=== PATIENT | male | born 1960 | race Caucasian/White ===

== ENCOUNTER 2019-12-18 07:51 | Outpatient (REF) | payer OTHER, SELFPAY ==
[2019-12-18 09:13] LABS: Anion Gap 14 (12-20); Blood Urea Nitrogen 40 mg/dL (9-16); Calcium 10.1 mg/dL (8.4-10.2); Carbon Dioxide 25 mmol/L (22-29); Chloride 104 mmol/L (96-108); Estimated Glomerular Filt Rate 40; Phosphorus 2.7 mg/dL (2.7-4.5); Potassium 4.8 mmol/l (3.3-5.1); Sodium 138 mmol/L (135-145)
[2019-12-18 10:05] LABS: Renal w Reflex Lab Use Only Order verified
== END 2019-12-18 07:52 | disposition home or self-care (01) ==
LOC: HO.LAB 07:51
PROVIDERS: PCP Internal Medicine; Visit Provider Internal Medicine Nephrology
DX: E11.21 Type 2 diabetes mellitus with diabetic nephropathy (principal); E11.22 Type 2 diabetes mellitus with diabetic chronic kidney disease; I12.9 Hypertensive chronic kidney disease with stage 1 through stage 4 chronic kidney disease, or unspecified chronic kidney disease; N18.30 Chronic kidney disease, stage 3 unspecified
CPT/HCPCS: 80051; 82310; 82565; 84100; 84520

== ENCOUNTER 2020-01-06 06:31 | Day surgery (SDC) | payer OTHER, SELFPAY ==
[2019-12-31 13:39] VITALS: BMI 34.8
--- NOTE | 2020-01-01 13:07 | P.CONAN_ITS ---
Documented by User: Audrey Espinosa 01/05/20 09:03 HPI - Anesthesia Eval Consult details Narrative: 59yo M for Colonoscopy Legally blind FOR[facility]LY [facility], [facility] Past Medical History Medical History Arthritis Bladder cancer CKD (chronic kidney disease) Diabetes Diabetes type 2, controlled DVT (deep venous thrombosis) Dyslipidemia HTN (hypertension) Legally blind Sleep apnea Iraqi speaking patient Thyroid disease Surgical History Surgical History H/O colonoscopy History of biopsy of bladder Hx of circumcision Hx of cystoscopy Hx of eye surgery Hx of knee surgery S/P insertion of IVC (inferior vena caval) filter Social History Social History Smoking Status: Never smoker Use of substances other than those prescribed or required for medical reasons: No Have you been hit, kicked, punched, or otherwise hurt by someone within the past year? If so, by whom?: No Advance Directives Information Provided: No Recently lost weight without trying: No Meds Allergies Allergy/AdvReac Type Severity Reaction Status Date / Time Penicillins [PENICILLINS] Allergy Intermediate RASH Verified 01/06/20 06:42 Home Medications Medication Instructions Recorded Confirmed Type dulaglutide [Trulicity] 1.5 mg SUBCUT QWEEK 12/31/19 12/31/19 History fenofibrate 1 tab PO DAILY 12/31/19 12/31/19 History insulin glargine [Basaglar KwikPen 40 unit SUBCUT QPM 12/31/19 12/31/19 History U-100 Insulin] insulin lispro [Admelog SoloStar 4 unit SUBCUT QID 12/31/19 12/31/19 History U-100 Insulin] levothyroxine 1 tab PO QAM 12/31/19 12/31/19 History lisinopril 1 tab PO DAILY 12/31/19 12/31/19 History lorazepam 1 tab PO BEDTIME PRN 12/31/19 12/31/19 History omega-3 fatty acids-fish oil [Fish 1 cap PO DAILY 12/31/19 12/31/19 History Oil] rivaroxaban [Xarelto] 1 tab PO DAILY 12/31/19 12/31/19 History Exam Exam Date and Time: January 01, 2020 1307 Height,Weight and Vital Signs: Height 5 ft 9 in Weight 107.048 kg Pertinent Lab Results Pertinent Lab Results: Laboratory Tests 10/13/19 12/18/19 08:57 08:10 WBC 6.7 Hgb 14.0 Hct 41.9 L Plt Count 212 Sodium 138 Potassium 4.8 Chloride 104 Carbon Dioxide 25 BUN 40 H Creatinine 1.75 H Narrative Narrative: EKG 02/2019: ST @ 112, low volt QRS Assessment and Plan Assessment Anesthesia Assessment: Chart Reviewed Documented by User: Gary Pimentel 01/06/20 07:39 PMFSH Past Medical History Medical History Arthritis Bladder cancer CKD (chronic kidney disease) Diabetes Diabetes type 2, controlled DVT (deep venous thrombosis) Dyslipidemia HTN (hypertension) Legally blind Sleep apnea Iraqi speaking patient Thyroid disease Surgical History Surgical History H/O colonoscopy History of biopsy of bladder Hx of circumcision Hx of cystoscopy Hx of eye surgery Hx of knee surgery S/P insertion of IVC (inferior vena caval) filter Social History Social History Smoking Status: Never smoker Use of substances other than those prescribed or required for medical reasons: No Have you been hit, kicked, punched, or otherwise hurt by someone within the past year? If so, by whom?: No Advance Directives Information Provided: No Recently lost weight without trying: No Meds Allergies Allergy/AdvReac Type Severity Reaction Status Date / Time Penicillins [PENICILLINS] Allergy Intermediate RASH Verified 01/06/20 06:42 Home Medications Medication Instructions Recorded Confirmed Type dulaglutide [Trulicity] 1.5 mg SUBCUT QWEEK 12/31/19 12/31/19 History fenofibrate 1 tab PO DAILY 12/31/19 12/31/19 History insulin glargine [Basaglar KwikPen 40 unit SUBCUT QPM 12/31/19 12/31/19 History U-100 Insulin] insulin lispro [Admelog RocíooStar 4 unit SUBCUT QID 12/31/19 12/31/19 History U-100 Insulin] levothyroxine 1 tab PO QAM 12/31/19 12/31/19 History lisinopril 1 tab PO DAILY 12/31/19 12/31/19 History lorazepam 1 tab PO BEDTIME PRN 12/31/19 12/31/19 History omega-3 fatty acids-fish oil [Fish 1 cap PO DAILY 12/31/19 12/31/19 History Oil] rivaroxaban [Xarelto] 1 tab PO DAILY 12/31/19 12/31/19 History Exam Airway Mallampati Class: III Neck ROM: Full Loose/Missing/Broken Teeth: No Heart: [id number] Lungs: cta b/l Assessment and Plan Assessment Anesthesia Assessment: Anesthesia Plan Discussed, PAT Visit and Chart Reviewed Final Anesthetic Review NPO: Yes ASA Class: III Final Preanesthetic Review: No Changes in Pt Med Stat, Meds/Allgs Chart Reviewed, Consent Obtained/Reviewed and Anes Risks/Benef Reviewed Patient Risk: Intermediate Procedure Risk: Low Assessment/Block/Sedation in SS: Assess/Block/Sedation-SS Anesthetic Plan Anesthetic Plan: MAC: Disposition: Standard PACU
[2020-01-06 06:43] VITALS: BP 129/74; PULSE 82; RESP 16; TEMP 36.6; O2SAT 96
[2020-01-06 07:03] LABS: Glucose, Whole Blood 96 mg/dL (60-115)
[2020-01-06] MEDS: Lactated Ringers 1,000 ML 100 ML IVCONT (07:10)
--- NOTE | 2020-01-06 07:17 | MHC.SHP ---
Pre-Procedural Eval Section A The patient is an INPATIENT: No The History & Physical has been completed within 30 days and I have reviewed it.: No Section B Chief Complaint: SCREENING Details of Present Illness: colon cancer screening Relevant Family History (Specify if Yes): No Relevant Social History: None Present Medications: see Short Stay Collaborative assessment Medical History: Significant History (type II diabetes. Hypertension. Hyperlipidemia. Legally blind - retinitis pigmentosa. Hypothyroidism. vitamin D deficiency. Sleep apnea. Chronic kidney disease. DVT lower legs. Phimosis. Bladder cancer. ) History of Previous Operations: Relevant previous surgery/procedure and date(s) (leg surgery knee surgery eye surgery testicle surgery bladder surgery R venaseal colonsocopy with Dr Fernandez 01/2018 ) Allergies: Allergies Allergy/AdvReac Type Severity Reaction Status Date / Time Penicillins [PENICILLINS] Allergy Intermediate RASH Verified 01/06/20 06:42 Review of Systems Sugical H&P ROS: Negative: Constitution, Cardiovascular, Respiratory and Gastrointestinal Exam Surgical H&P Exam: Normal: Heart, Normal: Lungs, Normal: Extremities and Normal: Abdomen Plan Diagnosis/Plan: Unchanged Patient has been examined and remains a candidate for the planned procedure
--- NOTE | 2020-01-06 07:40 | W.PM.OPN ---
Operative Note Operative Note Narrative: Date of procedure: 01/06/20 Pre-op diagnosis: Colon cancer screening Post-op diagnosis: other (Diverticulosis, hemorrhoids) Procedure: COLONOSCOPY TILL CECUM Consent: Indications for the procedure and potential complications of bleeding, perforation, reaction to medications and missed diagnosis were discussed with the patient and informed consent was obtained. Instrument: Olympus PCF H 190 L variable stiffness pediatric colonoscope Monitoring: Vital signs and clinical assessment, intermittent blood pressure monitoring, continuous EKG monitoring, Pulse oximetry and Carbon Dioxide monitoring were done throughout the procedure. Colon withdrawl time was 10 minutes. Procedure: The patient was placed in the left lateral decubitis position and pre-procedure medications were administered. After a digital rectal examination of the ano-rectum, the video colonoscope was inserted into the rectum and advanced through the colon to the cecum. The colonoscope was slowly withdrawn in a retrograde panoramic fashion and the colon mucosa was carefully examined including a retroflexed view of the rectum. Findings and interventions are described below. Procedure Difficulty: LLQ pressure applied to intubate the transverse colon/cecum Findings: Terminal Ileum: Not evaluated Cecum: Normal Ascending Colon: Normal Transverse Colon: Normal Descending Colon: Normal Sigmoid Colon: Moderate diverticulosis Rectum: Normal Ano-rectum: Small internal hemorrhoids Colon preparation: Excellent Impression and Post Procedure Diagnosis: Colonoscopy Findings: No polyps were detected Moderate diverticulosis seen in the colon Small hemorrhoids on retroflexed exam. Plan: Await pathology results Repeat Colonoscopy in 10 years. Above findings were reviewed with the patient diverticulosis handout was given in the discharge area Surgeon: Genevieve Fernandez MD Anesthesia: MAC (Dr Guerra) Manufacturing Chief Engineer: Ant Servin Estimated blood loss (mL): 0 Pathology: none sent Condition: stable Disposition: PACU
[2020-01-06 08:13] VITALS: BP 102/64; PULSE 90; RESP 14; TEMP 37.2; O2SAT 100
[2020-01-06 08:28] VITALS: BP 116/78; PULSE 87; RESP 16; TEMP 37.1; O2SAT 96
--- NOTE | 2020-01-06 08:54 | HO.POSTANES ---
Post Anesthesia Evaluation Post Anesthesia Evaluation Vital Signs: Vital Signs Temp Pulse Resp BP Pulse Ox 01/06/20 08:28 98.7 F 87 16 116/78 96 01/06/20 08:13 98.9 F 90 14 102/64 100 01/06/20 06:43 97.9 F 82 16 129/74 96 Anesthesia: Monitored Mental Status: Awake Pain Control: Satisfactory Nausea/Vomiting: None Hydration: Adequate Anesthesia-Related Issues: No Anes. Related Issues
== END 2020-01-06 09:15 | disposition home or self-care (01) ==
PROVIDERS: PCP Internal Medicine; Visit Provider Internal Medicine Gastroenterology
PROC: 0DJD8ZZ Inspection of Lower Intestinal Tract, Via Natural or Artificial Opening Endoscopic (ICD-10-PCS; CPT 45378; principal; 2020-01-06 07:30)
DX: Z12.11 Encounter for screening for malignant neoplasm of colon (principal); K57.30 Diverticulosis of large intestine without perforation or abscess without bleeding; K64.8 Other hemorrhoids; E11.22 Type 2 diabetes mellitus with diabetic chronic kidney disease; I12.9 Hypertensive chronic kidney disease with stage 1 through stage 4 chronic kidney disease, or unspecified chronic kidney disease; N18.30 Chronic kidney disease, stage 3 unspecified; Z79.4 Long term (current) use of insulin; E11.42 Type 2 diabetes mellitus with diabetic polyneuropathy; I82.403 Acute embolism and thrombosis of unspecified deep veins of lower extremity, bilateral; H54.8 Legal blindness, as defined in USA; H35.52 Pigmentary retinal dystrophy; G47.30 Sleep apnea, unspecified; E55.9 Vitamin D deficiency, unspecified; Z85.51 Personal history of malignant neoplasm of bladder; Z79.899 Other long term (current) drug therapy; Z88.0 Allergy status to penicillin
CPT/HCPCS: 45378; 82947

== ENCOUNTER → 2020-01-19 09:07 | Outpatient (BNVA) | payer OTHER, SELFPAY | PROVIDERS: PCP Internal Medicine; Visit Provider Nurse Practitioner Gerontology | DX: E11.22 Type 2 diabetes mellitus with diabetic chronic kidney disease (principal); N18.9 Chronic kidney disease, unspecified; E11.42 Type 2 diabetes mellitus with diabetic polyneuropathy; Z79.4 Long term (current) use of insulin | CPT/HCPCS: 82947; 99212 ==

== ENCOUNTER 2020-01-26 06:32 | Outpatient (REF) | payer OTHER, SELFPAY ==
[2020-01-26 07:08] LABS: Basophils Percent Auto 0.5 % (0-2); Eosinophils Absolute Auto 0.2 X10*3/uL (0.0-0.4); Eosinophils Percent Auto 3.1 % (0-4); Hematocrit 42.9 % (42-52); Hemoglobin 14.2 g/dl (14.0-18.0); Imm Gran Abs Auto 0.02 X10*3/uL (0.00-0.03); Imm Gran Pct Auto 0.3 % (0.0-0.4); Lymphocytes Absolute Auto 1.6 X10*3/uL (1.2-4.9); Lymphocytes Percent Auto 26.6 % (20-40); MANUAL DIFF FLAG NO; Mean Corpuscular HGB Conc 33.1 g/dl (31.0-36.0); Mean Corpuscular Hemoglobin 31.3 pg (27.0-33.0); Mean Corpuscular Volume 94.5 fL (80-98); Mean Platelet Volume 11.4 fL (9.4-12.4); Monocytes Absolute Auto 0.6 X10*3/uL (0.1-1.2); Monocytes Percent Auto 9.5 % (2-11); Neutrophils Absolute Auto 3.7 X10*3/uL (2.0-8.3); Platelet Count 194 X10*3/uL (160-400); Red Blood Count 4.54 X10*6/uL (4.60-5.80); Red Cell Distribution Width 13.2 % (11.0-16.0); White Blood Count 6.1 X10*3/uL (4.8-10.8)
[2020-01-26 07:37] LABS: Alanine Aminotransferase 22 U/L (0-40); Albumin Level 4.4 g/dL (3.5-5.0); Alkaline Phosphatase 33 U/L (39-117); Anion Gap 13 (12-20); Aspartate Amino Transferase 21 U/L (5-37); Bilirubin Total 0.8 mg/dL (0.0-1.0); Blood Urea Nitrogen 31 mg/dL (9-16); Calcium 9.8 mg/dL (8.4-10.2); Carbon Dioxide 27 mmol/L (22-29); Chloride 108 mmol/L (96-108); Estimated Glomerular Filt Rate 49; Glucose Fasting 90 mg/dL (60-99); Potassium 4.9 mmol/l (3.3-5.1); Sodium 143 mmol/L (135-145); Total Protein 7.2 g/dL (6.5-8.0)
[2020-01-26 07:57] LABS: TSH reflex Free T4 1.24 mIU/mL (0.32-4.0)
== END 2020-01-26 06:33 | disposition home or self-care (01) ==
LOC: HO.LAB 06:32
PROVIDERS: Visit Provider Internal Medicine
DX: E11.22 Type 2 diabetes mellitus with diabetic chronic kidney disease (principal); I12.9 Hypertensive chronic kidney disease with stage 1 through stage 4 chronic kidney disease, or unspecified chronic kidney disease; N18.9 Chronic kidney disease, unspecified; E78.00 Pure hypercholesterolemia, unspecified; E03.9 Hypothyroidism, unspecified; E11.65 Type 2 diabetes mellitus with hyperglycemia; Z86.718 Personal history of other venous thrombosis and embolism
CPT/HCPCS: 36415; 80053; 84443; 85025

== ENCOUNTER → 2020-02-02 09:58 | Outpatient (BNVA) | payer OTHER, SELFPAY | PROVIDERS: PCP Internal Medicine; Referring Provider Internal Medicine; Visit Provider Internal Medicine Endocrinology, Diabetes & Metabolism | DX: E11.649 Type 2 diabetes mellitus with hypoglycemia without coma (principal); E11.22 Type 2 diabetes mellitus with diabetic chronic kidney disease; E11.65 Type 2 diabetes mellitus with hyperglycemia; E11.42 Type 2 diabetes mellitus with diabetic polyneuropathy; N18.30 Chronic kidney disease, stage 3 unspecified; E04.2 Nontoxic multinodular goiter; E78.5 Hyperlipidemia, unspecified; E66.9 Obesity, unspecified; Z79.4 Long term (current) use of insulin | CPT/HCPCS: 82947; 99212 ==

== ENCOUNTER → 2020-02-03 09:12 | Outpatient (BNVA) | payer OTHER, SELFPAY | PROVIDERS: PCP Internal Medicine; Referring Provider Internal Medicine; Visit Provider Nurse Practitioner | DX: Z76.89 Persons encountering health services in other specified circumstances (principal) ==

== ENCOUNTER 2020-04-22 06:54 | Outpatient (REF) | payer OTHER, SELFPAY ==
[2020-04-22 07:37] LABS: MANUAL DIFF FLAG NO
[2020-04-22 07:42] LABS: Basophils Percent Auto 0.4 % (0-2); Eosinophils Absolute Auto 0.3 X10*3/uL (0.0-0.4); Eosinophils Percent Auto 3.8 % (0-4); Hematocrit 41.2 % (42-52); Hemoglobin 13.9 g/dl (14.0-18.0); Imm Gran Abs Auto 0.05 X10*3/uL (0.00-0.03); Imm Gran Pct Auto 0.7 % (0.0-0.4); Lymphocytes Absolute Auto 1.7 X10*3/uL (1.2-4.9); Lymphocytes Percent Auto 24.6 % (20-40); Mean Corpuscular HGB Conc 33.7 g/dl (31.0-36.0); Mean Corpuscular Hemoglobin 31.2 pg (27.0-33.0); Mean Corpuscular Volume 92.4 fL (80-98); Mean Platelet Volume 11.8 fL (9.4-12.4); Monocytes Absolute Auto 0.5 X10*3/uL (0.1-1.2); Monocytes Percent Auto 7.7 % (2-11); Neutrophils Absolute Auto 4.3 X10*3/uL (2.0-8.3); Neutrophils Percent Auto 62.8 % (45-73); Platelet Count 192 X10*3/uL (160-400); Red Blood Count 4.46 X10*6/uL (4.60-5.80); Red Cell Distribution Width 13.1 % (11.0-16.0); White Blood Count 6.8 X10*3/uL (4.8-10.8)
[2020-04-22 08:10] LABS: Creatinine Urine 75.89 mg/dL; Microalbum/Creatinine Ratio Ur 32.9 ug/mg cr
[2020-04-22 08:18] LABS: Alanine Aminotransferase 31 U/L (0-40); Albumin Level 4.2 g/dL (3.5-5.0); Alkaline Phosphatase 38 U/L (39-117); Anion Gap 15 (12-20); Aspartate Amino Transferase 21 U/L (5-37); Bilirubin Total 0.3 mg/dL (0.0-1.0); Blood Urea Nitrogen 41 mg/dL (9-16); Calcium 10.4 mg/dL (8.4-10.2); Carbon Dioxide 24 mmol/L (22-29); Chloride 106 mmol/L (96-108); Cholesterol 166 mg/dL; Estimated Glomerular Filt Rate 41; Glucose Random 290 mg/dL (60-115); HDL Cholesterol 31 mg/dL; LDL Cholesterol Calculated 74 mg/dl; Potassium 4.6 mmol/L (3.3-5.1); Sodium 140 mmol/L (135-145); Total Protein 6.9 g/dL (6.5-8.0); Triglycerides 308 mg/dL
[2020-04-22 08:45] LABS: Free T4 (Free Thyroxine) 1.04 ng/dL (0.71-1.85); Prostate Specific Antigen Scr 0.29 ng/mL (<0.05-4.0); Thyroid Stimulating Hormone 1.92 uIU/mL (0.32-4.0)
[2020-04-22 19:41] LABS: Folate 12.3 ng/mL (> or = 4.0); Vitamin B12 1180 pg/mL (200-900)
== END 2020-04-22 06:55 | disposition home or self-care (01) ==
LOC: HO.LAB 06:54
PROVIDERS: PCP Internal Medicine; Visit Provider Internal Medicine
DX: E04.2 Nontoxic multinodular goiter (principal); E78.00 Pure hypercholesterolemia, unspecified; E78.5 Hyperlipidemia, unspecified; E11.22 Type 2 diabetes mellitus with diabetic chronic kidney disease; E11.65 Type 2 diabetes mellitus with hyperglycemia; E11.21 Type 2 diabetes mellitus with diabetic nephropathy; I12.9 Hypertensive chronic kidney disease with stage 1 through stage 4 chronic kidney disease, or unspecified chronic kidney disease; N18.32 Chronic kidney disease, stage 3b; Z79.4 Long term (current) use of insulin
CPT/HCPCS: 36415; 80053; 80061; 82043; 82607; 82746; 84153; 84439; 84443; 85025

== ENCOUNTER → 2020-06-02 08:31 | Outpatient (BNVA) | payer OTHER, SELFPAY | PROVIDERS: PCP Internal Medicine; Visit Provider Internal Medicine Endocrinology, Diabetes & Metabolism | DX: E11.649 Type 2 diabetes mellitus with hypoglycemia without coma (principal); E11.42 Type 2 diabetes mellitus with diabetic polyneuropathy; E11.22 Type 2 diabetes mellitus with diabetic chronic kidney disease; I12.9 Hypertensive chronic kidney disease with stage 1 through stage 4 chronic kidney disease, or unspecified chronic kidney disease; N18.32 Chronic kidney disease, stage 3b; Z79.4 Long term (current) use of insulin; E04.2 Nontoxic multinodular goiter; E78.5 Hyperlipidemia, unspecified; I10 Essential (primary) hypertension; E66.9 Obesity, unspecified | CPT/HCPCS: 82947; 99212 ==

== ENCOUNTER 2020-06-21 07:23 | Outpatient (REF) | payer OTHER, SELFPAY ==
[2020-06-21 08:07] LABS: Estimated Average Glucose 160 mg/dL; Hemoglobin A1c % 7.2 %
[2020-06-21 08:58] LABS: Creatinine Urine 155.62 mg/dL
== END 2020-06-21 07:24 | disposition home or self-care (01) ==
LOC: HO.LAB 07:23
PROVIDERS: PCP Internal Medicine; Visit Provider Internal Medicine
DX: N18.32 Chronic kidney disease, stage 3b (principal); E11.22 Type 2 diabetes mellitus with diabetic chronic kidney disease; E11.21 Type 2 diabetes mellitus with diabetic nephropathy; E11.65 Type 2 diabetes mellitus with hyperglycemia; Z79.4 Long term (current) use of insulin
CPT/HCPCS: 36415; 83036

== ENCOUNTER 2020-06-22 07:43 | Outpatient (REF) | payer OTHER, SELFPAY ==
[2020-06-22 09:33] LABS: Anion Gap 15 (12-20); Blood Urea Nitrogen 43 mg/dL (9-16); Calcium 9.7 mg/dL (8.4-10.2); Carbon Dioxide 23 mmol/L (22-29); Chloride 109 mmol/L (96-108); Estimated Glomerular Filt Rate 49; Phosphorus 2.3 mg/dL (2.7-4.5); Potassium 4.8 mmol/L (3.3-5.1); Sodium 142 mmol/L (135-145)
[2020-06-24 13:13] LABS: Urine Cytology See Pathology rpt
== END 2020-06-22 07:44 | disposition home or self-care (01) ==
LOC: HO.LAB 07:43
PROVIDERS: Urology; PCP Internal Medicine; Visit Provider Internal Medicine Nephrology
DX: C67.9 Malignant neoplasm of bladder, unspecified (principal); N40.1 Benign prostatic hyperplasia with lower urinary tract symptoms; N13.8 Other obstructive and reflux uropathy
CPT/HCPCS: 36415; 52000; 80051; 81002; 82310; 82565; 84100; 84520; 88112; 99212

== ENCOUNTER 2021-01-05 13:47 | Outpatient (REF) | payer OTHER, SELFPAY ==
[2021-01-05 14:19] LABS: MANUAL DIFF FLAG NO
[2021-01-05 15:13] LABS: Basophils Percent Auto 0.4 % (0-2); Eosinophils Absolute Auto 0.1 X10*3/uL (0.0-0.4); Eosinophils Percent Auto 1.8 % (0-4); Hematocrit 41.6 % (42.0-52.0); Hemoglobin 13.9 g/dl (14.0-18.0); Imm Gran Abs Auto 0.04 X10*3/uL (0.00-0.03); Imm Gran Pct Auto 0.5 % (0.0-0.4); Lymphocytes Absolute Auto 1.4 X10*3/uL (1.2-4.9); Mean Corpuscular HGB Conc 33.4 g/dl (31.0-36.0); Mean Corpuscular Hemoglobin 31.2 pg (27.0-33.0); Mean Corpuscular Volume 93.5 fL (80.0-98.0); Mean Platelet Volume 11.8 fL (9.4-12.4); Monocytes Absolute Auto 0.6 X10*3/uL (0.1-1.2); Monocytes Percent Auto 7.5 % (2-11); Neutrophils Absolute Auto 5.4 x10*3/uL (2.0-8.3); Neutrophils Percent Auto 70.8 % (45-73); Platelet Count 208 X10*3/uL (160-400); Red Blood Count 4.45 X10*6/uL (4.60-5.80); Red Cell Distribution Width 13.4 % (11.0-16.0); White Blood Count 7.6 X10*3/uL (4.8-10.8)
[2021-01-05 15:40] LABS: Anion Gap 10 (12-20); Blood Urea Nitrogen 25 mg/dL (9-16); Calcium 10.1 mg/dL (8.4-10.2); Carbon Dioxide 29 mmol/L (22-29); Chloride 110 mmol/L (96-108); Estimated Glomerular Filt Rate 51; Glucose Random 90 mg/dL (60-115); Phosphorus 3.3 mg/dL (2.7-4.5); Potassium 4.3 mmol/L (3.3-5.1); Sodium 145 mmol/L (135-145)
[2021-01-05 15:42] LABS: Creatinine Urine 105.11 mg/dL; Total Protein Urine Random < 7 mg/dL (<12)
[2021-01-05 16:03] LABS: PSA,Total (Free>4and<10) 0.29 ng/mL (0.00-4.00)
[2021-01-06 15:41] LABS: Calcium (PTHI) 10.2 mg/dL (8.6-10.3); PTHI 17 pg/mL (14-64)
== END 2021-01-05 13:48 | disposition home or self-care (01) ==
LOC: HO.LAB 13:47
PROVIDERS: Absent Provider Urology; PCP Internal Medicine; Visit Provider Internal Medicine Nephrology
DX: Z12.5 Encounter for screening for malignant neoplasm of prostate (principal); I12.9 Hypertensive chronic kidney disease with stage 1 through stage 4 chronic kidney disease, or unspecified chronic kidney disease; N18.32 Chronic kidney disease, stage 3b; E11.22 Type 2 diabetes mellitus with diabetic chronic kidney disease; E11.21 Type 2 diabetes mellitus with diabetic nephropathy; N13.8 Other obstructive and reflux uropathy; N40.1 Benign prostatic hyperplasia with lower urinary tract symptoms
CPT/HCPCS: 36415; 80048; 83970; 84100; 84153; 84156; 85025

== ENCOUNTER → 2021-02-28 14:25 | Outpatient (BNV) | payer OTHER, SELFPAY | PROVIDERS: PCP Internal Medicine; Visit Provider Internal Medicine | DX: I82.402 Acute embolism and thrombosis of unspecified deep veins of left lower extremity (principal); Z79.01 Long term (current) use of anticoagulants | CPT/HCPCS: 99213; 99214 ==

== ENCOUNTER 2021-03-09 10:30 | Outpatient (REF) | payer OTHER, SELFPAY | END 2021-03-09 10:31 | disposition home or self-care (01) | LOC: HO.LAB 10:30 | PROVIDERS: PCP Internal Medicine; Visit Provider Urology | DX: C67.9 Malignant neoplasm of bladder, unspecified (principal); N40.1 Benign prostatic hyperplasia with lower urinary tract symptoms; N13.8 Other obstructive and reflux uropathy | CPT/HCPCS: 52000; 99212 ==

== ENCOUNTER → 2021-03-21 10:57 | Outpatient (BNVA) | payer OTHER, SELFPAY | PROVIDERS: PCP Internal Medicine; Visit Provider Nurse Practitioner Gerontology | DX: E11.42 Type 2 diabetes mellitus with diabetic polyneuropathy (principal); I12.9 Hypertensive chronic kidney disease with stage 1 through stage 4 chronic kidney disease, or unspecified chronic kidney disease; N18.32 Chronic kidney disease, stage 3b; E78.5 Hyperlipidemia, unspecified; E66.9 Obesity, unspecified; Z79.4 Long term (current) use of insulin; Z68.31 Body mass index [BMI] 31.0-31.9, adult | CPT/HCPCS: 82947; 99212 ==

== ENCOUNTER → 2021-04-04 13:44 | Outpatient (BNVA) | payer OTHER, SELFPAY | PROVIDERS: PCP Internal Medicine; Visit Provider Dietitian, Registered | DX: E11.42 Type 2 diabetes mellitus with diabetic polyneuropathy (principal) | CPT/HCPCS: 97802 ==

== ENCOUNTER 2021-04-14 07:26 | Outpatient (REF) | payer OTHER, SELFPAY ==
[2021-04-14 07:57] LABS: MANUAL DIFF FLAG NO
[2021-04-14 08:31] LABS: Urine Cytology See Pathology rpt
[2021-04-14 08:40] LABS: Basophils Percent Auto 0.6 % (0-2); Eosinophils Absolute Auto 0.3 X10*3/uL (0.0-0.4); Eosinophils Percent Auto 4.7 % (0-4); Hemoglobin 14.5 g/dl (14.0-18.0); Imm Gran Abs Auto 0.04 X10*3/uL (0.00-0.03); Imm Gran Pct Auto 0.6 % (0.0-0.4); Lymphocytes Absolute Auto 1.6 X10*3/uL (1.2-4.9); Lymphocytes Percent Auto 23.4 % (20-40); Mean Corpuscular Hemoglobin 31.3 pg (27.0-33.0); Mean Platelet Volume 11.4 fL (9.4-12.4); Monocytes Absolute Auto 0.6 X10*3/uL (0.1-1.2); Monocytes Percent Auto 9.2 % (2-11); Neutrophils Absolute Auto 4.2 x10*3/uL (2.0-8.3); Neutrophils Percent Auto 61.5 % (45-73); Platelet Count 196 X10*3/uL (160-400); Red Blood Count 4.63 X10*6/uL (4.60-5.80); Red Cell Distribution Width 13.4 % (11.0-16.0); White Blood Count 6.8 X10*3/uL (4.8-10.8)
[2021-04-14 08:55] LABS: Alanine Aminotransferase 16 U/L (0-40); Albumin Level 4.2 g/dL (3.5-5.0); Alkaline Phosphatase 41 U/L (39-117); Anion Gap 11 (12-20); Aspartate Amino Transferase 17 U/L (5-37); Bilirubin Total 0.7 mg/dL (0.0-1.0); Blood Urea Nitrogen 24 mg/dL (9-16); Calcium 10.2 mg/dL (8.4-10.2); Carbon Dioxide 28 mmol/L (22-29); Chloride 106 mmol/L (96-108); Cholesterol 121 mg/dL; Estimated Glomerular Filt Rate 59; Glucose Random 124 mg/dL (60-115); HDL Cholesterol 35 mg/dL; LDL Cholesterol Calculated 68 mg/dl; Potassium 4.8 mmol/L (3.3-5.1); Sodium 140 mmol/L (135-145); Total Protein 6.9 g/dL (6.5-8.0); Triglycerides 94 mg/dL
[2021-04-14 08:57] LABS: Estimated Average Glucose 148 mg/dL; Hemoglobin A1c % 6.8 %
[2021-04-14 09:02] LABS: Anion Gap 14 (12-20); Blood Urea Nitrogen 24 mg/dL (9-16); Calcium 10.1 mg/dL (8.4-10.2); Carbon Dioxide 26 mmol/L (22-29); Chloride 106 mmol/L (96-108); Estimated Glomerular Filt Rate 60; Phosphorus 2.7 mg/dL (2.7-4.5); Potassium 4.9 mmol/L (3.3-5.1); Sodium 141 mmol/L (135-145)
[2021-04-14 09:09] LABS: Creatinine Urine 82.23 mg/dL; Microalbum/Creatinine Ratio Ur 21.8 ug/mg cr
[2021-04-14 09:19] LABS: Free T4 (Free Thyroxine) 1.09 ng/dL (0.71-1.85); Prostate Specific Antigen Scr 0.34 ng/mL (<0.05-4.0); Thyroid Stimulating Hormone 1.94 uIU/mL (0.32-4.0)
[2021-04-14 09:29] LABS: Folate > 20.0 ng/mL (> or = 4.0); Vitamin B12 1040 pg/mL (200-900)
[2021-04-15 12:47] LABS: PTHI 19 pg/mL (14-64)
== END 2021-04-14 07:27 | disposition home or self-care (01) ==
LOC: HO.LAB 07:26
PROVIDERS: Internal Medicine Nephrology; Urology; Absent Provider Nurse Practitioner Gerontology; PCP Internal Medicine; Visit Provider Internal Medicine
DX: Z12.5 Encounter for screening for malignant neoplasm of prostate (principal); C67.9 Malignant neoplasm of bladder, unspecified; I12.9 Hypertensive chronic kidney disease with stage 1 through stage 4 chronic kidney disease, or unspecified chronic kidney disease; N18.32 Chronic kidney disease, stage 3b; E11.22 Type 2 diabetes mellitus with diabetic chronic kidney disease; E11.21 Type 2 diabetes mellitus with diabetic nephropathy; E11.65 Type 2 diabetes mellitus with hyperglycemia; I10 Essential (primary) hypertension; E78.5 Hyperlipidemia, unspecified; E78.00 Pure hypercholesterolemia, unspecified; Z79.4 Long term (current) use of insulin
CPT/HCPCS: 36415; 80051; 80053; 80061; 82043; 82310; 82565; 82607; 82746; 83036; 83970; 84100; 84153; 84439; 84443; 84520; 85025; 88112

== ENCOUNTER 2021-07-05 07:48 | Outpatient (REF) | payer OTHER, SELFPAY ==
[2021-07-05 08:21] LABS: MANUAL DIFF FLAG NO
[2021-07-05 08:54] LABS: Basophils Percent Auto 0.5 % (0-2); Eosinophils Absolute Auto 0.3 X10*3/uL (0.0-0.4); Eosinophils Percent Auto 4.8 % (0-4); Hematocrit 41.6 % (42.0-52.0); Hemoglobin 13.7 g/dl (14.0-18.0); Imm Gran Abs Auto 0.03 X10*3/uL (0.00-0.03); Imm Gran Pct Auto 0.5 % (0.0-0.4); Lymphocytes Absolute Auto 1.6 X10*3/uL (1.2-4.9); Mean Corpuscular HGB Conc 32.9 g/dl (31.0-36.0); Mean Corpuscular Hemoglobin 31.1 pg (27.0-33.0); Mean Corpuscular Volume 94.5 fL (80.0-98.0); Mean Platelet Volume 11.9 fL (9.4-12.4); Monocytes Absolute Auto 0.6 X10*3/uL (0.1-1.2); Monocytes Percent Auto 9.6 % (2-11); Neutrophils Absolute Auto 3.9 x10*3/uL (2.0-8.3); Neutrophils Percent Auto 60.6 % (45-73); Platelet Count 175 X10*3/uL (160-400); Red Cell Distribution Width 12.9 % (11.0-16.0); White Blood Count 6.5 X10*3/uL (4.8-10.8)
[2021-07-05 09:52] LABS: Alanine Aminotransferase 18 U/L (0-40); Albumin Level 4.1 g/dL (3.5-5.0); Alkaline Phosphatase 37 U/L (39-117); Anion Gap 12 (12-20); Aspartate Amino Transferase 16 U/L (5-37); Bilirubin Total 0.5 mg/dL (0.0-1.0); Blood Urea Nitrogen 41 mg/dL (9-16); Calcium 10.5 mg/dL (8.4-10.2); Carbon Dioxide 27 mmol/L (22-29); Chloride 107 mmol/L (96-108); Estimated Glomerular Filt Rate 47; Glucose Random 128 mg/dL (60-115); Phosphorus 2.7 mg/dL (2.7-4.5); Potassium 4.7 mmol/L (3.3-5.1); Sodium 141 mmol/L (135-145)
[2021-07-05 11:59] LABS: Creatinine Urine 58.96 mg/dL; Microalbum/Creatinine Ratio Ur 18.6 ug/mg cr
[2021-07-07 14:46] LABS: Calcium (PTHI) 10.2 mg/dL (8.6-10.3); PTHI 11 pg/mL (16-77)
== END 2021-07-05 07:49 | disposition home or self-care (01) ==
LOC: HO.LAB 07:48
PROVIDERS: PCP Internal Medicine; Visit Provider Internal Medicine Nephrology
DX: N18.32 Chronic kidney disease, stage 3b (principal)
CPT/HCPCS: 36415; 80053; 82043; 83970; 84100; 85025

== ENCOUNTER → 2021-07-11 10:13 | Outpatient (BNVA) | payer OTHER, SELFPAY | PROVIDERS: PCP Internal Medicine; Visit Provider Nurse Practitioner Gerontology | DX: E11.42 Type 2 diabetes mellitus with diabetic polyneuropathy (principal); E11.22 Type 2 diabetes mellitus with diabetic chronic kidney disease; I12.9 Hypertensive chronic kidney disease with stage 1 through stage 4 chronic kidney disease, or unspecified chronic kidney disease; N18.32 Chronic kidney disease, stage 3b; E78.5 Hyperlipidemia, unspecified; E66.9 Obesity, unspecified; Z79.4 Long term (current) use of insulin; Z68.33 Body mass index [BMI] 33.0-33.9, adult | CPT/HCPCS: 82947; 83036; 99212 ==

== ENCOUNTER 2021-08-09 09:55 | Outpatient (REF) | payer OTHER, SELFPAY ==
[2021-08-09 10:59] LABS: COVID-19 Test Negative (Negative); IDNOW Serial# 9DB6401D
== END 2021-08-09 09:56 | disposition home or self-care (01) ==
LOC: HO.LAB 09:55
PROVIDERS: Visit Provider Internal Medicine
DX: Z20.822 Contact with and (suspected) exposure to COVID-19 (principal)
CPT/HCPCS: 87635; C9803

== ENCOUNTER 2021-09-26 07:56 | Outpatient (REF) | payer OTHER, SELFPAY ==
[2021-09-26 08:43] LABS: COVID-19 Test Negative (Negative); IDNOW Serial# 16C4AD1C
== END 2021-09-26 07:57 | disposition home or self-care (01) ==
LOC: HO.LAB 07:56
PROVIDERS: Visit Provider Internal Medicine
DX: Z20.822 Contact with and (suspected) exposure to COVID-19 (principal)
CPT/HCPCS: 87635; C9803

== ENCOUNTER 2021-10-03 07:38 | Outpatient (REF) | payer OTHER, SELFPAY ==
[2021-10-03 08:09] LABS: COVID-19 Test Negative (Negative); IDNOW Serial# 55D5AD1C
== END 2021-10-03 07:39 | disposition home or self-care (01) ==
LOC: HO.LAB 07:38
PROVIDERS: Visit Provider Internal Medicine
DX: Z20.822 Contact with and (suspected) exposure to COVID-19 (principal)
CPT/HCPCS: 87635; C9803

== ENCOUNTER 2021-10-27 07:31 | Outpatient (REF) | payer OTHER, SELFPAY ==
[2021-10-27 10:02] LABS: Estimated Average Glucose 151 mg/dL; Hemoglobin A1c % 6.9 %
== END 2021-10-27 07:32 | disposition home or self-care (01) ==
LOC: HO.LAB 07:31
PROVIDERS: Absent Provider Internal Medicine; PCP Internal Medicine; Visit Provider Nurse Practitioner Gerontology
DX: E11.65 Type 2 diabetes mellitus with hyperglycemia (principal)
CPT/HCPCS: 36415; 83036

== ENCOUNTER 2021-12-01 07:41 | Outpatient (REF) | payer OTHER, SELFPAY ==
[2021-12-01 08:13] LABS: MANUAL DIFF FLAG NO
[2021-12-01 08:46] LABS: Basophils Percent Auto 0.5 % (0-2); Eosinophils Absolute Auto 0.5 X10*3/uL (0.0-0.4); Eosinophils Percent Auto 7.8 % (0-4); Hematocrit 39.6 % (42.0-52.0); Hemoglobin 13.4 g/dl (14.0-18.0); Imm Gran Abs Auto 0.04 X10*3/uL (0.00-0.03); Imm Gran Pct Auto 0.7 % (0.0-0.4); Lymphocytes Absolute Auto 1.3 X10*3/uL (1.2-4.9); Lymphocytes Percent Auto 22.3 % (20-40); Mean Corpuscular HGB Conc 33.8 g/dl (31.0-36.0); Mean Corpuscular Hemoglobin 31.1 pg (27.0-33.0); Mean Corpuscular Volume 91.9 fL (80.0-98.0); Mean Platelet Volume 11.4 fL (9.4-12.4); Monocytes Absolute Auto 0.6 X10*3/uL (0.1-1.2); Monocytes Percent Auto 9.7 % (2-11); Neutrophils Absolute Auto 3.5 x10*3/uL (2.0-8.3); Platelet Count 185 X10*3/uL (160-400); Red Blood Count 4.31 X10*6/uL (4.60-5.80); Red Cell Distribution Width 13.4 % (11.0-16.0); Retic HGB Equivalent 35.8 pg (30.0-35.0); Reticulocyte Percent 3.1 % (0.5-1.8); Reticulocytes Absolute 0.132 X10*6/uL (0.026-0.095); White Blood Count 5.9 X10*3/uL (4.8-10.8)
[2021-12-01 09:01] LABS: Anion Gap 13 (12-20); Blood Urea Nitrogen 39 mg/dL (9-16); Calcium 9.6 mg/dL (8.4-10.2); Carbon Dioxide 25 mmol/L (22-29); Chloride 106 mmol/L (96-108); Estimated Glomerular Filt Rate 45; Potassium 4.2 mmol/L (3.3-5.1); Sodium 140 mmol/L (135-145)
[2021-12-01 09:07] LABS: Alanine Aminotransferase 22 U/L (0-40); Alkaline Phosphatase 32 U/L (39-117); Anion Gap 14 (12-20); Aspartate Amino Transferase 19 U/L (5-37); Bilirubin Total 0.7 mg/dL (0.0-1.0); Blood Urea Nitrogen 38 mg/dL (9-16); Calcium 9.7 mg/dL (8.4-10.2); Carbon Dioxide 24 mmol/L (22-29); Chloride 107 mmol/L (96-108); Estimated Glomerular Filt Rate 45; Glucose Random 166 mg/dL (60-115); Iron 108 mcg/dL (45-160); Percent Iron Saturation 31 % (15-50); Potassium 4.3 mmol/L (3.3-5.1); Sodium 141 mmol/L (135-145); Total Iron Binding Capacity 348 mcg/dL (228-428); Total Protein 6.6 g/dL (6.5-8.0); Unsaturated Iron Binding 240 ug/dL
[2021-12-01 09:09] LABS: Creatinine Urine 65.08 mg/dL; Microalbumin Urine < 5.0 mg/L
[2021-12-01 09:28] LABS: Vitamin D 25-OH Total 41.2 ng/mL (>30)
[2021-12-01 09:29] LABS: Ferritin 246 ng/mL (20-250)
[2021-12-01 10:09] LABS: Folate > 20.0 ng/mL (> or = 4.0); Vitamin B12 1656 pg/mL (200-900)
[2021-12-02 13:22] LABS: Calcium (PTHI) 9.3 mg/dL (8.6-10.3); PTHI 23 pg/mL (16-77)
== END 2021-12-01 07:42 | disposition home or self-care (01) ==
LOC: HO.LAB 07:41
PROVIDERS: PCP Internal Medicine; Visit Provider Internal Medicine Nephrology
DX: E11.65 Type 2 diabetes mellitus with hyperglycemia (principal); N18.32 Chronic kidney disease, stage 3b; Z79.4 Long term (current) use of insulin
CPT/HCPCS: 36415; 80051; 80053; 82043; 82306; 82310; 82565; 82607; 82728; 82746; 83540; 83970; 84100; 84520; 85025; 85045

== ENCOUNTER 2022-02-09 10:49 | Outpatient (REF) | payer OTHER, SELFPAY ==
[2022-02-09 11:47] LABS: Immature Retic Fraction 19.8 % (2.3-13.4); Retic HGB Equivalent 36.9 pg (30.0-35.0); Reticulocyte Percent 2.7 % (0.5-1.8); Reticulocytes Absolute 0.117 X10*6/uL (0.026-0.095)
[2022-02-09 14:11] LABS: Ferritin 267 ng/mL (20-250)
[2022-02-09 14:30] LABS: Iron 96 mcg/dL (45-160); Percent Iron Saturation 26 % (15-50); Total Iron Binding Capacity 363 mcg/dL (228-428); Unsaturated Iron Binding 267 ug/dL
== END 2022-02-09 10:50 | disposition home or self-care (01) ==
LOC: HO.LAB 10:49
PROVIDERS: PCP Internal Medicine; Visit Provider Internal Medicine
DX: N18.32 Chronic kidney disease, stage 3b (principal)
CPT/HCPCS: 36415; 82728; 83540; 85045

== ENCOUNTER 2022-04-04 09:04 | Outpatient (REF) | payer OTHER, SELFPAY ==
[2022-04-04 17:50] LABS: Urine Cytology See Pathology rpt
== END 2022-04-04 09:05 | disposition home or self-care (01) ==
LOC: HO.LAB 09:04
PROVIDERS: PCP Internal Medicine; Visit Provider Urology
DX: C67.9 Malignant neoplasm of bladder, unspecified (principal); N40.1 Benign prostatic hyperplasia with lower urinary tract symptoms; N13.8 Other obstructive and reflux uropathy
CPT/HCPCS: 52000; 88112; 99212

== ENCOUNTER 2022-05-12 07:30 | Outpatient (REF) | payer OTHER, SELFPAY ==
[2022-05-12 07:49] LABS: MANUAL DIFF FLAG NO
[2022-05-12 08:18] LABS: Basophils Absolute Auto 0.1 X10*3/uL (0.0-0.2); Basophils Percent Auto 0.8 % (0-2); Eosinophils Absolute Auto 0.2 X10*3/uL (0.0-0.4); Eosinophils Percent Auto 3.1 % (0-4); Hematocrit 42.7 % (42.0-52.0); Hemoglobin 13.9 g/dl (14.0-18.0); Imm Gran Abs Auto 0.06 X10*3/uL (0.00-0.03); Imm Gran Pct Auto 0.8 % (0.0-0.4); Lymphocytes Absolute Auto 1.9 X10*3/uL (1.2-4.9); Lymphocytes Percent Auto 24.6 % (20-40); Mean Corpuscular HGB Conc 32.6 g/dl (31.0-36.0); Mean Corpuscular Volume 92.2 fL (80.0-98.0); Mean Platelet Volume 11.2 fL (9.4-12.4); Neutrophils Absolute Auto 4.5 x10*3/uL (2.0-8.3); Neutrophils Percent Auto 57.7 % (45-73); Platelet Count 198 X10*3/uL (160-400); Red Blood Count 4.63 X10*6/uL (4.60-5.80); Red Cell Distribution Width 13.6 % (11.0-16.0); White Blood Count 7.8 X10*3/uL (4.8-10.8)
[2022-05-12 08:30] LABS: Estimated Average Glucose 174 mg/dL; Hemoglobin A1c % 7.7 %
[2022-05-12 09:05] LABS: Alanine Aminotransferase 39 U/L (0-40); Alkaline Phosphatase 40 U/L (39-117); Anion Gap 16 (12-20); Aspartate Amino Transferase 24 U/L (5-37); Bilirubin Total 0.7 mg/dL (0.0-1.0); Blood Urea Nitrogen 46 mg/dL (9-16); Calcium 9.7 mg/dL (8.4-10.2); Carbon Dioxide 23 mmol/L (22-29); Chloride 105 mmol/L (96-108); Cholesterol 161 mg/dL; Estimated Glomerular Filt Rate 36; Glucose Random 92 mg/dL (60-115); HDL Cholesterol 29 mg/dL; LDL Cholesterol Calculated 97 mg/dl; Potassium 4.6 mmol/L (3.3-5.1); Sodium 139 mmol/L (135-145); Total Protein 6.6 g/dL (6.5-8.0); Triglycerides 179 mg/dL
[2022-05-12 09:37] LABS: Folate 12.4 ng/mL (> or = 4.0); Free T4 (Free Thyroxine) 1.09 ng/dL (0.71-1.85); Prostate Specific Antigen Scr 0.33 ng/mL (<0.05-4.0); Thyroid Stimulating Hormone 2.22 uIU/mL (0.32-4.0); Vitamin B12 1379 pg/mL (200-900)
[2022-05-12 09:43] LABS: Creatinine Urine 68.26 mg/dL; Microalbumin Urine < 5.0 mg/L
== END 2022-05-12 07:31 | disposition home or self-care (01) ==
LOC: HO.LAB 07:30
PROVIDERS: PCP Internal Medicine; Visit Provider Internal Medicine
DX: Z12.5 Encounter for screening for malignant neoplasm of prostate (principal); E11.65 Type 2 diabetes mellitus with hyperglycemia; E78.00 Pure hypercholesterolemia, unspecified; Z79.4 Long term (current) use of insulin
CPT/HCPCS: 36415; 80053; 80061; 82043; 82607; 82746; 83036; 84153; 84439; 84443; 85025

== ENCOUNTER 2022-07-25 08:07 | Outpatient (REF) | payer OTHER, SELFPAY ==
[2022-07-25 09:41] LABS: Anion Gap 14 (12-20); Blood Urea Nitrogen 43 mg/dL (9-16); Calcium 9.9 mg/dL (8.4-10.2); Carbon Dioxide 25 mmol/L (22-29); Chloride 108 mmol/L (96-108); Estimated Glomerular Filt Rate 41; Potassium 4.4 mmol/L (3.3-5.1); Sodium 143 mmol/L (135-145)
[2022-07-25 09:41] LABS: Total Protein Urine Random < 7 mg/dL (<12)
== END 2022-07-25 08:08 | disposition home or self-care (01) ==
LOC: HO.LAB 08:07
PROVIDERS: Visit Provider Internal Medicine Nephrology
DX: E11.21 Type 2 diabetes mellitus with diabetic nephropathy (principal); I10 Essential (primary) hypertension
CPT/HCPCS: 36415; 80051; 82310; 82565; 84156; 84520

== ENCOUNTER 2022-09-05 12:39 | Outpatient (RCR) | payer OTHER, SELFPAY | END 2022-09-05 16:00 | disposition home or self-care (01) | LOC: HO.WCC 12:39 | PROVIDERS: PCP Internal Medicine; Visit Provider Physician Assistant | DX: Z09 Encounter for follow-up examination after completed treatment for conditions other than malignant neoplasm (principal); I87.022 Postthrombotic syndrome with inflammation of left lower extremity; E11.51 Type 2 diabetes mellitus with diabetic peripheral angiopathy without gangrene; E11.22 Type 2 diabetes mellitus with diabetic chronic kidney disease; I12.9 Hypertensive chronic kidney disease with stage 1 through stage 4 chronic kidney disease, or unspecified chronic kidney disease; N18.30 Chronic kidney disease, stage 3 unspecified; Z87.891 Personal history of nicotine dependence; Z86.718 Personal history of other venous thrombosis and embolism; Z87.2 Personal history of diseases of the skin and subcutaneous tissue | CPT/HCPCS: 99212 ==

== ENCOUNTER 2022-11-06 09:48 | Outpatient (AMB) | payer OTHER, SELFPAY ==
--- NOTE | 2022-11-06 10:04 | MHC.PC.OV ---
Vital Signs 11/06/22 10:05 Height 5 ft 9 in Weight 107.955 kg BMI 35.1 BP 132/70 Blood Pressure Location Lt brachial Position Sitting Pulse 81 Pulse Source Pulse Oximeter Pulse Oximetry (%) 98 Oxygen Delivery Method Room Air Intake Visit Reasons: Annual exam Allergies Penicillins [PENICILLINS] Allergy (Intermediate, Verified 11/06/22 10:05) RASH Medication List - Last Reconciled 11/06/22 by Sujata Diehl MD alcohol swabs (Alcohol Pads) 1 pad topical QID 30 days ascorbic acid (vitamin C) (Vitamin C) 500 mg PO DAILY 90 days atorvastatin 20 mg PO BEDTIME 90 days blood sugar diagnostic (FreeStyle Lite Strips) As directed 3 times a day blood-glucose meter (FreeStyle Lite Meter kit) As directed 3x/day [CANE As directed] cholecalciferol (vitamin D3) 25 mcg PO DAILY [email or web address],reg,xlrg As directed 20-30 mm mercury [cpap As directed] [CPAP suppliesNew tubes, filter and mask for the Machine As directed] dulaglutide (Trulicity) 3.5 mg subcut QWEEK empagliflozin 25 mg PO DAILY 30 days fenofibrate 160 mg PO DAILY 90 days fluoride (sodium) 1.1% (Denta 5000 Plus) 1 appl PO DAILY gabapentin 300 mg PO BEDTIME [grab bar As directed] insulin lispro 4 to 12 units before each meal or snacks subcut 4 times a day; subcutaneously use as directed; insulin lispro (Humalog KwikPen (U-100) Insulin) 10 units (0.1 mL) subcut TID 30 days lancets TID lancets (FreeStyle Lancets) As directed check BS 3 times a day Lantus Solostar U-100 Insulin (insulin glargine) 38 units (0.38 mL) subcut QPM 90 days NS levothyroxine 50 mcg PO QAM lisinopril 30 mg PO DAILY lorazepam 2 mg PO DAILY 30 days [multivitamin ] omega-3 fatty acids-fish oil 340-1,000 mg (Fish Oil) 1 cap PO DAILY pen needle, diabetic (BD Ultra-Fine Mini Pen Needle) 1 ea subcut .5x day 90 days Prodigy No Coding (blood sugar diagnostic) 3 times a day NS Prodigy Voice Glucose Meter (blood-glucose meter) 3 times a day NS [RECLINER As directed] rivaroxaban (Xarelto) 20 mg PO DAILY 90 days [Shower chair As directed] Tobacco use date assessed: 05/16/22 Dental Screening Dental Screen Date: 11/06/22 Did you have a dental visit in the last 12 months?: Yes Did you have a dental problem in the last 6 months where you did not have access to dental care?: No Was dental information given to patient?: Patient has dentist HPI Annual exam HPI Details 62-year-old obese male with diabetes mellitus chronic kidney disease hypercholesterolemia hypertension hypothyroidism history of bladder cancer coming in for physical exam. Last seen in April 2022. Colonoscopy is up-to-date 2019. Patient is being followed up by Wound Care for left leg ulcer having history of left leg cellulitis due to chronic venous insufficiency chronic DVT left leg has IVC filter patient is blind. Patient also follows up with Hematology Oncology for the chronic DVT on anticoagulation. Patient sees endocrinology also on Lantus, Humalog Trulicity July 2022 hemoglobin A1c of 7.5. Patient did see Nephrology June 2022 chronic kidney disease renal function is stable. R ear pain 1 month with [facility] Medical History Arthritis Bladder cancer Chronic kidney disease, stage 3 CKD (chronic kidney disease) Diabetic polyneuropathy associated with type 2 diabetes mellitus Diverticulosis DVT (deep venous thrombosis) Dyslipidemia, goal LDL below 100 Essential hypertension HTN (hypertension) Hypoglycemia unawareness associated with type 2 diabetes mellitus Hypothyroidism Legally blind Long-term insulin use in type 2 diabetes Nontoxic multinodular goiter Obesity (BMI 30-39.9) Phimosis Retinitis pigmentosa Sleep apnea Tanz[place] speaking patient Thyroid disease Type 2 diabetes mellitus with hyperglycemia Vitamin D deficiency Surgical History Deficient knowledge of leg surgery H/O colonoscopy History of biopsy of bladder History of prostatectomy Hx of circumcision Hx of cystoscopy Hx of eye surgery Hx of knee surgery S/P insertion of IVC (inferior vena caval) filter Family History (Updated 11/06/22 @ 10:39 by Sujata Diehl MD) Father Medical history unknown Mother Breast cancer Diabetes Hypertension CVD (cardiovascular disease) Brother CVD (cardiovascular disease) Social History Household Members: None Housing: Apartment Are you a primary career center advisor to a significant other at home: No Do you presently have visiting nurse or other home services: No Alcohol intake: never Patient Tobacco Use Status: Never used Tobacco Years Smoked: 30 years old e-Cigarette/Vaping Use: Never Used Second Hand Smoke Exposure: No service: No Current occupational status: disabled Cognitive needs: No Hearing needs: No Vision needs: Yes Questionnaire PHQ-9 Over the last 2 weeks, how often have you been bothered by any of the following problems? 1. Little interest or pleasure in doing things: not at all 2. Feeling down, depressed, or hopeless: not at all 3. Trouble falling or staying asleep, or sleeping too much: not at all 4. Feeling tired or having little energy: not at all 5. Poor appetite or overeating: not at all 6. Feeling bad about yourself - or that you are a failure or have let yourself or your family down: not at all 7. Trouble concentrating on things, such as reading the newspaper or watching television: not at all 8. Moving or speaking so slowly that other people could have noticed. Or the opposite - being so fidgety or restless that you have been moving around a lot more than usual: not at all 9. Thoughts that you would be better off or of hurting yourself in some way: not at all Total score: 0 Depression Screening Interpretation: Negative Source: Developed by Drs. Nathen Menchaca, Vida Nye, Pedrito Dao and colleagues, with an educational enzo from [employer]. Thrive Questionnaire Date Thrive assessed: 11/06/22 I am a: Patient What is your living situation today?: I have a steady place to live Within the past 12 months, did the food you bought not last and you didn't have the money to get more?: Never true Within the past 12 months, did you worry whether your food would run out before you got money to buy more?: Never true Do you have trouble paying for medicines?: No Do you have trouble getting transportation to medical appointments?: No Do you have trouble paying your heating and electricity bill?: No Do you have trouble taking care of your child, family member or friend?: No Do you have trouble with day-to-day activities such as bathing, preparing meals, shopping, managing finances, etc.?: No Are you currently unemployed and looking for a job?: No Are you interested in more education?: No Currently or been in a relationship where the following occur: no concerns reported AUDIT C Alcohol Use Questionnaire (AUDIT-C) 1. How often do you have a drink containing alcohol?: Never 2. How many drinks containing alcohol do you have on a typical day when you are drinking?: 1 or 2 (0) 3. How often do you have six or more drinks on one occasion?: Never Total Score: 0 MARNIE-7 AMB Questionnaire MARNIE-7 Date MARNIE - 7 assessed: 11/06/22 Feeling nervous, anxious, or on edge: 0 = Not at all Not being able to stop or control worryin = Not at all Worrying too much about different things: 0 = Not at all Trouble relaxin = Not at all Being so restless that it is hard to sit still: 0 = Not at all Becoming easily annoyed or irritable: 0 = Not at all Feeling afraid as if something awful might happen: 0 = Not at all Total MARNIE-7 score (0-4 normal; 5-9 mild; 10-14 moderate; 15-21 severe): 0 Source: Developed by Drs. Nathen Menchaca, Vida Nye, Pedrito Dao and colleagues, with an educational enzo from [employer]. Review of Systems Const Denies poor appetite and Denies weakness Eyes Denies no additional complaints ENT Reports Normal hearing present, Denies dizziness, Denies nasal congestion, Denies tinnitus and Denies sore throat Card Denies chest pain, Denies syncope, Denies rapid heart rate and Denies dyspnea Resp Denies cough and Denies dyspnea GI Denies change in stool character, Reports constipation, Denies diarrhea, Denies nausea and Denies vomiting Denies dysuria and Denies urinary frequency Neuro Reports Normal hearing present, Denies confusion, Denies dizziness, Denies syncope and Denies weakness Psych Denies confusion Physical exam (Primary Care) Vital Signs: Last Vital Signs Pulse 81 11/06/22 10:05 BP 132/70 11/06/22 10:05 Pulse Ox 98 11/06/22 10:05 Oxygen Delivery Method Room Air 11/06/22 10:05 BMI result Body Mass Index 35.1 Tobacco/Smoking Status: Tobacco use Status Tobacco use date assessed 05/16/22 11/06/22 10:07 Patient Tobacco Use Status Never used Tobacco 11/06/22 10:07 e-Cigarette/Vaping Use Never Used 11/06/22 10:07 PHQ-9: PHQ-9 Score PHQ-9: Total score 0 11/06/22 10:29 Depression Screening Interpretation: Negative Thrive Assessment: Date of Thrive Assessment Date Thrive assessed 11/06/22 11/06/22 10:07 Currently or been in a relationship where the following occur: no concerns reported Const General: No confusion Orientation/consciousness: No confusion HENMT Head: Yes normocephalic Ears: external ears normal and TM's normal bilaterally Face and sinus: Yes normal facial exam Mouth: moist mucous membranes Throat: Yes tonsils normal Eyes Conjunctivae: conjunctivae normal Pupils: Equal, round and reactive pupils present and Pupil accommodation reflex normal Direct Ophthalmoscopy: normal light reflex Neck Neck: No lymphadenopathy Thyroid: Thyroid normal Chest Chest palpation & inspection: normal inspection of the chest Resp Effort & Inspection: normal respiratory effort and no audible wheezes Auscultation: clear to auscultation bilaterally, no crackles, no wheezes and lung sounds not diminished Cardio Rate: regular rate Rhythm: regular rhythm Peripheral pulses: radial pulses present and dorsalis pedis present GI Other: guaiac negative prostate enlarged Palpation (GI): no masses Auscultation: normal bowel sounds and normoactive bowel sounds Rectal Exam - Male: Yes deferred Male General Exam: Yes normal external exam Skin General skin exam: no rashes or lesions noted Rashes: no rashes Neuro General: No confusion Cranial nerves: Yes Equal, round and reactive pupils present and Yes Normal hearing present Cognition (Neuro): normal cognition Gait exam (Neuro): Normal gait present Motor exam (neuro): 5/5 motor strength present throughout Deep tendon reflexes (DTR's): Right brachioradialis reflex intensity grade: 2+, Left brachioradialis reflex intensity grade: 2+, Right patellar reflex intensity grade: 2+ and Left patellar reflex intensity grade: 2+ Extrem Other: hyperpigmented lesions on the leg with 2 1cm spots, pedal pulse weak but present General: No edema Results AMB Hemoglobin A1c AMB Hemoglobin A1c 6.8 % Last Edit by Eboni Jeong CMA on 11/06/22 10:28 Immunizations tetanus-diphtheria toxoids-Td 2 Lf unit-2 Lf unit/0.5 mL IM suspension Performing Provider: Sujata Diehl MD [facility] Administered by: Eboni Jeong CMA on 11/06/22 11:02 Dose Route Admin Location Dispensed Lot Number Expiration Date [employer] 0.5 mL IM Left Deltoid 0.5 mL [id number] 07/02/23 [address]-6 [employer] VIS Given Date VIS Provided VIS Publication Date 11/06/22 Single Vaccine 20 Eligibility Eligibility Date Funding Source Not VF Eligible 11/06/22 [facility] Results Reviewed Results Reviewed: Laboratory Last Values Hgb A1c (Clinic) 6.8 % (4.0-6.0) H 11/06/22 10:07 Assessment and Plan Assessment & Plan (1) Annual physical exam: Code(s): Z00.00 - Encounter for general adult medical examination without abnormal findings (2) Type 2 diabetes mellitus with hyperglycemia: Code(s): E11.65 - Type 2 diabetes mellitus with hyperglycemia Qualifiers: Diabetes mellitus usp insulin use: with intermediate frame tender use Qualified Code(s): E11.65 - Type 2 diabetes mellitus with hyperglycemia; Z79.4 - truck terminal manager (current) use of insulin Plan: Decrease the amount of carbohydrate intake, pasta, bread, rice and potatoes are all sugar and that is aside from all the sweet stuff, remember that fruits are good but they are Sweet also. Patient is being followed up by Endocrinology. Hemoglobin A1c goal of less than 6.5 continue with Lantus and Humalog Jardiance 25 mg once a day Trulicity 3.5 mg every (3) Obesity (BMI 30-39.9): Code(s): E66.9 - Obesity, unspecified Plan: Diet and exercise (4) Essential hypertension: Code(s): I10 - Essential (primary) hypertension Plan: Continue with blood pressure medication. Decrease salt intake and exercise patient takes lisinopril 30 mg once a day (5) Dyslipidemia, goal LDL below 100: Code(s): E78.5 - Hyperlipidemia, unspecified Plan: Avoid fried foods, chicken skin, eggs, butter margarine, pastries and meat. Be it pork or beef they have a lot of cholesterol LDL goal of less than 100 triglyceride of less than 150 patient is on atorvastatin 20 mg once a day. April 2022 97 (6) Chronic kidney disease, stage 3: Code(s): N18.30 - Chronic kidney disease, stage 3 unspecified Qualifiers: Chronic kidney disease stage 3 subtype: stage 3b (GFR 30-44) Qualified Code(s): N18.32 - Chronic kidney disease, stage 3b Plan: Keep well hydrated avoid NSAIDs patient follows up with Nephrology (7) DVT (deep venous thrombosis): Comment: h/o multiple, IVC filter and on xarelto-to stop 01/03/20 per pt per Code(s): I82.409 - Acute embolism and thrombosis of unspecified deep veins of unspecified lower extremity Qualifiers: Chronicity: chronic DVT location: lower extremity Laterality: unspecified laterality Plan: Patient follows up with hematology oncology continue with anticoagulation (8) Hypothyroid: Code(s): E03.9 - Hypothyroidism, unspecified Qualifiers: Hypothyroidism type: acquired Qualified Code(s): E03.9 - Hypothyroidism, unspecified Plan: Continue with thyroid medication April 2022 last blood work (9) Generalized anxiety disorder: Comment: Declined counseling July 2021 Code(s): F41.1 - Generalized anxiety disorder Plan: Continue with gabapentin lorazepam (10) Sleep apnea: Code(s): G47.30 - Sleep apnea, unspecified Plan: Discussed about treatment of sleep apnea (11) Venous stasis dermatitis: Code(s): I87.2 - Venous insufficiency (chronic) (peripheral) Plan: When sitting down elevate the legs, exercise, and support stockings for wounds wound care referral done (12) Constipation: Code(s): K59.00 - Constipation, unspecified (13) BPH w urinary obs/LUTS: Comment: Bladder neck contracture following laser prostatectomy Code(s): N40.1 - Benign prostatic hyperplasia with lower urinary tract symptoms; N13.8 - Other obstructive and reflux uropathy (14) Ear ache: Code(s): H92.09 - Otalgia, unspecified ear Orders: Orders AMB Hemoglobin A1c Today Z13.9 - Encounter for screening, unspecified RT home sleep study Today G47.30 - Sleep apnea, unspecified Td State Immunization Today Z23 - Encounter for immunization Medications: New sennosides-docusate sodium 8.6-50 mg (Senna Plus) 2 tab-caps (2 x 8.6-50 mg) PO BEDTIME PRN 60 tabs 4RF constipation K59.00 - Constipation, unspecified hydrocortisone-acetic acid 1-2 % apply to (cotton) wick; replace wick every 24 hours 4 drps otic (ear) right TID 10 mL 0RF H92.09 - Otalgia, unspecified ear Changed From dulaglutide (Trulicity) 1.5 mg (0.5 mL) subcut QWEEK 90 days 6.5 mL 11RF E11.9 - Type 2 diabetes mellitus without complications To dulaglutide (Trulicity) 3.5 mg subcut QWEEK E11.9 - Type 2 diabetes mellitus without complications Coding Level of Care Code Est Pt Prev Care 40-64y(88125) Diagnoses Annual physical exam Z00.00 Type 2 diabetes mellitus with hyperglycemia, with long-term current use of insulin E11.65; Z79.4 Diabetes mellitus usp insulin use: with intermediate frame tender use Obesity (BMI 30-39.9) E66.9 Essential hypertension I10 Dyslipidemia, goal LDL below 100 E78.5 Stage 3b chronic kidney disease N18.32 Chronic kidney disease stage 3 subtype: stage 3b (GFR 30-44) DVT (deep venous thrombosis) I82.409 Chronicity: chronic DVT location: lower extremity Laterality: unspecified laterality Acquired hypothyroidism E03.9 Hypothyroidism type: acquired Generalized anxiety disorder F41.1 Sleep apnea G47.30 Venous stasis dermatitis I87.2 Constipation K59.00 BPH w urinary obs/LUTS N40.1; N13.8 Ear ache H92.09
[2022-11-06 10:05] VITALS: BP 132/70; PULSE 81; O2SAT 98; BMI 35.1
== END 2022-11-06 11:10 | disposition home or self-care (01) ==
PROVIDERS: PCP Internal Medicine; Visit Provider Internal Medicine
DX: E11.65 Type 2 diabetes mellitus with hyperglycemia (principal); Z79.4 Long term (current) use of insulin; Z23 Encounter for immunization
CPT/HCPCS: 83036; 90471; 90714; 99396

== ENCOUNTER 2022-11-21 07:39 | Outpatient (REF) | payer OTHER, SELFPAY ==
[2022-11-21 09:37] LABS: Anion Gap 17 (12-20); Blood Urea Nitrogen 44 mg/dL (9-16); Calcium 10.3 mg/dL (8.4-10.2); Carbon Dioxide 22 mmol/L (22-29); Chloride 105 mmol/L (96-108); Estimated Glomerular Filt Rate 42; Potassium 4.4 mmol/L (3.3-5.1); Sodium 140 mmol/L (135-145)
== END 2022-11-21 07:40 | disposition home or self-care (01) ==
LOC: HO.LAB 07:39
PROVIDERS: PCP Internal Medicine; Visit Provider Internal Medicine Nephrology
DX: I12.9 Hypertensive chronic kidney disease with stage 1 through stage 4 chronic kidney disease, or unspecified chronic kidney disease (principal); N18.32 Chronic kidney disease, stage 3b
CPT/HCPCS: 36415; 80051; 82310; 82565; 84520

== ENCOUNTER → 2022-12-27 10:39 | Outpatient (REF) | payer OTHER, SELFPAY | LOC: HO.SL 10:39 | PROVIDERS: PCP Internal Medicine; Visit Provider Internal Medicine | DX: G47.33 Obstructive sleep apnea (adult) (pediatric) (principal) | CPT/HCPCS: 95806 ==

== ENCOUNTER → 2022-12-27 10:52 | Outpatient (BNV) | payer OTHER, SELFPAY | PROVIDERS: PCP Internal Medicine; Visit Provider Internal Medicine | DX: G47.33 Obstructive sleep apnea (adult) (pediatric) (principal) | CPT/HCPCS: 95806 ==

== ENCOUNTER 2023-02-20 07:20 | Outpatient (REF) | payer OTHER, SELFPAY ==
[2023-02-20 08:39] LABS: Anion Gap 13 (12-20); Blood Urea Nitrogen 58 mg/dL (9-16); Calcium 9.7 mg/dL (8.4-10.2); Carbon Dioxide 23 mmol/L (22-29); Chloride 111 mmol/L (96-108); Estimated Glomerular Filt Rate 35; Potassium 4.1 mmol/L (3.3-5.1); Sodium 143 mmol/L (135-145)
== END 2023-02-20 07:21 | disposition home or self-care (01) ==
LOC: HO.LAB 07:20
PROVIDERS: PCP Internal Medicine; Visit Provider Internal Medicine Nephrology
DX: I12.9 Hypertensive chronic kidney disease with stage 1 through stage 4 chronic kidney disease, or unspecified chronic kidney disease (principal); N18.32 Chronic kidney disease, stage 3b
CPT/HCPCS: 36415; 80051; 82310; 82565; 84520

== ENCOUNTER 2023-02-27 08:37 | Outpatient (AMB) | payer OTHER, SELFPAY ==
[2023-02-27 08:38] VITALS: BP 132/70; PULSE 89; O2SAT 99; BMI 34.8
--- NOTE | 2023-02-27 08:38 | MHC.PC.OV ---
Vital Signs 02/27/23 08:38 Height 5 ft 9 in Weight 236 lb BMI 34.8 BP 132/70 Blood Pressure Location Lt brachial Position Sitting Pulse 89 Pulse Source Pulse Oximeter Pulse Oximetry (%) 99 Oxygen Delivery Method Room Air Intake Visit Reasons: 3 month f/u Applications Architect Required: No Allergies Penicillins [PENICILLINS] Allergy (Intermediate, Verified 02/27/23 08:39) RASH lisinopril Adverse Reaction (Intermediate, Uncoded 02/27/23 10:05) increasing creatinine Tobacco use date assessed: 02/27/23 HPI 3 month f/u HPI Details 62-year-old obese male with diabetes mellitus hypertension hypercholesterolemia chronic kidney disease history of DVT hypothyroidism generalized anxiety disorder and venous stasis dermatitis last seen in October 2022. Colonoscopy is up-to-date.. Patient recently went for a sleep study December 2022 showing mild obstructive sleep apnea and advised to be treated conservatively and if needed auto PAP mode 6-16 cm water. Patient also follows up with Nephrology diagnosis of chronic kidney disease 3 diabetic hypertensive renal disease renal function has been stable BP at goal avoiding NSAIDs remain well hydrated presently on an Paco inhibitor and will monitor [facility] Medical History (Updated 02/27/23 @ 08:54 by Sujata Diehl MD) Obstructive sleep apnea Type 2 diabetes mellitus with hyperglycemia Phimosis Vitamin D deficiency Hypothyroidism Retinitis pigmentosa Long-term insulin use in type 2 diabetes Essential hypertension Nontoxic multinodular goiter Dyslipidemia, goal LDL below 100 Chronic kidney disease, stage 3 Diabetic polyneuropathy associated with type 2 diabetes mellitus Obesity (BMI 30-39.9) Hypoglycemia unawareness associated with type 2 diabetes mellitus Diverticulosis CKD (chronic kidney disease) Japanese speaking patient Bladder cancer Arthritis Thyroid disease Legally blind DVT (deep venous thrombosis) Sleep apnea HTN (hypertension) Surgical History Deficient knowledge of leg surgery History of prostatectomy Hx of eye surgery Hx of knee surgery H/O colonoscopy Hx of cystoscopy Hx of circumcision S/P insertion of IVC (inferior vena caval) filter History of biopsy of bladder Family History (Updated 11/06/22 @ 10:39 by Sujata Diehl MD) Father Medical history unknown Mother Breast cancer Diabetes Hypertension CVD (cardiovascular disease) Brother CVD (cardiovascular disease) Social History Household Members: None Housing: Apartment Are you a primary human services care specialist to a significant other at home: No Do you presently have visiting nurse or other home services: No Alcohol intake: never Patient Tobacco Use Status: Never used Tobacco Years Smoked: 30 years old e-Cigarette/Vaping Use: Never Used Second Hand Smoke Exposure: No service: No Current occupational status: disabled Cognitive needs: No Hearing needs: No Vision needs: Yes Questionnaire PHQ-9 Over the last 2 weeks, how often have you been bothered by any of the following problems? 1. Little interest or pleasure in doing things: not at all 2. Feeling down, depressed, or hopeless: not at all 3. Trouble falling or staying asleep, or sleeping too much: not at all 4. Feeling tired or having little energy: not at all 5. Poor appetite or overeating: not at all 6. Feeling bad about yourself - or that you are a failure or have let yourself or your family down: not at all 7. Trouble concentrating on things, such as reading the newspaper or watching television: not at all 8. Moving or speaking so slowly that other people could have noticed. Or the opposite - being so fidgety or restless that you have been moving around a lot more than usual: not at all 9. Thoughts that you would be better off or of hurting yourself in some way: not at all Total score: 0 Depression Screening Interpretation: Negative Depression Screening Done: Yes Source: Developed by Drs. Nathen Menchaca, Vida Nye, Pedrito Dao and colleagues, with an educational enzo from [employer]. Thrive Questionnaire Date Thrive assessed: 11/06/22 I am a: Patient What is your living situation today?: I have a steady place to live Within the past 12 months, did the food you bought not last and you didn't have the money to get more?: Never true Within the past 12 months, did you worry whether your food would run out before you got money to buy more?: Never true Do you have trouble paying for medicines?: No Do you have trouble getting transportation to medical appointments?: No Do you have trouble paying your heating and electricity bill?: No Do you have trouble taking care of your child, family member or friend?: No Do you have trouble with day-to-day activities such as bathing, preparing meals, shopping, managing finances, etc.?: No Are you currently unemployed and looking for a job?: No Are you interested in more education?: No Currently or been in a relationship where the following occur: no concerns reported AUDIT C Alcohol Use Questionnaire (AUDIT-C) 1. How often do you have a drink containing alcohol?: Never 2. How many drinks containing alcohol do you have on a typical day when you are drinking?: 1 or 2 (0) 3. How often do you have six or more drinks on one occasion?: Never Total Score: 0 MARNIE-7 AMB Questionnaire MARNIE-7 Date MARNIE - 7 assessed: 11/06/22 Feeling nervous, anxious, or on edge: 0 = Not at all Not being able to stop or control worryin = Not at all Worrying too much about different things: 0 = Not at all Trouble relaxin = Not at all Being so restless that it is hard to sit still: 0 = Not at all Becoming easily annoyed or irritable: 0 = Not at all Feeling afraid as if something awful might happen: 0 = Not at all Total MARNIE-7 score (0-4 normal; 5-9 mild; 10-14 moderate; 15-21 severe): 0 Source: Developed by Drs. Nathen Menchaca, Vida Nye, Pedrito Dao and colleagues, with an educational enzo from [employer]. Physical exam (Primary Care) Vital Signs: Oxygen Delivery Method Room Air 02/27/23 08:38 Tobacco/Smoking Status: Tobacco use Status Tobacco use date assessed 02/27/23 02/27/23 08:39 Patient Tobacco Use Status Never used Tobacco 02/27/23 08:39 e-Cigarette/Vaping Use Never Used 02/27/23 08:39 PHQ-9: PHQ-9 Score PHQ-9: Total score 0 02/27/23 08:58 Depression Screening Interpretation: Negative Thrive Assessment: Date of Thrive Assessment Date Thrive assessed 11/06/22 02/27/23 08:39 Currently or been in a relationship where the following occur: no concerns reported Const General: alert; No acute distress Eyes Conjunctivae: conjunctivae normal Resp Auscultation: clear to auscultation bilaterally Cardio Rate: regular rate Rhythm: regular rhythm GI Inspection: Yes normal to inspection Extrem General: Yes normal to inspection and No edema Office Procedures Flu Questionnaire Does the patient have a severe egg allergy?: No Does the patient have severe life threatening allergies?: No Does the patient have a fever or illness today?: No Has the patient ever had Guillain-[place] Syndrome?: No Has the patient ever had any past reaction to a flu shot?: No Results AMB Hemoglobin A1c AMB Hemoglobin A1c 7.2 % Last Edit by JIM Montesinos on 02/27/23 09:57 Immunizations flu vacc [id number] 6mos up(PF) 60 mcg(15 mcgx4)/0.5 mL IM syringe Performing Provider: Sujata Diehl MD Performing [facility] Administered by: JIM Montesinos on 02/27/23 09:54 Dose Route Admin Location Dispensed Lot Number Expiration Date NDC Furnace Repairer 0.5 mL IM Left Deltoid 0.5 mL [id number] 08/26/23 [id number] [employer] VIS Given Date VIS Provided VIS Publication Date 02/27/23 Single Vaccine 20 Eligibility Eligibility Date Funding Source Not [facility] Eligible 02/27/23 Private Assessment and Plan Assessment & Plan (1) Type 2 diabetes mellitus with hyperglycemia: Code(s): E11.65 - Type 2 diabetes mellitus with hyperglycemia Qualifiers: Diabetes mellitus extermination inspector insulin use: with [facility] use Qualified Code(s): E11.65 - Type 2 diabetes mellitus with hyperglycemia; Z79.4 - correction (current) use of insulin Plan: Decrease the amount of carbohydrate intake, pasta, bread, rice and potatoes are all sugar and that is aside from all the sweet stuff, remember that fruits are good but they are Sweet also. Hemoglobin A1c goal of less than 6.5. Patient is presently on Trulicity Jardiance Lantus and Humalog (2) Obesity (BMI 30-39.9): Code(s): E66.9 - Obesity, unspecified Plan: Diet and exercise (3) Chronic kidney disease, stage 3: Comment: Diabetic hypertensive disease Code(s): N18.30 - Chronic kidney disease, stage 3 unspecified Qualifiers: Chronic kidney disease stage 3 subtype: stage 3b (GFR 30-44) Qualified Code(s): N18.32 - Chronic kidney disease, stage 3b Plan: Patient has met with Nephrology concern about the Paco inhibitor and has advised on the notes with the increase in creatinine will have to DC lisinopril.. with the creatinine rising will discontinue with lisinopril and monitor blood work (4) Essential hypertension: Code(s): I10 - Essential (primary) hypertension Plan: Continue with blood pressure medication. Decrease salt intake and exercise presently on lisinopril 30 mg once a day (5) Hypothyroid: Code(s): E03.9 - Hypothyroidism, unspecified Qualifiers: Hypothyroidism type: acquired Qualified Code(s): E03.9 - Hypothyroidism, unspecified Plan: Continue with thyroid medication last complete blood work April 2022 (6) Sleep apnea: Comment: Mild sleep apnea December 2022 Code(s): G47.30 - Sleep apnea, unspecified Plan: Mild sleep apnea discussed about conservative measures but if needed may have the CPAP treatment. uses the CPAP > 4 hours a night and benefits from this Orders: Orders Influenza [id number] Immunization Today Z23 - Encounter for immunization Complete Blood Count Auto Diff 2 Months N18.32 - Chronic kidney disease, stage 3b AMB Hemoglobin A1c Today E11.65 - Type 2 diabetes mellitus with hyperglycemia Comprehensive Met. Panel 2 Months N18.32 - Chronic kidney disease, stage 3b Hemoglobin A1c 2 Months N18.32 - Chronic kidney disease, stage 3b Ferritin 2 Months N18.32 - Chronic kidney disease, stage 3b IRON PROFILE 2 Months N18.32 - Chronic kidney disease, stage 3b Reticulocyte Count 2 Months N18.32 - Chronic kidney disease, stage 3b Medications: Discontinued lisinopril Discontinued Reason: Doctor's Order 30 mg PO DAILY 90 tabs 3RF Coding Level of Care Code Est Pt Level 4 (92610) Diagnoses Type 2 diabetes mellitus with hyperglycemia, with long-term current use of insulin E11.65; Z79.4 Diabetes mellitus extermination inspector insulin use: with extermination inspector use Obesity (BMI 30-39.9) E66.9 Stage 3b chronic kidney disease N18.32 Chronic kidney disease stage 3 subtype: stage 3b (GFR 30-44) Essential hypertension I10 Acquired hypothyroidism E03.9 Hypothyroidism type: acquired Sleep apnea G47.30
== END 2023-02-27 10:17 | disposition home or self-care (01) ==
PROVIDERS: PCP Internal Medicine; Visit Provider Internal Medicine
DX: Z23 Encounter for immunization (principal); E11.65 Type 2 diabetes mellitus with hyperglycemia; Z79.4 Long term (current) use of insulin; I12.9 Hypertensive chronic kidney disease with stage 1 through stage 4 chronic kidney disease, or unspecified chronic kidney disease; N18.32 Chronic kidney disease, stage 3b; E03.9 Hypothyroidism, unspecified; G47.30 Sleep apnea, unspecified
CPT/HCPCS: 83036; 90471; 90686; 99214

== ENCOUNTER 2023-04-03 08:48 | Outpatient (REF) | payer OTHER, SELFPAY ==
[2023-04-03 17:19] LABS: Urine Cytology See Pathology rpt
== END 2023-04-03 08:49 | disposition home or self-care (01) ==
LOC: HO.LAB 08:48
PROVIDERS: Visit Provider Urology
DX: C67.9 Malignant neoplasm of bladder, unspecified (principal); Z79.01 Long term (current) use of anticoagulants
CPT/HCPCS: 52000; 81003; 88112; 99212

== ENCOUNTER 2023-04-03 08:48 | Outpatient (AMB) | payer OTHER, SELFPAY ==
--- NOTE | 2023-04-03 08:49 | A.OFFVIS_ITS ---
Intake Intake Visit Reasons: CYSTOSCOPY(Bladder CA) Intake Note: Patient is Present for Cystoscopy Urology Med: Antibiotic Allergy: Penicillins Blood Thinner: Xarelto URO- G Disposable Cystoscope lot: exp: Allergies Penicillins [PENICILLINS] Allergy (Intermediate, Verified 04/03/23 08:54) RASH naproxen [From Naprosyn] Adverse Reaction (Unknown, Verified 04/03/23 09:17) Unknown NSAIDS (Non-Steroidal Anti-Inflamma Adverse Reaction (Unknown, Verified 04/03/23 09:17) Unknown lisinopril Adverse Reaction (Intermediate, Uncoded 04/03/23 08:54) increasing creatinine HPI HPI Comments History of Present Illness Details Eriberto is a pleasant male. He is a patient of Dr. Diehl. He is seen for the following urologic conditions - bladder cancer Lower urinary tract symptoms Check cystoscopy normal Persistent bladder neck contraction - 16 Yi - effective urination No evidence of recurrent cancer Review in 12 months - minimal urinary symptoms can review in 12 months Bladder cancer. Recurrent low-grade. 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 Surveillance Cystoscopy 03/19, 03/20, 04/21 PSA 02/15 0.3 - had prior laser prostatectomy with bladder neck contraction PFSH Medical History Obstructive sleep apnea Type 2 diabetes mellitus with hyperglycemia Phimosis Vitamin D deficiency Hypothyroidism Retinitis pigmentosa Long-term insulin use in type 2 diabetes Essential hypertension Nontoxic multinodular goiter Dyslipidemia, goal LDL below 100 Chronic kidney disease, stage 3 Diabetic polyneuropathy associated with type 2 diabetes mellitus Obesity (BMI 30-39.9) Hypoglycemia unawareness associated with type 2 diabetes mellitus Diverticulosis CKD (chronic kidney disease) Panamanian speaking patient Bladder cancer Arthritis Thyroid disease Legally blind DVT (deep venous thrombosis) Sleep apnea HTN (hypertension) Surgical History Deficient knowledge of leg surgery History of prostatectomy Hx of eye surgery Hx of knee surgery H/O colonoscopy Hx of cystoscopy Hx of circumcision S/P insertion of IVC (inferior vena caval) filter History of biopsy of bladder Family History Father Medical history unknown Mother Breast cancer Diabetes Hypertension CVD (cardiovascular disease) Brother CVD (cardiovascular disease) Social History Household Members: None Housing: Apartment Are you a primary patient care coordinator to a significant other at home: No Do you presently have visiting nurse or other home services: No Alcohol intake: never Patient Tobacco Use Status: Never used Tobacco Years Smoked: 30 years old e-Cigarette/Vaping Use: Never Used Second Hand Smoke Exposure: No service: No Current occupational status: disabled Cognitive needs: No Hearing needs: No Vision needs: Yes Review of Systems Const Denies chills and Denies fever(s) Card Reports no additional complaints and Denies syncope Resp Denies cough GI Denies abdominal pain and Denies heartburn Reports as per HPI and Denies change in libido Neuro Denies syncope Psych Denies change in libido Endo Denies change in libido Physical Exam Const General: cooperative, healthy appearing, comfortable and no acute distress Orientation/consciousness: patient oriented x3 HEENT Face and sinus: Yes normal facial exam Mouth: moist mucous membranes Neck Neck: Yes normal visual inspection, Yes full ROM and Yes trachea midline Chest Chest palpation & inspection: normal inspection of the chest Resp Effort & Inspection: normal respiratory effort, able to speak in complete sentences and no respiratory distress GI Inspection: Yes normal to inspection Back/Spine/Pelvis Cervical Spine: normal cervical lordosis Thoracic/Lumbar Spine: thoracic and lumbar spine normal to inspection Skin General skin exam: no rashes or lesions noted Neuro General: patient oriented x3, gait normal, tone normal and moves all extremities Extrem General: Yes normal to inspection and Yes capillary refill normal Office Procedures Cystoscopy Consent Discussed risk and benefit or proposed procedure with the patient. Information consent for procedure given to the patient. Discussed technical aspects, risks, benefits and alternatives in full. Addressed all of the patient's questions and concerns regarding the procedure. The patient demonstrated knowledge and understanding. They wish to proceed with this procedure. Preparation The patient was prepped in the usual manner. A homemaking rehabilitation consultant was present and in the room. Genitalia was prepped with betadine solution in a sterile manner. Lidocaine Jelly 2% was placed into the urethra and 16Fr flexible Olympus cystoscope was inserted into the meatus after adequate lubrication. Procedure Meatus uncircumcised Urethra anterior and posterior urethra Prostatic Urethra unremarkable - bladder neck tightening Bladder examination with retroflexion of cystoscope Bladder Orifices normal shape and position Bladder Capacity medium Trabeculations grade 1 Cellule Formation - Diverticulum Formation -- Mucosal Erythema - Bladder Tumor - [id number] DISPOSABLE SCOPE URO-G FLEXIBLE SCOPE Procedure code (CPT) selection complete Office Meds lidocaine HCl 2 % mucosal jelly in applicator Performing Provider: Dennis Guardado MD Performing Location: [facility] Administered by: Jose Ram LPN on 04/03/23 09:04 Dose Route Admin Location Dispensed Lot Number Expiration Date [facility] [place] 2] Dental Associate 10 mL intra-urethral 10 mL nitrofurantoin monohydrate/macrocrystals 100 mg capsule Performing Provider: Dennis Guardado MD Performing Location: [facility] Administered by: Jose Ram LPN on 04/03/23 09:04 Dose Route Admin Location Dispensed Lot Number Expiration Date [facility] [place]NOTE 2] Dental Associate 100 mg PO 1 cap naproxen 500 mg tablet Performing Provider: Dennis Guardado MD Performing Location: [facility] Documented (not given) by: Jose Ram LPN on 04/03/23 09:04 Reason Not Given: Patient Refused Results AMB Urinalysis, Automated UA Leukoctes 0 Prosper/uL Last Edit by JIM Miller on 04/03/23 09:03 UA Nitrite Negative Last Edit by JIM Miller on 04/03/23 09:03 UA Urobilinogen 0.2 mg/dL Last Edit by JIM Miller on 04/03/23 09:0 3 UA Protein 0 mg/dL Last Edit by JIM Miller on 04/03/23 09:03 UA pH 5.5 Last Edit by JIM Miller on 04/03/23 09:03 UA Blood 0 Ean/uL Last Edit by JIM Miller on 04/03/23 09:03 UA Specific [place] 1.015 Last Edit by JIM Miller on 04/03/23 09: 03 UA Ketone Negative Last Edit by JIM Miller on 04/03/23 09:03 UA Bilirubin 0 mg/dL Last Edit by JIM Miller on 04/03/23 09:03 UA Glucose 1000 mg/dL Last Edit by JIM Miller on 04/03/23 09:03 Results Reviewed Results Reviewed: Laboratory Last Values Urine pH (Auto) 5.5 04/03/23 08:56 Specific [place] (Auto) 1.015 04/03/23 08:56 Urine Protein (Auto) 0 mg/dL 04/03/23 08:56 Glucose (UA)(Auto) 1000 mg/dL 04/03/23 08:56 Urine Ketones (Auto) Negative 04/03/23 08:56 Urine Blood (Auto) 0 Ean/uL 04/03/23 08:56 Urine Nitrite (Auto) Negative 04/03/23 08:56 Urine Bilirubin (Auto) 0 mg/dL 04/03/23 08:56 Urine Urobilinogen (Auto) 0.2 mg/dL 04/03/23 08:56 Leukocyte Esterase (Auto) 0 Prosper/uL 04/03/23 08:56 Assessment & Plan Assessment & Plan (1) Bladder cancer: Comment: Recurrent low-grade last TURBT 2017 Code(s): C67.9 - Malignant neoplasm of bladder, unspecified Qualifiers: Bladder location: unspecified site Qualified Code(s): C67.9 - Malignant neoplasm of bladder, unspecified Plan Twelve month follow-up cystoscopy Orders: Orders AMB Cystoscopy Today C67.9 - Malignant neoplasm of bladder, unspecified AMB Urinalysis Automated Today C67.9 - Malignant neoplasm of bladder, unspecified, Z13.9 - Encounter for screening, unspecified Urine Cytology Today C67.9 - Malignant neoplasm of bladder, unspecified Patient Instructions: Imaging studies, laboratory and physical exam results were discussed and reviewed in detail. No major barriers to patient understanding were identified. An opportunity to ask questions regarding the treatment plan was provided. All questions were answered. The patient expressed understanding and agreement with the above treatment plan. The patient is aware they should contact our office by phone for worsening of their current condition or the appearance of new urologic symptoms. Compliance is encouraged with any medications and followup testing that is ordered. It is a privilege to participate in the urologic care of your patient. If you have any questions or concerns regarding treatment for the above conditions, or other urologic issues, please do not hesitate to contact me. The office telephone contact is [phone]. This note is constructed using voice recognition software. While every effort has been made to ensure accuracy staff electrical engineer errors may have been included. Yours sincerely, Dr Dennis Guardado MD, [facility] - Urology Providers of Expert, Compassionate Care for the Genitourinary System Coding Level of Care Code Est Pt Level 4 (07951) Diagnoses Malignant neoplasm of urinary bladder, unspecified site C67.9 Bladder location: unspecified site CPT Codes Cystoscopy - CPT: 67217-[id number] ([id number])
== END 2023-04-03 09:33 | disposition home or self-care (01) ==
PROVIDERS: Visit Provider Urology
DX: Z85.51 Personal history of malignant neoplasm of bladder (principal); Z13.9 Encounter for screening, unspecified
CPT/HCPCS: 52000; 99213

== ENCOUNTER 2023-04-16 10:46 | Emergency (ER) | payer OTHER, SELFPAY ==
--- NOTE | ~2023-04-16 | US_ITS ---
EXAMINATION: US VENOUS ULTRASOUND WITH DOPPLER LOWER EXTREMITY, LEFT CLINICAL INFORMATION: Left lower extremity pain, discoloration COMPARISON: None available. TECHNIQUE: Ultrasound of the deep veins is performed from the hip to the calf with compression sonography and color and pulse Doppler assessment. Spectral analysis with color-flow imaging is performed. FINDINGS: There is normal venous compression and respiratory variation and augmented flow. The visualized common femoral vein, superficial femoral vein and profunda femoral vein, shows no evidence of deep venous thrombosis. There is thrombus visualized in popliteal vein.. The posterior tibial vein appears patent. Peroneal vein is not visualized. There is no significant popliteal fossa cyst. If the patient's symptoms persist, followup ultrasound in 5 days 7 days might be of value to exclude proximal propagation from a non-visualized calf vein. US/US venous duplex LE LT IMPRESSION: 1. Positive DVT left popliteal vein. 2. The posterior tibial vein appears patent. The peroneal vein is not visualized.
--- NOTE | ~2023-04-16 | US_ITS ---
EXAMINATION: ULTRASOUND LOWER EXTREMITY ARTERIAL, LEFT TECHNIQUE: COLOR-FLOW DUPLEX IMAGING OF THE LEFT LOWER EXTREMITY ARTERIAL SYSTEM. VELOCITY MEASUREMENTS THROUGHOUT THE FEMORAL ARTERIES. CLINICAL INFORMATION: Left lower extremity pain and discoloration COMPARISON: None. FINDINGS: LEFT FEMORAL RUNOFF VELOCITIES: The left common femoral artery measures 86.2cm/s and is triphasic. The left profunda femoral artery measures 69.8cm/s and is triphasic. Left proximal superficial femoral artery measures 149 cm/s and is triphasic. Mid superficial femoral artery measures 110cm/s and is triphasic. Distal left superficial femoral artery [id number]/s and is triphasic. Left popliteal velocity measures 89.5cm/s and is triphasic. Posterior tibial velocity is 83.2cm/s and flow is biphasic. Peroneal artery not well visualized. Anterior tibial velocity is 53.4cm/s and flow is biphasic. Dorsal pedis velocity is 47.2cm/s and flow is monophasic. Left STANLEY: Not obtained US/US arterial duplex LE LT IMPRESSION: 1. Peroneal artery not well visualized limiting evaluation at this segment. 2. Patency of the remaining portions of the left lower extremity vasculature. 3. Infrapopliteal hemodynamic alterations in vascular flow with biphasic and monophasic waveforms greatest at the dorsalis pedis artery.
[2023-04-16 11:03] VITALS: BP 161/81; PULSE 84; RESP 16; TEMP 36.4; O2SAT 98; BMI 36.7
--- NOTE | 2023-04-16 11:06 | ED_ITS ---
HPI - Extremity Injury (Lower) General Chief Complaint: Extremity Problem Stated Complaint: Bruised L leg - diabetic Time Seen by Provider: 04/16/23 16:21 History of Present Illness HPI Narrative: 62 y/o M patient; PMH obesity, T2DM, HTN, HLD, COPD, hx chronic LLE DVT on Xarelto, hypothyroidism, MARNIE, venous stasis dermatitis, IVC filter, hx bladder cancer; presents from home with report of left lower extremity pain and swelling. The patient states his Xarelto was decreased from 20mg to 10mg recently due to an elevation in his coagulation profile. He currently follows with Heme/Onc. He otherwise denies: fever or chills, chest pain, difficulty breathing, cough/congestion, recent falls or trauma. Related Data Home Medications Medication Instructions Recorded Confirmed multivitamin 08/24/21 11/06/22 cholecalciferol (vitamin D3) 25 25 mcg PO DAILY 11/03/21 11/06/22 mcg (1,000 unit) capsule fluoride (sodium) 1.1 % dental 1 appl PO DAILY 05/16/22 11/06/22 cream (Denta 5000 Plus) dulaglutide 1.5 mg/0.5 mL 3.5 mg subcut QWEEK 11/06/22 03/12/23 subcutaneous pen injector (Trulicity) azelastine 0.05 % eye drops drp ophthalmic (eye) 04/03/23 lisinopril 10 mg tablet 10 mg PO DAILY 04/03/23 Previous Rx's Medication Instructions Recorded grab bar #1 ea 01/29/20 RECLINER #1 ea 02/28/21 Shower chair #1 ea 03/14/21 insulin lispro 100 unit/mL See Rx Instructions subcut 08/22/21 subcutaneous pen USEASDIRECTD #15 syringe Prodigy No Coding (blood sugar #100 boxes 10/13/21 diagnostic) Prodigy Voice Glucose Meter #1 ea 10/13/21 (blood-glucose meter) lancets 28 gauge #100 ea 10/18/21 jodi.stocking,knee,reg,xlrg #12 ea 11/03/21 cpap #1 ea 11/03/21 gabapentin 300 mg capsule 300 mg PO BEDTIME #30 caps 11/14/21 CANE #1 ea 01/03/22 Lantus Solostar U-100 Insulin 100 38 unit (0.38 mL) subcut QPM 90 05/16/22 unit/mL (3 mL) subcutaneous pen days #34.2 mL (insulin glargine) insulin lispro 100 unit/mL 10 unit (0.1 mL) subcut TID 30 05/17/22 subcutaneous pen (Humalog KwikPen days #15 mL (U-100) Insulin) pen needle, diabetic 31 gauge x 1 ea subcut .5x day type 2 06/19/22/ (BD Ultra-Fine Mini Pen diabetes 90 days #450 ea Needle) levothyroxine 50 mcg tablet 50 mcg PO QAM #90 tabs 10/31/22 sennosides 8.6 mg-docusate sodium 2 tab-cap (2 x 8.6-50 mg) PO 11/06/22 50 mg tablet (Senna Plus) BEDTIME PRN constipation #60 tabs hydrocortisone-acetic acid 1 %-2 % 4 drp otic (ear) right TID #10 mL 11/10/22 ear drops alcohol swabs (Alcohol Pads) 1 pad topical QID 30 days #200 ea 11/14/22 lancets 28 gauge (FreeStyle #3 ea 11/14/22 Lancets) atorvastatin 20 mg tablet 20 mg PO BEDTIME 90 days #90 tabs 11/16/22 blood sugar diagnostic (FreeStyle #3 ea 11/22/22 Lite Strips) blood-glucose meter (FreeStyle #1 ea 11/22/22 Lite Meter kit) ascorbic acid (vitamin C) 500 mg 500 mg PO DAILY 90 days #90 tabs 11/27/22 tablet (Vitamin C) AUTOPAP 6-16 cm water humidified #1 ea 01/04/23 AIR and supplies CPAP suppliesNew tubes, filter and #1 ea 01/04/23 mask for the Machine empagliflozin 25 mg tablet 25 mg PO DAILY 30 days #30 tabs 01/29/23 fenofibrate 160 mg tablet 160 mg PO DAILY 90 days #90 tabs 01/29/23 lorazepam 2 mg tablet 2 mg PO DAILY 30 days #30 tabs 01/30/23 rivaroxaban 10 mg tablet (Xarelto) 10 mg PO DAILY #90 tabs 03/12/23 rivaroxaban 20 mg tablet (Xarelto) 20 mg PO DAILY 7 days #7 tabs 04/16/23 Allergies Allergy/AdvReac Type Severity Reaction Status Date / Time Penicillins [PENICILLINS] Allergy Intermediate RASH Verified 04/16/23 11:03 naproxen [From Naprosyn] AdvReac Unknown Unknown Verified 04/16/23 11:03 NSAIDS (Non-Steroidal AdvReac Unknown Unknown Verified 04/16/23 11:03 Anti-Inflamma lisinopril AdvReac Intermediate increasing Uncoded 04/16/23 11:03 creatinine Review of Systems 2 Review of Systems: Yes all other systems are reviewed and are negative [facility] Past Medical History Attestation statement: The following information was validated with the patient. Source: old records reviewed Medical History Obstructive sleep apnea Type 2 diabetes mellitus with hyperglycemia Phimosis Vitamin D deficiency Hypothyroidism Retinitis pigmentosa Long-term insulin use in type 2 diabetes Essential hypertension Nontoxic multinodular goiter Dyslipidemia, goal LDL below 100 Chronic kidney disease, stage 3 Diabetic polyneuropathy associated with type 2 diabetes mellitus Obesity (BMI 30-39.9) Hypoglycemia unawareness associated with type 2 diabetes mellitus Diverticulosis CKD (chronic kidney disease) Bulgarian speaking patient Bladder cancer Arthritis Thyroid disease Legally blind DVT (deep venous thrombosis) Sleep apnea HTN (hypertension) Surgical History Deficient knowledge of leg surgery History of prostatectomy Hx of eye surgery Hx of knee surgery H/O colonoscopy Hx of cystoscopy Hx of circumcision S/P insertion of IVC (inferior vena caval) filter History of biopsy of bladder Family History Family History Father Medical history unknown Mother Breast cancer Diabetes Hypertension CVD (cardiovascular disease) Brother CVD (cardiovascular disease) Social History Social History Household Members: None Housing: Apartment Are you a primary rn critical care to a significant other at home: No Do you presently have visiting nurse or other home services: No Alcohol intake: former Patient Tobacco Use Status: Never used Tobacco Years Smoked: 30 years old Smoked in Last 30 Days: No e-Cigarette/Vaping Use: Never Used Second Hand Smoke Exposure: No Use of substances other than those prescribed or required for medical reasons: No Advance Directives: No Advance Directives Information Provided: No service: No Current occupational status: disabled Cognitive needs: No Hearing needs: No Vision needs: Yes Physical Exam 2 Vital Signs: Vital Signs: Last Vital Signs Temp 97.5 F 04/16/23 11:03 Pulse 94 04/16/23 16:28 Resp 18 04/16/23 16:28 BP 171/97 H 04/16/23 16:28 Pulse Ox 97 04/16/23 16:28 O2 Del Method Room Air 04/16/23 16:28 BMI result Body Mass Index 36.7 Patient is afebrile, hypertensive, without tachycardia Const: General: cooperative and no acute distress HEENT: Head: Yes atraumatic Eyes: General: appearance normal, both eyes and all related structures Neck: Neck: Yes normal visual inspection, Yes full ROM, Yes supple and No tender Chest: Chest palpation & inspection: normal inspection of the chest and normal palpation of entire chest wall Resp: Effort & Inspection: normal respiratory effort, able to speak in complete sentences, no cough and no respiratory distress Auscultation: clear to auscultation bilaterally Cardio: Rate: regular rate Rhythm: regular rhythm Peripheral pulses: P eripheral pulses 2+ throughout GI: Inspection: Yes normal to inspection and No distended Palpation (GI): S oft to palpation, not firm, nontender, no guarding and not rigid Extrem: Other: LLE: Increased lower extremity swelling, no calf tenderness, FROM knee and ankle/foot, NVI with palpable pulse. Extremity warm. Mild overlying erythema to anterior calf without increased temperature. No obvious skin breakage or discharge noted. Course Course Course Narrative: RME: 62 year-old M w/ PMHx DM, blind, CKD, bladder CA, HLD, HTN, DVT, on Xarelto presenting to the ED c/o painful, black/discolored LLE x today. Chronic numbness to LLE. denies injury/fall. +LLE with pitting edema and darker disoloration. warm to touch, distal pulses intact Labs, Venous/Arterial US ordered Full HPI, ROS and PE to be performed by primary ED provider. Reevaluation(s) Reevaluation #1: Care assumed from triage provider, reviewed work up above. Arterial duplex LLE with monophasic dorsal pedis and biphasic posterior tibial. No visualization of peroneal artery. Venous duplex LLE with positive DVT left popliteal vein. Labs reviewed. Mild thrombocytopenia. INR 1.1, PT 13.8. Cr 1.65 (baseline) Discussed with covering hematology/oncology for patient's director of public relations/oncologist (Dr. Broderick). Agree with plan to resume patient on Xarelto 20mg daily. Patient will follow up in the office with Dr. Broderick in 1 week and call for the appointment on Sunday04/17/2023. No indication of overlying cellulitis in LLE. Will provide x1 Xarelto 10mg today to add to the 10mg dose patient already took this morning for total 20mg. Plan: Discharge to home with PCP follow up Return precautions given Medical Decision Making Lab Data 04/16/23 11:25 04/16/23 11:25 Labs: Lab Results 04/16/23 04/16/23 Range/Units 11:23 11:25 WBC 6.6 (4.8-10.8) X10*3/uL RBC 4.71 (4.60-5.80) X10*6/uL Hgb 14.4 (14.0-18.0) g/dl Hct 42.8 (42.0-52.0) % MCV 90.9 (80.0-98.0) fL MCH 30.6 (27.0-33.0) pg MCHC 33.6 (31.0-36.0) g/dl RDW 13.8 (11.0-16.0) % Plt Count 155 L (160-400) X10*3/uL MPV 10.9 (9.4-12.4) fL Immature Gran % (Auto) 0.6 H (0.0-0.4) % Neut % (Auto) 55.9 (45-73) % Lymph % (Auto) 27.9 (20-40) % [place] % (Auto) 11.3 H (2-11) % Eos % (Auto) 3.8 (0-4) % Baso % (Auto) 0.5 (0-2) % Lymph # (Auto) 1.8 (1.2-4.9) X10*3/uL [place] # (Auto) 0.7 (0.1-1.2) X10*3/uL Eos # (Auto) 0.3 (0.0-0.4) X10*3/uL Baso # (Auto) 0.0 (0.0-0.2) X10*3/uL Abs Immat Gran (auto) 0.04 H (0.00-0.03) X10*3/uL Absolute Neuts (auto) 3.7 (2.0-8.3) x10*3/uL Absolute Nucleated RBC 0.000 (0.0-0.012) X10*3/uL Nucleated RBC % (auto) 0.0 (0.0-0.2) /100WBC PT 13.8 H (11.1-13.3) SEC INR 1.1 (0.9-1.1) Sodium 138 (135-145) mmol/L Potassium 3.8 (3.3-5.1) mmol/L Chloride 106 (96-108) mmol/L Carbon Dioxide 23 (22-29) mmol/L Anion Gap 13 (12-20) BUN 34 H (9-16) mg/dL Creatinine 1.65 H (0.5-1.4) mg/dL Estim Creat Clear Calc 58.9 Estimated GFR 43 Random Glucose 210 H (60-115) mg/dL Calcium 10.0 (8.4-10.2) mg/dL Total Bilirubin 0.5 (0.0-1.0) mg/dL Direct Bilirubin 0.2 (0.0-0.5) mg/dL AST 39 H (5-37) U/L ALT 61 H (0-40) U/L Alkaline Phosphatase 46 (39-117) U/L B-Natriuretic Peptide < 10 (<100) pg/mL Total Protein 7.0 (6.5-8.0) g/dL Albumin 3.8 (3.5-5.0) g/dL Urine Color Yellow Urine Appearance Clear Urine pH 6.0 (5.0-9.0) Ur Specific [place] 1.020 (1.005-1.025) Urine Protein Negative (Neg-Trace) mg/dL Urine Glucose (UA) >=1000 H (Negative) mg/dL Urine Ketones Negative (Negative) mg/dL Urine Blood Negative (Negative) Urine Nitrite Negative (Negative) Ur Leukocyte Esterase Negative (Negative) Urine RBC 0-2 (0-2) /HPF Urine WBC 0-5 (0-5) /HPF Ur Squamous Epith Cells 0-2 (0-2) /HPF Urine Bacteria None Seen (None Seen) Hyaline Casts 0-2 (0-2) /LPF Discharge Plan Discharge Clinical Impression: DVT (deep venous thrombosis) Patient Disposition: Home, Self-Care Instructions: Rivaroxaban (By mouth) Additional Instructions: As we discussed, you were seen today for pain and swelling in your left leg. You had an US of your artery and vein - you were found to have a DVT in your popliteal artery - this is likely your chronic DVT. Your director of public relations/oncologist recommended we increase your Xarelto back to 20mg every day. Please call your hematologst/oncologist tomorrow (Sunday04/17/2023) to make an appointment within the next 1 week. Return immediately to the emergency department for worsening pain, redness, or any fevers. Prescriptions: New Xarelto 20 mg tablet 20 mg PO DAILY 7 Days Qty: 7 0RF Rx Instructions: must administer with evening meal No Action (DME) grab bar See Rx Instructions .Route .MEDSUPPLY Qty: 1 0RF Rx Instructions: As directed (DME) RECLINER See Rx Instructions .Route .MEDSUPPLY Qty: 1 0RF Rx Instructions: As directed (DME) Shower chair See Rx Instructions .Route .MEDSUPPLY Qty: 1 0RF Rx Instructions: As directed insulin lispro 100 unit/mL insulin pen See Rx Instructions subcut USEASDIRECTD Qty: 15 3RF Rx Instructions: 4 to 12 units before each meal or snacks subcut 4 times a day; subcutaneously use as directed; (DME) Prodigy No Coding Strip See Rx Instructions .ROUTE .MEDSUPPLY Qty: 100 11RF Rx Instructions: 3 times a day (DME) blood-glucose meter [Prodigy Voice Glucose Meter] Kit See Rx Instructions .ROUTE .MEDSUPPLY Qty: 1 0RF Rx Instructions: 3 times a day (DME) lancets 28 gauge misc See Rx Instructions .Route Qty: 100 6RF Rx Instructions: TID (DME) CANE See Rx Instructions .Route .MEDSUPPLY Qty: 1 0RF Rx Instructions: As directed insulin lispro [Humalog KwikPen Insulin] 100 unit/mL insulin pen 10 unit subcut TID 30 Days Qty: 15 3RF Rx Instructions: or as directed pen needle, diabetic [BD Ultra-Fine Mini Pen Needle] 31 gauge x 3/16 needle 1 ea subcut .5x day 90 Days Qty: 450 3RF Rx Instructions: test 5 times daily levothyroxine 50 mcg tablet 50 mcg PO QAM Qty: 90 2RF hydrocortisone-acetic acid 1-2 % drops 4 drp otic (ear) right TID Qty: 10 0RF Rx Instructions: apply to (cotton) wick; replace wick every 24 hours alcohol swabs [Alcohol Pads] Pads, Medicated 1 pad topical QID 30 Days Qty: 200 11RF (DME) lancets [FreeStyle Lancets] 28 gauge misc See Rx Instructions .ROUTE .MEDSUPPLY Qty: 3 3RF Rx Instructions: As directed check BS 3 times a day atorvastatin 20 mg tablet 20 mg PO BEDTIME 90 Days Qty: 90 1RF (DME) FreeStyle Lite Strips Strip See Rx Instructions .ROUTE .MEDSUPPLY Qty: 3 3RF Rx Instructions: As directed 3 times a day (DME) blood-glucose meter [FreeStyle Lite Meter] Kit See Rx Instructions .ROUTE .MEDSUPPLY Qty: 1 0RF Rx Instructions: As directed 3x/day ascorbic acid (vitamin C) [Vitamin C] 500 mg tablet 500 mg PO DAILY 90 Days Qty: 90 3RF (DME) CPAP suppliesNew tubes, filter and mask for the Machine See Rx Instructions .Route .MEDSUPPLY Qty: 1 0RF Rx Instructions: As directed (DME) AUTOPAP 6-16 cm water humidified AIR and supplies See Rx Instructions .Route .MEDSUPPLY Qty: 1 5RF Rx Instructions: Sleep study done 12/27/2022 results showing mild sleep apnea advised to be treated conservative but can use CPAP therapy with auto PAP mode 6-16 cm GREG 99 empagliflozin 25 mg tablet 25 mg PO DAILY 30 Days Qty: 30 7RF fenofibrate 160 mg tablet 160 mg PO DAILY 90 Days Qty: 90 3RF lorazepam 2 mg tablet 2 mg PO DAILY 30 Days Qty: 30 3RF multivitamin cholecalciferol (vitamin D3) 25 mcg (1,000 unit) capsule 25 mcg PO DAILY Xarelto 10 mg Tablet 10 mg PO DAILY Qty: 90 3RF Rx Instructions: for 35 days (DME) cpap See Rx Instructions .Route .MEDSUPPLY Qty: 1 0RF Rx Instructions: As directed (DME) jodi.stocking,knee,reg,xlrg Misc See Rx Instructions .ROUTE .MEDSUPPLY Qty: 12 0RF Rx Instructions: As directed 20-30 mm mercury gabapentin 300 mg capsule 300 mg PO BEDTIME Qty: 30 2RF Trulicity 1.5 mg/0.5 mL pen injector 3.5 mg subcut QWEEK sennosides-docusate sodium [Senna Plus] 8.6-50 mg tablet 2 tab-cap PO BEDTIME PRN (Reason: constipation) Qty: 60 4RF fluoride (sodium) [Denta 5000 Plus] 1.1 % cream 1 appl PO DAILY insulin glargine [Lantus Solostar U-100 Insulin] 100 unit/mL (3 mL) insulin pen 38 unit subcut QPM 90 Days Qty: 34.2 6RF lisinopril 10 mg tablet 10 mg PO DAILY azelastine 0.05 % drops ophthalmic (eye) Referrals: Fazal,Sujata Louie MD [Primary Care Provider] -
[2023-04-16 11:33] LABS: MANUAL DIFF FLAG NO
[2023-04-16 11:36] LABS: Basophils Percent Auto 0.5 % (0-2); Eosinophils Absolute Auto 0.3 X10*3/uL (0.0-0.4); Eosinophils Percent Auto 3.8 % (0-4); Hematocrit 42.8 % (42.0-52.0); Hemoglobin 14.4 g/dl (14.0-18.0); Imm Gran Abs Auto 0.04 X10*3/uL (0.00-0.03); Imm Gran Pct Auto 0.6 % (0.0-0.4); Lymphocytes Absolute Auto 1.8 X10*3/uL (1.2-4.9); Lymphocytes Percent Auto 27.9 % (20-40); Mean Corpuscular HGB Conc 33.6 g/dl (31.0-36.0); Mean Corpuscular Hemoglobin 30.6 pg (27.0-33.0); Mean Corpuscular Volume 90.9 fL (80.0-98.0); Mean Platelet Volume 10.9 fL (9.4-12.4); Monocytes Absolute Auto 0.7 X10*3/uL (0.1-1.2); Monocytes Percent Auto 11.3 % (2-11); Neutrophils Absolute Auto 3.7 x10*3/uL (2.0-8.3); Neutrophils Percent Auto 55.9 % (45-73); Platelet Count 155 X10*3/uL (160-400); Red Blood Count 4.71 X10*6/uL (4.60-5.80); Red Cell Distribution Width 13.8 % (11.0-16.0); White Blood Count 6.6 X10*3/uL (4.8-10.8)
[2023-04-16 11:40] LABS: Appearance Urine Clear; Color Urine Yellow; Glucose Urine UA >=1000 mg/dL (Negative); Leukocyte Esterase Urine Negative (Negative); Nitrite Urine Negative (Negative); UMIC TRIGGER UACC YES; Urine Blood Negative (Negative); Urine Ketones Negative (Negative); Urine Protein Negative (Neg-Trace)
[2023-04-16 11:43] LABS: INTERNATIONAL NORM RATIO 1.1 (0.9-1.1); Prothrombin Time 13.8 SEC (11.1-13.3)
[2023-04-16 11:52] LABS: Alanine Aminotransferase 61 U/L (0-40); Albumin Level 3.8 g/dL (3.5-5.0); Alkaline Phosphatase 46 U/L (39-117); Anion Gap 13 (12-20); Aspartate Amino Transferase 39 U/L (5-37); Bilirubin Direct 0.2 mg/dL (0.0-0.5); Bilirubin Total 0.5 mg/dL (0.0-1.0); Blood Urea Nitrogen 34 mg/dL (9-16); Carbon Dioxide 23 mmol/L (22-29); Chloride 106 mmol/L (96-108); Creatinine Clr Calc Pharmacy 58.9; Estimated Glomerular Filt Rate 43; Glucose Random 210 mg/dL (60-115); Potassium 3.8 mmol/L (3.3-5.1); Sodium 138 mmol/L (135-145)
[2023-04-16 11:53] LABS: Bacteria Urine None Seen (None Seen); Hyaline Casts Urine 0-2 /LPF (0-2); RBC Urine 0-2 /HPF (0-2); Squamous Epithelial Cell Urine 0-2 /HPF (0-2); WBC Urine 0-5 /HPF (0-5)
[2023-04-16 11:57] LABS: B Type Natriuretic Peptide < 10 pg/mL (<100)
[2023-04-16 16:28] VITALS: BP 171/97; PULSE 94; RESP 18; O2SAT 97
[2023-04-16] MEDS: Rivaroxaban 10 MG TABLET PO (17:28)
== END 2023-04-16 17:37 | disposition home or self-care (01) ==
PROVIDERS: Physician Assistant; Emergency Provider Emergency Medicine; PCP Internal Medicine
DX: I82.402 Acute embolism and thrombosis of unspecified deep veins of left lower extremity (principal); M79.605 Pain in left leg; Z79.01 Long term (current) use of anticoagulants; Z79.899 Other long term (current) drug therapy
CPT/HCPCS: 36415; 80048; 80076; 81001; 83880; 85025; 85610; 93926; 93971; 99284

== ENCOUNTER 2023-04-26 08:44 | Outpatient (REF) | payer OTHER, SELFPAY ==
[2023-04-26 09:06] LABS: MANUAL DIFF FLAG NO
[2023-04-26 09:40] LABS: Basophils Percent Auto 0.5 % (0-2); Eosinophils Absolute Auto 0.3 X10*3/uL (0.0-0.4); Eosinophils Percent Auto 3.8 % (0-4); Hematocrit 45.4 % (42.0-52.0); Hemoglobin 15.4 g/dl (14.0-18.0); Imm Gran Abs Auto 0.05 X10*3/uL (0.00-0.03); Imm Gran Pct Auto 0.7 % (0.0-0.4); Immature Retic Fraction 23.7 % (2.3-13.4); Lymphocytes Absolute Auto 1.8 X10*3/uL (1.2-4.9); Lymphocytes Percent Auto 23.8 % (20-40); Mean Corpuscular HGB Conc 33.9 g/dl (31.0-36.0); Mean Corpuscular Hemoglobin 30.6 pg (27.0-33.0); Mean Corpuscular Volume 90.1 fL (80.0-98.0); Mean Platelet Volume 11.1 fL (9.4-12.4); Monocytes Absolute Auto 0.6 X10*3/uL (0.1-1.2); Monocytes Percent Auto 8.2 % (2-11); Neutrophils Absolute Auto 4.8 x10*3/uL (2.0-8.3); Platelet Count 179 X10*3/uL (160-400); Red Blood Count 5.04 X10*6/uL (4.60-5.80); Red Cell Distribution Width 14.1 % (11.0-16.0); Retic HGB Equivalent 34.7 pg (30.0-35.0); Reticulocyte Percent 3.6 % (0.5-1.8); Reticulocytes Absolute 0.179 X10*6/uL (0.026-0.095); White Blood Count 7.6 X10*3/uL (4.8-10.8)
[2023-04-26 09:44] LABS: Estimated Average Glucose 137 mg/dL; Hemoglobin A1c % 6.4 % (<6.0)
[2023-04-26 10:25] LABS: Alanine Aminotransferase 56 U/L (0-40); Albumin Level 4.2 g/dL (3.5-5.0); Alkaline Phosphatase 48 U/L (39-117); Anion Gap 16 (12-20); Aspartate Amino Transferase 37 U/L (5-37); Bilirubin Total 0.7 mg/dL (0.0-1.0); Blood Urea Nitrogen 38 mg/dL (9-16); Calcium 9.9 mg/dL (8.4-10.2); Carbon Dioxide 24 mmol/L (22-29); Chloride 106 mmol/L (96-108); Estimated Glomerular Filt Rate 40; Glucose Random 112 mg/dL (60-115); Iron 102 mcg/dL (45-160); Percent Iron Saturation 32 % (15-50); Potassium 4.1 mmol/L (3.3-5.1); Sodium 142 mmol/L (135-145); Total Iron Binding Capacity 319 mcg/dL (228-428); Total Protein 7.3 g/dL (6.5-8.0); Unsaturated Iron Binding 217 ug/dL
[2023-04-26 10:37] LABS: Ferritin 179 ng/mL (20-250)
== END 2023-04-26 08:45 | disposition home or self-care (01) ==
LOC: HO.LAB 08:44
PROVIDERS: PCP Internal Medicine; Visit Provider Internal Medicine
DX: N18.32 Chronic kidney disease, stage 3b (principal)
CPT/HCPCS: 36415; 80053; 82728; 83036; 83540; 85025; 85045

== ENCOUNTER 2023-05-04 08:47 | Outpatient (AMB) | payer OTHER, SELFPAY ==
[2023-05-04 08:54] VITALS: BP 142/80; PULSE 83; O2SAT 96; BMI 35.8
--- NOTE | 2023-05-04 08:54 | MHC.PC.OV ---
Vital Signs 05/04/23 08:54 05/04/23 10:04 Height 5 ft 9 in Weight 242 lb 4.608 oz BMI 35.8 BP 142/80 H 120/80 Blood Pressure Location Lt brachial Lt brachial Position Sitting Sitting Pulse 83 Pulse Source Pulse Oximeter Pulse Oximetry (%) 96 Oxygen Delivery Method Room Air Intake Visit Reasons: CKD3 Hand Ii Cutter Required: No Allergies Penicillins [PENICILLINS] Allergy (Intermediate, Verified 05/04/23 09:15) RASH naproxen [From Naprosyn] Adverse Reaction (Unknown, Verified 05/04/23 09:15) Unknown NSAIDS (Non-Steroidal Anti-Inflamma Adverse Reaction (Unknown, Verified 05/04/23 09:15) Unknown lisinopril Adverse Reaction (Intermediate, Uncoded 05/04/23 09:15) increasing creatinine Tobacco use date assessed: 05/04/23 Dental Screening Dental Screen Date: 05/04/23 HPI CKD3 HPI Details 62-year-old obese male with diabetes mellitus chronic kidney disease , urinary bladder cancer hypertension hypothyroidism obstructive sleep apnea and chronic left lower extremity DVT on Xarelto has an IVC filter also. last seen in February 2023 patient is here for follow-up. Patient was seen in the emergency room in March 2023 left lower extremity pain and swelling patient was recently decreased from Xarelto 20-10 mg and contacted hematology oncology and placed back to resume 2 Xarelto 20 mg once a day. Patient also follows up with urology for the urinary bladder cancer had cystoscopy done TURBT 2016. aids [facility] History Obstructive sleep apnea Type 2 diabetes mellitus with hyperglycemia Phimosis Vitamin D deficiency Hypothyroidism Retinitis pigmentosa Long-term insulin use in type 2 diabetes Essential hypertension Nontoxic multinodular goiter Dyslipidemia, goal LDL below 100 Chronic kidney disease, stage 3 Diabetic polyneuropathy associated with type 2 diabetes mellitus Obesity (BMI 30-39.9) Hypoglycemia unawareness associated with type 2 diabetes mellitus Diverticulosis CKD (chronic kidney disease) Kinyarwanda speaking patient Bladder cancer Arthritis Thyroid disease Legally blind DVT (deep venous thrombosis) Sleep apnea HTN (hypertension) Surgical History Deficient knowledge of leg surgery History of prostatectomy Hx of eye surgery Hx of knee surgery H/O colonoscopy Hx of cystoscopy Hx of circumcision S/P insertion of IVC (inferior vena caval) filter History of biopsy of bladder Family History Father Medical history unknown Mother Breast cancer Diabetes Hypertension CVD (cardiovascular disease) Brother CVD (cardiovascular disease) Social History Household Members: None Housing: Apartment Are you a primary memory care program resident to a significant other at home: No Do you presently have visiting nurse or other home services: No Alcohol intake: former Patient Tobacco Use Status: Never used Tobacco Years Smoked: 30 years old e-Cigarette/Vaping Use: Never Used Second Hand Smoke Exposure: No service: No Current occupational status: disabled Cognitive needs: No Hearing needs: No Vision needs: Yes Questionnaire PHQ-9 Over the last 2 weeks, how often have you been bothered by any of the following problems? 1. Little interest or pleasure in doing things: several days 2. Feeling down, depressed, or hopeless: several days 3. Trouble falling or staying asleep, or sleeping too much: not at all 4. Feeling tired or having little energy: not at all 5. Poor appetite or overeating: not at all 6. Feeling bad about yourself - or that you are a failure or have let yourself or your family down: not at all 7. Trouble concentrating on things, such as reading the newspaper or watching television: not at all 8. Moving or speaking so slowly that other people could have noticed. Or the opposite - being so fidgety or restless that you have been moving around a lot more than usual: not at all 9. Thoughts that you would be better off or of hurting yourself in some way: not at all Total score: 2 Depression Screening Interpretation: Negative Depression Screening Done: Yes Source: Developed by Drs. Nathen Menchaca, Vida Nye, Pedrito Dao and colleagues, with an educational enzo from [employer]. Thrive Questionnaire Date Thrive assessed: 05/04/23 I am a: Patient What is your living situation today?: I have a steady place to live Within the past 12 months, did the food you bought not last and you didn't have the money to get more?: Never true Within the past 12 months, did you worry whether your food would run out before you got money to buy more?: Never true Do you have trouble paying for medicines?: No Do you have trouble getting transportation to medical appointments?: No Do you have trouble paying your heating and electricity bill?: No Do you have trouble taking care of your child, family member or friend?: No Do you have trouble with day-to-day activities such as bathing, preparing meals, shopping, managing finances, etc.?: No Are you currently unemployed and looking for a job?: No Are you interested in more education?: No Please select the resources that you would like help with: None THRIVE Score: 0 AUDIT C Alcohol Use Questionnaire (AUDIT-C) 1. How often do you have a drink containing alcohol?: Never 2. How many drinks containing alcohol do you have on a typical day when you are drinking?: 1 or 2 (0) 3. How often do you have six or more drinks on one occasion?: Never Total Score: 0 MARNIE-7 AMB Questionnaire MARNIE-7 Date MARNIE - 7 assessed: 05/04/23 Feeling nervous, anxious, or on edge: 0 = Not at all Not being able to stop or control worryin = Not at all Worrying too much about different things: 0 = Not at all Trouble relaxin = Not at all Being so restless that it is hard to sit still: 0 = Not at all Becoming easily annoyed or irritable: 0 = Not at all Feeling afraid as if something awful might happen: 0 = Not at all Total MARNIE-7 score (0-4 normal; 5-9 mild; 10-14 moderate; 15-21 severe): 0 Source: Developed by Drs. Nathen Menchaca, Vida Nye, Pedrito Dao and colleagues, with an educational enzo from [employer]. Physical exam (Primary Care) Vital Signs: Last Vital Signs Pulse 83 05/04/23 08:54 BP 142/80 H 05/04/23 08:54 Pulse Ox 96 05/04/23 08:54 Oxygen Delivery Method Room Air 05/04/23 08:54 BMI result Body Mass Index 35.8 Tobacco/Smoking Status: Tobacco use Status Tobacco use date assessed 05/04/23 05/04/23 08:55 Patient Tobacco Use Status Never used Tobacco 05/04/23 08:55 e-Cigarette/Vaping Use Never Used 05/04/23 08:55 PHQ-9: PHQ-9 Score PHQ-9: Total score 2 05/04/23 09:35 Depression Screening Interpretation: Negative Thrive Assessment: Date of Thrive Assessment Date Thrive assessed 05/04/23 05/04/23 08:55 Const General: alert; No acute distress Eyes Conjunctivae: conjunctivae normal Resp Auscultation: clear to auscultation bilaterally Cardio Rate: regular rate Rhythm: regular rhythm GI Inspection: Yes normal to inspection Extrem General: Yes normal to inspection and No edema Assessment and Plan Assessment & Plan (1) Chronic kidney disease, stage 3: Comment: Diabetic hypertensive disease Code(s): N18.30 - Chronic kidney disease, stage 3 unspecified Qualifiers: Chronic kidney disease stage 3 subtype: stage 3b (GFR 30-44) Qualified Code(s): N18.32 - Chronic kidney disease, stage 3b Plan: Continue to monitor avoid NSAIDs keep well hydrated (2) Dyslipidemia, goal LDL below 100: Code(s): E78.5 - Hyperlipidemia, unspecified Plan: Avoid fried foods, chicken skin, eggs, butter margarine, pastries and meat. Be it pork or beef they have a lot of cholesterol LDL goal of less than 100 and triglyceride of less than 150 patient is advised to get blood work on fenofibrate and atorvastatin 20 mg once a day (3) Type 2 diabetes mellitus with hyperglycemia: Code(s): E11.65 - Type 2 diabetes mellitus with hyperglycemia Qualifiers: Diabetes mellitus terminal superintendent insulin use: with terminal superintendent use Qualified Code(s): E11.65 - Type 2 diabetes mellitus with hyperglycemia; Z79.4 - retirement (current) use of insulin Plan: Decrease the amount of carbohydrate intake, pasta, bread, rice and potatoes are all sugar and that is aside from all the sweet stuff, remember that fruits are good but they are Sweet also. Hemoglobin A1c goal of less than 6.5. Patient is on Trulicity Jardiance insulin Humalog Lantus (4) Essential hypertension: Code(s): I10 - Essential (primary) hypertension Plan: Continue with blood pressure medication. Decrease salt intake and exercise continue with lisinopril 10 mg once a day (5) DVT (deep venous thrombosis): Comment: h/o multiple, IVC filter and on xarelto-to stop 01/03/20 per pt per Code(s): I82.409 - Acute embolism and thrombosis of unspecified deep veins of unspecified lower extremity Plan: Because of the episode of pain after decreasing the Xarelto patient is placed back on the regular dose of Xarelto (6) Bladder cancer: Comment: Recurrent low-grade last TURBT 2016 Code(s): C67.9 - Malignant neoplasm of bladder, unspecified Qualifiers: Bladder location: unspecified site Qualified Code(s): C67.9 - Malignant neoplasm of bladder, unspecified Plan: Continue to follow-up with urology (7) Generalized anxiety disorder: Comment: Declined counseling July 2021 Code(s): F41.1 - Generalized anxiety disorder Plan: Continue with present medication Orders: Orders Complete Blood Count Auto Diff 3 Months E11.65 - Type 2 diabetes mellitus with hyperglycemia, Z79.4 - retirement (current) use of insulin Thyroid Stimulating Hormone 3 Months E11.65 - Type 2 diabetes mellitus with hyperglycemia, Z79.4 - buttermaker (current) use of insulin Microalbumin, Random (w Creat) 3 Months E11.65 - Type 2 diabetes mellitus with hyperglycemia, Z79.4 - retirement (current) use of insulin Vitamin B12 and Folate 3 Months E11.65 - Type 2 diabetes mellitus with hyperglycemia, Z79.4 - retirement (current) use of insulin Lipid Panel 3 Months E11.65 - Type 2 diabetes mellitus with hyperglycemia, E78.00 - Pure hypercholesterolemia, unspecified, Z79.4 - retirement (current) use of insulin Comprehensive Met. Panel 3 Months E11.65 - Type 2 diabetes mellitus with hyperglycemia, Z79.4 - buttermaker (current) use of insulin Free T4 (Free Thyroxine) 3 Months E11.65 - Type 2 diabetes mellitus with hyperglycemia, Z79.4 - retirement (current) use of insulin Creatinine Urine 3 Months E11.65 - Type 2 diabetes mellitus with hyperglycemia, Z79.4 - retirement (current) use of insulin Prostate Specific Antigen Scr 3 Months E11.65 - Type 2 diabetes mellitus with hyperglycemia, Z79.4 - retirement (current) use of insulin Coding Level of Care Code Est Pt Level 4 (49903) Diagnoses Stage 3b chronic kidney disease N18.32 Chronic kidney disease stage 3 subtype: stage 3b (GFR 30-44) Dyslipidemia, goal LDL below 100 E78.5 Type 2 diabetes mellitus with hyperglycemia, with long-term current use of insulin E11.65; Z79.4 Diabetes mellitus terminal superintendent insulin use: with terminal superintendent use Essential hypertension I10 DVT (deep venous thrombosis) I82.409 Malignant neoplasm of urinary bladder, unspecified site C67.9 Bladder location: unspecified site Generalized anxiety disorder F41.1
[2023-05-04 10:04] VITALS: BP 120/80
== END 2023-05-04 10:14 | disposition home or self-care (01) ==
PROVIDERS: PCP Internal Medicine; Visit Provider Internal Medicine
DX: I12.9 Hypertensive chronic kidney disease with stage 1 through stage 4 chronic kidney disease, or unspecified chronic kidney disease (principal); E11.65 Type 2 diabetes mellitus with hyperglycemia; N18.32 Chronic kidney disease, stage 3b; Z79.4 Long term (current) use of insulin; C67.9 Malignant neoplasm of bladder, unspecified; I82.409 Acute embolism and thrombosis of unspecified deep veins of unspecified lower extremity; E78.5 Hyperlipidemia, unspecified; F41.1 Generalized anxiety disorder
CPT/HCPCS: 99214

== ENCOUNTER 2023-05-22 22:49 | Emergency (ER) | payer OTHER, SELFPAY ==
[2023-05-22 22:58] VITALS: BP 160/86; PULSE 96; O2SAT 98
[2023-05-22 23:15] VITALS: BP 133/87; PULSE 92; RESP 18; TEMP 36.9; O2SAT 95; BMI 35.4
[2023-05-23 05:00] VITALS: BP 147/91; PULSE 85; RESP 16; TEMP 37.2; O2SAT 96
--- NOTE | 2023-05-23 06:11 | ED.GENADULT ---
HPI - General Adult General Chief complaint: General Medical Stated complaint: blurry vision, pt is legally blind seeing flashes Time Seen by Provider: 05/23/23 05:54 Source: patient, EMS and county bailiff Mode of arrival: EMS History of Present Illness HPI narrative: 62-year-old male who is legally blind arrives via EMS and denies having blurry vision and states that his vision is unchanged but he is depressed because there is a neighborhood kid who continues to use a flashlight inside of his house through the window. Patient states that this has increased his feelings of depression but he denies feelings of wanting to hurt himself and when offered the option of speaking with somebody from the crisis team he declines at this time. Patient states that he wants more Ativan which is typically prescribed by his primary care provider. Patient denies any other complaints of fever, chills, nausea, vomiting, shortness of breath or chest pain and denies any abdominal discomfort. Related Data Home Medications Medication Instructions Recorded Confirmed multivitamin 08/24/21 11/06/22 cholecalciferol (vitamin D3) 25 25 mcg PO DAILY 11/03/21 11/06/22 mcg (1,000 unit) capsule fluoride (sodium) 1.1 % dental 1 appl PO DAILY 05/16/22 11/06/22 cream (Denta 5000 Plus) azelastine 0.05 % eye drops drp ophthalmic (eye) 04/03/23 lisinopril 10 mg tablet 10 mg PO DAILY 04/03/23 Previous Rx's Medication Instructions Recorded grab bar #1 ea 01/29/20 RECLINER #1 ea 02/28/21 Shower chair #1 ea 03/14/21 insulin lispro 100 unit/mL See Rx Instructions subcut 08/22/21 subcutaneous pen USEASDIRECTD #15 syringe Prodigy No Coding (blood sugar #100 boxes 10/13/21 diagnostic) Prodigy Voice Glucose Meter #1 ea 10/13/21 (blood-glucose meter) lancets 28 gauge #100 ea 10/18/21 jodi.stocking,knee,reg,xlrg #12 ea 11/03/21 cpap #1 ea 11/03/21 gabapentin 300 mg capsule 300 mg PO BEDTIME #30 caps 11/14/21 CANE #1 ea 01/03/22 Lantus Solostar U-100 Insulin 100 38 unit (0.38 mL) subcut QPM 90 05/16/22 unit/mL (3 mL) subcutaneous pen days #34.2 mL (insulin glargine) insulin lispro 100 unit/mL 10 unit (0.1 mL) subcut TID 30 05/17/22 subcutaneous pen (Humalog KwikPen days #15 mL (U-100) Insulin) pen needle, diabetic 31 gauge x 1 ea subcut .5x day type 2 06/19/2205/11 (BD Ultra-Fine Mini Pen diabetes 90 days #450 ea Needle) levothyroxine 50 mcg tablet 50 mcg PO QAM #90 tabs 10/31/22 sennosides 8.6 mg-docusate sodium 2 tab-cap (2 x 8.6-50 mg) PO 11/06/22 50 mg tablet (Senna Plus) BEDTIME PRN constipation #60 tabs hydrocortisone-acetic acid 1 %-2 % 4 drp otic (ear) right TID #10 mL 11/10/22 ear drops alcohol swabs (Alcohol Pads) 1 pad topical QID 30 days #200 ea 11/14/22 lancets 28 gauge (FreeStyle #3 ea 11/14/22 Lancets) blood-glucose meter (FreeStyle #1 ea 11/22/22 Lite Meter kit) ascorbic acid (vitamin C) 500 mg 500 mg PO DAILY 90 days #90 tabs 11/27/22 tablet (Vitamin C) AUTOPAP 6-16 cm water humidified #1 ea 01/04/23 AIR and supplies CPAP suppliesNew tubes, filter and #1 ea 01/04/23 mask for the Machine empagliflozin 25 mg tablet 25 mg PO DAILY 30 days #30 tabs 01/29/23 fenofibrate 160 mg tablet 160 mg PO DAILY 90 days #90 tabs 01/29/23 atorvastatin 20 mg tablet 20 mg PO BEDTIME 90 days #90 tabs 04/20/23 dulaglutide 1.5 mg/0.5 mL 3.5 mg (1.1667 mL) subcut QWEEK #2 04/20/23 subcutaneous pen injector mL (Trulicity) rivaroxaban 20 mg tablet (Xarelto) 20 mg PO DAILY #90 tabs 05/18/23 blood sugar diagnostic (FreeStyle #3 ea 05/21/23 Lite Strips) lorazepam 2 mg tablet 2 mg PO DAILY 30 days #30 tabs 05/21/23 Allergies Allergy/AdvReac Type Severity Reaction Status Date / Time Penicillins [PENICILLINS] Allergy Intermediate RASH Verified 05/22/23 23:43 naproxen [From Naprosyn] AdvReac Unknown Unknown Verified 05/22/23 23:43 NSAIDS (Non-Steroidal AdvReac Unknown Unknown Verified 05/22/23 23:43 Anti-Inflamma lisinopril AdvReac Intermediate increasing Uncoded 05/18/23 12:59 creatinine Review of Systems Review of Systems: Pertinent positives and negatives as stated in HPI [facility] Past Medical History Source: nursing notes reviewed Medical History Obstructive sleep apnea Type 2 diabetes mellitus with hyperglycemia Phimosis Vitamin D deficiency Hypothyroidism Retinitis pigmentosa Long-term insulin use in type 2 diabetes Essential hypertension Nontoxic multinodular goiter Dyslipidemia, goal LDL below 100 Chronic kidney disease, stage 3 Diabetic polyneuropathy associated with type 2 diabetes mellitus Obesity (BMI 30-39.9) Hypoglycemia unawareness associated with type 2 diabetes mellitus Diverticulosis CKD (chronic kidney disease) [place] speaking patient Bladder cancer Arthritis Thyroid disease Legally blind DVT (deep venous thrombosis) Sleep apnea HTN (hypertension) Surgical History Deficient knowledge of leg surgery History of prostatectomy Hx of eye surgery Hx of knee surgery H/O colonoscopy Hx of cystoscopy Hx of circumcision S/P insertion of IVC (inferior vena caval) filter History of biopsy of bladder Family History Family History Father Medical history unknown Mother Breast cancer Diabetes Hypertension CVD (cardiovascular disease) Brother CVD (cardiovascular disease) Social History Social History Household Members: None Housing: Apartment Are you a primary care navigator to a significant other at home: No Do you presently have visiting nurse or other home services: No Alcohol intake: former Patient Tobacco Use Status: Never used Tobacco Years Smoked: 30 years old e-Cigarette/Vaping Use: Never Used Second Hand Smoke Exposure: No Advance Directives: No Advance Directives Information Provided: No service: No Current occupational status: disabled Cognitive needs: No Hearing needs: No Vision needs: Yes Physical Exam ED Vital Signs: Vital Signs - 24 hr 05/22/23 23:15 05/23/23 05:00 Temperature 98.4 F 99.0 F Pulse Rate 92 85 Respiratory Rate 18 16 Blood Pressure 133/87 147/91 H Pulse Oximetry 95 96 Oxygen Delivery Method Room Air Room Air BMI result Body Mass Index 35.4 VITAL SIGNS: Reviewed. GENERAL: Well developed, well nourished, in no acute distress. HEAD: Normocephalic/atraumatic EYES: PERRLA, EOMI LUNGS: Normal breath sounds. No adventitious sounds or accessory muscle use. SpO2<96> CARDIOVASCULAR: Regular rate and rhythm without noted murmurs ABDOMEN: Soft, non-tender, non-distended with bowel sounds. MUSCULOSKELETAL: No tenderness, deformities, or effusions noted on gross inspection. EXTREMITIES: No cyanosis, clubbing or edema. SKIN: Inspection of the skin reveals no rashes NEUROLOGIC: Alert and oriented x 4. Strength and sensation to light touch were grossly intact x 4. Medical Decision Making Medical Decision Making MDM Narrative: 62-year-old male with history and clinical presentation of depression but requesting lorazepam and denies any SI/HI and does not wish to speak with the crisis team. He has no other acute complaints and denies any blurry vision and instead states that he is unhappy with his current living situation. Patient was reassured that I will copy my note over to his primary care doctor as he is asking for assistance in living at a different facility. Differential Diagnosis Differential Diagnoses: The differential diagnosis associated with the presentation includes Please see the discussion above Admission/Observation Consideration of admission/observation: Escalation of care including admission/observation considered Please see the discussion above Discharge Plan Discharge Clinical Impression: Depression, Legally blind Patient Disposition: Home, Self-Care Instructions: Depression (ED) Additional Instructions: 1. Resume all home medications as prescribed. 2. Please ask your handyperson to help you out with making a follow-up appointment with your primary care doctor. Prescriptions: No Action (DME) grab bar See Rx Instructions .Route .MEDSUPPLY Qty: 1 0RF Rx Instructions: As directed (DME) RECLINER See Rx Instructions .Route .MEDSUPPLY Qty: 1 0RF Rx Instructions: As directed (DME) Shower chair See Rx Instructions .Route .MEDSUPPLY Qty: 1 0RF Rx Instructions: As directed insulin lispro 100 unit/mL insulin pen See Rx Instructions subcut USEASDIRECTD Qty: 15 3RF Rx Instructions: 4 to 12 units before each meal or snacks subcut 4 times a day; subcutaneously use as directed; (DME) Prodigy No Coding Strip See Rx Instructions .ROUTE .MEDSUPPLY Qty: 100 11RF Rx Instructions: 3 times a day (DME) blood-glucose meter [Prodigy Voice Glucose Meter] Kit See Rx Instructions .ROUTE .MEDSUPPLY Qty: 1 0RF Rx Instructions: 3 times a day (DME) lancets 28 gauge misc See Rx Instructions .Route Qty: 100 6RF Rx Instructions: TID (DME) CANE See Rx Instructions .Route .MEDSUPPLY Qty: 1 0RF Rx Instructions: As directed insulin lispro [Humalog KwikPen Insulin] 100 unit/mL insulin pen 10 unit subcut TID 30 Days Qty: 15 3RF Rx Instructions: or as directed pen needle, diabetic [BD Ultra-Fine Mini Pen Needle] 31 gauge x 3/16 needle 1 ea subcut .5x day 90 Days Qty: 450 3RF Rx Instructions: test 5 times daily levothyroxine 50 mcg tablet 50 mcg PO QAM Qty: 90 2RF hydrocortisone-acetic acid 1-2 % drops 4 drp otic (ear) right TID Qty: 10 0RF Rx Instructions: apply to (cotton) wick; replace wick every 24 hours alcohol swabs [Alcohol Pads] Pads, Medicated 1 pad topical QID 30 Days Qty: 200 11RF (DME) lancets [FreeStyle Lancets] 28 gauge misc See Rx Instructions .ROUTE .MEDSUPPLY Qty: 3 3RF Rx Instructions: As directed check BS 3 times a day (DME) blood-glucose meter [FreeStyle Lite Meter] Kit See Rx Instructions .ROUTE .MEDSUPPLY Qty: 1 0RF Rx Instructions: As directed 3x/day ascorbic acid (vitamin C) [Vitamin C] 500 mg tablet 500 mg PO DAILY 90 Days Qty: 90 3RF (DME) CPAP suppliesNew tubes, filter and mask for the Machine See Rx Instructions .Route .MEDSUPPLY Qty: 1 0RF Rx Instructions: As directed (DME) AUTOPAP 6-16 cm water humidified AIR and supplies See Rx Instructions .Route .MEDSUPPLY Qty: 1 5RF Rx Instructions: Sleep study done 12/27/2022 results showing mild sleep apnea advised to be treated conservative but can use CPAP therapy with auto PAP mode 6-16 cm GREG 99 empagliflozin 25 mg tablet 25 mg PO DAILY 30 Days Qty: 30 7RF fenofibrate 160 mg tablet 160 mg PO DAILY 90 Days Qty: 90 3RF atorvastatin 20 mg tablet 20 mg PO BEDTIME 90 Days Qty: 90 2RF Trulicity 1.5 mg/0.5 mL pen injector 3.5 mg subcut QWEEK Qty: 2 3RF (DME) FreeStyle Lite Strips Strip See Rx Instructions .ROUTE .MEDSUPPLY Qty: 3 3RF Rx Instructions: As directed 3 times a day lorazepam 2 mg tablet 2 mg PO DAILY 30 Days Qty: 30 3RF multivitamin cholecalciferol (vitamin D3) 25 mcg (1,000 unit) capsule 25 mcg PO DAILY Xarelto 20 mg Tablet 20 mg PO DAILY Qty: 90 3RF Rx Instructions: must administer with evening meal (DME) cpap See Rx Instructions .Route .MEDSUPPLY Qty: 1 0RF Rx Instructions: As directed (DME) jodi.stocking,knee,reg,xlrg Misc See Rx Instructions .ROUTE .MEDSUPPLY Qty: 12 0RF Rx Instructions: As directed 20-30 mm mercury gabapentin 300 mg capsule 300 mg PO BEDTIME Qty: 30 2RF sennosides-docusate sodium [Senna Plus] 8.6-50 mg tablet 2 tab-cap PO BEDTIME PRN (Reason: constipation) Qty: 60 4RF fluoride (sodium) [Denta 5000 Plus] 1.1 % cream 1 appl PO DAILY insulin glargine [Lantus Solostar U-100 Insulin] 100 unit/mL (3 mL) insulin pen 38 unit subcut QPM 90 Days Qty: 34.2 6RF lisinopril 10 mg tablet 10 mg PO DAILY azelastine 0.05 % drops ophthalmic (eye) Referrals: Po,Sujata Louie MD [Primary Care Provider] - Print Language: [place]
--- NOTE | 2023-05-23 07:09 | PC.NURSE ---
Ambulance transport to be arranged for pt.
[2023-05-23 08:51] VITALS: BP 135/85; PULSE 86; RESP 18; TEMP 36.6; O2SAT 96
== END 2023-05-23 08:52 | disposition home or self-care (01) ==
PROVIDERS: Emergency Provider Student in an Organized Health Care Education/Training Program; PCP Internal Medicine
DX: F32.A Depression, unspecified (principal); H54.8 Legal blindness, as defined in USA; I10 Essential (primary) hypertension; Z79.899 Other long term (current) drug therapy
CPT/HCPCS: 99283; 99284

== ENCOUNTER 2023-05-24 10:54 | Emergency (ER) | payer OTHER, SELFPAY ==
--- NOTE | ~2023-05-24 | CT_ITS ---
EXAMINATION: CT HEAD WITHOUT CONTRAST CLINICAL INFORMATION: New onset paranoia, behavioral change. COMPARISON: None TECHNIQUE: Contiguous axial imaging was performed from the skull base to vertex without intravenous administration of contrast. This CT examination was performed using dose optimization techniques as appropriate, variously including the following: *Automated exposure control *Adjustment of mA and/or kV according to patient size (this includes techniques or standardized protocols for targeted exams where dose is matched to indication/reason for exam; i.e. extremities or head) *Use of iterative reconstruction technique DLP: 783 mGy-cm FINDINGS: There is no evidence of acute intracranial hemorrhage or edematous territorial infarction. Scattered hypoattenuation in the periventricular and deep white matter are consistent with moderate microangiopathy. Monk-white matter differentiation is preserved. Proportional prominence of the ventricles and sulcal spaces. No evidence for obstructive hydrocephalus. No abnormal mass effect or midline shift. No extra-axial fluid collections. No acute soft tissue or osseous abnormalities. The mastoid air cells and paranasal sinuses are clear. CT/CT head/brain wo IV con IMPRESSION: 1. No evidence of acute intracranial hemorrhage or edematous territorial infarction. 2. Chronic microangiopathy and generalized cerebral volume loss.
[2023-05-24 11:03] VITALS: BP 150/80; PULSE 110; O2SAT 95
[2023-05-24 11:04] VITALS: BP 131/89; PULSE 105; RESP 16; TEMP 36.8; O2SAT 96; BMI 35.3
--- NOTE | 2023-05-24 11:20 | ED.PSYCH ---
HPI - Psych General Chief Complaint: Psychiatric Symptoms Stated Complaint: DEPRESSION PARANOID Time Seen by Provider: 05/24/23 11:16 Source: patient Mode of arrival: ambulatory Limitations: no limitations History of Present Illness HPI Narrative: 62 yo male with history of DM on insulin, hypothyroidism, chronic LLE DVT on Xarelto s/p IVC filter, legally blind, CKD III, HTN, MELCHOR on CPAP, bladder cancer s/p TURBT 2017, HTN, PVD, anxiety disorder who presents to the ER via EMS for evaluation of anxiety and paranoia. Patient is Niuean-speaking, director of medical staff services used to obtain history. Patient reports that for the last 6 weeks people have been shining lights in the windows in his home with bright flash lights. He feels unsafe at home. He recently board it up his windows from the inside to prevent people from looking in. His IRRIGATION DISTRICT MANAGER found his home this way this morning and called EMS. He does not have history of any similar types of behavior. He is legally blind in can only see shadows and bright lights. IRRIGATION DISTRICT MANAGER reports that when she was shining a flashlight directly in front of his face he was unable to tell. Patient reports medication compliance. He denies any new medications. He denies any prior psychiatric history. He reports his 2 brothers in [place] have a psychiatric history with anxiety and depression. Patient denies any auditory hallucinations. He denies any substance use. He states over the last few weeks he has been sleeping significantly last because he is not safe at home. He is sleeping 1-2 hours per night. complaint: other (Paranoia and delusions) Onset (ago): week(s) (6) Duration: getting worse History of same: No Relieving factors: none Exacerbating factors: none Associated psychiatric symptoms: depression and delusions Associated symptoms: insomnia Treatments prior to arrival: none Related Data Home Medications Medication Instructions Recorded Confirmed cholecalciferol (vitamin D3) 25 25 mcg PO DAILY 11/03/21 05/24/23 mcg (1,000 unit) capsule azelastine 0.05 % eye drops 1 drp ophthalmic (eye) BID 04/03/23 05/24/23 lisinopril 10 mg tablet 30 mg PO DAILY 04/03/23 05/24/23 fenofibrate 160 mg tablet 160 mg PO DAILY 05/24/23 05/24/23 insulin glargine 100 unit/mL (3 38 unit subcut BEDTIME 05/24/23 05/24/23 mL) subcutaneous pen (Lantus Solostar U-100 Insulin) rivaroxaban 20 mg tablet (Xarelto) 20 mg PO DAILY 05/24/23 05/24/23 Previous Rx's Medication Instructions Recorded levothyroxine 50 mcg tablet 50 mcg PO QAM #90 tabs 10/31/22 ascorbic acid (vitamin C) 500 mg 500 mg PO DAILY 90 days #90 tabs 11/27/22 tablet (Vitamin C) empagliflozin 25 mg tablet 25 mg PO DAILY 30 days #30 tabs 01/29/23 atorvastatin 20 mg tablet 20 mg PO BEDTIME 90 days #90 tabs 04/20/23 dulaglutide 1.5 mg/0.5 mL 3.5 mg (1.1667 mL) subcut QWEEK #2 04/20/23 subcutaneous pen injector mL (Trulicity) lorazepam 2 mg tablet 2 mg PO DAILY 30 days #30 tabs 05/21/23 Allergies Allergy/AdvReac Type Severity Reaction Status Date / Time Penicillins [PENICILLINS] Allergy Intermediate RASH Verified 05/22/23 23:43 naproxen [From Naprosyn] AdvReac Unknown Unknown Verified 05/22/23 23:43 NSAIDS (Non-Steroidal AdvReac Unknown Unknown Verified 05/22/23 23:43 Anti-Inflamma lisinopril AdvReac Intermediate increasing Uncoded 05/18/23 12:59 creatinine Review of Systems Review of Systems: Yes all other systems are reviewed and are negative [facility] Past Medical History Medical History Obstructive sleep apnea Type 2 diabetes mellitus with hyperglycemia Phimosis Vitamin D deficiency Hypothyroidism Retinitis pigmentosa Long-term insulin use in type 2 diabetes Essential hypertension Nontoxic multinodular goiter Dyslipidemia, goal LDL below 100 Chronic kidney disease, stage 3 Diabetic polyneuropathy associated with type 2 diabetes mellitus Obesity (BMI 30-39.9) Hypoglycemia unawareness associated with type 2 diabetes mellitus Diverticulosis CKD (chronic kidney disease) Niuean speaking patient Bladder cancer Arthritis Thyroid disease Legally blind DVT (deep venous thrombosis) Sleep apnea HTN (hypertension) Surgical History Deficient knowledge of leg surgery History of prostatectomy Hx of eye surgery Hx of knee surgery H/O colonoscopy Hx of cystoscopy Hx of circumcision S/P insertion of IVC (inferior vena caval) filter History of biopsy of bladder Family History Family History Father Medical history unknown Mother Breast cancer Diabetes Hypertension CVD (cardiovascular disease) Brother CVD (cardiovascular disease) Social History Social History Household Members: None Housing: Apartment Are you a primary field care manager to a significant other at home: No Do you presently have visiting nurse or other home services: No Alcohol intake: former Patient Tobacco Use Status: Never used Tobacco Years Smoked: 30 years old Smoked in Last 30 Days: No e-Cigarette/Vaping Use: Never Used Second Hand Smoke Exposure: No Use of substances other than those prescribed or required for medical reasons: No Advance Directives: No Advance Directives Information Provided: No service: No Current occupational status: disabled Cognitive needs: No Hearing needs: No Vision needs: Yes Physical Exam Vital Signs: Vital Signs: Last Vital Signs Temp 98.2 F 05/24/23 11:04 Pulse 105 H 05/24/23 11:04 Resp 14 05/24/23 12:23 BP 131/89 05/24/23 11:04 Pulse Ox 96 05/24/23 11:04 O2 Del Method Room Air 05/24/23 11:04 BMI result Body Mass Index 35.3 Appearance: Alert. Oriented X3. No acute distress. Head: normocephalic, atraumatic. Eyes: Pupils equal, round and reactive to light. Blind ENT: Pharynx normal. No tonsillar swelling or exudate. Neck: Normal inspection. Neck supple. CVS: Normal heart rate and rhythm. Pulses normal. Respiratory: No respiratory distress. Breath sounds normal. Abdomen: Soft and nontender. +BS x4 Skin: Skin warm and dry. Normal skin color. Normal skin turgor. No rashes. Extremities: Chronic venous stasis changes to the left lower extremity. Neuro/psych: Oriented X 3. Grossly nonfocal. Speaks in full complete sentences. CN II-XII intact. Normal speech and cognition. Paranoid. Mood is ?okay. ? Medical Decision Making Medical Decision Making MDM Narrative: 62-year-old male with multiple medical problems presenting to the ER for evaluation of acute onset of paranoia, anxiety, delusions over the last 6 weeks. He is legally blind however reports seeing bright lights in his windows and thinks people are shining lights into his apartment. He has got to the extremes of boarding up his windows from the inside. On arrival to the ER he is awake, alert, oriented. He is speaking in full complete sentences. He is paranoid and feels unsafe at home. His vital signs are stable. His lab workup is unremarkable. CT scan of his head was obtained to rule out other organic causes of this. Additional labs added. Psychiatry consult has been ordered. Care team to see the patient. Differential Diagnosis Differential Diagnoses: The differential diagnosis associated with the presentation includes substance induced mood disorder, acute psychosis, schizophrenia, schizoaffective disorder, PTSD, bipolar disorder, major depression with psychotic features Admission/Observation Consideration of admission/observation: Escalation of care including admission/observation considered Lab Data MDM Lab Attestation statement: I reviewed the patient's lab results. CKD at baseline 05/24/23 11:47 05/24/23 11:47 Labs: Lab Results 05/24/23 05/24/23 05/24/23 Range/Units 11:47 12:08 13:16 WBC 9.4 (4.8-10.8) X10*3/uL RBC 4.80 (4.60-5.80) X10*6/uL Hgb 14.7 (14.0-18.0) g/dl Hct 42.8 (42.0-52.0) % MCV 89.2 (80.0-98.0) fL MCH 30.6 (27.0-33.0) pg MCHC 34.3 (31.0-36.0) g/dl RDW 14.2 (11.0-16.0) % Plt Count 197 (160-400) X10*3/uL MPV 11.0 (9.4-12.4) fL Immature Gran % (Auto) 0.3 (0.0-0.4) % Neut % (Auto) 72.5 (45-73) % Lymph % (Auto) 16.2 L (20-40) % Calhoun % (Auto) 9.6 (2-11) % Eos % (Auto) 1.1 (0-4) % Baso % (Auto) 0.3 (0-2) % Lymph # (Auto) 1.5 (1.2-4.9) X10*3/uL [place] # (Auto) 0.9 (0.1-1.2) X10*3/uL Eos # (Auto) 0.1 (0.0-0.4) X10*3/uL Baso # (Auto) 0.0 (0.0-0.2) X10*3/uL Abs Immat Gran (auto) 0.03 (0.00-0.03) X10*3/uL Absolute Neuts (auto) 6.8 (2.0-8.3) x10*3/uL Absolute Nucleated RBC 0.000 (0.0-0.012) X10*3/uL Nucleated RBC % (auto) 0.0 (0.0-0.2) /100WBC Sodium 143 (135-145) mmol/L Potassium 3.7 (3.3-5.1) mmol/L Chloride 109 H (96-108) mmol/L Carbon Dioxide 22 (22-29) mmol/L Anion Gap 16 (12-20) BUN 47 H (9-16) mg/dL Creatinine 2.05 H (0.5-1.4) mg/dL Estim Creat Clear Calc 46.4 Estimated GFR 33 POC Glucose 169 H (60-115) mg/dL Random Glucose 206 H (60-115) mg/dL Calcium 9.3 D (8.4-10.2) mg/dL Total Bilirubin 0.7 (0.0-1.0) mg/dL AST 41 H (5-37) U/L ALT 43 H (0-40) U/L Alkaline Phosphatase 48 (39-117) U/L Total Protein 6.9 (6.5-8.0) g/dL Albumin 4.0 (3.5-5.0) g/dL TSH 1.74 (0.32-4.0) uIU/mL Urine Color Yellow Urine Appearance Clear Urine pH 5.5 (5.0-9.0) Ur Specific [place] 1.025 (1.005-1.025) Urine Protein Negative (Neg-Trace) mg/dL Urine Glucose (UA) >=1000 H (Negative) mg/dL Urine Ketones Negative (Negative) mg/dL Urine Blood Negative (Negative) Urine Nitrite Negative (Negative) Ur Leukocyte Esterase Negative (Negative) Urine RBC 0-2 (0-2) /HPF Urine WBC 0-5 (0-5) /HPF Ur Squamous Epith Cells 0-2 (0-2) /HPF Urine Bacteria None Seen (None Seen) Hyaline Casts 0-2 (0-2) /LPF Urine Opiates Screen Not Detected (Not Detect) Urine Fentanyl Screen Not Detected (Not Detect) Ur Barbiturates Screen Not Detected (Not Detect) Ur Phencyclidine Scrn Not Detected (Not Detect) Ur Amphetamines Screen Not Detected (Not Detect) U Benzodiazepines Scrn Not Detected (Not Detect) Urine Cocaine Screen Not Detected (Not Detect) U Marijuana (THC) Screen Not Detected (Not Detect) Ethyl Alcohol < 10 mg/dL COVID-19 (LUCÍA) Negative (Negative) COVID-19 Clin Com See Note Independent Interpretation I performed an independent interpretation of an: CT Scan Interpretation: No significant edema or tumor appreciated in the CT scan of the head Independent Historian Clinical information obtained from an independent historian. History obtained from or confirmed by: EMS External Record Review External record reviewed: Office record, Outpatient record, Prior outpatient labs and Prior outpatient radiology Chronic Conditions Patient?s care impacted by: Diabetes, Hypertension and Other (Legally blind) Social Determinants Patient?s care significantly limited by Social Determinants of Health including: Problems related to primary support group Critical Care Time Critical Care Time Critical Care Time: No Discharge Plan Discharge Clinical Impression: Paranoid delusion Patient Disposition: Still a Patient Prescriptions: No Action levothyroxine 50 mcg tablet 50 mcg PO QAM Qty: 90 2RF ascorbic acid (vitamin C) [Vitamin C] 500 mg tablet 500 mg PO DAILY 90 Days Qty: 90 3RF empagliflozin 25 mg tablet 25 mg PO DAILY 30 Days Qty: 30 7RF atorvastatin 20 mg tablet 20 mg PO BEDTIME 90 Days Qty: 90 2RF Trulicity 1.5 mg/0.5 mL pen injector 3.5 mg subcut QWEEK Qty: 2 3RF lorazepam 2 mg tablet 2 mg PO DAILY 30 Days Qty: 30 3RF cholecalciferol (vitamin D3) 25 mcg (1,000 unit) capsule 25 mcg PO DAILY fenofibrate 160 mg tablet 160 mg PO DAILY insulin glargine [Lantus Solostar U-100 Insulin] 100 unit/mL (3 mL) insulin pen 38 unit subcut BEDTIME Xarelto 20 mg tablet 20 mg PO DAILY lisinopril 10 mg tablet 30 mg PO DAILY azelastine 0.05 % drops 1 drp ophthalmic (eye) BID Rx Instructions: 1 drop into both eyes BID Interventions: [place]-Suicide Risk Severity Scale Last Done: 05/24/23 11:13
--- NOTE | 2023-05-24 11:22 | PC.NURSE ---
Pt presents to ED reporting increasing depression and his RESOLUTION MANAGER is reporting that the patient is having increased paranoia. Per his RESOLUTION MANAGER, he is completely blind and cannot see light. Recently, he has been seeing flashes through a window in his house and it has escalated to the point where he has boarded up the window to prevent the flashing lights. He lives by himself and has travel money advisor visit daily. He is alert and oriented x4, ambulatory with steady gait when guided around pod, skin pwd, no apparent distress noted at this time. Pt is on 1:1 for safety to assist him with ambulating around pod as needed
[2023-05-24 11:52] LABS: MANUAL DIFF FLAG NO
[2023-05-24 11:54] LABS: Basophils Percent Auto 0.3 % (0-2); Eosinophils Absolute Auto 0.1 X10*3/uL (0.0-0.4); Eosinophils Percent Auto 1.1 % (0-4); Hematocrit 42.8 % (42.0-52.0); Hemoglobin 14.7 g/dl (14.0-18.0); Imm Gran Abs Auto 0.03 X10*3/uL (0.00-0.03); Imm Gran Pct Auto 0.3 % (0.0-0.4); Lymphocytes Absolute Auto 1.5 X10*3/uL (1.2-4.9); Lymphocytes Percent Auto 16.2 % (20-40); Mean Corpuscular HGB Conc 34.3 g/dl (31.0-36.0); Mean Corpuscular Hemoglobin 30.6 pg (27.0-33.0); Mean Corpuscular Volume 89.2 fL (80.0-98.0); Monocytes Absolute Auto 0.9 X10*3/uL (0.1-1.2); Monocytes Percent Auto 9.6 % (2-11); Neutrophils Absolute Auto 6.8 x10*3/uL (2.0-8.3); Neutrophils Percent Auto 72.5 % (45-73); Platelet Count 197 X10*3/uL (160-400); Red Cell Distribution Width 14.2 % (11.0-16.0); White Blood Count 9.4 X10*3/uL (4.8-10.8)
[2023-05-24 12:09] LABS: Alanine Aminotransferase 43 U/L (0-40); Alkaline Phosphatase 48 U/L (39-117); Anion Gap 16 (12-20); Aspartate Amino Transferase 41 U/L (5-37); Bilirubin Total 0.7 mg/dL (0.0-1.0); Blood Urea Nitrogen 47 mg/dL (9-16); COVID-19 Test Negative (Negative); Calcium 9.3 mg/dL (8.4-10.2); Carbon Dioxide 22 mmol/L (22-29); Chloride 109 mmol/L (96-108); Creatinine Clr Calc Pharmacy 46.4; Estimated Glomerular Filt Rate 33; Ethanol < 10 mg/dL; Glucose Random 206 mg/dL (60-115); IDNOW Serial# 08D9AD1C; Potassium 3.7 mmol/L (3.3-5.1); Sodium 143 mmol/L (135-145); Total Protein 6.9 g/dL (6.5-8.0)
[2023-05-24 12:16] LABS: Appearance Urine Clear; Color Urine Yellow; Glucose Urine UA >=1000 mg/dL (Negative); Leukocyte Esterase Urine Negative (Negative); Nitrite Urine Negative (Negative); PH 5.5 (5.0-9.0); Specific Gravity - Urine 1.025 (1.005-1.025); UMIC TRIGGER UACC YES; Urine Blood Negative (Negative); Urine Ketones Negative (Negative); Urine Protein Negative (Neg-Trace)
[2023-05-24 12:22] LABS: Amphetamine Screen Urine Not Detected (Not Detect); Barbiturates, Urine Not Detected (Not Detect); Benzodiazepines Screen Urine Not Detected (Not Detect); Cannabinoid Screen Urine Not Detected (Not Detect); Cocaine Screen Urine Not Detected (Not Detect); Fentanyl, urine Not Detected (Not Detect); Opiate Screen Urine Not Detected (Not Detect); Phencyclidine Screen Urine Not Detected (Not Detect)
[2023-05-24 12:23] VITALS: RESP 14
--- NOTE | 2023-05-24 12:26 | PC.NURSE ---
Pts TURNING MACHINE OPERATOR HELPER information: Maddie [phone]
[2023-05-24 12:38] LABS: Bacteria Urine None Seen (None Seen); Hyaline Casts Urine 0-2 /LPF (0-2); RBC Urine 0-2 /HPF (0-2); Squamous Epithelial Cell Urine 0-2 /HPF (0-2); WBC Urine 0-5 /HPF (0-5)
[2023-05-24 13:20] LABS: Glucose, Whole Blood 169 mg/dL (60-115)
[2023-05-24 14:06] LABS: Thyroid Stimulating Hormone 1.74 uIU/mL (0.32-4.0)
[2023-05-24 16:48] LABS: Folate 15.8 ng/mL (> or = 4.0); Vitamin B12 > 2000 pg/mL (200-900)
[2023-05-24 18:19] LABS: Glucose, Whole Blood 277 mg/dL (60-115)
--- NOTE | 2023-05-24 18:34 | PC.NURSE ---
This RN called pts ELECTRONIC SPECIALIST to request them to bring in both eye drops and trulicity. ELECTRONIC SPECIALIST will be by later tonight to drop them off
--- NOTE | 2023-05-24 19:03 | PHA.MEDREC ---
Pharmacy Consult ? Medication Reconciliation Pharmacy has reviewed the medication reconciliation completed by nursing.
[2023-05-24 21:37] VITALS: BP 157/84; PULSE 73; RESP 18; TEMP 36.3; O2SAT 96
[2023-05-24] MEDS: Insulin Glargine,Hum.rec.anlog 100 UNIT/ML 10 ML VIAL 38 UNIT SUBCUT (21:38)
[2023-05-24] MEDS: Atorvastatin Calcium 20 MG TABLET PO (21:39)
[2023-05-24 21:58] LABS: Glucose, Whole Blood 271 mg/dL (60-115)
[2023-05-25] MEDS: LORazepam 1 MG TABLET 2 MG PO (00:31)
[2023-05-25 03:32] VITALS: BP 148/85; PULSE 76; RESP 16; TEMP 36.4; O2SAT 95
[2023-05-25] MEDS: Levothyroxine Sodium 50 MCG TABLET PO (06:48)
--- NOTE | 2023-05-25 07:08 | PC.NURSE ---
Sister Valerie called. PT has no family besides her. She is currently in [place] but lives in [place]. [phone]. Pt gave permission to speak with her. PT is concerned regarding pts living arrangement. It is not safe.
[2023-05-25 08:14] LABS: Glucose, Whole Blood 187 mg/dL (60-115)
[2023-05-25 08:15] VITALS: BP 142/96; PULSE 71
[2023-05-25] MEDS: lisinopriL 10 MG TABLET 30 MG PO (08:19)
[2023-05-25] MEDS: Ascorbic Acid 500 MG TABLET PO (08:19)
[2023-05-25] MEDS: Insulin Lispro 100 UNIT/ML 3 ML VIAL SUBCUT ×2 (08:19→13:09)
[2023-05-25] MEDS: Rivaroxaban 20 MG TABLET PO (08:20)
[2023-05-25] MEDS: Cholecalciferol (Vitamin D3) 25 MCG TABLET PO (08:20)
--- NOTE | 2023-05-25 08:23 | PC.NURSE ---
Pt is a/ox4, he is up getting breakfast with staff help, took medications with no concerns.
[2023-05-25] MEDS: Fenofibrate 160 MG TABLET PO (10:25)
[2023-05-25] MEDS: Empagliflozin 25 MG TABLET PO (10:26)
--- NOTE | 2023-05-25 10:46 | PC.NURSE ---
patient a&o, vitals have been stable, respirations even and non labored, pt oob with assist to bathroom due to being legally blind, pt denying si/hi, denying hearing voices or seeing lights at this time. pt made aware he has somebody sitting with him and to ask for PO or to use the bathroom if needed. pt calm/compliant, will continue to monitor
[2023-05-25 13:09] LABS: Glucose, Whole Blood 181 mg/dL (60-115)
--- NOTE | 2023-05-25 13:59 | MHC.CARE ---
Pt was seen by ROSA MARIA Alfaro and disposition is for discharge, referral will be made to psychiatric medication prescriber. Pt's worker Sarah @ [phone] will be called to pick pt up from hospital at discharge.
--- NOTE | 2023-05-25 14:19 | PM.PSYCN ---
History of Present Illness Date of Service: 05/25/2023 Chief Complaint: DEPRESSION PARANOID Reason for Consult: paranoid delusions, seeing infrared light Requesting physician: Sujata Diehl Discussed with referring provider: Yes Sources of Information: patient interviewed, chart reviewed and crisis/core team assessment reviewed HPI Narrative: Mr. Cisneros is a 62 year-old male who self presented to [facility] ED reporting increased depression in context of seeing what he describes as infra red light (although describes white light) that he believes someone intentionally is shining a light at him to spy on him or monitor him.Note that pt is legally blind. He has genetic condition of refinitis pigmentosa which was dx when he was 14 y/o but his vision has significantly declined in the past year to the point that he reports he can't see anything. He denies seeing a person or animal or anything else other than flash of light. He denies SI/HI. He identifies his jewish/john paul as protective factors. He reports feeling anxious about idea of someone watching him, although he denies seeing anyone. He does note that his [employer], and apartment project manager/design manager review tapes and did not see anyone. We also discussed that [employer] was concern that he is trying to cook on his own and is not safe. He states that he used to be able to do it before he lost complete vision and has attempted recently to do it but states he understands is probably not safe for him to attempted. This junior copywriter also asks if about report that he had a knife on table when [employer] came. 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 He denies that he plan to have knife next to him as self defence weapon. Or that he tried to harm himself. Head CT was completed in ED- which shows periventricular microangiopathy and atrophy. [facility] Medical History Obstructive sleep apnea Type 2 diabetes mellitus with hyperglycemia Phimosis Vitamin D deficiency Hypothyroidism Retinitis pigmentosa Long-term insulin use in type 2 diabetes Essential hypertension Nontoxic multinodular goiter Dyslipidemia, goal LDL below 100 Chronic kidney disease, stage 3 Diabetic polyneuropathy associated with type 2 diabetes mellitus Obesity (BMI 30-39.9) Hypoglycemia unawareness associated with type 2 diabetes mellitus Diverticulosis CKD (chronic kidney disease) Latvian speaking patient Bladder cancer Arthritis Thyroid disease Legally blind DVT (deep venous thrombosis) Sleep apnea HTN (hypertension) Surgical History Deficient knowledge of leg surgery History of prostatectomy Hx of eye surgery Hx of knee surgery H/O colonoscopy Hx of cystoscopy Hx of circumcision S/P insertion of IVC (inferior vena caval) filter History of biopsy of bladder Diagnostics Vital Signs (24Hr): Vital Signs - 24 hr 05/24/23 21:37 05/25/23 03:32 05/25/23 08:15 Temperature 97.3 F 97.6 F Pulse Rate 73 76 71 Respiratory Rate 18 16 Blood Pressure 157/84 H 148/85 H 142/96 H Pulse Oximetry 96 95 Oxygen Delivery Method Room Air Room Air BMI result Body Mass Index 35.3 Labs 05/24/23 11:47 05/24/23 11:47 Labs: Laboratory Results - last 48 hr 05/24/23 05/24/23 05/24/23 11:47 12:08 13:16 WBC 9.4 RBC 4.80 Hgb 14.7 Hct 42.8 MCV 89.2 MCH 30.6 MCHC 34.3 RDW 14.2 Plt Count 197 MPV 11.0 Immature Gran % (Auto) 0.3 Neut % (Auto) 72.5 Lymph % (Auto) 16.2 L Atkinson % (Auto) 9.6 Eos % (Auto) 1.1 Baso % (Auto) 0.3 Lymph # (Auto) 1.5 Atkinson # (Auto) 0.9 Eos # (Auto) 0.1 Baso # (Auto) 0.0 Abs Immat Gran (auto) 0.03 Absolute Neuts (auto) 6.8 Absolute Nucleated RBC 0.000 Nucleated RBC % (auto) 0.0 Sodium 143 Potassium 3.7 Chloride 109 H Carbon Dioxide 22 Anion Gap 16 BUN 47 H Creatinine 2.05 H Estim Creat Clear Calc 46.4 Estimated GFR 33 POC Glucose 169 H Random Glucose 206 H Calcium 9.3 D Total Bilirubin 0.7 AST 41 H ALT 43 H Alkaline Phosphatase 48 Total Protein 6.9 Albumin 4.0 Vitamin B12 Folate TSH 1.74 Urine Color Yellow Urine Appearance Clear Urine pH 5.5 Ur Specific [place] 1.025 Urine Protein Negative Urine Glucose (UA) >=1000 H Urine Ketones Negative Urine Blood Negative Urine Nitrite Negative Ur Leukocyte Esterase Negative Urine RBC 0-2 Urine WBC 0-5 Ur Squamous Epith Cells 0-2 Urine Bacteria None Seen Hyaline Casts 0-2 Urine Opiates Screen Not Detected Urine Fentanyl Screen Not Detected Ur Barbiturates Screen Not Detected Ur Phencyclidine Scrn Not Detected Ur Amphetamines Screen Not Detected U Benzodiazepines Scrn Not Detected Urine Cocaine Screen Not Detected U Marijuana (THC) Screen Not Detected Ethyl Alcohol < 10 COVID-19 (LUCÍA) Negative COVID-19 Clin Com See Note 05/24/23 05/24/23 05/24/23 15:25 18:15 21:52 WBC RBC Hgb Hct MCV MCH MCHC RDW Plt Count MPV Immature Gran % (Auto) Neut % (Auto) Lymph % (Auto) Atkinson % (Auto) Eos % (Auto) Baso % (Auto) Lymph # (Auto) Atkinson # (Auto) Eos # (Auto) Baso # (Auto) Abs Immat Gran (auto) Absolute Neuts (auto) Absolute Nucleated RBC Nucleated RBC % (auto) Sodium Potassium Chloride Carbon Dioxide Anion Gap BUN Creatinine Estim Creat Clear Calc Estimated GFR POC Glucose 277 H 271 H Random Glucose Calcium Total Bilirubin AST ALT Alkaline Phosphatase Total Protein Albumin Vitamin B12 > 2000 H Folate 15.8 TSH Urine Color Urine Appearance Urine pH Ur Specific [place] Urine Protein Urine Glucose (UA) Urine Ketones Urine Blood Urine Nitrite Ur Leukocyte Esterase Urine RBC Urine WBC Ur Squamous Epith Cells Urine Bacteria Hyaline Casts Urine Opiates Screen Urine Fentanyl Screen Ur Barbiturates Screen Ur Phencyclidine Scrn Ur Amphetamines Screen U Benzodiazepines Scrn Urine Cocaine Screen U Marijuana (THC) Screen Ethyl Alcohol COVID-19 (LUCÍA) COVID-19 Clin Com 05/25/23 05/25/23 08:10 13:05 WBC RBC Hgb Hct MCV MCH MCHC RDW Plt Count MPV Immature Gran % (Auto) Neut % (Auto) Lymph % (Auto) Atkinson % (Auto) Eos % (Auto) Baso % (Auto) Lymph # (Auto) Atkinson # (Auto) Eos # (Auto) Baso # (Auto) Abs Immat Gran (auto) Absolute Neuts (auto) Absolute Nucleated RBC Nucleated RBC % (auto) Sodium Potassium Chloride Carbon Dioxide Anion Gap BUN Creatinine Estim Creat Clear Calc Estimated GFR POC Glucose 187 H 181 H Random Glucose Calcium Total Bilirubin AST ALT Alkaline Phosphatase Total Protein Albumin Vitamin B12 Folate TSH Urine Color Urine Appearance Urine pH Ur Specific [place] Urine Protein Urine Glucose (UA) Urine Ketones Urine Blood Urine Nitrite Ur Leukocyte Esterase Urine RBC Urine WBC Ur Squamous Epith Cells Urine Bacteria Hyaline Casts Urine Opiates Screen Urine Fentanyl Screen Ur Barbiturates Screen Ur Phencyclidine Scrn Ur Amphetamines Screen U Benzodiazepines Scrn Urine Cocaine Screen U Marijuana (THC) Screen Ethyl Alcohol COVID-19 (LUCÍA) COVID-19 Clin Com Imaging Radiology Impressions: ITS Impressions Head CT 05/24/23 15:41 IMPRESSION: 1. No evidence of acute intracranial hemorrhage or edematous territorial infarction. 2. Chronic microangiopathy and generalized cerebral volume loss. Mental Status Exam Mental Status Exam Narrative: Appearance: wearing hospital gown, fair hygiene, in NAD Behavior: cooperative Psychomotor: no agitation or retardation noted Speech: clear, normal rate/rhythm/volume, spontaneous TP: mostly linear TC: fear related to thinking there is a person watching him. Mood: better Affect: constricted SI: denies HI: denies VH/AH:sees light but blind Delusions: paranoid delusions Insight/judgment: poor x 2. Memory/cog: alert, oriented to place, situation, month, date. no formal testing completed. Medications Medications Current Medications Ascorbic Acid (Ascorbic Acid 500 Mg Tablet) 500 mg PO DAILY [facility] Last Admin: 05/25/23 08:19 Dose: 500 mg Atorvastatin Calcium (Atorvastatin Calcium 20 Mg Tablet) 20 mg PO BEDTIME [facility] Last Admin: 05/24/23 21:39 Dose: 20 mg Dextrose (Dextrose 50 % 25 Gm/50 Ml Syringe) 25 gm IVPUSH Q15M PRN; Protocol PRN Reason: per Hypoglycemia Standing Ord. Empagliflozin (Empagliflozin 25 Mg Tablet) 25 mg PO DAILY [facility] Last Admin: 05/25/23 10:26 Dose: 25 mg Fenofibrate (Fenofibrate 160 Mg Tablet) 160 mg PO DAILY [facility] Last Admin: 05/25/23 10:25 Dose: 160 mg Glucose (Glucose Gel 15 Gm Gel..Gram.) 15 gm PO Q15M PRN; Protocol PRN Reason: per Hypoglycemia Standing Ord. Insulin Glargine (Insulin Glargine,Hum.Rec.Anlog 100 Unit/Ml 10 Ml Vial) 38 unit SUBCUT BEDTIME [facility] Last Admin: 05/24/23 21:38 Dose: 38 unit Insulin Human Lispro (Insulin Lispro 100 Unit/Ml 3 Ml Vial) 0 unit SUBCUT QIDACHS [facility]; Protocol Last Admin: 05/25/23 13:09 Dose: 2 unit Levothyroxine Sodium (Levothyroxine Sodium 50 Mcg Tablet) 50 mcg PO DAILY@0600 [facility] Last Admin: 05/25/23 06:48 Dose: 50 mcg Lisinopril (Lisinopril 10 Mg Tablet) 30 mg PO DAILY [facility]; Protocol Last Admin: 05/25/23 08:19 Dose: 30 mg Lorazepam (Lorazepam 1 Mg Tablet) 2 mg PO BEDTIME [facility] Non-Formulary Medication (Azelastine) 1 drop EYE-BOTH BID [facility] Non-Formulary Medication (Dulaglutide [Trulicity]) 3.5 mg SUBCUT QWEEK [facility] Rivaroxaban (Rivaroxaban 20 Mg Tablet) 20 mg PO DAILY [facility] Last Admin: 05/25/23 08:20 Dose: 20 mg Vitamin D (Cholecalciferol (Vitamin D3) 25 Mcg Tablet) 25 mcg PO DAILY [facility] Last Admin: 05/25/23 08:20 Dose: 25 mcg Allergies Allergies Allergy/AdvReac Type Severity Reaction Status Date / Time Penicillins [PENICILLINS] Allergy Intermediate RASH Verified 05/22/23 23:43 naproxen [From Naprosyn] AdvReac Unknown Unknown Verified 05/22/23 23:43 NSAIDS (Non-Steroidal AdvReac Unknown Unknown Verified 05/22/23 23:43 Anti-Inflamma lisinopril AdvReac Intermediate increasing Uncoded 05/18/23 12:59 creatinine Assessment & Plan Assessment & Plan (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 Cisneros is a 62 year-old male who has presented twice to the ED reporting seeing flash light which he interprets as someone trying to monitor him or spy him. [employer] reports building has check security camaras and no signs of anyone coming to the home. Despite this, pt insists that the only reason he sees this light is because someone is shining it on him. - Although pt has had a dx of refinitis pigmentosa since he was 14 y/o, it causes progressive vision loss, which it appears he completely loss his vision in past year or so. It is possible that simple hallucination of flash of light is explained by a syndrome known as Curt Bonnet- visual hallucinations simple or more complex forms seeen in individual who have lost their vision later on in life. However, it usually does not have co-occurring delusions or distortions of thoughts such as paranoid delusions, which he is also reporting. He does not have a hx of psychiatric condition, especially no hx of psychosis or delusions. Less likely paranoid delusions are related to a primarily psychiatric dx. The other more plausible explanation to his new onset paranoid delusions could be related to microvascular (microangiopathy) changes in his brain and atrophy as seen in his head CT as usually in vascular type of dementia. Because of his vision, assessments of memory and cognitive need to be modified and were not completed during this visit PLAN 1. No imminent safety concerns in terms of SI/HI or gravely disable. He reported to this junior copywriter that he would rather receive treatment in the community. 2. He may benefit from low dose antipsychotic, can use risperidone 0.5mg po BID. Total time managing care of this patient today __40__ minutes. Patient educated on: diagnosis Informed Consent: understands
== END 2023-05-25 16:41 | disposition home or self-care (01) ==
PROVIDERS: Physician Assistant; Emergency Provider Emergency Medicine; PCP Internal Medicine
DX: F22 Delusional disorders (principal); E11.22 Type 2 diabetes mellitus with diabetic chronic kidney disease; I12.9 Hypertensive chronic kidney disease with stage 1 through stage 4 chronic kidney disease, or unspecified chronic kidney disease; N18.30 Chronic kidney disease, stage 3 unspecified; H54.8 Legal blindness, as defined in USA; Z86.718 Personal history of other venous thrombosis and embolism; Z79.01 Long term (current) use of anticoagulants; Z79.4 Long term (current) use of insulin; Z11.52 Encounter for screening for COVID-19
CPT/HCPCS: 70450; 80053; 80307; 81001; 82607; 82746; 82947; 84443; 85025; 87635; 99285; S9485

== ENCOUNTER → 2023-05-24 11:44 | Outpatient (BNV) | payer OTHER, SELFPAY | PROVIDERS: Emergency Provider Emergency Medicine; PCP Internal Medicine; Visit Provider Social Worker | DX: F22 Delusional disorders (principal); H53.16 Psychophysical visual disturbances | CPT/HCPCS: 99283 ==

== ENCOUNTER 2023-06-05 06:47 | Outpatient (REF) | payer OTHER, SELFPAY ==
[2023-06-05 07:07] LABS: MANUAL DIFF FLAG NO
[2023-06-05 07:15] LABS: Basophils Percent Auto 0.5 % (0-2); Eosinophils Absolute Auto 0.1 X10*3/uL (0.0-0.4); Eosinophils Percent Auto 2.3 % (0-4); Hematocrit 45.5 % (42.0-52.0); Hemoglobin 15.1 g/dl (14.0-18.0); Imm Gran Abs Auto 0.03 X10*3/uL (0.00-0.03); Imm Gran Pct Auto 0.5 % (0.0-0.4); Lymphocytes Absolute Auto 1.3 X10*3/uL (1.2-4.9); Lymphocytes Percent Auto 22.1 % (20-40); Mean Corpuscular HGB Conc 33.2 g/dl (31.0-36.0); Mean Corpuscular Hemoglobin 30.1 pg (27.0-33.0); Mean Corpuscular Volume 90.6 fL (80.0-98.0); Mean Platelet Volume 11.4 fL (9.4-12.4); Monocytes Absolute Auto 0.5 X10*3/uL (0.1-1.2); Neutrophils Percent Auto 65.6 % (45-73); Platelet Count 201 X10*3/uL (160-400); Red Blood Count 5.02 X10*6/uL (4.60-5.80); Red Cell Distribution Width 14.2 % (11.0-16.0)
[2023-06-05 07:41] LABS: Alanine Aminotransferase 37 U/L (0-40); Albumin Level 3.9 g/dL (3.5-5.0); Alkaline Phosphatase 44 U/L (39-117); Anion Gap 9 (12-20); Aspartate Amino Transferase 30 U/L (5-37); Bilirubin Total 0.6 mg/dL (0.0-1.0); Blood Urea Nitrogen 30 mg/dL (9-16); Calcium 9.6 mg/dL (8.4-10.2); Carbon Dioxide 24 mmol/L (22-29); Chloride 112 mmol/L (96-108); Cholesterol 136 mg/dL (<200); Estimated Glomerular Filt Rate 49; Glucose Random 93 mg/dL (60-115); HDL Cholesterol 34 mg/dL (>40); LDL Cholesterol Calculated 81 mg/dL (<100); Potassium 4.1 mmol/L (3.3-5.1); Sodium 141 mmol/L (135-145); Total Protein 6.9 g/dL (6.5-8.0); Triglycerides 108 mg/dL (<150)
[2023-06-05 07:58] LABS: Free T4 (Free Thyroxine) 0.99 ng/dL (0.71-1.85); Thyroid Stimulating Hormone 1.08 uIU/mL (0.32-4.0)
[2023-06-05 08:10] LABS: Folate 12.8 ng/mL (> or = 4.0); Prostate Specific Antigen Scr 0.37 ng/mL (<0.05-4.0); Vitamin B12 1095 pg/mL (200-900)
[2023-06-05 08:34] LABS: Creatinine Urine 88.03 mg/dL; Microalbum/Creatinine Ratio Ur 18.1 ug/mg cr (<30)
== END 2023-06-05 06:48 | disposition home or self-care (01) ==
LOC: HO.LAB 06:47
PROVIDERS: PCP Internal Medicine; Visit Provider Internal Medicine
DX: E11.65 Type 2 diabetes mellitus with hyperglycemia (principal); E78.00 Pure hypercholesterolemia, unspecified; Z79.4 Long term (current) use of insulin
CPT/HCPCS: 36415; 80053; 80061; 82043; 82570; 82607; 82746; 84153; 84439; 84443; 85025

== ENCOUNTER 2023-06-08 11:10 | Outpatient (AMB) | payer OTHER, SELFPAY ==
--- NOTE | 2023-06-08 11:11 | A.OFFPC_ITS ---
Vital Signs 06/08/23 11:12 Height 5 ft 9 in Weight 229 lb BMI 33.8 BP 92/68 Blood Pressure Location Lt brachial Position Sitting Pulse 72 Pulse Source Pulse Oximeter Pulse Oximetry (%) 97 Oxygen Delivery Method Room Air Intake Visit Reasons: [facility] Intake Note: Patient is here to follow-up after a visit the emergency department at [facility] on 05/24/2023 Special Programs Director Required: No Allergies Penicillins [PENICILLINS] Allergy (Intermediate, Verified 06/08/23 11:12) RASH naproxen [From Naprosyn] Adverse Reaction (Unknown, Verified 06/08/23 11:12) Unknown NSAIDS (Non-Steroidal Anti-Inflamma Adverse Reaction (Unknown, Verified 06/08/23 11:12) Unknown lisinopril Adverse Reaction (Intermediate, Uncoded 06/08/23 11:12) increasing creatinine Medication List - Last Reconciled 06/08/23 by Sujata Diehl MD ascorbic acid (vitamin C) (Vitamin C) 500 mg PO DAILY 90 days atorvastatin 20 mg PO BEDTIME 90 days azelastine 0.05% 1 drp ophthalmic (eye) BID cholecalciferol (vitamin D3) 25 mcg PO DAILY dulaglutide (Trulicity) 3 mg subcut QWEEK empagliflozin 25 mg PO DAILY 30 days fenofibrate 160 mg PO DAILY insulin glargine (Lantus Solostar U-100 Insulin) 38 units subcut BEDTIME insulin lispro Take as directed per sliding scale max of 66 units in 24 hours. levothyroxine 50 mcg PO QAM lisinopril 30 mg PO DAILY lorazepam 2 mg PO DAILY 30 days risperidone (Risperdal) 0.5 mg PO BID rivaroxaban (Xarelto) 20 mg PO DAILY Tobacco use date assessed: 06/08/23 Dental Screening Dental Screen Date: 05/04/23 [facility] HPI Details 62-year-old obese male with diabetes eveline litus uncontrolled history of retinitis pigmentosa age [age] years old hypercholesterolemia chronic kidney disease hypertension history of DVT history of bladder cancer and generalized anxiety disorder last seen in April 2023. Patient's colonoscopy is up-to-date. Patient was recently in the hospital in May 24 for paranoid depression diagnosis of delusional disorder Curt Zuniga visual hallucinations advised risperidone 0.5 mg twice a day. As for the DVT follows up with Hematology- Oncology has had an IVC filter placed still on an anti coagulant. [facility] Medical History Obstructive sleep apnea Type 2 diabetes mellitus with hyperglycemia Phimosis Vitamin D deficiency Hypothyroidism Retinitis pigmentosa Long-term insulin use in type 2 diabetes Essential hypertension Nontoxic multinodular goiter Dyslipidemia, goal LDL below 100 Chronic kidney disease, stage 3 Diabetic polyneuropathy associated with type 2 diabetes mellitus Obesity (BMI 30-39.9) Hypoglycemia unawareness associated with type 2 diabetes mellitus Diverticulosis CKD (chronic kidney disease) Hebrew speaking patient Bladder cancer Arthritis Thyroid disease Legally blind DVT (deep venous thrombosis) Sleep apnea HTN (hypertension) Surgical History Deficient knowledge of leg surgery History of prostatectomy Hx of eye surgery Hx of knee surgery H/O colonoscopy Hx of cystoscopy Hx of circumcision S/P insertion of IVC (inferior vena caval) filter History of biopsy of bladder Family History Father Medical history unknown Mother Breast cancer Diabetes Hypertension CVD (cardiovascular disease) Brother CVD (cardiovascular disease) Social History Household Members: None Housing: Apartment Are you a primary manager intensive care to a significant other at home: No Do you presently have visiting nurse or other home services: No Alcohol intake: former Patient Tobacco Use Status: Never used Tobacco Years Smoked: 30 years old e-Cigarette/Vaping Use: Never Used Second Hand Smoke Exposure: No service: No Current occupational status: disabled Cognitive needs: No Hearing needs: No Vision needs: Yes Questionnaire Thrive Questionnaire Date Thrive assessed: 06/08/23 I am a: Patient What is your living situation today?: I have a steady place to live Within the past 12 months, did the food you bought not last and you didn't have the money to get more?: Never true Within the past 12 months, did you worry whether your food would run out before you got money to buy more?: Never true Do you have trouble paying for medicines?: No Do you have trouble getting transportation to medical appointments?: No Do you have trouble paying your heating and electricity bill?: No Do you have trouble taking care of your child, family member or friend?: No Do you have trouble with day-to-day activities such as bathing, preparing meals, shopping, managing finances, etc.?: No Are you currently unemployed and looking for a job?: No Are you interested in more education?: No Please select the resources that you would like help with: None Currently or been in a relationship where the following occur: no concerns reported THRIVE Score: 0 AUDIT C Alcohol Use Questionnaire (AUDIT-C) 1. How often do you have a drink containing alcohol?: Never 2. How many drinks containing alcohol do you have on a typical day when you are drinking?: 1 or 2 (0) 3. How often do you have six or more drinks on one occasion?: Never Total Score: 0 MARNIE-7 AMB Questionnaire MARNIE-7 Date MARNIE - 7 assessed: 05/04/23 Source: Developed by Drs. Nathen Menchaca, Vida Nye, Pedrito Dao and colleagues, with an educational enzo from [employer]. Physical exam (Primary Care) Vital Signs: Last Vital Signs Pulse 72 06/08/23 11:12 BP 92/68 06/08/23 11:12 Pulse Ox 97 06/08/23 11:12 Oxygen Delivery Method Room Air 06/08/23 11:12 BMI result Body Mass Index 33.8 Tobacco/Smoking Status: Tobacco use Status Tobacco use date assessed 06/08/23 06/08/23 11:16 Patient Tobacco Use Status Never used Tobacco 06/08/23 11:12 e-Cigarette/Vaping Use Never Used 06/08/23 11:12 Thrive Assessment: Date of Thrive Assessment Date Thrive assessed 06/08/23 06/08/23 11:12 Currently or been in a relationship where the following occur: no concerns reported Const General: alert; No acute distress Eyes Conjunctivae: conjunctivae normal Resp Auscultation: clear to auscultation bilaterally Cardio Rate: regular rate Rhythm: regular rhythm GI Inspection: Yes normal to inspection Extrem General: Yes normal to inspection and No edema Assessment and Plan Assessment & Plan (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 (3) Type 2 diabetes mellitus with hyperglycemia: Code(s): E11.65 - Type 2 diabetes mellitus with hyperglycemia Qualifiers: Diabetes mellitus correction insulin use: with watermelon harvesting supervisor use Qualified Code(s): E11.65 - Type 2 diabetes mellitus with hyperglycemia; Z79.4 - halfway (current) use of insulin Plan: Decrease the amount of carbohydrate intake, pasta, bread, rice and potatoes are all sugar and that is aside from all the sweet stuff, remember that fruits are good but they are Sweet also. Hemoglobin A1c goal of less than 6.5 on Trulicity Jardiance Lantus lispro insulin (4) DVT (deep venous thrombosis): Comment: h/o multiple, IVC filter and on xarelto-to stop 01/03/20 per pt per Code(s): I82.409 - Acute embolism and thrombosis of unspecified deep veins of unspecified lower extremity Plan: Follows up with Hematology-Oncology continuing with Xarelto (5) Essential hypertension: Code(s): I10 - Essential (primary) hypertension Plan: Continue with blood pressure medication. Decrease salt intake and exercise on lisinopril 30 mg once a day (6) Dyslipidemia, goal LDL below 100: Code(s): E78.5 - Hyperlipidemia, unspecified Plan: Avoid fried foods, chicken skin, eggs, butter margarine, pastries and meat. Be it pork or beef they have a lot of cholesterol LDL goal of less than 100 and triglyceride of less than 150. On atorvastatin 20 mg once a day (7) Chronic kidney disease, stage 3: Comment: Diabetic hypertensive disease Code(s): N18.30 - Chronic kidney disease, stage 3 unspecified Qualifiers: Chronic kidney disease stage 3 subtype: stage 3b (GFR 30-44) Qualified Code(s): N18.32 - Chronic kidney disease, stage 3b Plan: Keep well hydrated and avoid NSAIDs Orders: Referrals Psychiatry Referral H53.16 - Psychophysical visual disturbances Medications: New risperidone (Risperdal) 0.5 mg PO BID 60 tabs 0RF H53.16 - Psychophysical visual disturbances Coding Level of Care Code Est Pt Level 4 (42008) Diagnoses Curt Bonnet syndrome H53.16 Generalized anxiety disorder F41.1 Type 2 diabetes mellitus with hyperglycemia, with long-term current use of insulin E11.65; Z79.4 Diabetes mellitus watermelon harvesting supervisor insulin use: with correction use DVT (deep venous thrombosis) I82.409 Essential hypertension I10 Dyslipidemia, goal LDL below 100 E78.5 Stage 3b chronic kidney disease N18.32 Chronic kidney disease stage 3 subtype: stage 3b (GFR 30-44)
[2023-06-08 11:12] VITALS: BP 92/68; PULSE 72; O2SAT 97; BMI 33.8
== END 2023-06-08 12:19 | disposition home or self-care (01) ==
PROVIDERS: PCP Internal Medicine; Visit Provider Internal Medicine
DX: I12.9 Hypertensive chronic kidney disease with stage 1 through stage 4 chronic kidney disease, or unspecified chronic kidney disease (principal); E11.65 Type 2 diabetes mellitus with hyperglycemia; Z79.4 Long term (current) use of insulin; N18.32 Chronic kidney disease, stage 3b; I82.409 Acute embolism and thrombosis of unspecified deep veins of unspecified lower extremity; H53.16 Psychophysical visual disturbances; F41.1 Generalized anxiety disorder; E78.5 Hyperlipidemia, unspecified
CPT/HCPCS: 99214

== ENCOUNTER 2023-08-24 09:46 | Outpatient (AMB) | payer OTHER, SELFPAY ==
--- NOTE | 2023-08-24 09:53 | A.OFFPC_ITS ---
Vital Signs 08/24/23 09:58 Height 5 ft 9 in Weight 235 lb 3.732 oz BMI 34.7 BP 98/66 Blood Pressure Location Lt brachial Position Sitting Pulse 88 Pulse Source Pulse Oximeter Temp Source Skin Pulse Oximetry (%) 97 Oxygen Delivery Method Room Air Intake Visit Reasons: DM Allergies Penicillins [PENICILLINS] Allergy (Intermediate, Verified 08/24/23 10:01) RASH naproxen [From Naprosyn] Adverse Reaction (Unknown, Verified 08/24/23 10:01) Unknown NSAIDS (Non-Steroidal Anti-Inflamma Adverse Reaction (Unknown, Verified 08/24/23 10:01) Unknown lisinopril Adverse Reaction (Intermediate, Uncoded 08/24/23 10:01) increasing creatinine Tobacco use date assessed: 06/08/23 Dental Screening Dental Screen Date: 05/04/23 Did you have a dental visit in the last 12 months?: Yes Did you have a dental problem in the last 6 months where you did not have access to dental care?: No Was dental information given to patient?: Patient has dentist HPI DM HPI Details 63-year-old obese male with a history of controlled diabetes mellitus generalized anxiety disorder history of DVT on Xarelto hypertension hypercholesterolemia chronic kidney disease last seen in 06/16/2023. Patient is here for follow-up. Patient diabetes is presently under control cholesterol 06/16/2023 last blood work concerns about blood pressure because he is hypotensive. Will decrease blood pressure medication. 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 Discussed with him that I will need him to be referred to psychiatric evaluation. And management [facility] Medical History (Updated 08/24/23 @ 10:34 by Sujata Diehl MD) Ear ache Wound cellulitis Obstructive sleep apnea Type 2 diabetes mellitus with hyperglycemia Phimosis Vitamin D deficiency Hypothyroidism Retinitis pigmentosa Long-term insulin use in type 2 diabetes Essential hypertension Nontoxic multinodular goiter Dyslipidemia, goal LDL below 100 Chronic kidney disease, stage 3 Diabetic polyneuropathy associated with type 2 diabetes mellitus Obesity (BMI 30-39.9) Hypoglycemia unawareness associated with type 2 diabetes mellitus Diverticulosis CKD (chronic kidney disease) Mongolian speaking patient Bladder cancer Arthritis Thyroid disease Legally blind DVT (deep venous thrombosis) Sleep apnea HTN (hypertension) Surgical History Deficient knowledge of leg surgery History of prostatectomy Hx of eye surgery Hx of knee surgery H/O colonoscopy Hx of cystoscopy Hx of circumcision S/P insertion of IVC (inferior vena caval) filter History of biopsy of bladder Family History Father Medical history unknown Mother Breast cancer Diabetes Hypertension CVD (cardiovascular disease) Brother CVD (cardiovascular disease) Social History Household Members: None Housing: Apartment Are you a primary rn coronary care unit to a significant other at home: No Do you presently have visiting nurse or other home services: No Alcohol intake: former Patient Tobacco Use Status: Never used Tobacco Years Smoked: 30 years old e-Cigarette/Vaping Use: Never Used Second Hand Smoke Exposure: No service: No Current occupational status: disabled Cognitive needs: No Hearing needs: No Vision needs: Yes Questionnaire Thrive Questionnaire Date Thrive assessed: 06/08/23 AUDIT C Alcohol Use Questionnaire (AUDIT-C) 1. How often do you have a drink containing alcohol?: Never 2. How many drinks containing alcohol do you have on a typical day when you are drinking?: 1 or 2 (0) 3. How often do you have six or more drinks on one occasion?: Never Total Score: 0 MARNIE-7 AMB Questionnaire MARNIE-7 Date MARNIE - 7 assessed: 05/04/23 Source: Developed by Drs. Nathen Menchaca, Vida Nye, Pedrito Dao and colleagues, with an educational enzo from [employer]. Physical exam (Primary Care) Vital Signs: Last Vital Signs Pulse 88 08/24/23 09:58 BP 98/66 08/24/23 09:58 Pulse Ox 97 08/24/23 09:58 Oxygen Delivery Method Room Air 08/24/23 09:58 BMI result Body Mass Index 34.7 Tobacco/Smoking Status: Tobacco use Status Tobacco use date assessed 06/08/23 08/24/23 09:53 Patient Tobacco Use Status Never used Tobacco 08/24/23 09:53 e-Cigarette/Vaping Use Never Used 08/24/23 09:53 Thrive Assessment: Date of Thrive Assessment Date Thrive assessed 06/08/23 08/24/23 09:53 Const General: alert; No acute distress Eyes Conjunctivae: conjunctivae normal Resp Auscultation: clear to auscultation bilaterally Cardio Rate: regular rate Rhythm: regular rhythm GI Inspection: Yes normal to inspection Extrem General: Yes normal to inspection and No edema Results AMB Hemoglobin A1c AMB Hemoglobin A1c 6.5 % Last Edit by JIM Montesinos on 08/24/23 10:20 Results Reviewed Results Reviewed: Laboratory Last Values Hgb A1c (Clinic) 6.5 % (4.0-6.0) H 08/24/23 10:02 Assessment and Plan Assessment & Plan (1) Type 2 diabetes mellitus with hyperglycemia: Code(s): E11.65 - Type 2 diabetes mellitus with hyperglycemia Qualifiers: Diabetes mellitus penitentiary insulin use: with long term care administrator use Qualified Code(s): E11.65 - Type 2 diabetes mellitus with hyperglycemia; Z79.4 - [facility] (current) use of insulin Plan: Decrease the amount of carbohydrate intake, pasta, bread, rice and potatoes are all sugar and that is aside from all the sweet stuff, remember that fruits are good but they are Sweet also. Hemoglobin A1c goal of less than 6.5 on Trulicity 3 mg once a week Jardiance 25 mg once a day Lantus 38 units once a day (2) Essential hypertension: Code(s): I10 - Essential (primary) hypertension Plan: Continue with blood pressure medication. Decrease salt intake and exercise patient on lisinopril 30 mg once a day concern though with blood pressure low (3) Dyslipidemia, goal LDL below 100: Code(s): E78.5 - Hyperlipidemia, unspecified Plan: Avoid fried foods, chicken skin, eggs, butter margarine, pastries and meat. Be it pork or beef they have a lot of cholesterol LDL goal of less than 100 and triglyceride of less than 150 on fenofibrate 160 mg once a day and atorvastatin 20 mg once a day (4) Chronic kidney disease, stage 3: Comment: Diabetic hypertensive disease Code(s): N18.30 - Chronic kidney disease, stage 3 unspecified Qualifiers: Chronic kidney disease stage 3 subtype: stage 3b (GFR 30-44) Qualified Code(s): N18.32 - Chronic kidney disease, stage 3b Plan: Stable keep well hydrated avoid NSAIDs (5) Obesity (BMI 30-39.9): Code(s): E66.9 - Obesity, unspecified Plan: Diet and exercise (6) BPH w urinary obs/LUTS: Comment: Bladder neck contracture following laser prostatectomy Code(s): N40.1 - Benign prostatic hyperplasia with lower urinary tract symptoms; N13.8 - Other obstructive and reflux uropathy Plan: Stable (7) Generalized anxiety disorder: Comment: Declined counseling July 2021 Code(s): F41.1 - Generalized anxiety disorder Plan: Continue with risperidone but because of dizziness in am - decrease to pm only. lorazepam. PAtient is seeing visual hallucinations- will send for psychiatric referral (8) Hypothyroid: Code(s): E03.9 - Hypothyroidism, unspecified Qualifiers: Hypothyroidism type: acquired Qualified Code(s): E03.9 - Hypothyroidism, unspecified Plan: continue with thyroid med Orders: Orders AMB Hemoglobin A1c Today E11.65 - Type 2 diabetes mellitus with hyperglycemia, Z79.4 - parts counterman (current) use of insulin Referrals Psychiatry Referral F41.1 - Generalized anxiety disorder Medications: New lisinopril 10 mg PO DAILY 90 tabs 0RF Refilled lisinopril 10 mg PO DAILY 90 tabs 0RF lorazepam 2 mg PO DAILY 30 days 30 tabs 3RF F41.9 - Anxiety disorder, unspecified dulaglutide (Trulicity) 3 mg (0.5 mL) subcut QWEEK 2 mL 5RF E11.65 - Type 2 diabetes mellitus with hyperglycemia, Z79.4 - [facility] (current) use of insulin Patient Instructions: Continue with thyroid medication Coding Level of Care Code Est Pt Level 4 (15897) Complex EM visit Add On G2211 Diagnoses Type 2 diabetes mellitus with hyperglycemia, with long-term current use of insulin E11.65; Z79.4 Diabetes mellitus long term care administrator insulin use: with penitentiary use Essential hypertension I10 Dyslipidemia, goal LDL below 100 E78.5 Stage 3b chronic kidney disease N18.32 Chronic kidney disease stage 3 subtype: stage 3b (GFR 30-44) Obesity (BMI 30-39.9) E66.9 BPH w urinary obs/LUTS N40.1; N13.8 Generalized anxiety disorder F41.1 Acquired hypothyroidism E03.9 Hypothyroidism type: acquired
[2023-08-24 09:58] VITALS: BP 98/66; PULSE 88; O2SAT 97; BMI 34.7
== END 2023-08-24 10:52 | disposition home or self-care (01) ==
PROVIDERS: PCP Internal Medicine; Visit Provider Internal Medicine
DX: I12.9 Hypertensive chronic kidney disease with stage 1 through stage 4 chronic kidney disease, or unspecified chronic kidney disease (principal); E11.65 Type 2 diabetes mellitus with hyperglycemia; Z79.4 Long term (current) use of insulin; N18.32 Chronic kidney disease, stage 3b; E66.9 Obesity, unspecified; E78.5 Hyperlipidemia, unspecified; N40.1 Benign prostatic hyperplasia with lower urinary tract symptoms; N13.8 Other obstructive and reflux uropathy; F41.1 Generalized anxiety disorder; E03.9 Hypothyroidism, unspecified
CPT/HCPCS: 83036; 99214; G2211

== ENCOUNTER 2023-08-30 11:58 | Emergency (ER) | payer OTHER, SELFPAY ==
--- NOTE | ~2023-08-30 | XR_ITS ---
EXAMINATION: XR CHEST CLINICAL INFORMATION: Cough and shortness of breath COMPARISON: 03/19/2018 TECHNIQUE: 2 views of the chest were obtained. FINDINGS: No significant abnormality is noted involving the heart, lungs, mediastinum, bony thorax or soft tissues. XR/XR chest 2V IMPRESSION: Unremarkable examination.
--- NOTE | 2023-08-30 12:03 | ED.GENADULT ---
HPI - General Adult General Chief complaint: Fever Stated complaint: FEVER SORE THROAT Time Seen by Provider: 08/30/23 12:02 History of Present Illness ED Provider: Dr. Kaufman HPI narrative: 63 y/o M patient; PMH T2DM, PVD, hypothyroidism, MELCHOR, chronic LLE DVT on Xarelto s/p IVC filter, legally blind, hx bladder cancer s/p TURBT 2017, HTN; presents from home with report of sore throat, cough productive of phlegm, and mild shortness of breath for the last 24 hours. The patient states he lives alone with a HIGHWAY TRUCK DRIVER who helps with his activities of daily living. He otherwise denies: nausea/vomiting, diarrhea, chest pain, abdominal pain, syncope. Related Data Home Medications ?Medication ?Instructions ?Recorded ?Confirmed cholecalciferol (vitamin D3) 25 25 mcg PO DAILY 11/03/21 06/08/23 mcg (1,000 unit) capsule azelastine 0.05 % eye drops 1 drp ophthalmic (eye) BID 04/03/23 06/08/23 fenofibrate 160 mg tablet 160 mg PO DAILY 05/24/23 06/08/23 insulin lispro 100 unit/mL See Rx Instructions .Route .COMPLEX 05/24/23 06/08/23 subcutaneous pen rivaroxaban 20 mg tablet (Xarelto) 20 mg PO DAILY 05/24/23 06/08/23 Previous Rx's ?Medication ?Instructions ?Recorded ascorbic acid (vitamin C) 500 mg 500 mg PO DAILY 90 days #90 tabs 11/27/22 tablet (Vitamin C) empagliflozin 25 mg tablet 25 mg PO DAILY 30 days #30 tabs 01/29/23 atorvastatin 20 mg tablet 20 mg PO BEDTIME 90 days #90 tabs 04/20/23 insulin glargine 100 unit/mL (3 38 unit (0.38 mL) subcut BEDTIME 06/21/23 mL) subcutaneous pen (Lantus #15 mL Solostar U-100 Insulin) pen needle, diabetic 31 gauge x 1 ea subcut .5x day type 2 06/21/2305/11 (BD Ultra-Fine Mini Pen diabetes 90 days #450 ea Needle) risperidone 0.5 mg tablet 0.5 mg PO BID #60 tabs 07/13/23 (Risperdal) Freestyle test strips #1 ea 07/27/23 dulaglutide 3 mg/0.5 mL 3 mg (0.5 mL) subcut QWEEK #2 mL 08/24/23 subcutaneous pen injector (Trulicity) levothyroxine 50 mcg tablet 50 mcg PO QAM #90 tabs 08/24/23 lisinopril 10 mg tablet 10 mg PO DAILY #90 tabs 08/24/23 lorazepam 2 mg tablet 2 mg PO DAILY 30 days #30 tabs 08/24/23 Allergies Allergy/AdvReac Type Severity Reaction Status Date / Time Penicillins [PENICILLINS] Allergy Intermediate RASH Verified 08/30/23 12:20 naproxen [From Naprosyn] AdvReac Unknown Unknown Verified 08/30/23 12:20 NSAIDS (Non-Steroidal AdvReac Unknown Unknown Verified 08/30/23 12:20 Anti-Inflamma lisinopril AdvReac Intermediate increasing Uncoded 08/24/23 10:01 creatinine Review of Systems Review of Systems: Yes all other systems are reviewed and are negative Neurologic: Denies Sensory deficit (Neuro) [facility] Past Medical History Attestation statement: The following information was validated with the patient. Source: old records reviewed Medical History Ear ache Wound cellulitis Obstructive sleep apnea Type 2 diabetes mellitus with hyperglycemia Phimosis Vitamin D deficiency Hypothyroidism Retinitis pigmentosa Long-term insulin use in type 2 diabetes Essential hypertension Nontoxic multinodular goiter Dyslipidemia, goal LDL below 100 Chronic kidney disease, stage 3 Diabetic polyneuropathy associated with type 2 diabetes mellitus Obesity (BMI 30-39.9) Hypoglycemia unawareness associated with type 2 diabetes mellitus Diverticulosis CKD (chronic kidney disease) Chinese speaking patient Bladder cancer Arthritis Thyroid disease Legally blind DVT (deep venous thrombosis) Sleep apnea HTN (hypertension) Surgical History Deficient knowledge of leg surgery History of prostatectomy Hx of eye surgery Hx of knee surgery H/O colonoscopy Hx of cystoscopy Hx of circumcision S/P insertion of IVC (inferior vena caval) filter History of biopsy of bladder Family History Family History Father Medical history unknown Mother Breast cancer Diabetes Hypertension CVD (cardiovascular disease) Brother CVD (cardiovascular disease) Social History Social History Household Members: None Housing: Apartment Are you a primary regular senior care provider to a significant other at home: No Do you presently have visiting nurse or other home services: No Alcohol intake: never Patient Tobacco Use Status: Never used Tobacco Years Smoked: 30 years old Smoked in Last 30 Days: No e-Cigarette/Vaping Use: Never Used Second Hand Smoke Exposure: No Use of substances other than those prescribed or required for medical reasons: No Advance Directives: No Advance Directives Information Provided: No Do you have a plan to hurt others: No Plan service: No Current occupational status: disabled Cognitive needs: No Hearing needs: No Vision needs: Yes Physical Exam ED Vital Signs: Vital Signs - 24 hr 08/30/23 12:13 08/30/23 13:29 08/30/23 15:05 Temperature 102 F H 101.9 F H 98.1 F Pulse Rate 111 H 85 Respiratory Rate 18 14 Blood Pressure 127/80 104/67 Pulse Oximetry 93 96 Oxygen Delivery Method Room Air Room Air BMI result Body Mass Index 34.7 Patient is febrile, tachycardic, and normotensive. Const General: cooperative and no acute distress Orientation/consciousness: patient oriented x3 HENMT Head: Yes normal to inspection and Yes atraumatic Ears: TM's normal bilaterally Throat: Yes posterior oropharynx normal and Yes uvula midline Eyes General: appearance normal, both eyes and all related structures Pupils: Equal, round and reactive pupils present EOM: EOMs intact bilaterally Neck Neck: Yes normal visual inspection, Yes full ROM, Yes supple and No tender Chest Chest palpation & inspection: normal inspection of the chest and normal palpation of entire chest wall Resp Effort & Inspection: normal respiratory effort, able to speak in complete sentences and no cough Auscultation: clear to auscultation bilaterally Cardio Rate: regular rate Peripheral pulses: Peripheral pulses 2+ throughout GI Inspection: Yes normal to inspection, No Abdominal wall edema and No distended Palpation (GI): Soft to palpation, not firm, nontender, no guarding and not rigid Auscultation: normal bowel sounds General: Yes no CVA tenderness Back/Spine/Pelvis Back: no CVA tenderness Skin General skin exam: no rashes or lesions noted Neuro General: patient oriented x3 Cranial nerves: Yes Equal, round and reactive pupils present Motor exam (neuro): 5/5 motor strength present throughout Sensory Exam: No Sensory deficit (Neuro) Course Course Course Narrative: Patient is febrile tachycardic, and normotensive. Will obtain basic labs, CXR, and respiratory/throat swabs. Patient is meeting SIRS criteria without known source due to fever and tachycardia. Patient is well appearing. Suspect viral illness. Ordered tylenol for fever and throat pain. Ordered blood cultures and LA, providing 1L IVF. Reevaluation(s) Reevaluation #1: COVID/Flu/RSV negative. Strep negative. Laboratory studies without leukocytosis. Mild thrombocytopenia 159. Cr 2.01, approx baseline. CXR unremarkable. Patient tolerating PO without difficulty. Suspect fever and sore throat with productive cough 2/2 to viral illness. Plan: Discharge to home with PCP follow up Return precautions given Medications Administered Discontinued Medications Generic Name Dose Route Start Last Admin Trade Name Freq PRN Reason Stop Dose Admin Acetaminophen 975 mg 08/30/23 12:17 08/30/23 12:30 Acetaminophen 325 Mg Tablet PO 08/30/23 12:18 975 mg ONCE ONE Administration Sodium Chloride 1,000 mls @ 999 mls/hr 08/30/23 12:30 08/30/23 14:00 Ns IV 08/30/23 13:30 Infused .Q1H1M NITO Infusion Medical Decision Making Lab Data 08/30/23 12:42 08/30/23 12:43 Labs: Lab Results 08/30/23 08/30/23 08/30/23 Range/Units 12:36 12:42 12:43 WBC 9.8 (4.8-10.8) X10*3/uL RBC 5.09 (4.60-5.80) X10*6/uL Hgb 15.7 (14.0-18.0) g/dl Hct 45.3 (42.0-52.0) % MCV 89.0 (80.0-98.0) fL MCH 30.8 (27.0-33.0) pg MCHC 34.7 (31.0-36.0) g/dl RDW 15.4 (11.0-16.0) % Plt Count 159 L (160-400) X10*3/uL MPV 11.2 (9.4-12.4) fL Immature Gran % (Auto) 0.4 (0.0-0.4) % Neut % (Auto) 70.1 (45-73) % Lymph % (Auto) 12.2 L (20-40) % Sumner % (Auto) 16.9 H (2-11) % Eos % (Auto) 0.1 (0-4) % Baso % (Auto) 0.3 (0-2) % Lymph # (Auto) 1.2 (1.2-4.9) X10*3/uL Sumner # (Auto) 1.7 H (0.1-1.2) X10*3/uL Eos # (Auto) 0.0 (0.0-0.4) X10*3/uL Baso # (Auto) 0.0 (0.0-0.2) X10*3/uL Abs Immat Gran (auto) 0.04 H (0.00-0.03) X10*3/uL Absolute Neuts (auto) 6.9 (2.0-8.3) x10*3/uL Absolute Nucleated RBC 0.000 (0.0-0.012) X10*3/uL Nucleated RBC % (auto) 0.0 (0.0-0.2) /100WBC Smear Tech's Comments VERIFIED Sodium 139 (135-145) mmol/L Potassium 3.7 (3.3-5.1) mmol/L Chloride 106 (96-108) mmol/L Carbon Dioxide 21 L (22-29) mmol/L Anion Gap 16 (12-20) BUN 30 H (9-16) mg/dL Creatinine 2.01 H (0.5-1.4) mg/dL Estim Creat Clear Calc 46.4 Estimated GFR 34 Random Glucose 224 H (60-115) mg/dL Lactic Acid 1.7 (0.5-2.0) mmol/L Calcium 9.2 (8.4-10.2) mg/dL Total Bilirubin 1.1 H (0.0-1.0) mg/dL Direct Bilirubin 0.4 (0.0-0.5) mg/dL AST 31 (5-37) U/L ALT 38 (0-40) U/L Alkaline Phosphatase 49 (39-117) U/L Total Protein 7.3 (6.5-8.0) g/dL Albumin 4.2 (3.5-5.0) g/dL Influenza Type A (PCR) NEGATIVE (Negative) Influenza Type B (PCR) NEGATIVE (Negative) RSV RNA Qual (PCR) NEGATIVE (Negative) SARS-CoV-2 RNA (RT-PCR) NEGATIVE (Negative) S. pyogenes GrpA DIANA Negative (Negative) Discharge Plan Discharge Clinical Impression: Fever, Sore throat Patient Disposition: Home, Self-Care Instructions: Upper Respiratory Infection (DC) Additional Instructions: As we discussed, you were seen today for a productive cough, fever, and sore throat. Your CXR did not show pneumonia. Your labs, strep swab, and COVID/Flu/RSV were unremarkable. Recommend you take Tylenol 650mg every 6 hours as needed for fever and sore throat. Follow up with your PCP within the next 24 - 48 hours for re-evaluation. Return to the emergency department for: Chest pain Difficulty breathing Abdominal pain Passing out Worsening throat pain Prescriptions: No Action ascorbic acid (vitamin C) [Vitamin C] 500 mg tablet 500 mg PO DAILY 90 Days Qty: 90 3RF empagliflozin 25 mg tablet 25 mg PO DAILY 30 Days Qty: 30 7RF atorvastatin 20 mg tablet 20 mg PO BEDTIME 90 Days Qty: 90 2RF pen needle, diabetic [BD Ultra-Fine Mini Pen Needle] 31 gauge x 3/16 needle 1 ea subcut .5x day 90 Days Qty: 450 3RF Rx Instructions: test 5 times daily insulin glargine [Lantus Solostar U-100 Insulin] 100 unit/mL (3 mL) insulin pen 38 unit subcut BEDTIME Qty: 15 2RF risperidone [Risperdal] 0.5 mg tablet 0.5 mg PO BID Qty: 60 5RF (DME) Freestyle test strips See Rx Instructions .Route .MEDSUPPLY Qty: 1 1RF Rx Instructions: As directed levothyroxine 50 mcg tablet 50 mcg PO QAM Qty: 90 2RF cholecalciferol (vitamin D3) 25 mcg (1,000 unit) capsule 25 mcg PO DAILY fenofibrate 160 mg tablet 160 mg PO DAILY Xarelto 20 mg tablet 20 mg PO DAILY insulin lispro 100 unit/mL insulin pen See Rx Instructions .ROUTE .COMPLEX Rx Instructions: Take as directed per sliding scale max of 66 units in 24 hours. lisinopril 10 mg tablet 10 mg PO DAILY Qty: 90 0RF lorazepam 2 mg tablet 2 mg PO DAILY 30 Days Qty: 30 3RF Trulicity 3 mg/0.5 mL pen injector 3 mg subcut QWEEK Qty: 2 5RF azelastine 0.05 % drops 1 drp ophthalmic (eye) BID Rx Instructions: 1 drop into both eyes BID Print Language: Panamanian
[2023-08-30 12:04] VITALS: BP 118/70; PULSE 110; O2SAT 95
[2023-08-30 12:13] VITALS: BP 127/80; PULSE 111; RESP 18; TEMP 38.8; O2SAT 93; BMI 34.7
[2023-08-30] MEDS: Acetaminophen 325 MG TABLET 975 MG PO (12:30)
[2023-08-30] MEDS: 0.9 % Sodium Chloride 1,000 ML 999 ML IV (12:44)
[2023-08-30 12:50] LABS: Basophils Percent Auto 0.3 % (0-2); Eosinophils Percent Auto 0.1 % (0-4); Hematocrit 45.3 % (42.0-52.0); Hemoglobin 15.7 g/dl (14.0-18.0); Imm Gran Abs Auto 0.04 X10*3/uL (0.00-0.03); Imm Gran Pct Auto 0.4 % (0.0-0.4); Lymphocytes Absolute Auto 1.2 X10*3/uL (1.2-4.9); Lymphocytes Percent Auto 12.2 % (20-40); MANUAL DIFF FLAG SCAN; Mean Corpuscular HGB Conc 34.7 g/dl (31.0-36.0); Mean Corpuscular Hemoglobin 30.8 pg (27.0-33.0); Mean Platelet Volume 11.2 fL (9.4-12.4); Monocytes Absolute Auto 1.7 X10*3/uL (0.1-1.2); Monocytes Percent Auto 16.9 % (2-11); Neutrophils Absolute Auto 6.9 x10*3/uL (2.0-8.3); Neutrophils Percent Auto 70.1 % (45-73); Platelet Count 159 X10*3/uL (160-400); Red Blood Count 5.09 X10*6/uL (4.60-5.80); Red Cell Distribution Width 15.4 % (11.0-16.0); SCAN SMEAR FLAG 1; White Blood Count 9.8 X10*3/uL (4.8-10.8)
[2023-08-30 12:57] LABS: IDNOW Serial# 58CA691E; Strep A Nucleic Acid Negative (Negative)
[2023-08-30 13:17] LABS: Lactic Acid 1.7 mmol/L (0.5-2.0)
[2023-08-30 13:17] LABS: SLIDE REVIEW VERIFIED
[2023-08-30 13:29] VITALS: TEMP 38.8
[2023-08-30 13:46] LABS: Influenza A PCR NEGATIVE (Negative); Influenza B PCR NEGATIVE (Negative); Resp Syncy Virus RNA Qual PCR NEGATIVE (Negative); SARS COV2 PCR INHOUSE NEGATIVE (Negative)
[2023-08-30 13:47] LABS: Anion Gap 16 (12-20); Blood Urea Nitrogen 30 mg/dL (9-16); Calcium 9.2 mg/dL (8.4-10.2); Carbon Dioxide 21 mmol/L (22-29); Chloride 106 mmol/L (96-108); Creatinine Clr Calc Pharmacy 46.4; Estimated Glomerular Filt Rate 34; Glucose Random 224 mg/dL (60-115); Potassium 3.7 mmol/L (3.3-5.1); Sodium 139 mmol/L (135-145)
[2023-08-30 13:48] LABS: Alanine Aminotransferase 38 U/L (0-40); Albumin Level 4.2 g/dL (3.5-5.0); Alkaline Phosphatase 49 U/L (39-117); Aspartate Amino Transferase 31 U/L (5-37); Bilirubin Direct 0.4 mg/dL (0.0-0.5); Bilirubin Total 1.1 mg/dL (0.0-1.0); Total Protein 7.3 g/dL (6.5-8.0)
--- NOTE | 2023-08-30 14:00 | PC.NURSE ---
Provider aware patient temp 101.9, no new orders at this time.
[2023-08-30 15:05] VITALS: BP 104/67; PULSE 85; RESP 14; TEMP 36.7; O2SAT 96
[2023-08-30 16:20] VITALS: BP 111/69; PULSE 85; RESP 17; TEMP 36.7; O2SAT 95
== END 2023-08-30 16:22 | disposition home or self-care (01) ==
PROVIDERS: Emergency Provider Emergency Medicine
DX: J02.9 Acute pharyngitis, unspecified (principal); R50.9 Fever, unspecified; R11.2 Nausea with vomiting, unspecified; Z03.818 Encounter for observation for suspected exposure to other biological agents ruled out; Z86.718 Personal history of other venous thrombosis and embolism; Z79.01 Long term (current) use of anticoagulants; Z79.899 Other long term (current) drug therapy
CPT/HCPCS: 0241U; 36415; 71046; 80048; 80076; 83605; 85025; 87040; 87651; 96360; 99284

== ENCOUNTER 2023-09-03 07:46 | Outpatient (REF) | payer OTHER, SELFPAY ==
[2023-09-03 08:08] LABS: MANUAL DIFF FLAG NO
[2023-09-03 08:33] LABS: Basophils Percent Auto 0.5 % (0-2); Eosinophils Absolute Auto 0.3 X10*3/uL (0.0-0.4); Eosinophils Percent Auto 3.6 % (0-4); Hematocrit 38.1 % (42.0-52.0); Hemoglobin 12.9 g/dl (14.0-18.0); Imm Gran Abs Auto 0.03 X10*3/uL (0.00-0.03); Imm Gran Pct Auto 0.3 % (0.0-0.4); Lymphocytes Absolute Auto 0.9 X10*3/uL (1.2-4.9); Lymphocytes Percent Auto 10.1 % (20-40); Mean Corpuscular HGB Conc 33.9 g/dl (31.0-36.0); Mean Corpuscular Hemoglobin 30.8 pg (27.0-33.0); Mean Corpuscular Volume 90.9 fL (80.0-98.0); Mean Platelet Volume 11.3 fL (9.4-12.4); Monocytes Absolute Auto 0.5 X10*3/uL (0.1-1.2); Monocytes Percent Auto 5.9 % (2-11); Neutrophils Percent Auto 79.6 % (45-73); Platelet Count 184 X10*3/uL (160-400); Red Blood Count 4.19 X10*6/uL (4.60-5.80); Red Cell Distribution Width 14.8 % (11.0-16.0); White Blood Count 8.8 X10*3/uL (4.8-10.8)
[2023-09-03 09:13] LABS: Albumin Level 3.6 g/dL (3.5-5.0); Anion Gap 12 (12-20); Blood Urea Nitrogen 19 mg/dL (9-16); Calcium 9.2 mg/dL (8.4-10.2); Carbon Dioxide 23 mmol/L (22-29); Chloride 112 mmol/L (96-108); Estimated Glomerular Filt Rate 42; Magnesium 2.4 mg/dL (1.6-2.6); Phosphorus 2.1 mg/dL (2.7-4.5); Potassium 3.8 mmol/L (3.3-5.1); Sodium 143 mmol/L (135-145)
[2023-09-03 09:15] LABS: Appearance Urine Clear; Color Urine Yellow; Glucose Urine UA >=1000 mg/dL (Negative); Leukocyte Esterase Urine Negative (Negative); Nitrite Urine Negative (Negative); Specific Gravity - Urine >= 1.030 (1.005-1.025); UMIC TRIGGER UA YES; Urine Blood Negative (Negative); Urine Ketones Negative (Negative); Urine Protein Negative (Neg-Trace)
[2023-09-03 09:21] LABS: Bacteria Urine None Seen (None Seen); Hyaline Casts Urine 0-2 /LPF (0-2); RBC Urine 0-2 /HPF (0-2); Squamous Epithelial Cell Urine 0-2 /HPF (0-2); WBC Urine 0-5 /HPF (0-5)
[2023-09-03 09:35] LABS: Creatinine Urine 62.87 mg/dL; Total Protein Urine Random < 7 mg/dL (<12)
[2023-09-03 09:54] LABS: Vitamin D 25-OH Total 36.4 ng/mL (>30)
== END 2023-09-03 07:47 | disposition home or self-care (01) ==
LOC: HO.LAB 07:46
PROVIDERS: PCP Internal Medicine; Visit Provider Internal Medicine Nephrology
DX: E11.22 Type 2 diabetes mellitus with diabetic chronic kidney disease (principal); N18.32 Chronic kidney disease, stage 3b
CPT/HCPCS: 36415; 80051; 81001; 81003; 82040; 82043; 82306; 82310; 82565; 82570; 83735; 83970; 84100; 84156; 84520; 85025

== ENCOUNTER 2023-09-05 10:13 | Outpatient (AMB) | payer OTHER, SELFPAY ==
[2023-09-05 10:21] VITALS: BP 130/72; PULSE 71; O2SAT 96; BMI 34.4
--- NOTE | 2023-09-05 10:21 | A.OFFPC_ITS ---
Vital Signs 09/05/23 10:21 Height 5 ft 9 in Weight 232 lb 12.93 oz BMI 34.4 BP 130/72 Blood Pressure Location Lt brachial Position Sitting Pulse 71 Pulse Source Pulse Oximeter Pulse Oximetry (%) 96 Oxygen Delivery Method Room Air Intake Visit Reasons: ED f/u FEVER SORE THROAT Intake Note: Patient is here to follow-up after a visit the emergency department at [facility] Allergies Penicillins [PENICILLINS] Allergy (Intermediate, Verified 09/05/23 10:31) RASH naproxen [From Naprosyn] Adverse Reaction (Unknown, Verified 09/05/23 10:31) Unknown NSAIDS (Non-Steroidal Anti-Inflamma Adverse Reaction (Unknown, Verified 09/05/23 10:31) Unknown lisinopril Adverse Reaction (Intermediate, Uncoded 09/05/23 10:31) increasing creatinine Medication List - Last Reconciled 09/05/23 by Kim Phelan PA-C ascorbic acid (vitamin C) (Vitamin C) 500 mg PO DAILY 90 days atorvastatin 20 mg PO BEDTIME 90 days azelastine 0.05% 1 drp ophthalmic (eye) BID cholecalciferol (vitamin D3) 25 mcg PO DAILY dulaglutide (Trulicity) 3 mg (0.5 mL) subcut QWEEK empagliflozin 25 mg PO DAILY 30 days fenofibrate 160 mg PO DAILY [Freestyle test strips As directed] insulin glargine (Lantus Solostar U-100 Insulin) 38 units (0.38 mL) subcut BEDTIME insulin lispro Take as directed per sliding scale max of 66 units in 24 hours. levothyroxine 50 mcg PO QAM lisinopril 10 mg PO DAILY lorazepam 2 mg PO DAILY 30 days pen needle, diabetic (BD Ultra-Fine Mini Pen Needle) 1 ea subcut .5x day 90 days risperidone (Risperdal) 0.5 mg PO BID rivaroxaban (Xarelto) 20 mg PO DAILY Tobacco use date assessed: 06/08/23 Dental Screening Dental Screen Date: 05/04/23 HPI ED f/u FEVER SORE THROAT HPI Details 63-year-old male with past medical histo ry of diabetes mellitus, chronic kidney disease, hyperlipidemia, hypertension, BPH, and generalized anxiety disorder last seen by Dr. Diehl July 2023 coming in for ED follow up. Patient was seen in [facility] 08/30/2023 for sore throat, cough and mild shortness of breath. COVID, flu, RSV, and strep all negative. Chest x-ray unremarkable. Diagnosed with viral illness and discharged home. Patient's COMPOSITION MIXER is present, and wind turbine mechanic was used. Patient states he has still been having a sore throat with painful eating, decreased appetite, fever, and worsening productive cough. He has been using NyQuil and DayQuil along with Tylenol for the pain and cough. Highest reported fever at home was 99.7. Patient states the pain and cough have not improved and are worsening however no new symptoms. [facility] Medical History Ear ache Wound cellulitis Obstructive sleep apnea Type 2 diabetes mellitus with hyperglycemia Phimosis Vitamin D deficiency Hypothyroidism Retinitis pigmentosa Long-term insulin use in type 2 diabetes Essential hypertension Nontoxic multinodular goiter Dyslipidemia, goal LDL below 100 Chronic kidney disease, stage 3 Diabetic polyneuropathy associated with type 2 diabetes mellitus Obesity (BMI 30-39.9) Hypoglycemia unawareness associated with type 2 diabetes mellitus Diverticulosis CKD (chronic kidney disease) Somali speaking patient Bladder cancer Arthritis Thyroid disease Legally blind DVT (deep venous thrombosis) Sleep apnea HTN (hypertension) Surgical History Deficient knowledge of leg surgery History of prostatectomy Hx of eye surgery Hx of knee surgery H/O colonoscopy Hx of cystoscopy Hx of circumcision S/P insertion of IVC (inferior vena caval) filter History of biopsy of bladder Family History Father Medical history unknown Mother Breast cancer Diabetes Hypertension CVD (cardiovascular disease) Brother CVD (cardiovascular disease) Social History Household Members: None Housing: Apartment Are you a primary care support representative to a significant other at home: No Do you presently have visiting nurse or other home services: No Alcohol intake: never Patient Tobacco Use Status: Never used Tobacco Years Smoked: 30 years old e-Cigarette/Vaping Use: Never Used Second Hand Smoke Exposure: No service: No Current occupational status: disabled Cognitive needs: No Hearing needs: No Vision needs: Yes Questionnaire Thrive Questionnaire Date Thrive assessed: 06/08/23 AUDIT C Alcohol Use Questionnaire (AUDIT-C) 1. How often do you have a drink containing alcohol?: Never 2. How many drinks containing alcohol do you have on a typical day when you are drinking?: 1 or 2 (0) 3. How often do you have six or more drinks on one occasion?: Never Total Score: 0 MARNIE-7 AMB Questionnaire MARNIE-7 Date MARNIE - 7 assessed: 05/04/23 Source: Developed by Drs. Nathen Menchaca, Vida Nye, Pedrito Dao and colleagues, with an educational enoz from [employer]. Review of Systems Const Denies body aches, Denies chills, Reports fatigue, Reports fever(s) and Reports poor appetite Eyes Reports no additional complaints ENT Denies change in voice, Denies dysphagia, Denies dizziness, Denies facial pain, Denies hoarseness, Denies nasal congestion, Reports odynophagia and Denies sinus pressure Card Denies chest pain, Denies syncope, Denies edema and Denies lightheadedness Resp Details: Occasional shortness of breath with coughing Reports cough GI Reports no additional complaints, Denies dysphagia and Reports odynophagia Musc Reports no additional complaints Skin/Breast Reports system reviewed and no additional complaints, except as documented Neuro Denies dizziness and Denies syncope Endo Reports fatigue Physical exam (Primary Care) Vital Signs: Oxygen Delivery Method Room Air 09/05/23 10:21 BMI result Body Mass Index 34.4 Tobacco/Smoking Status: Tobacco use Status Tobacco use date assessed 06/08/23 09/05/23 10:21 Patient Tobacco Use Status Never used Tobacco 09/05/23 10:21 e-Cigarette/Vaping Use Never Used 09/05/23 10:21 Thrive Assessment: Date of Thrive Assessment Date Thrive assessed 06/08/23 09/05/23 10:21 Const General: cooperative, healthy appearing, comfortable and no acute distress Orientation/consciousness: patient oriented x3 HENMT Other: Unable to visualize TMs bilaterally due to cerumen impaction Head: Yes normocephalic and Yes atraumatic Ears: hearing grossly normal bilaterally General nose exam: Normal external nose present and No nasal discharge present Face and sinus: Yes normal facial exam and Yes sinuses nontender Mouth: Normal oral and palatal mucosa present and oropharynx normal Throat: Yes posterior oropharynx normal and Yes uvula midline Eyes General: appearance normal, both eyes and all related structures Conjunctivae: conjunctivae normal Neck Neck: Yes normal visual inspection, Yes full ROM and Yes no lymphadenopathy Resp Effort & Inspection: normal respiratory effort and no cough Auscultation: clear to auscultation bilaterally, no crackles, no rales and no rhonchi Cardio Rate: regular rate Rhythm: regular rhythm Skin General skin exam: no rashes or lesions noted Neuro General: patient oriented x3 and gait normal Extrem General: Yes normal to inspection, Yes full ROM and No edema Assessment and Plan Assessment & Plan (1) Cough: Code(s): R05.9 - Cough, unspecified Plan: Vitals are stable at this time, lungs are clear to auscultation bilaterally. Chest x-ray ordered due to worsening cough and continued fever. Prescription for benzonatate sent to pharmacy and instructed patient to use caution when using NyQuil and DayQuil as it is not recommended in patients with high blood pressure. There are inka-nqa-onoiwdn cough medicines that may be used that are specific for hypertension. (2) Sore throat: Code(s): J02.9 - Acute pharyngitis, unspecified Plan: On examination mildly erythematous throat with no evidence petechiae or exudates, uvula is midline. Patient may use [id number] lozenges and spray for sore throat. Plan Thank you for allowing me to participate in the care of this patient. I zoran mominy spent 30 minutes reviewing, examining and charting on this patient. Orders: Orders XR chest 2V Today R05.9 - Cough, unspecified Medications: New benzonatate 100 mg PO BID PRN 20 caps 0RF cough Coding Level of Care Code Est Pt Level 3 (96283) Diagnoses Cough R05.9 Sore throat J02.9
== END 2023-09-05 11:07 | disposition home or self-care (01) ==
PROVIDERS: PCP Internal Medicine
DX: R05.9 Cough, unspecified (principal); J02.9 Acute pharyngitis, unspecified
CPT/HCPCS: 99213

== ENCOUNTER 2023-09-05 11:17 | Outpatient (REF) | payer OTHER, SELFPAY ==
--- NOTE | ~2023-09-05 | XR_ITS ---
EXAMINATION: XR CHEST CLINICAL INFORMATION: Cough. COMPARISON: 08/30/2023. TECHNIQUE: 2 views of the chest were obtained. FINDINGS: There is no gross pneumothorax. Lung volumes are low. Heart size is normal. Mild asymmetric elevation of the left lung base. Degenerative changes in the thoracic spine. Possible trace bilateral pleural effusions. No new focal consolidation to suggest pneumonia. XR/XR chest 2V IMPRESSION: Possible trace bilateral pleural effusions. No new focal consolidation to suggest pneumonia.
== END 2023-09-05 11:18 | disposition home or self-care (01) ==
LOC: HO.XRAY 11:17
PROVIDERS: PCP Internal Medicine
DX: R05.9 Cough, unspecified (principal)
CPT/HCPCS: 71046

== ENCOUNTER → 2023-10-26 13:54 | Outpatient (AMB) | payer OTHER, SELFPAY ==
--- NOTE | 2023-10-26 13:55 | MHC.PC.OV ---
Intake Visit Reasons: COVID pos Allergies Penicillins [PENICILLINS] Allergy (Intermediate, Verified 10/26/23 13:55) RASH naproxen [From Naprosyn] Adverse Reaction (Unknown, Verified 10/26/23 13:55) Unknown NSAIDS (Non-Steroidal Anti-Inflamma Adverse Reaction (Unknown, Verified 10/26/23 13:55) Unknown lisinopril Adverse Reaction (Intermediate, Uncoded 10/26/23 13:55) increasing creatinine Tobacco use date assessed: 06/08/23 Dental Screening Dental Screen Date: 05/04/23 HPI COVID pos HPI Details 63-year-old obese male with multiple medical problems diabetes mellitus chronic kidney disease hypertension history of DVT hypothyroid history of bladder cancer BPH generalized anxiety disorder calling for an acute problem. Patient just diagnosed with COVID-19 infection. fever, nasal congestion, tired. , no diarrhea (Vanesa Mena ) interpret [facility] Medical History Ear ache Wound cellulitis Obstructive sleep apnea Type 2 diabetes mellitus with hyperglycemia Phimosis Vitamin D deficiency Hypothyroidism Retinitis pigmentosa Long-term insulin use in type 2 diabetes Essential hypertension Nontoxic multinodular goiter Dyslipidemia, goal LDL below 100 Chronic kidney disease, stage 3 Diabetic polyneuropathy associated with type 2 diabetes mellitus Obesity (BMI 30-39.9) Hypoglycemia unawareness associated with type 2 diabetes mellitus Diverticulosis CKD (chronic kidney disease) Citizen Of [place] speaking patient Bladder cancer Arthritis Thyroid disease Legally blind DVT (deep venous thrombosis) Sleep apnea HTN (hypertension) Surgical History Deficient knowledge of leg surgery History of prostatectomy Hx of eye surgery Hx of knee surgery H/O colonoscopy Hx of cystoscopy Hx of circumcision S/P insertion of IVC (inferior vena caval) filter History of biopsy of bladder Family History Father Medical history unknown Mother Breast cancer Diabetes Hypertension CVD (cardiovascular disease) Brother CVD (cardiovascular disease) Social History Household Members: None Housing: Apartment Are you a primary resident care aid to a significant other at home: No Do you presently have visiting nurse or other home services: No Alcohol intake: never Patient Tobacco Use Status: Never used Tobacco Tobacco use type: Cigarette Years Smoked: 30 years old e-Cigarette/Vaping Use: Never Used Second Hand Smoke Exposure: No service: No Current occupational status: disabled Cognitive needs: No Hearing needs: No Vision needs: Yes Questionnaire Thrive Questionnaire Date Thrive assessed: 06/08/23 MARNIE-7 AMB Questionnaire MARNIE-7 Date MARNIE - 7 assessed: 05/04/23 Source: Developed by Drs. Nathen Menchaca, Vida Nye, Pedrito Dao and colleagues, with an educational enzo from [employer]. Physical exam (Primary Care) Tobacco/Smoking Status: Tobacco use Status Tobacco use date assessed 06/08/23 10/26/23 13:56 Patient Tobacco Use Status Never used Tobacco 10/26/23 13:56 Tobacco use type Cigarette 10/26/23 13:56 e-Cigarette/Vaping Use Never Used 10/26/23 13:56 Thrive Assessment: Date of Thrive Assessment Date Thrive assessed 06/08/23 10/26/23 13:56 Telehealth Telehealth Telehealth Platform: Telephone Location of provider rendering services: practice address Location of patient: address on file Patient Identification confirmed using: Name, : Yes Telehealth method: voice only Patient verbally consented to treatment: Yes Patient verbally consented to billing insurance company: Yes Patient informed of any privacy concerns related to visit: Yes Minutes spent on Phone/Video with Pt.: 15 Assessment and Plan Assessment & Plan (1) COVID-19 virus infection: Comment: 12/08/2022 October 26, 2023 Code(s): U07.1 - COVID-19 Plan: antiviral sent For the sore throat can take Cepacol lozenges, discussed about Delsym to help with dry cough so she can rest and advised to increase oral fluids. Patient also can take Tylenol for chills and fever. Discussed the problem with taking the antiviral. Patient needs to stop the cholesterol medication and the anticoagulant rivaroxaban. Discussed keeping active to avoid getting blood clots. Medications: New nirmatrelvir-ritonavir 150-100 mg (Paxlovid) PO PER PKG DIR nirmatrelvit 150 mg with Ritonavir 100 mg BID 5 days 20 tabs 0RF U07.1 - COVID-19 Coding Level of Care Code Tele Est Pt Level 3 (19820) Diagnoses COVID-19 virus infection U07.1
== END ==
LOC: HO.HMGH 13:54
PROVIDERS: PCP Internal Medicine; Visit Provider Internal Medicine
DX: U07.1 COVID-19 (principal)
CPT/HCPCS: 99213

== ENCOUNTER 2024-01-04 09:33 | Outpatient (AMB) | payer OTHER, SELFPAY ==
--- NOTE | 2024-01-04 09:37 | MHC.PC.OV ---
Vital Signs 01/04/24 09:38 Height 5 ft 9 in Weight 227 lb 11.8 oz BMI 33.6 BP 124/76 Blood Pressure Location Lt brachial Position Sitting Pulse 91 Pulse Source Pulse Oximeter Pulse Oximetry (%) 97 Oxygen Delivery Method Room Air Intake Visit Reasons: DM, HTN, Visual Hallucination Intake Note: Patient is here to follow up on DM, HTN, Visual Hallucination. Trash Man Required: Yes Trash Man Language: Joint Cleaning Machine Operator Name: Sarah (shingle shearing machine operator) Information Interpreted: non-clinical & clinical Deputy Coroner Investigator: Present Accompanied by: WET PAN OPERATOR Allergies Penicillins [PENICILLINS] Allergy (Intermediate, Verified 01/04/24 09:38) RASH naproxen [From Naprosyn] Adverse Reaction (Unknown, Verified 01/04/24 09:38) Unknown NSAIDS (Non-Steroidal Anti-Inflamma Adverse Reaction (Unknown, Verified 01/04/24 09:38) Unknown lisinopril Adverse Reaction (Intermediate, Uncoded 01/04/24 09:38) increasing creatinine Medication List - Last Reconciled 01/04/24 by Sujata Diehl MD ascorbic acid (vitamin C) (Vitamin C) 500 mg PO DAILY 90 days atorvastatin 20 mg PO BEDTIME 90 days azelastine 0.05% 1 drp ophthalmic (eye) BID benzonatate 100 mg PO BID PRN blood pressure monitor (Blood Pressure Kit) As directed blood-glucose meter (FreeStyle Lite Meter kit) As directed [BP machine As directed] cholecalciferol (vitamin D3) 25 mcg PO DAILY dulaglutide (Trulicity) 3 mg (0.5 mL) subcut QWEEK empagliflozin 25 mg PO DAILY 30 days fenofibrate 160 mg PO DAILY [Freestyle test strips As directed] insulin glargine (Lantus Solostar U-100 Insulin) 42 units (0.42 mL) subcut BEDTIME insulin lispro Take as directed per sliding scale max of 66 units in 24 hours. levothyroxine 50 mcg PO QAM lisinopril 10 mg PO DAILY lorazepam 2 mg PO DAILY 30 days pen needle, diabetic (BD Ultra-Fine Mini Pen Needle) 1 ea subcut .5x day 90 days risperidone (Risperdal) 0.5 mg PO BID rivaroxaban (Xarelto) 20 mg PO DAILY sennosides-docusate sodium 8.6-50 mg (Senna Plus) 2 tab-caps (2 x 8.6-50 mg) PO BEDTIME Tobacco use date assessed: 01/04/24 Dental Screening Dental Screen Date: 05/04/23 HPI DM, HTN, Visual Hallucination HPI Details 63-year-old obese male with multiple medical problems diabetes mellitus chronic kidney disease legally blind hypercholesterolemia hypertension history of DVT hypothyroidism history of bladder cancer with BPH Syeda anxiety disorder coming in for follow-up. Last seen through Telehealth having COVID-19 infection in October 26 2023. Patient is up-to-date with colonoscopy 2019. Hemoglobin A1c in 12/17/2023 is 6.6 normal electrolytes with a creatinine of 1.3 glucose of 145 normal liver function HDL of 26 with total cholesterol for on 103 triglyceride of 196 LDL of 38. Review of the notes in August was seen by Nephrology also diagnosis of chronic kidney disease stage IIIB avoid NSAIDs keeping well hydrated. [facility] Medical History Ear ache Wound cellulitis Obstructive sleep apnea Type 2 diabetes mellitus with hyperglycemia Phimosis Vitamin D deficiency Hypothyroidism Retinitis pigmentosa Long-term insulin use in type 2 diabetes Essential hypertension Nontoxic multinodular goiter Dyslipidemia, goal LDL below 100 Chronic kidney disease, stage 3 Diabetic polyneuropathy associated with type 2 diabetes mellitus Obesity (BMI 30-39.9) Hypoglycemia unawareness associated with type 2 diabetes mellitus Diverticulosis CKD (chronic kidney disease) [place] speaking patient Bladder cancer Arthritis Thyroid disease Legally blind DVT (deep venous thrombosis) Sleep apnea HTN (hypertension) Surgical History Deficient knowledge of leg surgery History of prostatectomy Hx of eye surgery Hx of knee surgery H/O colonoscopy Hx of cystoscopy Hx of circumcision S/P insertion of IVC (inferior vena caval) filter History of biopsy of bladder Family History Father Medical history unknown Mother Breast cancer Diabetes Hypertension CVD (cardiovascular disease) Brother CVD (cardiovascular disease) Social History Household Members: None Housing: Apartment Are you a primary managed care manager to a significant other at home: No Do you presently have visiting nurse or other home services: No Alcohol intake: never Patient Tobacco Use Status: Never used Tobacco Tobacco use type: Cigarette Years Smoked: 30 years old e-Cigarette/Vaping Use: Never Used Second Hand Smoke Exposure: No service: No Current occupational status: disabled Cognitive needs: No Hearing needs: No Vision needs: Yes Questionnaire Thrive Questionnaire Date Thrive assessed: 06/08/23 MARNIE-7 AMB Questionnaire MARNIE-7 Date MARNIE - 7 assessed: 05/04/23 Source: Developed by Drs. Nathen Menchaca, Vida Nye, Pedrito Dao and colleagues, with an educational enzo from [employer]. Physical exam (Primary Care) Vital Signs: Last Vital Signs Pulse 91 01/04/24 09:38 BP 124/76 01/04/24 09:38 Pulse Ox 97 01/04/24 09:38 Oxygen Delivery Method Room Air 01/04/24 09:38 BMI result Body Mass Index 33.6 Tobacco/Smoking Status: Tobacco use Status Tobacco use date assessed 01/04/24 01/04/24 09:52 Patient Tobacco Use Status Never used Tobacco 01/04/24 09:52 Tobacco use type Cigarette 01/04/24 09:52 e-Cigarette/Vaping Use Never Used 01/04/24 09:52 Thrive Assessment: Date of Thrive Assessment Date Thrive assessed 06/08/23 01/04/24 09:52 Const General: alert; No acute distress Eyes Conjunctivae: conjunctivae normal Resp Auscultation: clear to auscultation bilaterally Cardio Rate: regular rate Rhythm: regular rhythm GI Inspection: Yes normal to inspection Extrem General: Yes normal to inspection and No edema Results AMB Hemoglobin A1c AMB Hemoglobin A1c 6.7 % Last Edit by JIM Alvarez on 01/04/24 09:54 Results Reviewed Results Reviewed: Laboratory Last Values Hgb A1c (Clinic) 6.7 % (4.0-6.0) H 01/04/24 09:37 Coding Level of Care Code Est Pt Level 4 (38980) Complex EM visit Add On G2211 Diagnoses Type 2 diabetes mellitus with hyperglycemia, with long-term current use of insulin E11.65; Z79.4 Diabetes mellitus watermelon harvesting supervisor insulin use: with watermelon harvesting supervisor use Essential hypertension I10 Dyslipidemia, goal LDL below 100 E78.5 Stage 3b chronic kidney disease N18.32 Chronic kidney disease stage 3 subtype: stage 3b (GFR 30-44) Obesity (BMI 30-39.9) E66.9 Acquired hypothyroidism E03.9 Hypothyroidism type: acquired Generalized anxiety disorder F41.1 Assessment & Plan Assessment & Plan (1) Type 2 diabetes mellitus with hyperglycemia: Code(s): E11.65 - Type 2 diabetes mellitus with hyperglycemia Category: Medical Qualifiers: Diabetes mellitus watermelon harvesting supervisor insulin use: with watermelon harvesting supervisor use Qualified Code(s): E11.65 - Type 2 diabetes mellitus with hyperglycemia; Z79.4 - correction (current) use of insulin Plan: Decrease the amount of carbohydrate intake, pasta, bread, rice and potatoes are all sugar and that is aside from all the sweet stuff, remember that fruits are good but they are Sweet also. Hemoglobin A1c goal of less than 6.5. Patient is on Trulicity 3 mg once a week Jardiance of 25 mg once a day Lantus at 42 units once a day Humalog sliding scale. (2) Essential hypertension: Code(s): I10 - Essential (primary) hypertension Category: Medical Plan: Continue with blood pressure medication. Decrease salt intake and exercise patient takes lisinopril 10 mg once a day (3) Dyslipidemia, goal LDL below 100: Code(s): E78.5 - Hyperlipidemia, unspecified Category: Medical Plan: Avoid fried foods, chicken skin, eggs, butter margarine, pastries and meat. Be it pork or beef they have a lot of cholesterol on atorvastatin 20 mg once a day (4) Chronic kidney disease, stage 3: Comment: Diabetic hypertensive disease Code(s): N18.30 - Chronic kidney disease, stage 3 unspecified Category: Medical Qualifiers: Chronic kidney disease stage 3 subtype: stage 3b (GFR 30-44) Qualified Code(s): N18.32 - Chronic kidney disease, stage 3b Plan: Keep well hydrated follows up with Nephrology blood pressure controlled diabetes control. (5) Obesity (BMI 30-39.9): Code(s): E66.9 - Obesity, unspecified Category: Medical Plan: Diet and exercise (6) Hypothyroid: Code(s): E03.9 - Hypothyroidism, unspecified Category: Medical Qualifiers: Hypothyroidism type: acquired Qualified Code(s): E03.9 - Hypothyroidism, unspecified Plan: Continue with thyroid medication at 50 mcg once a day (7) Generalized anxiety disorder: Comment: Declined counseling July 2021 Code(s): F41.1 - Generalized anxiety disorder Category: Medical Plan: Continue with present medication Orders: Orders AMB Hemoglobin A1c Today E11.65 - Type 2 diabetes mellitus with hyperglycemia, Z79.4 - superintendent container terminal (current) use of insulin Medications: New sennosides-docusate sodium 8.6-50 mg (Senna Plus) 2 tab-caps (2 x 8.6-50 mg) PO BEDTIME 60 caps 3RF K59.00 - Constipation, unspecified
[2024-01-04 09:38] VITALS: BP 124/76; PULSE 91; O2SAT 97; BMI 33.6
== END 2024-01-04 10:20 | disposition home or self-care (01) ==
PROVIDERS: PCP Internal Medicine; Visit Provider Internal Medicine
DX: I12.9 Hypertensive chronic kidney disease with stage 1 through stage 4 chronic kidney disease, or unspecified chronic kidney disease (principal); E11.65 Type 2 diabetes mellitus with hyperglycemia; Z79.4 Long term (current) use of insulin; N18.32 Chronic kidney disease, stage 3b; E66.9 Obesity, unspecified; E78.5 Hyperlipidemia, unspecified; E03.9 Hypothyroidism, unspecified; F41.1 Generalized anxiety disorder

== ENCOUNTER → 2024-01-04 09:33 | Outpatient (BNVA) | payer OTHER, SELFPAY | PROVIDERS: PCP Internal Medicine; Visit Provider Internal Medicine | DX: E11.65 Type 2 diabetes mellitus with hyperglycemia (principal); Z79.4 Long term (current) use of insulin; E78.5 Hyperlipidemia, unspecified; I12.9 Hypertensive chronic kidney disease with stage 1 through stage 4 chronic kidney disease, or unspecified chronic kidney disease; E11.22 Type 2 diabetes mellitus with diabetic chronic kidney disease; N18.32 Chronic kidney disease, stage 3b; E66.9 Obesity, unspecified; E03.9 Hypothyroidism, unspecified; F41.1 Generalized anxiety disorder | CPT/HCPCS: 83036; 99212 ==

== ENCOUNTER 2024-02-12 08:42 | Outpatient (REF) | payer OTHER, SELFPAY ==
[2024-02-12 08:55] LABS: MANUAL DIFF FLAG NO
[2024-02-12 09:06] LABS: Basophils Percent Auto 0.6 % (0-2); Eosinophils Absolute Auto 0.2 X10*3/uL (0.0-0.4); Hematocrit 44.3 % (42.0-52.0); Hemoglobin 14.9 g/dl (14.0-18.0); Imm Gran Abs Auto 0.03 X10*3/uL (0.00-0.03); Imm Gran Pct Auto 0.6 % (0.0-0.4); Immature Retic Fraction 19.2 % (2.3-13.4); Lymphocytes Absolute Auto 1.6 X10*3/uL (1.2-4.9); Lymphocytes Percent Auto 29.4 % (20-40); Mean Corpuscular HGB Conc 33.6 g/dl (31.0-36.0); Mean Corpuscular Hemoglobin 31.1 pg (27.0-33.0); Mean Corpuscular Volume 92.5 fL (80.0-98.0); Mean Platelet Volume 10.7 fL (9.4-12.4); Monocytes Absolute Auto 0.6 X10*3/uL (0.1-1.2); Monocytes Percent Auto 11.7 % (2-11); Neutrophils Percent Auto 54.7 % (45-73); Platelet Count 189 X10*3/uL (160-400); Red Blood Count 4.79 X10*6/uL (4.60-5.80); Red Cell Distribution Width 13.6 % (11.0-16.0); Retic HGB Equivalent 34.2 pg (30.0-35.0); Reticulocyte Percent 2.7 % (0.5-1.8); Reticulocytes Absolute 0.129 X10*6/uL (0.026-0.095); White Blood Count 5.4 X10*3/uL (4.8-10.8)
[2024-02-12 09:13] LABS: Estimated Average Glucose 148 mg/dL; Hemoglobin A1C 191.6773 umol/L; Hemoglobin A1c % 6.8 % (<6.0); Total Hemoglobin (HGBA1C) 3797.4719 umol/L
[2024-02-12 09:42] LABS: Alanine Aminotransferase 49 U/L (0-40); Albumin Level 4.1 g/dL (3.5-5.0); Alkaline Phosphatase 51 U/L (39-117); Anion Gap 11 (12-20); Aspartate Amino Transferase 31 U/L (5-37); Bilirubin Total 0.5 mg/dL (0.0-1.0); Blood Urea Nitrogen 28 mg/dL (9-16); Calcium 9.5 mg/dL (8.4-10.2); Carbon Dioxide 29 mmol/L (22-29); Chloride 106 mmol/L (96-108); Cholesterol 133 mg/dL (<200); Estimated Glomerular Filt Rate 50; Glucose Random 135 mg/dL (60-115); HDL Cholesterol 31 mg/dL (>40); Iron 75 mcg/dL (45-160); LDL Cholesterol Calculated 68 mg/dL (<100); Percent Iron Saturation 23 % (15-50); Phosphorus 2.3 mg/dL (2.7-4.5); Potassium 4.4 mmol/L (3.3-5.1); Sodium 142 mmol/L (135-145); Total Iron Binding Capacity 321 mcg/dL (228-428); Total Protein 7.1 g/dL (6.5-8.0); Triglycerides 173 mg/dL (<150); Unsaturated Iron Binding 246 ug/dL
[2024-02-12 09:54] LABS: Creatinine Urine 59.81 mg/dL; Microalbum/Creatinine Ratio Ur 16.7 ug/mg cr (<30)
[2024-02-12 09:58] LABS: Total Protein Urine Random < 7 mg/dL (<12)
[2024-02-12 10:00] LABS: Ferritin 192 ng/mL (20-250); Free T4 (Free Thyroxine) 1.18 ng/dL (0.71-1.85); Vitamin D 25-OH Total 39.9 ng/mL (>30)
[2024-02-12 10:11] LABS: Folate 12.1 ng/mL (> or = 4.0); Vitamin B12 823 pg/mL (200-900)
== END 2024-02-12 08:43 | disposition home or self-care (01) ==
LOC: HO.LAB 08:42
PROVIDERS: PCP Internal Medicine; Visit Provider Internal Medicine Nephrology
DX: N18.32 Chronic kidney disease, stage 3b (principal); E03.9 Hypothyroidism, unspecified; E78.00 Pure hypercholesterolemia, unspecified; E11.65 Type 2 diabetes mellitus with hyperglycemia
CPT/HCPCS: 36415; 80053; 80061; 82043; 82306; 82570; 82607; 82728; 82746; 83036; 83540; 84100; 84156; 84439; 84443; 85025; 85045

== ENCOUNTER 2024-02-15 09:49 | Outpatient (AMB) | payer OTHER, SELFPAY ==
--- NOTE | 2024-02-15 10:35 | HO.NEPHOV_ITS ---
Vital Signs 02/15/24 10:37 Height 5 ft 9 in Weight 229 lb 6 oz BMI 33.9 BP 112/80 Blood Pressure Location Lt brachial Position Sitting Pulse 80 Pulse Source Pulse Oximeter Pulse Oximetry (%) 98 Oxygen Delivery Method Room Air Intake Visit Reasons: Previous RTANE Pt-Conf Experimental Box Tester Required: Yes Experimental Box Tester Language: Manager Sales And Marketing Services: Experimental Box Tester Offered & Declined ([facility] interpreter services refused ) Experimental Box Tester Name: Amelia (REFRIGERATOR REPAIRMAN) Accompanied by: Other Relationship Allergies Penicillins [PENICILLINS] Allergy (Intermediate, Verified 02/15/24 10:36) RASH naproxen [From Naprosyn] Adverse Reaction (Unknown, Verified 02/15/24 10:36) Unknown NSAIDS (Non-Steroidal Anti-Inflamma Adverse Reaction (Unknown, Verified 02/15/24 10:36) Unknown lisinopril Adverse Reaction (Intermediate, Uncoded 01/04/24 09:38) increasing creatinine HPI Comments Details: I had the privilege of seeing Eriberto in follow up of his CKD and hypertension. He is on lisinopril as well as Jardiance. His blood sugars are better controlled. He is tolerating ACEI. He does not have any urinary symptoms, nausea, vomiting, diarrhea, edema, chest pain, SOB, PND, orthopnea or orthostatic symptoms. He maintains good hydration and avoids NSAID's. He feels well and did not have any specific complaints at the time of this office visit. [facility] Medical History Ear ache Wound cellulitis Obstructive sleep apnea Type 2 diabetes mellitus with hyperglycemia Phimosis Vitamin D deficiency Hypothyroidism Retinitis pigmentosa Long-term insulin use in type 2 diabetes Essential hypertension Nontoxic multinodular goiter Dyslipidemia, goal LDL below 100 Chronic kidney disease, stage 3 Diabetic polyneuropathy associated with type 2 diabetes mellitus Obesity (BMI 30-39.9) Hypoglycemia unawareness associated with type 2 diabetes mellitus Diverticulosis CKD (chronic kidney disease) Guyanese speaking patient Bladder cancer Arthritis Thyroid disease Legally blind DVT (deep venous thrombosis) Sleep apnea HTN (hypertension) Surgical History Deficient knowledge of leg surgery History of prostatectomy Hx of eye surgery Hx of knee surgery H/O colonoscopy Hx of cystoscopy Hx of circumcision S/P insertion of IVC (inferior vena caval) filter History of biopsy of bladder Family History Father Medical history unknown Mother Breast cancer Diabetes Hypertension CVD (cardiovascular disease) Brother CVD (cardiovascular disease) Social History Household Members: None Housing: Apartment Are you a primary home care physical therapist to a significant other at home: No Do you presently have visiting nurse or other home services: No Alcohol intake: never Patient Tobacco Use Status: Never used Tobacco Tobacco use type: Cigarette Years Smoked: 30 years old e-Cigarette/Vaping Use: Never Used Second Hand Smoke Exposure: No service: No Current occupational status: disabled Cognitive needs: No Hearing needs: No Vision needs: Yes Review of Systems Const All systems reviewed & are unremarkable except as noted in HPI and below Physical Exam Vital Signs: Last Vital Signs Pulse 80 02/15/24 10:37 BP 112/80 02/15/24 10:37 Pulse Ox 98 02/15/24 10:37 Oxygen Delivery Method Room Air 02/15/24 10:37 BMI result Body Mass Index 33.9 Const General: comfortable and no acute distress Orientation/consciousness: patient oriented x3 HEENT Head: Yes normocephalic Mouth: Normal oral and palatal mucosa present Eyes EOM: EOMs intact bilaterally Neck Neck: Yes supple Resp Auscultation: clear to auscultation bilaterally Cardio Jugular venous distension: no JVD Rate: regular rate GI Palpation (GI): Soft to palpation Auscultation: normal bowel sounds Skin General skin exam: no rashes or lesions noted Neuro General: patient oriented x3 and moves all extremities Extrem General: Yes no pedal edema Results Reviewed Nephrology Results: Hgb 14.9 g/dl (14.0-18.0) 02/12/24 WBC 5.4 X10*3/uL (4.8-10.8) 02/12/24 Plt Count 189 X10*3/uL (160-400) 02/12/24 Sodium 142 mmol/L (135-145) 02/12/24 Potassium 4.4 mmol/L (3.3-5.1) 02/12/24 Chloride 106 mmol/L (96-108) 02/12/24 Carbon Dioxide 29 mmol/L (22-29) 02/12/24 BUN 28 mg/dL (9-16) H 02/12/24 Creatinine 1.43 mg/dL (0.5-1.4) H 02/12/24 Calcium 9.5 mg/dL (8.4-10.2) 02/12/24 Phosphorus 2.3 mg/dL (2.7-4.5) L 02/12/24 PTH Intact 38.0 pg/mL (8.7-77.1) 09/03/23 Urine Protein Negative mg/dL (Neg-Trace) 09/03/23 Urine Creatinine 60.00 mg/dL 02/12/24 Protein/Creatinin Ratio TNP 02/12/24 Assessment & Plan Assessment & Plan (1) Chronic kidney disease, stage 3: Comment: Diabetic hypertensive disease Code(s): N18.30 - Chronic kidney disease, stage 3 unspecified Category: Medical Qualifiers: Chronic kidney disease stage 3 subtype: stage 3b (GFR 30-44) Qualified Code(s): N18.32 - Chronic kidney disease, stage 3b (2) Essential hypertension: Code(s): I10 - Essential (primary) hypertension Category: Medical Plan Eriberto has 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 He has no proteinuria. His BP is at goal. He is on ACEI as well as Jardiance. He maintains good hydration and avoids NSAID's. His volume status is optimal. I did not make any medication changes today. Follow up blood work ordered.Answered all questions Orders: Orders Creatinine 02/15/24 N18.32 - Chronic kidney disease, stage 3b, I10 - Essential (primary) hypertension Blood Urea Nitrogen 02/15/24 N18.32 - Chronic kidney disease, stage 3b, I10 - Essential (primary) hypertension Electrolytes 02/15/24 N18.32 - Chronic kidney disease, stage 3b, I10 - Essential (primary) hypertension Medications: Refilled lisinopril 10 mg PO DAILY 90 tabs 3RF Coding Level of Care Code Est Pt Level 4 (98558) Diagnoses Stage 3b chronic kidney disease N18.32 Chronic kidney disease stage 3 subtype: stage 3b (GFR 30-44) Essential hypertension I10
[2024-02-15 10:37] VITALS: BP 112/80; PULSE 80; O2SAT 98; BMI 33.9
== END 2024-02-15 10:54 | disposition home or self-care (01) ==
PROVIDERS: PCP Internal Medicine; Visit Provider Internal Medicine Nephrology
DX: I12.9 Hypertensive chronic kidney disease with stage 1 through stage 4 chronic kidney disease, or unspecified chronic kidney disease (principal); N18.32 Chronic kidney disease, stage 3b
CPT/HCPCS: 99214

== ENCOUNTER → 2024-02-15 09:49 | Outpatient (BNVA) | payer OTHER, SELFPAY | PROVIDERS: PCP Internal Medicine; Visit Provider Internal Medicine Nephrology | DX: I12.9 Hypertensive chronic kidney disease with stage 1 through stage 4 chronic kidney disease, or unspecified chronic kidney disease (principal); N18.32 Chronic kidney disease, stage 3b | CPT/HCPCS: 99212 ==

== ENCOUNTER 2024-04-03 08:33 | Outpatient (REF) | payer OTHER, SELFPAY ==
--- OUTSIDE RECORDS SUMMARY | 2024-04-03 09:12 | XMS_ITS | Clinical Summary ---
Author Organization [facility] Address [address] [place] [address] Phone Care Team Providers Care Nutrition Tech Name Role Phone Sujata Diehl MD Primary Care Provider [phone] Allergies Active Allergy Reactions Criticality Noted Date Comments Penicillins 10/29/2018 Medications ascorbic acid (VITAMIN C) 500 MG tablet Take 1 tablet by mouth 1 (one) time each day Active atorvastatin (LIPITOR) 20 MG tablet Take 1 tablet by mouth 1 (one) time each day Active Dulaglutide (Trulicity) 1.5 MG/0.5ML solution pen-injector Inject Active fenofibrate (TRIGLIDE) 160 MG tablet Take 1 tablet by mouth 1 (one) time each day Active Insulin Lispro, 1 Unit Dial, 100 UNIT/ML solution pen-injector Active levothyroxine (SYNTHROID, LEVOTHROID) 50 MCG tablet Take 1 tablet by mouth every morning 05/11/2014 Active LORazepam (ATIVAN) 2 MG tablet Take 1 tablet by mouth at bed time Active rivaroxaban (XARELTO) 20 MG tablet Take 1 tablet by mouth 1 (one) time each day Active aspirin (ST FUAD) 81 MG EC tablet Take 81 mg by mouth 1 (one) time each day Active insulin glargine (Basaglar KwikPen) 100 UNIT/ML injection Inject under the skin every night Active Jardiance 10 MG tablet Take 10 mg by mouth 1 (one) time each day 05/11/2022 Active D3-1000 25 MCG (1000 UT) capsule TAKE 1 CAPSULE (1,000 UNITS TOTAL) BY MOUTH ONE TIME EACH DAY. 90 capsule 3 11/14/2022 Active lisinopril 10 MG tablet Take 1 tablet (10 mg total) by mouth 1 (one) time each day 90 tablet 3 09/10/2023 5 Active Active Problems Problem Noted Date Diagnosed Date Type 2 diabetes mellitus 08/11/2022 023 Overview (02/22/2023): Last Assessment & Plan: Uncontrolled. Hemoglobin A1c 7.5% which may be falsely low since he is anemic and has elevated reticulocyte count. I did looked at the glycemic levels and there is really no pattern sometimes he is does quite well other days his glucose levels may be elevated throughout the day on the weekends he is only checking once a day. I think he will benefit from Dexcom G7 CGM. This he can use on Sunday through Sunday so of course all week but he is only getting monitored by the home inspector during the weekdays and on weekends he only has 3 hours of monitoring so he uses his talking meter but at times he does not use it at all even though he has a talking meter. The CGM may not be so helpful for him during the weekend but he does have a mobile home laborer that can review this for him. I think the best approach would be to use the weekly medications since he does not always get his Humalog on the weekends. So I will increase the Trulicity to 3 mg weekly since he is tolerating this medication. I do not see that I can change the Lantus because sometimes the morning sugars are fine sometimes they are quite high. I think this has to do with his evening snacks. With the CGM I hope to try to get a pattern of what is actually happening with his glucose levels. He will continue his current regimen such as continuing Lantus and Humalog. But if we find that his glucose levels are dropping we can consider decreasing the Humalog since we are increasing the Trulicity. Stage 3b chronic kidney disease 06/30/2020 Hypertension 06/30/2020 Benign hypertensive renal disease 06/29/2020 Renal disorder due to type 2 diabetes mellitus 0 06/29/2020 Stage 3 chronic kidney disease 07/07/2010 Immunizations Name Administration Dates Next Due Influenza Split High Dose Preservative Free IM 0 09/29/2015 Family History Medical History Relation Comments Cancer Mother breast Diabetes Mother Hypertension Mother Kidney disease Mother also uncle Hypertension Sibling 1 brother Diabetes Sibling 2 brother Relation Status Comments Mother Sibling 1 Sibling 2 Social History Tobacco Use Types Packs/Day Years Used Date Smoking Tobacco: Never Smokeless Tobacco: Never Tobacco Cessation:Counseling Given: Not Answered Sex and Gender Information Value Date Recorded Sex Assigned at Not on file Legal Sex Male 4:49 PM EST Gender Identity Not on file Sexual Orientation Not on file Last Filed Vital Signs Vital Sign Reading Time Taken Comments Blood Pressure 138/67 09/10/2023 1:31 PM EDT Pulse 85 09/10/2023 1:31 PM EDT Temperature - - Respiratory Rate - - Oxygen Saturation 96% 09/10/2023 1:31 PM EDT Inhaled Oxygen Concentration - - Weight 105 kg (232 lb) 09/10/2023 1:31 PM EDT Height 175.3 cm (5' 9 ) 06/18/2019 12:00 PM EDT Body Mass Index 34.26 06/18/2019 12:00 PM EDT Plan of Treatment Health Maintenance Due Date Last Done Comments Pneumococcal Vaccine: Pediat rics (0 to 5 Years) and At-Risk Patients (6 to 64 Years) (1 of 2 - PCV) 1966 Colorectal Cancer Screening: Annual FOBT 07/15/2011 Colorectal Cancer Screening: Colonoscopy 07/15/2011 Colorectal Cancer Screening: Sigmoidoscopy 07/15/2011 Diabetes: Hemoglobin A1C 03/28/2020 Diabetes: Pedal Pulse Checked 03/28/2020 Diabetes: Sensory Foot Exam 03/28/2020 Diabetes: Visual Foot Exam 03/28/2020 Influenza Vaccine (#1) 2023 09/29/2015 Diabetes: Ophthalmology Exam 03/28/2024 03/28/2023 Hepatitis B Vaccine Aged Out No longe r eligible based on patient's age to complete this topic Insurance [facility] MEDICAID [facility] MEDICAID Care Teams Nutrition Tech Relationship Specialty Start Date End Date Sujata Diehl MD [facility] [address] [place], [place] PCP - General 03/08/20
[2024-04-03 16:32] LABS: Urine Cytology See Pathology rpt
== END 2024-04-03 08:34 | disposition home or self-care (01) ==
LOC: HO.LAB 08:33
PROVIDERS: PCP Internal Medicine; Visit Provider Urology
DX: C67.9 Malignant neoplasm of bladder, unspecified (principal); N40.1 Benign prostatic hyperplasia with lower urinary tract symptoms; N13.8 Other obstructive and reflux uropathy; Z13.9 Encounter for screening, unspecified
CPT/HCPCS: 52000; 81003; 88112; 99212

== ENCOUNTER 2024-04-25 09:19 | Outpatient (AMB) | payer OTHER, SELFPAY ==
[2024-04-25 09:33] VITALS: BP 130/70; PULSE 65; O2SAT 97; BMI 33.7
--- NOTE | 2024-04-25 09:33 | A.OFFPC_ITS ---
Vital Signs 04/25/24 09:33 Height 5 ft 9 in Weight 228 lb BMI 33.7 BP 130/70 Blood Pressure Location Lt brachial Position Sitting Pulse 65 Pulse Source Pulse Oximeter Pulse Oximetry (%) 97 Oxygen Delivery Method Room Air Intake Visit Reasons: DM Allergies Penicillins [PENICILLINS] Allergy (Intermediate, Verified 04/25/24 09:33) RASH naproxen [From Naprosyn] Adverse Reaction (Unknown, Verified 04/25/24 09:33) Unknown NSAIDS (Non-Steroidal Anti-Inflamma Adverse Reaction (Unknown, Verified 04/25/24 09:33) Unknown lisinopril Adverse Reaction (Intermediate, Uncoded 04/25/24 09:33) increasing creatinine Tobacco use date assessed: 04/25/24 Dental Screening Dental Screen Date: 04/25/24 Did you have a dental visit in the last 12 months?: Yes Did you have a dental problem in the last 6 months where you did not have access to dental care?: No Was dental information given to patient?: Patient has dentist HPI DM HPI Details [place] [facility] interpret [facility] Medical History Ear ache Wound cellulitis Obstructive sleep apnea Type 2 diabetes mellitus with hyperglycemia Phimosis Vitamin D deficiency Hypothyroidism Retinitis pigmentosa Long-term insulin use in type 2 diabetes Essential hypertension Nontoxic multinodular goiter Dyslipidemia, goal LDL below 100 Chronic kidney disease, stage 3 Diabetic polyneuropathy associated with type 2 diabetes mellitus Obesity (BMI 30-39.9) Hypoglycemia unawareness associated with type 2 diabetes mellitus Diverticulosis CKD (chronic kidney disease) Yakut speaking patient Bladder cancer Arthritis Thyroid disease Legally blind DVT (deep venous thrombosis) Sleep apnea HTN (hypertension) Surgical History Deficient knowledge of leg surgery History of prostatectomy Hx of eye surgery Hx of knee surgery H/O colonoscopy Hx of cystoscopy Hx of circumcision S/P insertion of IVC (inferior vena caval) filter History of biopsy of bladder Family History Father Medical history unknown Mother Breast cancer Diabetes Hypertension CVD (cardiovascular disease) Brother CVD (cardiovascular disease) Social History Household Members: None Housing: Apartment Are you a primary adult caregiver to a significant other at home: No Do you presently have visiting nurse or other home services: No Alcohol intake: never Patient Tobacco Use Status: Never used Tobacco Tobacco use type: Cigarette Years Smoked: 30 years old e-Cigarette/Vaping Use: Never Used Second Hand Smoke Exposure: No service: No Current occupational status: disabled Cognitive needs: No Hearing needs: No Vision needs: Yes Questionnaire PHQ-9 Over the last 2 weeks, how often have you been bothered by any of the following problems? 1. Little interest or pleasure in doing things: several days 2. Feeling down, depressed, or hopeless: several days 3. Trouble falling or staying asleep, or sleeping too much: not at all 4. Feeling tired or having little energy: not at all 5. Poor appetite or overeating: not at all 6. Feeling bad about yourself - or that you are a failure or have let yourself or your family down: not at all 7. Trouble concentrating on things, such as reading the newspaper or watching television: not at all 8. Moving or speaking so slowly that other people could have noticed. Or the opposite - being so fidgety or restless that you have been moving around a lot more than usual: not at all 9. Thoughts that you would be better off or of hurting yourself in some way: not at all Total score: 2 Depression Screening Interpretation: Negative Depression Screening Done: Yes Source: Developed by Drs. Nathen Menchaca, Vida Nye, Pedrito Dao and colleagues, with an educational enzo from [employer]. Thrive Questionnaire Date Thrive assessed: 04/25/24 I am a: Patient What is your living situation today?: I have a steady place to live Within the past 12 months, did the food you bought not last and you didn't have the money to get more?: Never true Within the past 12 months, did you worry whether your food would run out before you got money to buy more?: Never true Do you have trouble paying for medicines?: No Do you have trouble getting transportation to medical appointments?: No Do you have trouble paying your heating and electricity bill?: No Do you have trouble taking care of your child, family member or friend?: No Do you have trouble with day-to-day activities such as bathing, preparing meals, shopping, managing finances, etc.?: No Are you currently unemployed and looking for a job?: No Are you interested in more education?: No Currently or been in a relationship where the following occur: No concerns reported THRIVE Score: 0 AUDIT C Alcohol Use Questionnaire (AUDIT-C) 1. How often do you have a drink containing alcohol?: Never 2. How many drinks containing alcohol do you have on a typical day when you are drinking?: 1 or 2 (0) 3. How often do you have six or more drinks on one occasion?: Never Total Score: 0 MARNIE-7 AMB Questionnaire MARNIE-7 Date MARNIE - 7 assessed: 04/25/24 Feeling nervous, anxious, or on edge: 0 = Not at all Not being able to stop or control worryin = Not at all Worrying too much about different things: 0 = Not at all Trouble relaxin = Not at all Being so restless that it is hard to sit still: 0 = Not at all Becoming easily annoyed or irritable: 0 = Not at all Feeling afraid as if something awful might happen: 0 = Not at all Total MARNIE-7 score (0-4 normal; 5-9 mild; 10-14 moderate; 15-21 severe): 0 Source: Developed by Drs. Nathen Menchaca, Vida Nye, Pedrito Dao and colleagues, with an educational enzo from [employer]. Physical exam (Primary Care) Vital Signs: Last Vital Signs Pulse 65 04/25/24 09:33 BP 130/70 04/25/24 09:33 Pulse Ox 97 04/25/24 09:33 Oxygen Delivery Method Room Air 04/25/24 09:33 BMI result Body Mass Index 33.7 Tobacco/Smoking Status: Tobacco use Status Tobacco use date assessed 04/25/24 04/25/24 09:37 Patient Tobacco Use Status Never used Tobacco 04/25/24 09:37 Tobacco use type Cigarette 04/25/24 09:37 e-Cigarette/Vaping Use Never Used 04/25/24 09:37 PHQ-9: PHQ-9 Score PHQ-9: Total score 2 04/25/24 10:18 Depression Screening Interpretation: Negative Thrive Assessment: Date of Thrive Assessment Date Thrive assessed 04/25/24 04/25/24 09:37 Currently or been in a relationship where the following occur: No concerns reported Const General: alert; No acute distress Eyes Conjunctivae: conjunctivae normal Resp Auscultation: clear to auscultation bilaterally Cardio Rate: regular rate Rhythm: regular rhythm GI Inspection: Yes normal to inspection Extrem General: Yes normal to inspection and No edema Coding Level of Care Code Est Pt Level 4 (30432) Complex EM visit Add On G2211 Diagnoses BPH w urinary obs/LUTS N40.1; N13.8 Malignant neoplasm of urinary bladder, unspecified site C67.9 Bladder location: unspecified site Acquired hypothyroidism E03.9 Hypothyroidism type: acquired Type 2 diabetes mellitus with hyperglycemia, with long-term current use of insulin E11.65; Z79.4 Diabetes mellitus residential insulin use: with residential use DVT (deep venous thrombosis) I82.409 Stage 3b chronic kidney disease N18.32 Chronic kidney disease stage 3 subtype: stage 3b (GFR 30-44) Obesity (BMI 30-39.9) E66.9 Dyslipidemia, goal LDL below 100 E78.5 Essential hypertension I10 Assessment & Plan Assessment & Plan (1) BPH w urinary obs/LUTS: Comment: Bladder neck contracture following laser prostatectomy Code(s): N40.1 - Benign prostatic hyperplasia with lower urinary tract symptoms; N13.8 - Other obstructive and reflux uropathy Category: Medical Plan: Patient continues to follow-up with urology having cystoscopy done (2) Bladder cancer: Comment: Recurrent low-grade last TURBT 2016 Code(s): C67.9 - Malignant neoplasm of bladder, unspecified Category: Medical Qualifiers: Bladder location: unspecified site Qualified Code(s): C67.9 - Malignant neoplasm of bladder, unspecified Plan: Continue to follow-up with urology (3) Hypothyroid: Code(s): E03.9 - Hypothyroidism, unspecified Category: Medical Qualifiers: Hypothyroidism type: acquired Qualified Code(s): E03.9 - Hypothyroidism, unspecified Plan: Continue with thyroid medication Reynold blood work good (4) Type 2 diabetes mellitus with hyperglycemia: Code(s): E11.65 - Type 2 diabetes mellitus with hyperglycemia Category: Medical Qualifiers: Diabetes mellitus intermodal truck driver insulin use: with residential use Qualified Code(s): E11.65 - Type 2 diabetes mellitus with hyperglycemia; Z79.4 - terminal carman (current) use of insulin Plan: Decrease the amount of carbohydrate intake, pasta, bread, rice and potatoes are all sugar and that is aside from all the sweet stuff, remember that fruits are good but they are Sweet also. Hemoglobin A1c goal of less than 6.5. Patient is presently on Jardiance, Trulicity, Lantus at 42 units once a day lispro sliding scale. (5) DVT (deep venous thrombosis): Comment: h/o multiple, IVC filter and on xarelto-to stop 01/03/20 per pt per Code(s): I82.409 - Acute embolism and thrombosis of unspecified deep veins of unspecified lower extremity Category: Medical Plan: Continue with Xarelto and follows up with Hematology-Oncology (6) Chronic kidney disease, stage 3: Comment: Diabetic hypertensive disease Code(s): N18.30 - Chronic kidney disease, stage 3 unspecified Category: Medical Qualifiers: Chronic kidney disease stage 3 subtype: stage 3b (GFR 30-44) Qualified Code(s): N18.32 - Chronic kidney disease, stage 3b Plan: Diabetic hypertensive renal disease keep well hydrated avoid NSAIDs controlled diabetes control blood pressure (7) Obesity (BMI 30-39.9): Code(s): E66.9 - Obesity, unspecified Category: Medical Plan: Diet and exercise (8) Dyslipidemia, goal LDL below 100: Code(s): E78.5 - Hyperlipidemia, unspecified Category: Medical Plan: January blood work. Avoid fried foods, chicken skin, eggs, butter margarine, pastries and meat. Be it pork or beef they have a lot of cholesterol LDL goal of less than 100 and triglyceride of less than 150 patient is on atorvastatin 20 mg once a day (9) Essential hypertension: Code(s): I10 - Essential (primary) hypertension Category: Medical Plan: Continue with blood pressure medication. Decrease salt intake and exercise continue with lisinopril 10 mg once a day Plan History of Present Illness The patient is a 63-year-old male presenting for a follow-up appointment with a history of obesity, legal blindness, diabetes mellitus, chronic kidney disease, hypercholesterolemia, and hypertension. He has a notable history of deep vein thrombosis from 1988, with a recurrence in December 2019, and has since been on anticoagulation therapy with Xarelto. The patient was diagnosed with peripheral artery disease and hypothyroidism and is managed with thyroid medication. In 2017, he was treated for bilateral cancer and continues to follow up for any reoccurrences, including periodic cystoscopy as part of cancer surveillance. His management for diabetes is comprehensive involving multiple medications like Jardiance, Trulicity, and Lantus administered at specific dosages, maintaining hemoglobin A1c within target range. The recent lab work indicated stable chronic kidney function with a creatinine 1.53, normal blood count, and specific cholesterol and triglyceride targets for cardiovascular risk reduction. Health Maintenance - Recent blood work as of February 12, 2024, showing stable creatinine at 1.53. - Hemoglobin A1c maintained at 6.8. - LDL cholesterol targeted below 70, currently at 68 mg/dL. - Triglycerides managed to be under 150 mg/dL. - Diabetes medications regimen including Jardiance, Trulicity, and glycemic control with Lantus and Lispro. - Blood pressure control with Lisinopril 10 mg daily. - Cancer follow-up with routine cystoscopy. - Avoidance of NSAIDs advised. - Discussion about maintaining hydration and compression stockings for venous issues. - Compliance with thyroid medication and regular TSH monitoring. - Nutritional guidance emphasizing vegetables and balanced diet. Social History - No specific social determinants of health were discussed in the conversation. Review of Systems Physical Exam Results - Labs: Normal blood count, creatinine 1.53, hemoglobin A1c 6.8, liver enzymes mildly elevated, LDL 68 mg/dL, triglycerides 150 mg/dL. Plan 1. 8. The patient maintains cholesterol control with atorvastatin achieving LDL targets essential for cardiovascular health. Continued anticoagulation therapy with Xarelto is undertaken for DVT prophylaxis following prior episodes and filter placement: Renal function tracking indicates stability at a creatinine level of 1.53, guiding hypertensive management with lisinopril. Cancer history requires ongoing monitoring through cystoscopy. Implementing a supportive lifestyle approach including hydration, nutrition, and leg compression garments is necessary to manage multi-systemic conditions, alongside periodic specialist consultations for comprehensive care. Patient was informed and verbally consented to the use of an ambient scribe for clinic note documentation during this visit. Discussion Notes I discussed with the patient the ongoing diagnosis and management plan for diabetes, chronic kidney disease, and previous cancer history. We reviewed the need for continued adherence to his regimen of Jardiance, Trulicity, and insulin for optimal diabetes control, alongside atorvastatin for cholesterol management. The importance of staying hydrated and using compressive stockings for venous management was emphasized due to a history of DVT with IVC filter placement. Patients were advised to avoid NSAIDs to protect renal function, given their chronic kidney disease. Follow-up appointments were suggested for oncology surveillance, nephrology for renal function monitoring, and endocrinology for thyroid stability. We also discussed the requirement for routine blood work to monitor renal and hepatic function. Consent was reviewed for all management steps, with the patient encouraged to adhere to dietary and exercise guidance for long-term health benefits. I scheduled upcoming specialist consultations as preventative measures for current health conditions. Patient Instructions - Continue all prescribed medications as directed, including Jardiance, Trulicity, Lantus, Lispro, Xarelto, and atorvastatin. - Maintain a balanced diet with an emphasis on vegetables. - Keep hydrated and avoid NSAIDs to protect kidney function. - Apply compression stockings as needed for leg swelling. - Follow up routinely with oncology, nephrology, and urology for care continuity. - Monitor blood pressure and blood sugar as instructed. - Schedule and attend all upcoming lab appointments for monitoring cholesterol, liver function, and kidney function. - Report any new symptoms, such as significant changes in vision, unexpected swelling, or abnormal bleeding. - Ensure regular exercise and maintain a healthy lifestyle for weight management. Orders: Orders Hemoglobin A1c 3 Months E11.65 - Type 2 diabetes mellitus with hyperglycemia, Z79.4 - skilled nursing (current) use of insulin Comprehensive Met. Panel 3 Months E11.65 - Type 2 diabetes mellitus with hyperglycemia, Z79.4 - skilled nursing (current) use of insulin Complete Blood Count Auto Diff 3 Months E11.65 - Type 2 diabetes mellitus with hyperglycemia, Z79.4 - terminal carman (current) use of insulin Medications: New compress.stocking,knee,reg,lrg As directed 20-30 mm HG 12 ea 0RF I73.9 - Peripheral vascular disease, unspecified Refilled benzonatate 100 mg PO BID PRN 20 caps 0RF cough E11.65 - Type 2 diabetes mellitus with hyperglycemia, Z79.4 - skilled nursing (current) use of insulin
--- OUTSIDE RECORDS SUMMARY | 2024-04-25 09:57 | XMS_ITS | Clinical Summary ---
Author Organization [facility] Address [address] [place] [address] [address] [place] [address] Care Team Providers Care Wharfmaster Name Role Phone Provider, Not In System Primary Care Provider Un available Elham Cerna OD Unavailable Jacob Holm Unavailable Unavail able Allergies Active Allergy Reactions Criticality Noted Date Comments Penicillins Hives 10/29/2018 Medications ascorbic acid (Vitamin C) 500 MG tablet Take 1 tablet by mouth. Active atorvastatin (Lipitor) 20 MG tablet Take 20 mg by mouth at bedtime. 01/30/20 23 Active cholecalciferol (Vitamin D-[address]) 25 MCG (1000 UT) tablet Take 1,000 Units by mouth in the morning. Active Trulicity 1.5 MG/0.5ML solution pen-injector INJECT 1.5 MG (0.5 ML) SUBCUTANEOUSLY EVERY WEEK FOR 90 DAYS 06/27/19 23 Active Jardiance 25 MG Take 25 mg by mouth in the morning. 03/05/19 24 Active fenofibrate (Triglide) 160 MG tablet Take 160 mg by mouth in the morning. 01/30/20 23 Active Lantus SoloStar 100 UNIT/ML pen INJECT 38 UNITS SUBCUTANEOUSLY EVERY EVENING 02/07/20 23 Active Insulin Glargine-yfgn 100 UNIT/ML solution pen-injector INJECT 38 UNITS UNDER THE SKIN NIGHTLY AT BEDTIME. 12/22/19 23 Active levothyroxine (Synthroid, Levoxyl) 50 MCG tablet Take 50 mcg by mouth in the morning. 01/10/20 23 Active lisinopril 10 MG tablet TAKE 1 TABLET BY MOUTH 1 TIME EACH DAY. 03/01/19 24 Active LORazepam (Ativan) 2 MG tablet 03/27/19 24 Active Xarelto 10 MG tablet Take 10 mg by mouth in the morning. 03/15/19 24 Active Denta 5000 Plus 1.1 % cream BRUSH TEETH WITH PEA SIZE AMOUNT DAILY AT BEDTIME. NO FOOD/DRINK FOR 30 MINUTES. 05/11/19 Active insulin glargine (Basaglar KwikPen) 100 UNIT/ML pen Inject under the skin. 02/24/20 Active carboxymethylcell ulose (Refresh Celluvisc) 1 % ophthalmic solution dropperette Apply 1 drop to both eyes if needed in the morning, at noon, and at bedtime for dry eyes. 15 mL 12 04/05/19 24 Active azelastine (Optivar) 0.05 % ophthalmic solutionIndicatio ns:Allergic conjunctivitis of both eyes Administer 1 drop into both eyes 2 times daily. For itching 6 mL 3 04/05/19 24 025 Lutein-Zeaxanthin 6-0.24 MG capsuleIndication s:Retinitis pigmentosa Take 1 capsule by mouth 2 times daily. 60 capsule 11 04/05/19 24 025 Active Problems Problem Noted Date Diagnosed Date Retinitis pigmentosa 03/28/2023 Legal blindness, as defined in [place] 03/28/2023 Hyperlipidemia LDL goal <100 11/24/2022 Overview (03/28/2023): Last Assessment & Plan: Controlled. LDL 97 mg/dL on atorvastatin 20 mg no changes required. Type 2 diabetes mellitus wit h stage 3a chronic kidney disease, without long-term current use of insulin 08/11/202202/28 Overview (03/28/2023): Last Assessment & Plan: Based on the hemoglobin A1c of 6.9% and normal hemoglobin hematocrit it is possible that he is doing very well. However he did not bring the meter so I am not 100% certain. I think the Humalog correction scale during the week has helped. I am not going to change the regimen but I reminded the patient to bring the meter on the follow-up visit he should do lab work prior to the follow-up visit in 6 months. Just a hemoglobin A1c. Hypertension 06/30/2020 03/28/2023 Stage 3 chronic kidney disease 07/07/2010 0 03/28/2023 Family History Medical History Relation Name Comments blind pigment Brother Relation Name Status Comments Brother Social History Tobacco Use Types Packs/Day Years Used Date Smoking Tobacco: Never Tobacco Cessation:Counseling Given: Not Answered Alcohol Answer Date Recorded How often do you have a drink containing alcohol ? 0 03/06/2023 How many drinks containing a lcohol do you have on a typical day when you are drinking? 0 03/06/2023 How often do you have six or more drinks on one occasion? 0 03/06/2023 Housing Stability Answer Date Recorded What is your housing situation today? I have jerica shipman 03/06/[address] you li ve. Do you have problems with any of the following? None of the above 03/06/2023 Food Insecurity Answer Date Recorded Within the past 12 months, y ou worried that your food would run out before you got money to buy more: Never True 03/06/2023 Within the past 12 months,th e food you bought just didn't last and you didn't have enough money to get more: Never True 10/2023 Transportation Answer Date Recorded In the past 12 months, has l ack of transportation kept you from medical appts, meetings, work or from getting things needed for daily living? I am not sure 03/06/2023 Intimate Partner Violence Answer Date R ecorded Within the last year, have y ou been afraid of your partner or ex-partner? 2 03/06/2023 Within the last year, have y ou been humiliated or emotionally abused in other ways by your partner or ex-partner? 2 Within the last year, have y ou been kicked, hit, slapped, or otherwise physically hurt by your partner or ex-partner? 2 03/06/2023 Within the last year, have y ou been raped or forced to have any kind of sexual activity by your partner or ex-partner? 2 03/06/2023 Utilities Answer Date Recorded In the past 12 months, has t he electric, gas, oil or water company threatened to shut off services in your home? No 03/06/2023 Sex and Gender Information Value Date Recorded Sex Assigned at Male 02/20/2023 1:48 PM EST Legal Sex Male 1:47 PM EST Gender Identity Male 02/20/2023 1:48 PM EST Sexual Orientation Straight 02/20/2023 1: 48 PM EST Last Filed Vital Signs Vital Sign Reading Time Taken Comments Blood Pressure 130/78 03/28/2023 8:58 AM EST Pulse - - Temperature 36.4 ??C (97.5 ??F) 03/28/2023 8:58 AM ES T Respiratory Rate - - Oxygen Saturation - - Inhaled Oxygen Concentration - - Weight - - Height - - Body Mass Index - - Plan of Treatment Health Maintenance Due Date Last Done Comments CT Colonography 1962 Colonoscopy 1962 Colorectal Cancer Screening 1962 Depression Screening 1962 FIT DNA/Cologuard 1962 FIT 1962 FOBT 1962 HIV Screening 1962 Lipid Panel 1962 SDOH Screening 1962 Sigmoidoscopy 1962 Diabetes: Foot Exam 1972 Alcohol/Substance Use Screening 1974 Hepatitis C Screening 1980 DTaP/Tdap/Td Vaccines (1 - Tdap) 1981 Pneumococcal Vaccine: 50+ Years (1 of 2 - PCV) 1981 Zoster Vaccines (1 of 2) 2012 RSV Patients and Patients Aged 60 years or older (1 - Risk 60-74 years 1-dose series) 2022 COVID-19 Vaccine ( season) 2023 Influenza Vaccine (#1) 2023 09/29/2015 Diabetes: Hemoglobin A1C 06/16/202412/16/ 024, 09/18/2023, 02/22/2023, Additional history exists Tobacco Screening 06/25/2024 06/26/2023 Diabetes: Urine Protein Screening 09/02/2024 09/03/2023 Eye Exam 03/28/2025 03/28/2023, 02/28, 03/28/2023, Additional history exists HIB Vaccines Aged Out No longer eligi ble based on patient's age to complete this topic HPV Vaccines Aged Out No longer eligi ble based on patient's age to complete this topic Hepatitis A Vaccines Aged Out No long er eligible based on patient's age to complete this topic Hepatitis B Vaccines Aged Out No long er eligible based on patient's age to complete this topic IPV Vaccines Aged Out No longer eligi ble based on patient's age to complete this topic Meningococcal Vaccine Aged Out No jesús mirza eligible based on patient's age to complete this topic RSV under 20 months Aged Out No longe r eligible based on patient's age to complete this topic Rotavirus Vaccines Aged Out No longer eligible based on patient's age to complete this topic Insurance [address] [place], [place] [address]O [facility] [place] [address] [address] [facility] [address] [place] [phone] [place], [place] [address]O [facility] STANDARD Care Teams Wharfmaster Relationship Specialty Start Date End Date Provider, Not In System PCP - General Family Medicine 02/20/23 Elham Cerna OD [address] [place] [id number] Optometry 02/20/23 Jacob Hlom Community Health Worker 03/06/23
--- OUTSIDE RECORDS SUMMARY | 2024-04-25 09:57 | XMS_ITS | Encounter Summary ---
Author Organization [employer] Address [address] [place] [address] 7t [place] [address] Care Team Providers Care Beet End Supervisor Name Role Phone Provider, Not In System Primary Care Provider Un available Elham Cerna OD Unavailable Jacob Holm Unavailable Unavail able Encounter Details Date Type Department Care Team (Late st Contact Info) Description 04/05/2023 Orders Only Cheryl [facility] OPTOMETRY [address] [place] [address] Alexandra Hamilton RMA Social History Tobacco Use Types Packs/Day Years Used Date Smoking Tobacco: Never Alcohol Answer Date Recorded How often do [...] the past 12 months, has t he [place], gas, oil or water [employer] threatened to shut off services in your home? No 03/06/2023 Sex and Gender Information Value Date Recorded Sex Assigned at Male 02/20/2023 1:48 PM EST Legal Sex Male 1:47 PM EST Gender Identity Male 02/20/2023 1:48 PM EST Sexual Orientation Straight 02/20/2023 1: 48 PM EST documented as of this encounter Plan of Treatment Not on file documented as of this encounter Visit Diagnoses Not on filedocumented in this encounter Care Teams Beet End Supervisor Relationship Specialty Start Date End Date Provider, Not In System PCP - General Family Medicine 02/20/23 Elham Cerna OD [address] [place] [id number] Optometry 02/20/23 Jacob Holm Community Health Worker 03/06/23 documented as of this encounter
--- OUTSIDE RECORDS SUMMARY | 2024-04-25 09:57 | XMS_ITS | Clinical Summary ---
Author Organization [facility] Address [address] [place] [address] Phone Care Team Providers Care Lump Room Supervisor Name Role Phone Sujata Diehl MD Primary Care Provider [phone] Allergies Active Allergy Reactions Criticality Noted Date [...] he is only getting monitored by the school psychometrist during the weekdays and on weekends he only has 3 hours of monitoring so he uses his talking meter but at times he does not use it at all even though he has a talking meter. The CGM may not be so helpful for him during the weekend but he does have a echometer engineer that can review this for him. I [...] patient's age to complete this topic Insurance [facility] MEDICAID [facility] MEDICAID Care Teams Lump Room Supervisor Relationship Specialty Start Date End Date Sujata Diehl MD [facility] [address] [place], [place] PCP - General 03/08/20
== END 2024-04-25 10:35 | disposition home or self-care (01) ==
PROVIDERS: PCP Internal Medicine; Visit Provider Internal Medicine
DX: E11.65 Type 2 diabetes mellitus with hyperglycemia (principal); C67.9 Malignant neoplasm of bladder, unspecified; Z79.4 Long term (current) use of insulin; I82.409 Acute embolism and thrombosis of unspecified deep veins of unspecified lower extremity; N18.32 Chronic kidney disease, stage 3b; Z68.33 Body mass index [BMI] 33.0-33.9, adult; E66.9 Obesity, unspecified; N40.1 Benign prostatic hyperplasia with lower urinary tract symptoms; N13.8 Other obstructive and reflux uropathy; E03.9 Hypothyroidism, unspecified; E78.5 Hyperlipidemia, unspecified; I10 Essential (primary) hypertension

== ENCOUNTER → 2024-04-25 09:19 | Outpatient (BNVA) | payer OTHER, SELFPAY | PROVIDERS: PCP Internal Medicine; Visit Provider Internal Medicine | DX: N40.1 Benign prostatic hyperplasia with lower urinary tract symptoms (principal); N13.8 Other obstructive and reflux uropathy; C67.9 Malignant neoplasm of bladder, unspecified; E03.9 Hypothyroidism, unspecified; E11.65 Type 2 diabetes mellitus with hyperglycemia; Z79.4 Long term (current) use of insulin | CPT/HCPCS: 99212 ==

== ENCOUNTER 2024-05-12 09:14 | Outpatient (REF) | payer OTHER, SELFPAY ==
[2024-05-12 10:29] LABS: Anion Gap 10 (12-20); Blood Urea Nitrogen 37 mg/dL (9-16); Calcium 9.9 mg/dL (8.4-10.2); Carbon Dioxide 28 mmol/L (22-29); Chloride 109 mmol/L (96-108); Estimated Glomerular Filt Rate 52; Potassium 4.3 mmol/L (3.3-5.1); Sodium 143 mmol/L (135-145)
== END 2024-05-12 09:15 | disposition home or self-care (01) ==
LOC: HO.LAB 09:14
PROVIDERS: PCP Internal Medicine; Visit Provider Internal Medicine Nephrology
DX: I12.9 Hypertensive chronic kidney disease with stage 1 through stage 4 chronic kidney disease, or unspecified chronic kidney disease (principal); N18.32 Chronic kidney disease, stage 3b
CPT/HCPCS: 36415; 80051; 82310; 82565; 84520

== ENCOUNTER 2024-05-16 09:28 | Outpatient (AMB) | payer OTHER, SELFPAY ==
--- NOTE | 2024-05-16 09:36 | HO.NEPHOV ---
Vital Signs 05/16/24 09:38 Height 5 ft 9 in Weight 232 lb 6 oz BMI 34.3 BP 100/60 Blood Pressure Location Rt brachial Position Sitting Pulse 78 Pulse Source Pulse Oximeter Pulse Oximetry (%) 99 Oxygen Delivery Method Room Air Intake Visit Reasons: Chronic kidney disease-Conf Logistics Support Required: Yes Logistics Support Language: Furniture Crater Services: Logistics Support Offered & Declined ([facility] aerial photograph interpreter services refused/ Pt accompanied by DIRECTOR OF ENTERTAINMENT) Accompanied by: Other Relationship Allergies Penicillins [PENICILLINS] Allergy (Intermediate, Verified 05/16/24 09:37) RASH naproxen [From Naprosyn] Adverse Reaction (Unknown, Verified 05/16/24 09:37) Unknown NSAIDS (Non-Steroidal Anti-Inflamma Adverse Reaction (Unknown, Verified 05/16/24 09:37) Unknown lisinopril Adverse Reaction (Intermediate, Uncoded 04/25/24 09:33) increasing creatinine HPI Comments Details: I had the privilege of seeing Eriberto in follow up of his CKD and hypertension. He is on lisinopril as well as Jardiance. His blood sugars are better controlled. He is tolerating ACEI. He does not have any urinary symptoms, nausea, vomiting, diarrhea, edema, chest pain, SOB, PND, orthopnea or orthostatic symptoms. He maintains good hydration and avoids NSAID's. He feels well and did not have any specific complaints at the time of this office visit. [facility] Medical History Ear ache Wound cellulitis Obstructive sleep apnea Type 2 diabetes mellitus with hyperglycemia Phimosis Vitamin D deficiency Hypothyroidism Retinitis pigmentosa Long-term insulin use in type 2 diabetes Essential hypertension Nontoxic multinodular goiter Dyslipidemia, goal LDL below 100 Chronic kidney disease, stage 3 Diabetic polyneuropathy associated with type 2 diabetes mellitus Obesity (BMI 30-39.9) Hypoglycemia unawareness associated with type 2 diabetes mellitus Diverticulosis CKD (chronic kidney disease) Afghan speaking patient Bladder cancer Arthritis Thyroid disease Legally blind DVT (deep venous thrombosis) Sleep apnea HTN (hypertension) Surgical History Deficient knowledge of leg surgery History of prostatectomy Hx of eye surgery Hx of knee surgery H/O colonoscopy Hx of cystoscopy Hx of circumcision S/P insertion of IVC (inferior vena caval) filter History of biopsy of bladder Family History Father Medical history unknown Mother Breast cancer Diabetes Hypertension CVD (cardiovascular disease) Brother CVD (cardiovascular disease) Social History Household Members: None Housing: Apartment Are you a primary hospice patient care secretary to a significant other at home: No Do you presently have visiting nurse or other home services: No Alcohol intake: never Patient Tobacco Use Status: Never used Tobacco Tobacco use type: Cigarette Years Smoked: 30 years old e-Cigarette/Vaping Use: Never Used Second Hand Smoke Exposure: No service: No Current occupational status: disabled Cognitive needs: No Hearing needs: No Vision needs: Yes Review of Systems Const All systems reviewed & are unremarkable except as noted in HPI and below Physical Exam Vital Signs: Last Vital Signs Pulse 78 05/16/24 09:38 BP 100/60 05/16/24 09:38 Pulse Ox 99 05/16/24 09:38 Oxygen Delivery Method Room Air 05/16/24 09:38 BMI result Body Mass Index 34.3 Const General: comfortable and no acute distress Orientation/consciousness: patient oriented x3 HEENT Head: Yes normocephalic Mouth: Normal oral and palatal mucosa present Eyes EOM: EOMs intact bilaterally Neck Neck: Yes supple Resp Auscultation: clear to auscultation bilaterally Cardio Jugular venous distension: no JVD Rate: regular rate GI Palpation (GI): Soft to palpation Auscultation: normal bowel sounds General: Yes no CVA tenderness Back/Spine/Pelvis Back: no CVA tenderness Skin General skin exam: no rashes or lesions noted Neuro General: patient oriented x3 and moves all extremities Extrem General: Yes no pedal edema Results Reviewed Nephrology Results: Hgb 14.9 g/dl (14.0-18.0) 02/12/24 WBC 5.4 X10*3/uL (4.8-10.8) 02/12/24 Plt Count 189 X10*3/uL (160-400) 02/12/24 Sodium 143 mmol/L (135-145) 05/12/24 Potassium 4.3 mmol/L (3.3-5.1) 05/12/24 Chloride 109 mmol/L (96-108) H 05/12/24 Carbon Dioxide 28 mmol/L (22-29) 05/12/24 BUN 37 mg/dL (9-16) H 05/12/24 Creatinine 1.39 mg/dL (0.5-1.4) 05/12/24 Calcium 9.9 mg/dL (8.4-10.2) 05/12/24 Phosphorus 2.3 mg/dL (2.7-4.5) L 02/12/24 Urine Creatinine 60.00 mg/dL 02/12/24 Protein/Creatinin Ratio TNP 02/12/24 Assessment & Plan Assessment & Plan (1) Essential hypertension: Code(s): I10 - Essential (primary) hypertension Category: Medical (2) Chronic kidney disease, stage 3: Comment: Diabetic hypertensive disease Code(s): N18.30 - Chronic kidney disease, stage 3 unspecified Category: Medical Qualifiers: Chronic kidney disease stage 3 subtype: stage 3b (GFR 30-44) Qualified Code(s): N18.32 - Chronic kidney disease, stage 3b Sarwat Wei has 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 He has no proteinuria. His BP is at goal. He is on ACEI as well as Jardiance. He maintains good hydration and avoids NSAID's. His volume status is optimal. I did not make any medication changes today. Follow up blood work ordered.Answered all questions Orders: Orders Creatinine 4 Months N18.32 - Chronic kidney disease, stage 3b Blood Urea Nitrogen 4 Months N18.32 - Chronic kidney disease, stage 3b Protein Creatinine Ratio, Ur 4 Months N18.32 - Chronic kidney disease, stage 3b Electrolytes 4 Months N18.32 - Chronic kidney disease, stage 3b Coding Level of Care Code Est Pt Level 4 (38150) Diagnoses Essential hypertension I10 Stage 3b chronic kidney disease N18.32 Chronic kidney disease stage 3 subtype: stage 3b (GFR 30-44)
[2024-05-16 09:38] VITALS: BP 100/60; PULSE 78; O2SAT 99; BMI 34.3
--- OUTSIDE RECORDS SUMMARY | 2024-05-16 10:47 | XMS_ITS | Clinical Summary ---
Author Organization [facility] Address [address] [place] [address] Phone Care Team Providers Care Rn Long Term Care Name Role Phone Sujata Diehl MD Primary Care Provider [phone] Allergies Active Allergy Reactions Criticality Noted Date [...] is only getting monitored by the home energy rater during the weekdays and on weekends he only has 3 hours of monitoring so he uses his talking meter but at times he does not use it at all even though he has a talking meter. The CGM may not be so helpful for him during the weekend but he does have a director home that can review this for him. I [...] patient's age to complete this topic Insurance [facility] MEDICAID [facility] MEDICAID Care Teams Rn Long Term Care Relationship Specialty Start Date End Date Sujata Diehl MD [facility] [address] [place], [place] PCP - General 03/08/20
--- OUTSIDE RECORDS SUMMARY | 2024-05-16 10:47 | XMS_ITS | Clinical Summary ---
Author Organization [employer] Address [address] [place] [address] 7t [place] [address] Care Team Providers Care General Helper Name Role Phone Provider, Not In System [...] BEDTIME. NO FOOD/DRINK FOR 30 MINUTES. 05/11/19 23 Active insulin glargine (Basaglar KwikPen) 100 UNIT/ML pen Inject under the skin. 02/24/20 23 Active carboxymethylce llulose (Refresh Celluvisc) 1 % ophthalmic solution dropperette Apply 1 drop to both eyes if needed in the morning, at noon, and at bedtime for dry eyes. 15 mL 12 04/05/19 24 Active Active Problems Problem Noted Date Diagnosed [...] the past 12 months, has t he [employer], gas, oil or water company threatened to [...] 60-74 years 1-dose series) 2022 COVID-19 Vaccine (1 - 2023- season) 2023 Influenza Vaccine (#1) 2023 09/29/2015 Diabetes: Hemoglobin A1C 06/16/2024 024, 09/18/2023, 02/22/2023, Additional history exists Tobacco [...] patient's age to complete this topic Insurance [address] [place], [place] [id number] [facility] [address] [place] [id number] [facility] STANDARD [facility] STANDARD Care Teams General Helper Relationship Specialty Start Date End Date Provider, Not In System PCP - General Family Medicine 02/20/23 Elham Cerna OD [address] [place] [phone] Optometry 02/20/23 Jacob Holm Community Health Worker 03/06/23
--- OUTSIDE RECORDS SUMMARY | 2024-05-16 10:47 | XMS_ITS | Encounter Summary ---
Author Organization [employer] Address [address] [place] [address] 7[address] [place] [address] Care Team Providers Care Retail Store Assistant Name Role Phone Provider, Not In System Primary Care Provider Un available Elham Cerna OD Unavailable Jacob Holm Unavailable Unavail able Encounter Details Date Type Department Care Team (Late st Contact Info) Description 04/05/2023 Orders Only Cheryl [facility] OPTOMETRY [address] [place] [address] Alexandra Hamilton RMA Social History Tobacco Use [...] the past 12 months, has t he [employer], gas, oil or water [employer] threatened to shut off services in your [...] on filedocumented in this encounter Care Teams Retail Store Assistant Relationship Specialty Start Date End Date Provider, Not In System PCP - General Family Medicine 02/20/23 Elham Cerna OD [address] [place] [address] Optometry 02/20/23 Jacob Holm Community Health Worker 03/06/23 documented as of this encounter
== END 2024-05-16 10:04 | disposition home or self-care (01) ==
LOC: HO.HKA 09:28
PROVIDERS: PCP Internal Medicine; Visit Provider Internal Medicine Nephrology
DX: I10 Essential (primary) hypertension (principal); N18.32 Chronic kidney disease, stage 3b
CPT/HCPCS: 99214

== ENCOUNTER → 2024-05-16 09:28 | Outpatient (BNVA) | payer OTHER, SELFPAY | PROVIDERS: PCP Internal Medicine; Visit Provider Internal Medicine Nephrology | DX: I12.9 Hypertensive chronic kidney disease with stage 1 through stage 4 chronic kidney disease, or unspecified chronic kidney disease (principal); N18.32 Chronic kidney disease, stage 3b | CPT/HCPCS: 99212 ==

== ENCOUNTER 2024-06-17 09:56 | Outpatient (AMB) | payer OTHER, SELFPAY ==
--- NOTE | 2024-06-17 10:10 | A.OFFPC_ITS ---
Vital Signs 06/17/24 10:11 06/17/24 11:01 Height 5 ft 9 in Weight 229 lb 8.019 oz BMI 33.9 BP 120/72 Blood Pressure Location Lt brachial Position Sitting Pulse 103 H 95 Pulse Source Pulse Oximeter Pulse Oximeter Temp 97.3 F Temp Source Temporal Artery Scan Pulse Oximetry (%) 97 Oxygen Delivery Method Room Air Intake Visit Reasons: Dental clearance Intake Note: Patient is here for a Pre-op for Dental clearance scheduled with [facility] on unknown. Motion Picture Commentator Required: Yes Motion Picture Commentator Language: Irrigation Flume Layer Name: Rickey (INSIDE SALES ADVERTISING EXECUTIVE) Information Interpreted: non-clinical & clinical (Pt decline customer solutions architect service prefer INSIDE SALES ADVERTISING EXECUTIVE to translate for him.) Cyber Legal Advisor: Present Accompanied by: INSIDE SALES ADVERTISING EXECUTIVE Allergies Penicillins [PENICILLINS] Allergy (Intermediate, Verified 06/17/24 10:45) RASH naproxen [From Naprosyn] Adverse Reaction (Unknown, Verified 06/17/24 10:45) Unknown NSAIDS (Non-Steroidal Anti-Inflamma Adverse Reaction (Unknown, Verified 06/17/24 10:45) Unknown lisinopril Adverse Reaction (Intermediate, Uncoded 06/17/24 10:45) increasing creatinine Medication List - Last Reconciled 06/17/24 by Kim Phelan PA-C ascorbic acid (vitamin C) (Vitamin C) 500 mg PO DAILY 90 days atorvastatin 20 mg PO BEDTIME 90 days azelastine 0.05% 1 drp ophthalmic (eye) BID blood pressure monitor (Blood Pressure Kit) As directed blood-glucose meter (FreeStyle Lite Meter kit) As directed [BP machine As directed] cholecalciferol (vitamin D3) (Vitamin D3) 25 mcg PO DAILY compress.stocking,knee,reg,lrg As directed 15-20 mm HG dulaglutide (Trulicity) 3 mg (0.5 mL) subcut QWEEK empagliflozin 25 mg PO DAILY 30 days fenofibrate 160 mg PO DAILY [Freestyle test strips Check blood sugar 3 times a day] insulin glargine (Lantus Solostar U-100 Insulin) 42 units (0.42 mL) subcut BEDTIME insulin lispro Take as directed per sliding scale max of 66 units in 24 hours. lancets (FreeStyle Lancets) As directed check BS 3 times a day levothyroxine 50 mcg PO QAM lisinopril 10 mg PO DAILY lorazepam 2 mg PO DAILY 30 days pen needle, diabetic 1 ea subcut .5x day 90 days risperidone (Risperdal) 0.5 mg PO BID rivaroxaban (Xarelto) 20 mg PO DAILY sennosides-docusate sodium 8.6-50 mg (Senna Plus) 2 tab-caps (2 x 8.6-50 mg) PO BEDTIME Tobacco use date assessed: 06/17/24 Dental Screening Dental Screen Date: 04/25/24 HPI Dental clearance HPI Details 63-year-old male with past medical histo ry of diabetes mellitus, chronic kidney disease, hypertension, anxiety, DVT, peripheral vascular disease, bladder cancer, generalized anxiety disorder last seen 03/2024 coming in for preop. Patient has had surgery and anesthesia in the past without complication. No history of [place], CVA, CHF. Diabetes mellitus: Well managed A1c is 6.5% today INSIDE SALES ADVERTISING EXECUTIVE translate for the duration of the visit, formal interpretation was declined. He has 2 cracked molars that need to be removed or replaced. He is presently on Xarelto for anticoagulation for DVT prevention. He has had two DVTs in the past. He does mentioned having diarrhea this morning and throughout the day unable to tolerate oral intake. He denies any new medications or food but does mentioned having a sick contact who had a flu-like diarrheal illness. [facility] Medical History Ear ache Wound cellulitis Obstructive sleep apnea Type 2 diabetes mellitus with hyperglycemia Phimosis Vitamin D deficiency Hypothyroidism Retinitis pigmentosa Long-term insulin use in type 2 diabetes Essential hypertension Nontoxic multinodular goiter Dyslipidemia, goal LDL below 100 Chronic kidney disease, stage 3 Diabetic polyneuropathy associated with type 2 diabetes mellitus Obesity (BMI 30-39.9) Hypoglycemia unawareness associated with type 2 diabetes mellitus Diverticulosis CKD (chronic kidney disease) Dutch speaking patient Bladder cancer Arthritis Thyroid disease Legally blind DVT (deep venous thrombosis) Sleep apnea HTN (hypertension) Surgical History Deficient knowledge of leg surgery History of prostatectomy Hx of eye surgery Hx of knee surgery H/O colonoscopy Hx of cystoscopy Hx of circumcision S/P insertion of IVC (inferior vena caval) filter History of biopsy of bladder Family History Father Medical history unknown Mother Breast cancer Diabetes Hypertension CVD (cardiovascular disease) Brother CVD (cardiovascular disease) Social History Household Members: None Housing: Apartment Are you a primary career services manager to a significant other at home: No Do you presently have visiting nurse or other home services: No Alcohol intake: never Patient Tobacco Use Status: Never used Tobacco Tobacco use type: Cigarette Years Smoked: 30 years old e-Cigarette/Vaping Use: Never Used Second Hand Smoke Exposure: No service: No Current occupational status: disabled Cognitive needs: No Hearing needs: No Vision needs: Yes Questionnaire Thrive Questionnaire Date Thrive assessed: 04/25/24 MARNIE-7 AMB Questionnaire MARNIE-7 Date MARNIE - 7 assessed: 04/25/24 Source: Developed by Drs. Nathen Menchaca, Vida Nye, Pedrito Dao and colleagues, with an educational enzo from [employer]. Review of Systems Const Denies body aches, Denies chills, Denies fever(s), Denies headache(s) and Denies poor appetite Eyes Reports no additional complaints ENT Denies dysphagia, Denies dizziness, Denies headache(s) and Denies odynophagia Card Denies chest pain, Denies syncope, Denies edema, Denies irregular heart rhythm, Denies lightheadedness and Denies dyspnea Resp Denies cough and Denies dyspnea GI Details: Unsure if there is blood in the stools as patient is legally blind Denies abdominal pain, Denies constipation, Denies dysphagia, Reports diarrhea, Denies nausea, Denies odynophagia and Denies vomiting Reports no additional complaints Musc Reports no additional complaints and Denies abnormal gait Skin/Breast Reports system reviewed and no additional complaints, except as documented Neuro Denies abnormal gait, Denies dizziness, Denies syncope and Denies headache(s) Psych Reports no additional complaints Physical exam (Primary Care) Vital Signs: Last Vital Signs Temp 97.3 F 06/17/24 10:11 Pulse 95 06/17/24 11:01 BP 120/72 06/17/24 10:11 Pulse Ox 97 06/17/24 10:11 Oxygen Delivery Method Room Air 04/22/25 10:11 BMI result Body Mass Index 33.9 Tobacco/Smoking Status: Tobacco use Status Tobacco use date assessed 06/17/24 06/17/24 10:19 Patient Tobacco Use Status Never used Tobacco 06/17/24 10:19 Tobacco use type Cigarette 06/17/24 10:19 e-Cigarette/Vaping Use Never Used 06/17/24 10:19 Thrive Assessment: Date of Thrive Assessment Date Thrive assessed 04/25/24 06/17/24 10:19 Const General: cooperative, healthy appearing, comfortable and no acute distress Orientation/consciousness: patient oriented x3 HENMT Head: Yes normocephalic Ears: hearing grossly normal bilaterally General nose exam: Normal external nose present Eyes General: appearance normal, both eyes and all related structures Conjunctivae: conjunctivae normal Neck Neck: Yes full ROM and Yes no lymphadenopathy Resp Effort & Inspection: normal respiratory effort Auscultation: clear to auscultation bilaterally, no crackles, no rales, no rhonchi and no wheezes Cardio Rate: regular rate Rhythm: regular rhythm GI Other: Very mild tenderness to palpation over epigastric area. Palpation (GI): Soft to palpation, no guarding, not rigid and No Rebound tenderness present Skin General skin exam: no rashes or lesions noted Neuro General: patient oriented x3 Gait exam (Neuro): Normal gait present Extrem General: Yes normal to inspection, Yes full ROM and No edema Psych Affect: normal affect Attitude: cooperative Insight: Good insight present (Psych) Judgement: Good judgement present (Psych) Results AMB Hemoglobin A1c AMB Hemoglobin A1c 6.5 % Last Edit by JIM Alvarez on 06/17/24 10:26 Results Reviewed Results Reviewed: Laboratory Last Values Hgb A1c (Clinic) 6.5 % (4.0-6.0) H 06/17/24 10:10 Coding Level of Care Code Est Pt Level 3 (08013) Diagnoses Diarrhea R19.7 Pre-op evaluation Z01.818 Assessment & Plan Assessment & Plan (1) Diarrhea: Code(s): R19.7 - Diarrhea, unspecified Category: Medical Plan: Patient having new onset diarrhea as he does mentioned a sick contact. He is unable to tolerate oral intake for 1 day and denies any fevers at this time. Strongly encouraged staying well hydrated with electrolyte enriched fluids. I also placed an order for viral testing screen for flu and COVID. Advised patient to continue to monitor his symptoms if he is unable to tolerate oral intake for prolonged period of time may need ED evaluation for IV fluids. I have reviewed all the red flag symptoms and when to present for re-evaluation. (2) Pre-op evaluation: Code(s): Z01.818 - Encounter for other preprocedural examination Category: Medical Plan: Discussed with the patient Xarelto may be discontinued if the surgery requires it for 2 days prior to surgery and resumed immediately after the procedure. He should continue to avoid the use of NSAIDs. Regarding antibiotic use he should avoid any antibiotics contraindicated for kidney disease and penicillins as he does have an allergy to this medication. A1c was 6.5% today and shows good control of his diabetes. Plan This note was constructed using voice recognition software. While every effort has been made to ensure accuracy and kennel attendant, still areas may have been included sometimes these areas may affect the content or meeting of the given symptoms. Total time spent caring for the patient today was 20 minutes. This includes time spent before the visit reviewing the chart, time spent during the visit, and time spent after the visit and documentation. Orders: Orders AMB Hemoglobin A1c Today E11.65 - Type 2 diabetes mellitus with hyperglycemia, Z79.4 - intermodal dispatcher (current) use of insulin SARS-CoV2/FLU/RSV Today R19.7 - Diarrhea, unspecified Medications: Changed From pen needle, diabetic (BD Ultra-Fine Mini Pen Needle) test 5 times daily 1 ea subcut .5x day 90 days 450 ea 3RF type 2 diabetes E11.9 - Type 2 diabetes mellitus without complications To pen needle, diabetic test 5 times daily 1 ea subcut .5x day 90 days 450 ea 3RF type 2 diabetes E11.9 - Type 2 diabetes mellitus without complications Refilled insulin lispro Take as directed per sliding scale max of 66 units in 24 hours. 15 mL 5RF insulin glargine (Lantus Solostar U-100 Insulin) 42 units (0.42 mL) subcut BEDTIME 15 mL 2RF ascorbic acid (vitamin C) (Vitamin C) 500 mg PO DAILY 90 days 90 tabs 3RF lancets (FreeStyle Lancets) As directed check BS 3 times a day 3 ea 3RF E11.65 - Type 2 diabetes mellitus with hyperglycemia risperidone (Risperdal) 0.5 mg PO BID 60 tabs 5RF H53.16 - Psychophysical visual disturbances empagliflozin 25 mg PO DAILY 30 days 30 tabs 7RF E11.65 - Type 2 diabetes mellitus with hyperglycemia, Z79.4 - intermodal dispatcher (current) use of insulin [Freestyle test strips] Check blood sugar 3 times a day 300 ea 3RF E11.65 - Type 2 diabetes mellitus with hyperglycemia, Z79.4 - intermodal dispatcher (current) use of insulin
[2024-06-17 10:11] VITALS: BP 120/72; PULSE 103; TEMP 36.3; O2SAT 97; BMI 33.9
[2024-06-17 11:01] VITALS: PULSE 95
--- OUTSIDE RECORDS SUMMARY | 2024-06-17 11:12 | XMS_ITS | Clinical Summary ---
Author Organization [employer] Address [address] [place] [address] 7[address] [place] [address] Care Team Providers Care Agriculture Consultant Name Role Phone Provider, Not In System [...] the past 12 months, has t he [employer], gas, oil or water company threatened to [...] Mass Index - - Plan of Treatment Upcoming Encounters Date Type Department Care Team (Marcellus fournier Contact Info) Description 07/01/2024 9:30 AM EDT Office Visit Cheryl [facility] OPT[facility]ET[facility] [address] [place] [address] Maximus Ferrer, OD [address] [place] [address] Health Maintenance Due Date Last Done Comments [...] years 1-dose series) 2022 COVID-19 Vaccine ( - season) 2023 Influenza Vaccine (#1) 2023 09/29/2015 Diabetes: Hemoglobin A1C 06/16/20242 024, 09/18/2023, 02/22/2023, Additional history exists Tobacco [...] patient's age to complete this topic Insurance [address] [place], [place] [address]O [facility] [address] [place], [place] [address]O [facility] STANDARD Care Teams Agriculture Consultant Relationship Specialty Start Date End Date Provider, Not In System PCP - General Family Medicine 02/20/23 Elham Cerna OD [address] [place] [address] Optometry 02/20/23 Jacob Holm Community Health Worker 03/06/23
--- OUTSIDE RECORDS SUMMARY | 2024-06-17 11:12 | XMS_ITS | Encounter Summary ---
Author Organization [employer] Address [address] [place] [address] 7t [place] [address] Care Team Providers Care Salon Designer Name Role Phone Provider, Not In System Primary Care Provider Un available Elham Cerna OD Unavailable Jacob Holm Unavailable Unavail able Encounter Details Date Type Department Care Team (Late st Contact Info) Description 04/05/2023 Orders Only Cheryl [facility] OPTOMET[facility] [address] [place] [address] Alexandra Hamilton RMA Social History Tobacco Use [...] the past 12 months, has t he [employer] gas, oil or water [employer] threatened to shut off services in your home? No 03/06/2023 Sex and Gender Information Value Date Recorded Sex Assigned at Male 02/20/2023 1:48 PM EST Legal Sex Male 1:47 PM EST Gender Identity Male 02/20/2023 1:48 PM EST Sexual Orientation Straight 02/20/2023 1: 48 PM EST documented as of this encounter Plan of Treatment Upcoming Encounters Date Type Department Care Team (Late st Contact Info) Description 07/01/2024 9:30 AM EDT Office Visit [facility] OPTOMETRY [address] [place] [address] Maximus Ferrer OD [address] [place] [address] documented as of this encounter Visit Diagnoses Not on filedocumented in this encounter Care Teams Salon Designer Relationship Specialty Start Date End Date Provider, Not In System PCP - General Family Medicine 02/20/23 Elham Cerna OD [address] [place] [address] Optometry 02/20/23 Jacob Holm Community Health Worker 03/06/23 documented as of this encounter
--- OUTSIDE RECORDS SUMMARY | 2024-06-17 11:12 | XMS_ITS | Clinical Summary ---
Author Organization [facility] Address [address] [place] [address] Phone Care Team Providers Care Skidder Loader Name Role Phone Sujata Diehl MD Primary Care Provider [phone] Allergies Active Allergy Reactions Criticality Noted Date [...] he is only getting monitored by the manager home healthcare during the weekdays and on weekends he only has 3 hours of monitoring so he uses his talking meter but at times he does not use it at all even though he has a talking meter. The CGM may not be so helpful for him during the weekend but he does have a manager home healthcare that can review this for him. I [...] Stage 3 chronic kidney disease 07/07/2010 Immunizations Immunization Administration Dates Next Due Influenza Split High [...] Due Date Last Done Comments Pneumococcal Vaccine: 50+ Ye ars (1 of 2 - PCV) 1981 Colorectal Cancer Screening: Annual FOBT 07/15/2011 Colorectal Cancer Screening: Colonoscopy 07/15/2011 Colorectal Cancer Screening: Sigmoidoscopy 07/15/2011 Diabetes: Hemoglobin A1C 03/28/2020 Diabetes: Pedal Pulse Checked 03/28/2020 Diabetes: Sensory Foot Exam 03/28/2020 Diabetes: Visual Foot Exam 03/28/2020 Diabetes: Ophthalmology Exam 03/28/2024 03/28/2023 Influenza Vaccine (Season Ended) 2024 09/29/19 16 Hepatitis B Vaccine Aged Out No longe r eligible based on patient's age to complete this topic Insurance [facility] Medicaid [facility] Medicaid Care Teams Skidder Loader Relationship Specialty Start Date End Date Sujata Diehl MD [address] [place], [place] PCP - General 03/08/20
== END 2024-06-17 11:09 | disposition home or self-care (01) ==
LOC: HO.HMCH 09:57
PROVIDERS: PCP Internal Medicine
DX: E11.65 Type 2 diabetes mellitus with hyperglycemia (principal); Z79.4 Long term (current) use of insulin; R19.7 Diarrhea, unspecified; Z01.818 Encounter for other preprocedural examination

== ENCOUNTER → 2024-06-17 09:56 | Outpatient (BNVA) | payer OTHER, SELFPAY | PROVIDERS: PCP Internal Medicine | DX: Z01.818 Encounter for other preprocedural examination (principal); R19.7 Diarrhea, unspecified | CPT/HCPCS: 83036; 99212 ==

== ENCOUNTER 2024-08-04 07:22 | Outpatient (REF) | payer OTHER, SELFPAY ==
--- OUTSIDE RECORDS SUMMARY | 2024-08-04 07:26 | XMS_ITS | Clinical Summary ---
Author Organization [employer] Address [address] 7[address] [place] [address] Care Team Providers Care Chemical Analyst Name Role Phone Provider, Not In System [...] Inject under the skin. 02/24/20 23 Active carboxymethylcellu lose (Refresh Celluvisc) 1 % ophthalmic solution dropperette Apply 1 drop to both eyes if needed in the morning, at noon, and at bedtime for dry eyes. 15 mL 12 04/05/19 24 Active aspirin 81 MG EC tablet Take 81 mg by mouth Once per day. Active acetaminophen (Tylenol) 325 MG tablet Take by mouth. Activ e azelastine (Optivar) 0.05 % ophthalmic solutionIndication s:Allergic conjunctivitis of both eyes Administer 1 drop into both eyes 2 times daily. 6 mL 11 07/02/19 25 026 Active Active Problems Problem Noted Date Diagnosed [...] 3 chronic kidney disease 07/07/2010 0 03/28/2023 Encounters Date Type Department Care Team Description 07/01/2024 9:30 AM EDT Office Visit [facility] [address] [place] [address] Maximus Ferrer, OD Retinitis pigmentosa (Primary Dx); Type 2 diabetes mellitus with stage 3a chronic kidney disease, without long-term current use of insulin ([facility]); Legal blindness, as defined in [place]; Allergic conjunctivitis of both eyes; Dry eye syndrome of both eyes from Last 3 Months Family History Medical History Relation Name Comments Diabetes Brother blind pigment Brother Relation Name Status Comments [...] Sign Reading Time Taken Comments Blood Pressure 110/80 07/01/2024 9:27 AM EDT Pulse - - Temperature 36.2 ??C (97.1 ??F) 07/01/2024 9:27 AM ED T Respiratory Rate - - Oxygen Saturation [...] Panel 1962 SDOH Screening 1962 Sigmoidoscopy 1962 Disability Screening 1962 Diabetes: Foot Exam 1972 Alcohol/Substance Use Screening 1974 Hepatitis C Screening 1980 DTaP/Tdap/Td Vaccines (1 - Tdap) 1981 Pneumococcal Vaccine: 50+ Years (1 of 2 - PCV) 1981 Zoster Vaccines (1 of 2) 2012 RSV Patients and Patients Aged 60 years or older (1 - Risk 60-74 years 1-dose series) 2022 COVID-19 Vaccine ( - season) 2023 Influenza Vaccine (Season Ended) 2024 09/29/2015 Diabetes: Hemoglobin A1C 12/23/2024 025, 12/17/2023, 09/18/2023, Additional history exists Tobacco Screening 07/01/2025 07/01/2024 Eye Exam 07/01/2026 07/01/2024, 0507/2024, 07/01/2024, Additional history exists HIB Vaccines Aged Out [...] patient's age to complete this topic Meningococcal B Vaccine Aged Out No l onger eligible based on patient's age to complete this topic Meningococcal Vaccine Aged Out No jesús mirza eligible based on patient's age to complete this topic RSV under 20 months Aged Out No longe r eligible based on patient's age to complete this topic Rotavirus Vaccines Aged Out No longer eligible based on patient's age to complete this topic Insurance [address] [place] [address] [facility] STANDARD [facility] STAND[facility] Care Teams Chemical Analyst Relationship Specialty Start Date End Date Provider, Not In System PCP - General Family Medicine 02/20/23 Elham Cerna OD [address] [place] [id number] Optometry 02/20/23 Jacob Holm Community Health Worker 03/06/23
[2024-08-04 07:43] LABS: MANUAL DIFF FLAG NO
[2024-08-04 08:13] LABS: Basophils Percent Auto 0.3 % (0-2); Eosinophils Absolute Auto 0.2 X10*3/uL (0.0-0.4); Eosinophils Percent Auto 3.1 % (0-4); Hematocrit 44.7 % (42.0-52.0); Hemoglobin 14.6 g/dl (14.0-18.0); Imm Gran Abs Auto 0.03 X10*3/uL (0.00-0.03); Imm Gran Pct Auto 0.5 % (0.0-0.4); Lymphocytes Absolute Auto 1.6 X10*3/uL (1.2-4.9); Lymphocytes Percent Auto 25.5 % (20-40); Mean Corpuscular HGB Conc 32.7 g/dl (31.0-36.0); Mean Corpuscular Hemoglobin 30.5 pg (27.0-33.0); Mean Corpuscular Volume 93.5 fL (80.0-98.0); Mean Platelet Volume 10.9 fL (9.4-12.4); Monocytes Absolute Auto 0.7 X10*3/uL (0.1-1.2); Monocytes Percent Auto 11.3 % (2-11); Neutrophils Absolute Auto 3.8 x10*3/uL (2.0-8.3); Neutrophils Percent Auto 59.3 % (45-73); Platelet Count 203 X10*3/uL (160-400); Red Blood Count 4.78 X10*6/uL (4.60-5.80); White Blood Count 6.4 X10*3/uL (4.8-10.8)
[2024-08-04 08:14] LABS: Estimated Average Glucose 140 mg/dL; Hemoglobin A1c % 6.5 % (<6.0)
[2024-08-04 08:39] LABS: Creatinine Urine 60.16 mg/dL
[2024-08-04 08:43] LABS: Alanine Aminotransferase 45 U/L (0-40); Albumin Level 4.3 g/dL (3.5-5.0); Anion Gap 13 (12-20); Aspartate Amino Transferase 36 U/L (5-37); Bilirubin Total 0.5 mg/dL (0.0-1.0); Blood Urea Nitrogen 37 mg/dL (9-16); Calcium 9.9 mg/dL (8.4-10.2); Carbon Dioxide 25 mmol/L (22-29); Chloride 108 mmol/L (96-108); Estimated Glomerular Filt Rate 53; Glucose Random 118 mg/dL (60-115); Potassium 4.2 mmol/L (3.3-5.1); Sodium 142 mmol/L (135-145); Total Protein 6.9 g/dL (6.5-8.0)
[2024-08-04 08:46] LABS: Creatinine Urine 59.88 mg/dL; Total Protein Urine Random < 7 mg/dL (<12)
[2024-08-04 09:09] LABS: Alkaline Phosphatase 48 U/L (39-117)
== END 2024-08-04 07:23 | disposition home or self-care (01) ==
LOC: HO.LAB 07:22
PROVIDERS: Absent Provider Internal Medicine Nephrology; PCP Internal Medicine; Visit Provider Internal Medicine
DX: N18.32 Chronic kidney disease, stage 3b (principal); E11.65 Type 2 diabetes mellitus with hyperglycemia; Z79.4 Long term (current) use of insulin
CPT/HCPCS: 36415; 80053; 82570; 83036; 84156; 85025

== ENCOUNTER 2024-08-08 09:15 | Outpatient (AMB) | payer OTHER, SELFPAY ==
--- NOTE | 2024-08-08 09:25 | A.OFFPC_ITS ---
Vital Signs 08/08/24 09:26 Height 5 ft 9 in Weight 233 lb 3.985 oz BMI 34.4 BP 120/62 Blood Pressure Location Lt brachial Position Sitting Pulse 89 Pulse Source Pulse Oximeter Temp 97.3 F Temp Source Temporal Artery Scan Pulse Oximetry (%) 97 Oxygen Delivery Method Room Air Intake Visit Reasons: DM Intake Note: Patient is here to follow up on DM. Kennel Manager Required: Yes Kennel Manager Language: Silk Winding Machine Operator Name: Griselda(Certified Ophthalmic Technician) Information Interpreted: non-clinical & clinical (Pt decline spinning bath patroller service prefer for his telecommunications officer to translate for him) Care Companion: Present Accompanied by: LIFE SKILLS CONSULTANT Allergies Penicillins [PENICILLINS] Allergy (Intermediate, Verified 08/08/24 09:25) RASH naproxen [From Naprosyn] Adverse Reaction (Unknown, Verified 08/08/24 09:25) Unknown NSAIDS (Non-Steroidal Anti-Inflamma Adverse Reaction (Unknown, Verified 08/08/24 09:25) Unknown lisinopril Adverse Reaction (Intermediate, Uncoded 08/08/24 09:25) increasing creatinine Medication List - Last Reconciled 08/08/24 by Sujata Diehl MD ascorbic acid (vitamin C) (Vitamin C) 500 mg PO DAILY 90 days atorvastatin 20 mg PO BEDTIME 90 days azelastine 0.05% 1 drp ophthalmic (eye) BID blood pressure monitor (Blood Pressure Kit) As directed blood-glucose meter (FreeStyle Lite Meter kit) As directed [BP machine As directed] cholecalciferol (vitamin D3) (Vitamin D3) 25 mcg PO DAILY compress.stocking,knee,reg,lrg As directed 15-20 mm HG dulaglutide (Trulicity) 3 mg (0.5 mL) subcut QWEEK empagliflozin 25 mg PO DAILY 30 days fenofibrate 160 mg PO DAILY [Freestyle test strips Check blood sugar 3 times a day] insulin glargine (Lantus Solostar U-100 Insulin) 42 units (0.42 mL) subcut BEDTIME insulin lispro Take as directed per sliding scale max of 66 units in 24 hours. lancets (FreeStyle Lancets) As directed check BS 3 times a day levothyroxine 50 mcg PO QAM lisinopril 10 mg PO DAILY lorazepam 2 mg PO DAILY 30 days pen needle, diabetic 1 ea subcut .5x day 90 days risperidone (Risperdal) 0.5 mg PO BID rivaroxaban (Xarelto) 20 mg PO DAILY sennosides-docusate sodium 8.6-50 mg (Senna Plus) 2 tab-caps (2 x 8.6-50 mg) PO BEDTIME Tobacco use date assessed: 08/08/24 Dental Screening Dental Screen Date: 04/25/24 HPI DM HPI Details LIFE SKILLS CONSULTANT cosmo interpret [facility] Medical History Ear ache Wound cellulitis Obstructive sleep apnea Type 2 diabetes mellitus with hyperglycemia Phimosis Vitamin D deficiency Hypothyroidism Retinitis pigmentosa Long-term insulin use in type 2 diabetes Essential hypertension Nontoxic multinodular goiter Dyslipidemia, goal LDL below 100 Chronic kidney disease, stage 3 Diabetic polyneuropathy associated with type 2 diabetes mellitus Obesity (BMI 30-39.9) Hypoglycemia unawareness associated with type 2 diabetes mellitus Diverticulosis CKD (chronic kidney disease) Nauruan speaking patient Bladder cancer Arthritis Thyroid disease Legally blind DVT (deep venous thrombosis) Sleep apnea HTN (hypertension) Surgical History Deficient knowledge of leg surgery History of prostatectomy Hx of eye surgery Hx of knee surgery H/O colonoscopy Hx of cystoscopy Hx of circumcision S/P insertion of IVC (inferior vena caval) filter History of biopsy of bladder Family History Father Medical history unknown Mother Breast cancer Diabetes Hypertension CVD (cardiovascular disease) Brother CVD (cardiovascular disease) Social History Household Members: None Housing: Apartment Are you a primary transitional care manager to a significant other at home: No Do you presently have visiting nurse or other home services: No Alcohol intake: never Patient Tobacco Use Status: Never used Tobacco Tobacco use type: Cigarette Years Smoked: 30 years old e-Cigarette/Vaping Use: Never Used Second Hand Smoke Exposure: No service: No Current occupational status: disabled Cognitive needs: No Hearing needs: No Vision needs: Yes Questionnaire PHQ-9 Over the last 2 weeks, how often have you been bothered by any of the following problems? 1. Little interest or pleasure in doing things: not at all 2. Feeling down, depressed, or hopeless: not at all 3. Trouble falling or staying asleep, or sleeping too much: several days 4. Feeling tired or having little energy: not at all 5. Poor appetite or overeating: not at all 6. Feeling bad about yourself - or that you are a failure or have let yourself or your family down: not at all 7. Trouble concentrating on things, such as reading the newspaper or watching television: not at all 8. Moving or speaking so slowly that other people could have noticed. Or the opposite - being so fidgety or restless that you have been moving around a lot more than usual: not at all 9. Thoughts that you would be better off or of hurting yourself in some way: not at all Total score: 1 Depression Screening Interpretation: Positive Depression Screening Done: Yes Source: Developed by Drs. Nathen Menchaca, Vida Nye, Pedrito Dao and colleagues, with an educational enzo from [employer]. Thrive Questionnaire Date Thrive assessed: 04/25/24 I am a: Patient What is your living situation today?: I have a steady place to live Within the past 12 months, did the food you bought not last and you didn't have the money to get more?: Never true Within the past 12 months, did you worry whether your food would run out before you got money to buy more?: Never true Do you have trouble paying for medicines?: No Do you have trouble getting transportation to medical appointments?: No Do you have trouble paying your heating and electricity bill?: No Do you have trouble taking care of your child, family member or friend?: No Do you have trouble with day-to-day activities such as bathing, preparing meals, shopping, managing finances, etc.?: No Are you currently unemployed and looking for a job?: I choose not to answer this question Are you interested in more education?: No Please select the resources that you would like help with: None Currently or been in a relationship where the following occur: No concerns reported THRIVE Score: 0 AUDIT C Alcohol Use Questionnaire (AUDIT-C) 1. How often do you have a drink containing alcohol?: Never Total Score: 0 MARNIE-7 AMB Questionnaire MARNIE-7 Date MARNIE - 7 assessed: 04/25/24 Feeling nervous, anxious, or on edge: 0 = Not at all Not being able to stop or control worryin = Not at all Worrying too much about different things: 0 = Not at all Trouble relaxin = Not at all Being so restless that it is hard to sit still: 0 = Not at all Becoming easily annoyed or irritable: 0 = Not at all Feeling afraid as if something awful might happen: 0 = Not at all Total MARNIE-7 score (0-4 normal; 5-9 mild; 10-14 moderate; 15-21 severe): 0 Source: Developed by Drs. Nathen Menchaca, Vida Nye, Pedrito Dao and colleagues, with an educational enzo from [employer]. Physical exam (Primary Care) Vital Signs: Last Vital Signs Temp 97.3 F 08/08/24 09:26 Pulse 89 08/08/24 09:26 BP 120/62 08/08/24 09:26 Pulse Ox 97 08/08/24 09:26 Oxygen Delivery Method Room Air 08/08/24 09:26 BMI result Body Mass Index 34.4 Tobacco/Smoking Status: Tobacco use Status Tobacco use date assessed 08/08/24 08/08/24 09:38 Patient Tobacco Use Status Never used Tobacco 08/08/24 09:38 Tobacco use type Cigarette 08/08/24 09:38 e-Cigarette/Vaping Use Never Used 08/08/24 09:38 PHQ-9: PHQ-9 Score PHQ-9: Total score 1 08/08/24 09:58 Depression Screening Interpretation: Positive Thrive Assessment: Date of Thrive Assessment Date Thrive assessed 04/25/24 08/08/24 09:38 Currently or been in a relationship where the following occur: No concerns reported Const General: alert; No acute distress Eyes Conjunctivae: conjunctivae normal Resp Auscultation: clear to auscultation bilaterally Cardio Rate: regular rate Rhythm: regular rhythm GI Inspection: Yes normal to inspection Extrem General: Yes normal to inspection and No edema Coding Level of Care Code Est Pt Level 4 (76755) Complex EM visit Add On G2211 Diagnoses Type 2 diabetes mellitus with hyperglycemia, with long-term current use of insulin E11.65; Z79.4 Diabetes mellitus custodial insulin use: with custodial use Essential hypertension I10 Dyslipidemia, goal LDL below 100 E78.5 Stage 3b chronic kidney disease N18.32 Chronic kidney disease stage 3 subtype: stage 3b (GFR 30-44) BPH w urinary obs/LUTS N40.1; N13.8 Generalized anxiety disorder F41.1 DVT (deep venous thrombosis) I82.409 Assessment & Plan Assessment & Plan (1) Type 2 diabetes mellitus with hyperglycemia: Code(s): E11.65 - Type 2 diabetes mellitus with hyperglycemia Category: Medical Qualifiers: Diabetes mellitus ocean transportation intermediary insulin use: with ocean transportation intermediary use Qualified Code(s): E11.65 - Type 2 diabetes mellitus with hyperglycemia; Z79.4 - intermission coordinator (current) use of insulin Plan: Decrease the amount of carbohydrate intake, pasta, bread, rice and potatoes are all sugar and that is aside from all the sweet stuff, remember that fruits are good but they are Sweet also. Hemoglobin A1c goal of less than 6.5. Patient is on Trulicity 3 mg once a week Jardiance 25 mg once a day insulin at 42 units once a day (2) Essential hypertension: Code(s): I10 - Essential (primary) hypertension Category: Medical Plan: Continue with blood pressure medication. Decrease salt intake and exercise patient takes lisinopril 10 only (3) Dyslipidemia, goal LDL below 100: Code(s): E78.5 - Hyperlipidemia, unspecified Category: Medical Plan: Avoid fried foods, chicken skin, eggs, butter margarine, pastries and meat. Be it pork or beef they have a lot of cholesterol on atorvastatin 20 mg once a day fenofibrate 160 mg once a day LDL goal of less than 100 and triglyceride of less than 150. (4) Chronic kidney disease, stage 3: Comment: Diabetic hypertensive disease Code(s): N18.30 - Chronic kidney disease, stage 3 unspecified Category: Medical Qualifiers: Chronic kidney disease stage 3 subtype: stage 3b (GFR 30-44) Qualified Code(s): N18.32 - Chronic kidney disease, stage 3b Plan: Keep well hydrated avoid NSAIDs controlled diabetes hypertension (5) BPH w urinary obs/LUTS: Comment: Bladder neck contracture following laser prostatectomy Code(s): N40.1 - Benign prostatic hyperplasia with lower urinary tract symptoms; N13.8 - Other obstructive and reflux uropathy Category: Medical Plan: Stable (6) Generalized anxiety disorder: Comment: Declined counseling July 2021 Code(s): F41.1 - Generalized anxiety disorder Category: Medical Plan: Continue with present medication declined counseling. Patient is on lorazepam Risperdal (7) DVT (deep venous thrombosis): Comment: h/o multiple, IVC filter and on xarelto-to stop 01/03/20 per pt per Code(s): I82.409 - Acute embolism and thrombosis of unspecified deep veins of unspecified lower extremity Category: Medical Plan: Continue with anticoagulation and continue to monitor renal function Plan History of Present Illness The patient is a 64-year-old male presenting for a follow-up visit and preoperative evaluation. The patient has a history of obesity, with a recent weight gain of 4 pounds noted. He has been diagnosed with diabetes mellitus, with a hemoglobin A1c of 6.5% as of August 04, indicating controlled diabetes. The patient is legally blind and has a history of hypertension and hypercholesterolemia. His last cholesterol test in January 2024 showed an LDL of 68 mg/dL and triglycerides of 173 mg/dL. He has chronic kidney disease with an elevated BUN of 37 and creatinine of 1.36 noted in his last blood work on August 04. The patient is advised to stay well hydrated and avoid NSAIDs to manage his kidney condition. The patient has a history of deep vein thrombosis and bladder cancer diagnosed in 2017. He also has benign prostatic hyperplasia and generalized anxiety disorder, for which he is on lorazepam and risperidone. Health Maintenance - Colon cancer screening last performed in December 2019 - Vaccinations: Shingles, tetanus, and pneumonia shots are up to date Social History Review of Systems Physical Exam Results - Labs: Normal blood count, normal electrolytes, elevated BUN at 37, creatinine at 1.36, hemoglobin A1c at 6.5%, mildly elevated liver function tests - Cholesterol: LDL at 68 mg/dL, triglycerides at 173 mg/dL as of January 2024 Plan The management plan for diabetes includes maintaining a hemoglobin A1c goal of less than 6.5% with current medications: Trulicity 3 mg weekly, Jardiance 25 mg daily, and insulin 42 units daily. For hypertension, the patient is on lisinopril 10 mg daily, and for hypercholesterolemia, atorvastatin 20 mg and fenofibrate 160 mg daily are prescribed, with goals of LDL less than 100 mg/dL and triglycerides less than 150 mg/dL. The patient is advised to stay well hydrated and avoid NSAIDs to manage chronic kidney disease, and to continue anticoagulation therapy for deep vein thrombosis. For generalized anxiety disorder, the patient is on lorazepam and risperidone, and he is advised to continue with current medications and follow up in three months. Patient was informed and verbally consented to the use of an ambient scribe for clinic note documentation during this visit. Discussion Notes During the visit, I discussed the importance of maintaining a hemoglobin A1c below 6.5% and the current medication regimen for diabetes management. We reviewed the patient's blood pressure and cholesterol management plans, emphasizing the goals for LDL and triglycerides. I advised the patient to stay well hydrated and avoid NSAIDs to support kidney function and discussed the continuation of anticoagulation therapy for deep vein thrombosis. The patient was informed about the need to follow up in three months and to continue with current medications for anxiety management. Patient Instructions - Continue taking Trulicity, Jardiance, and insulin as prescribed. - Take lisinopril, atorvastatin, and fenofibrate as directed. - Stay well hydrated and avoid NSAIDs. - Continue anticoagulation therapy and monitor renal function. - Follow up in three months for reassessment.
[2024-08-08 09:26] VITALS: BP 120/62; PULSE 89; TEMP 36.3; O2SAT 97; BMI 34.4
--- OUTSIDE RECORDS SUMMARY | 2024-08-08 09:39 | XMS_ITS | Clinical Summary ---
Author Organization [employer] Address [address] [place] [address] Care Team Providers Care Drugless Doctor Name Role Phone Provider, Not In System [...] Description 07/01/2024 9:30 AM EDT Office Visit [facility] OPT[facility]ET[facility] [address] [place] [address] Maximus Ferrer, OD Retinitis pigmentosa (Primary Dx); Type 2 diabetes mellitus with stage 3a chronic kidney disease, without long-term current use of insulin ([facility]); Legal blindness, as defined in [place]; Allergic [...] age to complete this topic Insurance [address] [place] [address] [facility] STANDARD [facility] STANDARD Care Teams Drugless Doctor Relationship Specialty Start Date End Date Provider, Not In System PCP - General Family Medicine 02/20/23 Elham Cerna OD [address] [place] [id number] Optometry 02/20/23 Jacob Holm Community Health Worker 03/06/23
== END 2024-08-08 10:11 | disposition home or self-care (01) ==
LOC: HO.HMCH 09:16
PROVIDERS: PCP Internal Medicine; Visit Provider Internal Medicine
DX: I12.9 Hypertensive chronic kidney disease with stage 1 through stage 4 chronic kidney disease, or unspecified chronic kidney disease (principal); E11.65 Type 2 diabetes mellitus with hyperglycemia; Z79.4 Long term (current) use of insulin; N18.32 Chronic kidney disease, stage 3b; I82.409 Acute embolism and thrombosis of unspecified deep veins of unspecified lower extremity; E78.5 Hyperlipidemia, unspecified; N40.1 Benign prostatic hyperplasia with lower urinary tract symptoms; N13.8 Other obstructive and reflux uropathy; F41.1 Generalized anxiety disorder

== ENCOUNTER → 2024-08-08 09:15 | Outpatient (BNVA) | payer OTHER, SELFPAY | PROVIDERS: PCP Internal Medicine; Visit Provider Internal Medicine | DX: E11.65 Type 2 diabetes mellitus with hyperglycemia (principal); E11.22 Type 2 diabetes mellitus with diabetic chronic kidney disease; I12.9 Hypertensive chronic kidney disease with stage 1 through stage 4 chronic kidney disease, or unspecified chronic kidney disease; N18.32 Chronic kidney disease, stage 3b; N40.1 Benign prostatic hyperplasia with lower urinary tract symptoms; N13.8 Other obstructive and reflux uropathy; F41.1 Generalized anxiety disorder; I82.409 Acute embolism and thrombosis of unspecified deep veins of unspecified lower extremity; E66.9 Obesity, unspecified; I10 Essential (primary) hypertension; E78.00 Pure hypercholesterolemia, unspecified; Z85.51 Personal history of malignant neoplasm of bladder; Z68.34 Body mass index [BMI] 34.0-34.9, adult; Z79.4 Long term (current) use of insulin | CPT/HCPCS: 99212 ==

== ENCOUNTER 2024-09-24 15:58 | Outpatient (AMB) | payer OTHER, SELFPAY ==
--- NOTE | 2024-09-24 16:05 | HO.NEPHOV ---
Vital Signs 09/24/24 16:06 Height 5 ft 9 in Weight 233 lb BMI 34.4 BP 110/70 Blood Pressure Location Lt brachial Position Sitting Pulse 90 Pulse Source Pulse Oximeter Pulse Oximetry (%) 96 Oxygen Delivery Method Room Air Intake Visit Reasons: 4 MO FU-Conf Electro Winning Operator Required: Yes Electro Winning Operator Language: Glass Installer Services: Electro Winning Operator Present Electro Winning Operator Name: Birgit [id number] Information Interpreted: clinical only Accompanied by: Friend Allergies Penicillins (PENICILLINS) Allergy (Intermediate, Verified 09/24/24 16:05) RASH naproxen (From Naprosyn) Adverse Reaction (Unknown, Verified 09/24/24 16:05) Unknown NSAIDS (Non-Steroidal Anti-Inflamma Adverse Reaction (Unknown, Verified 09/24/24 16:05) Unknown lisinopril Adverse Reaction (Intermediate, Uncoded 08/08/24 09:25) increasing creatinine HPI Comments Details: Eriberto was seen in follow up of his CKD and hypertension. He is on lisinopril as well as Jardiance. His blood sugars are better controlled. He is tolerating ACEI. He does not have any urinary symptoms, nausea, vomiting, diarrhea, edema, chest pain, SOB, PND, orthopnea or orthostatic symptoms. He maintains good hydration and avoids NSAID's. He feels well and did not have any specific complaints at the time of this office visit. [facility] Medical History Ear ache Wound cellulitis Obstructive sleep apnea Type 2 diabetes mellitus with hyperglycemia Phimosis Vitamin D deficiency Hypothyroidism Retinitis pigmentosa Long-term insulin use in type 2 diabetes Essential hypertension Nontoxic multinodular goiter Dyslipidemia, goal LDL below 100 Chronic kidney disease, stage 3 Diabetic polyneuropathy associated with type 2 diabetes mellitus Obesity (BMI 30-39.9) Hypoglycemia unawareness associated with type 2 diabetes mellitus Diverticulosis CKD (chronic kidney disease) Guatemalan speaking patient Bladder cancer Arthritis Thyroid disease Legally blind DVT (deep venous thrombosis) Sleep apnea HTN (hypertension) Surgical History Deficient knowledge of leg surgery History of prostatectomy Hx of eye surgery Hx of knee surgery H/O colonoscopy Hx of cystoscopy Hx of circumcision S/P insertion of IVC (inferior vena caval) filter History of biopsy of bladder Family History Father Medical history unknown Mother Breast cancer Diabetes Hypertension CVD (cardiovascular disease) Brother CVD (cardiovascular disease) Social History Household Members: None Housing: Apartment Are you a primary home health care provider to a significant other at home: No Do you presently have visiting nurse or other home services: No Alcohol intake: never Patient Tobacco Use Status: Never used Tobacco Tobacco use type: Cigarette Years Smoked: 30 years old e-Cigarette/Vaping Use: Never Used Second Hand Smoke Exposure: No service: No Current occupational status: disabled Cognitive needs: No Hearing needs: No Vision needs: Yes Review of Systems Const All systems reviewed & are unremarkable except as noted in HPI and below Physical Exam Vital Signs: Last Vital Signs Pulse 90 09/24/24 16:06 BP 110/70 09/24/24 16:06 Pulse Ox 96 09/24/24 16:06 Oxygen Delivery Method Room Air 09/24/24 16:06 BMI result Body Mass Index 34.4 Const General: comfortable and no acute distress Orientation/consciousness: patient oriented x3 HEENT Head: Yes normocephalic Mouth: Normal oral and palatal mucosa present Eyes EOM: EOMs intact bilaterally Neck Neck: Yes supple Resp Auscultation: clear to auscultation bilaterally Cardio Jugular venous distension: no JVD Rate: regular rate GI Palpation (GI): Soft to palpation Auscultation: normal bowel sounds General: Yes no CVA tenderness Back/Spine/Pelvis Back: no CVA tenderness Skin General skin exam: no rashes or lesions noted Neuro General: patient oriented x3 and moves all extremities Extrem General: Yes no pedal edema Results Reviewed Nephrology Results: Hgb, (14.0-18.0) 14.6 g/dl 08/04/24 WBC, (4.8-10.8) 6.4 X10*3/uL 08/04/24 Plt Count, (160-400) 203 X10*3/uL 08/04/24 Sodium, (135-145) 142 mmol/L 08/04/24 Potassium, (3.3-5.1) 4.2 mmol/L 08/04/24 Chloride, (96-108) 108 mmol/L 08/04/24 Carbon Dioxide, (22-29) 25 mmol/L 08/04/24 BUN, (9-16) 37 mg/dL H 08/04/24 Creatinine, (0.5-1.4) 1.36 mg/dL 08/04/24 Calcium, (8.4-10.2) 9.9 mg/dL 08/04/24 Urine Creatinine 59.88 mg/dL 08/04/24 Protein/Creatinin Ratio TNP 08/04/24 Assessment & Plan Assessment & Plan (1) Chronic kidney disease, stage 3: Comment: Diabetic hypertensive disease Code(s): N18.30 - Chronic kidney disease, stage 3 unspecified Category: Medical Qualifiers: Chronic kidney disease stage 3 subtype: stage 3b (GFR 30-44) Qualified Code(s): N18.32 - Chronic kidney disease, stage 3b Plan Eriberto has 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 He has no proteinuria. His BP is at goal. He is on ACEI as well as Jardiance. He maintains good hydration and avoids NSAID's. His volume status is optimal. I did not make any medication changes today. Follow up blood work ordered.Answered all questions Orders: Orders Creatinine 4 Months N18.32 - Chronic kidney disease, stage 3b Electrolytes 4 Months N18.32 - Chronic kidney disease, stage 3b Blood Urea Nitrogen 4 Months N18.32 - Chronic kidney disease, stage 3b Coding Level of Care Code Est Pt Level 4 (96043) Diagnoses Stage 3b chronic kidney disease N18.32 Chronic kidney disease stage 3 subtype: stage 3b (GFR 30-44)
[2024-09-24 16:06] VITALS: BP 110/70; PULSE 90; O2SAT 96; BMI 34.4
--- OUTSIDE RECORDS SUMMARY | 2024-09-24 16:28 | XMS_ITS | Clinical Summary ---
Author Organization [facility] Address [address] [place] [phone] Phone Care Team Providers Care Road Advisor Name Role Phone Sujata Diehl MD Primary Care Provider Allergies Active Allergy Reactions Criticality Noted Date Comments Penicillins 10/29/2018 Medications fenofibrate (LOFIBRA) 160 MG tablet Take 160 mg by mouth daily. Active aspirin 81 MG EC tablet Take 81 mg by mouth daily. Active levothyroxine (SYNTHROID, LEVOTHROID) 50 MCG tablet Take 50 mcg by mouth every morning. Active atorvastatin (LIPITOR) 20 MG tablet Take 20 mg by mouth daily. Active cholecalciferol (VITAMIN D3) 25 MCG (1,000 unit) tablet Take 1,000 Units by mouth daily. Active omega-3 fatty acids-fish oil 340-1,000 mg Cap Take by mouth daily. Active ascorbic acid, vitamin C, (VITAMIN C) 500 mg Chew Take 500 mg by mouth 2 (two) times a day. Active rivaroxaban (XARELTO) 20 mg Tab Take 20 mg by mouth daily. Active LORazepam (ATIVAN) 2 MG tablet Take 2 mg by mouth as directed. Active vitamins A,C,D-fhkr-yqmqb r (PRESERVISION AREDS) 14,320-226-200 uhds-he-lsoq Cap Take 1 capsule by mouth 2 (two) times a day with meals. Active FREESTYLE SHIRIN 2 SENSOR kitIndications:T ype 2 diabetes mellitus with stage 3a chronic kidney disease, without long-term current use of insulin 1 each by Miscellaneous route as needed for other (free text field). Use as instructed 2 kit 11 02/24/20 Active Additional Information Patient not taking.Reported on 06/27/2024 FREESTYLE SHIRIN 2 READERIndication s:Type 2 diabetes mellitus with stage 3a chronic kidney disease, without long-term current use of insulin 1 each by Miscellaneous route as needed for other (free text field). Use as instructed 1 each 02/24/20 Active Additional Information Patient not taking.Reported on 06/27/2024 FREESTYLE LITE Strp strips Inject 1 each under the skin 4 (four) times a day before meals and nightly. 400 strip 3 06/28/19 25 Active JARDIANCE 25 mg tablet Take 1 tablet (25 mg total) by mouth daily. 90 tablet 1 06/28/19 25 Active lancets 28 gauge Misc 1 each by Miscellaneous route 4 (four) times a day before meals and nightly. 400 each 3 06/28/19 25 Active insulin lispro (ADMELOG, HUMALOG) 100 unit/mL injection penIndications:T ype 2 diabetes mellitus with stage 3a chronic kidney disease, without long-term current use of insulin INJECT PER SLIDING SCALE MAX 22 UNITS OVER 400 UNITS DIRECTED 4 X A DAY 70-100 =8 unit 101-150 =10 units 151-200 = 12 units 201-250 =14 units 251-300 =16 units 301-350 =18 units 351-400 =20 units greater than 400 =22 units 30 mL 1 07/23/19 25 Active insulin glargine (LANTUS SOLOSTAR U-100 INSULIN) 100 unit/mL (3 mL) InPn injection penIndications:T ype 2 diabetes mellitus with stage 3a chronic kidney disease, without long-term current use of insulin Inject 42 Units under the skin daily. 45 mL 07/31/19 25 Active tirzepatide (MOUNJARO) 2.5 mg/0.5 mL PnIj subcutaneous penIndications:T ype 2 diabetes mellitus with stage 3a chronic kidney disease, without long-term current use of insulin Inject 0.5 mL (2.5 mg total) under the skin every 7 days. 2 mL 3 08/14/19 25 Active lisinopril (PRINIVIL,ZESTRI L) 10 MG tablet Take 10 mg by mouth daily. 03/01/19 24 025 Active Problems Problem Noted Date Diagnosed Date Type 2 diabetes mellitus wit h hyperglycemia, with long-term current use of insulin 09/26/2023 Assessment & Plan (09/26/2023 9:30 AM EDT): Fair control. Hemoglobin A1c 7.0%. He has elevated fasting glucose and postprandial hyperglycemia he may benefit from increasing Lantus which will decrease the fasting glucose and likely postprandial hyperglycemia better choice will be Trulicity 4.5 mg I will increase the dose. He should continue other medications. One of the issues that complicates the matter and diabetes management is that he does not follow a correction scale during the day because he cannot read scale. He also does not read [place]. It would benefit him to have more support with staff during the weekend. He is not administering insulin during the weekend because he is alone. He also does not monitor glucose levels during the weekend. So the CGM will be helpful. Hyperlipidemia LDL goal <100 11/24/2022 Assessment & Plan (06/27/2024 9:51 AM EDT): Controlled. LDL 38 mg/dL continue fenofibrate, and atorvastatin. Assessment & Plan (12/28/2023 10:26 AM EDT): Controlled. LDL 38 mg/dL continue atorvastatin. He has elevated triglycerides and I suspect that this has to do with his food intake maybe he is having snacks low carbs between meals. Assessment & Plan (09/26/2023 9:24 AM EDT): Controlled. LDL 97 mg/dL continue atorvastatin. Assessment & Plan (02/23/2023 9:22 AM EST): Controlled. LDL 97 mg/dL on atorvastatin 20 mg no changes required. Assessment & Plan (11/24/2022 9:09 AM EDT): Controlled. LDL 97 mg/dL he has low HDL 29 mg/dL but his cholesterol overall total cholesterol elevated. Triglycerides are high at 226 mg/dL this is likely due to poor glycemic control. Patient continue atorvastatin 20 mg no changes. Type 2 diabetes mellitus wit h stage 3a chronic kidney disease, without long-term current use of insulin 08/11/2022 Assessment & Plan (06/27/2024 9:50 AM EDT): Fair control his hemoglobin A1c is 6.6 which appears controlled but he still has elevated glucose in the morning and postprandial hyperglycemia. The fasting glucose may not be accurate because he has coffee with cream in the morning. I am concerned that he may be having hypoglycemia overnight because he is getting lispro correction scale at bedtime and sometimes may have it administer even when not eating. So I gave him a correction scale for bedtime since he is eating and I gave him half the dose of his normal day lispro correction scale. He should continue Jardiance and Lantus at the current dose I stop Trulicity because I think Mounjaro will work better since is a GLP GIP the problem is that we have to start at the lowest dose 2.5 mg weekly. He can increase the dose every month so I asked him to call me if he is tolerating the medication. I will see him in 3 months time he should repeat hemoglobin A1c prior to the follow-up visit. Assessment & Plan (12/28/2023 10:25 AM EDT): Controlled. Hemoglobin A1c 6.6% continue current regimen I urged him to use the CGM. Assessment & Plan (02/23/2023 9:35 AM EST): Based on the hemoglobin A1c of 6.9% [...] in 6 months. Just a hemoglobin A1c. Assessment & Plan (11/24/2022 9:12 AM EDT): Based on hemoglobin A1c of 6.8% though glucose appears to be controlled but this is not the case. He has renal insufficiency and elevated reticulocyte count so the hemoglobin A1c is falsely low. Review of the media shows that his fasting glucose are elevated and he has postprandial hyperglycemia especially in the evening. I confirmed that he is checking glucose levels before the meals. He does not have any snacks between meals. He does have a snack in the evening after dinner which could result in elevated fasting glucose. So the question is is his fasting glucose is elevated because of the snack in the evening of because he is just not getting enough insulin with dinner. I am changing his Humalog administration from Sunday through Fridays when he has not attendant at home to a correction scale. The correction scale will start at 70-100 = 8 units increasing by 2 units every 50 mg/dL. On the weekends because no one is there with him and he administers his own insulin he will do 10 units 3 times a day with meals. Today again inquired about Dexcom G7. Apparently the patient needs prior authorization but he never had any issues with this from the patient or the pharmacy. Today I sent a message to the behavioral medical director requesting cryopreservation for the Dexcom G7 which will definitely be helpful. He is current continue Lantus 38 units and Trulicity 3 mg weekly which she is tolerating. At the follow-up visit if there is any improvement. The meantime for the follow-up visit I will request hemoglobin A1c but also fructosamine level and CBC. The patient should return for follow-up in 3 months. Assessment & Plan (08/11/2022 11:09 AM EDT): Uncontrolled. Hemoglobin A1c 7.5% which may be [...] he is only getting monitored by the homemaking rehabilitation consultant during the weekdays and on weekends he only has 3 hours of monitoring so he uses his talking meter but at times he does not use it at all even though he has a talking meter. The CGM may not be so helpful for him during the weekend but he does have a home health clinical supervisor that can review this for him. I [...] Humalog since we are increasing the Trulicity. Encounters Date Type Department Care Team Description 08/20/2024 Telephone [facility] Virtual Clinical Support [address] [place] [phone] Brii Johnson 08/13/2024 Refill [facility] [address] [place] [address] Woo Merrill DO Medication Refill 07/30/2024 Refill [facility] [address] [place] [address] Woo Merrill DO Medication Refill 07/24/2024 Telephone [facility] [address] [place] [address] Sherry Rivera MA Medication Prior Authorization (Admelog) 07/18/2024 Refill [facility] [address] [place] [address] Mone Gusman Medication Refill 07/02/2024 Telephone [facility] [address] [place] [address] Woo Merrill DO Medication Problem (Mounjaro 2.5) 06/27/2024 9:30 AM EDT Office Visit [facility] [address] [place] [address] Woo Merrill, Type 2 diabetes mellitus with stage 3a chronic kidney disease, without long-term current use of insulin (Primary Dx); Hyperlipidemia LDL goal <100; Type 2 diabetes mellitus with hyperglycemia, with long-term current use of insulin from Last 3 Months Family History Medical History Relation Comments Retinitis pigmentosa Brother Retinitis pigmentosa Paternal Uncle Relation Status Comments Brother Paternal Uncle Social History Tobacco Use Types Packs/Day Years Used Date Smoking Tobacco: Never Smokeless Tobacco: Never Alcohol Use Standard Drinks/Week Comments Never 0 (1 standard drink = 0.6 oz pur e alcohol) Education Answer Date Recorded Are you interested in more education? Not on keren e 06/23/2022 Are you concerned about learning? Not on file 06/23/2022 No 06/23/2022 No 06/23/2022 Digital Access Answer Date Recorded No 07/22/2022 No 07/22/2022 Reliable internet access at home? Not on file 07/22/2022 Device with a working camera? Not on file Sex and Gender Information Value Date Recorded Sex Assigned at Not on file Legal Sex Male 11:52 AM EDT Gender Identity Not on file Sexual Orientation Not on file Last Filed Vital Signs Vital Sign Reading Time Taken Comments Blood Pressure 128/70 12/28/2023 9:38 AM EDT Pulse 80 12/28/2023 9:38 AM EDT Temperature - - Respiratory Rate 16 08/11/2022 10:1 5 AM EDT Oxygen Saturation 98% 12/28/2023 9:38 AM EDT Inhaled Oxygen Concentration - - Weight 103.8 kg (228 lb 12.8 oz) 12/28/2023 9:38 AM EDT Height 172.7 cm (5' 7.99 ) 12/28/2023 9:38 AM ED T Body Mass Index 34.8 12/28/2023 9:38 AM EDT Plan of Treatment Upcoming Encounters Date Type Department Care Team (Late st Contact Info) Description 10/16/2024 10:30 AM EDT Office Visit [facility] [address] [place] [address] Woo Merrill DO [address] [place] [id number] Health Maintenance Due Date Last Done Comments Adult Td,Tdap Booster 1962 TSH LEVEL 1962 DEPRESSION SCREENING 1974 HEPATITIS C SCREENING 1980 HIV ONE-TIME SCREENING (18-65 YEARS) 1980 COLOGUARD 07/15/2007 COLONOSCOPY 07/15/2007 COLORECTAL CANCER SCREENING 07/15/2007 FIT TEST 07/15/2007 FOBT 07/15/2007 SIGMOIDOSCOPY 07/15/2007 VIRTUAL COLONOSCOPY 07/15/2007 ZOSTER VACCINES (1 of 2) 2012 PNEUMOCOCCAL VACCINES (50+ years) (2 of 2 - PCV) 01/12/2018 01/12/2017, 04/12/2016 RSV VACCINE (1 - Risk 60-74 years 1-dose series) 2022 COVID-19 VACCINE ( - season) 2023 03/23/2021, 06/04/2020, 05/14/2020 DIABETIC EYE EXAM 03/28/2024 03/28/2023, , 05/04/2020, Additional history exists CREATININE LEVEL 12/16/2024 12/17/2023, 11/21/2022 HEMOGLOBIN A1C 12/23/2024 06/23/2024, 11/27, 09/18/2023, Additional history exists BLOOD PRESSURE 12/28/2024 06/27/2024 SMOKING STATUS SCREENING (Once After 26 Yrs) Completed 12/28/2023 HEPATITIS A VACCINES Aged Out No long er eligible based on patient's age to complete this topic HIB VACCINES Aged Out No longer eligi ble based on patient's age to complete this topic MENINGOCOCCAL VACCINES (ACWY) Aged Out No longer eligible based on patient's age to complete this topic MENINGOCOCCAL VACCINES (B) Aged Out N o longer eligible based on patient's age to complete this topic Medical Devices Not on file Procedures Procedure Name Priority Date/Time Associated Diagnosis Comments HEMOGLOBIN A1C Routine 06/23/2024 9:08 AM EDT Type 2 diabetes mellitus with stage 3a chronic kidney disease, without long-term current use of insulin COMPREHENSIVE METABOLIC PANEL Routine 12/17/2023 8:56 AM EDT Type 2 diabetes mellitus with stage 3a chronic kidney disease, without long-term current use of insulin from Last 3 Months or Most Recently Relevant to Health Maintenance Results * (ABNORMAL) Hemoglobin A1c (06/23/2024 9:08 AM EDT) HEMOGLOBIN A1C 6.6(H) 4.3 - 5.8 % [facility] Blood 06/23/2024 9:08 AM EDT 06/23/2024 9:15 AM EDT us Woo Merrill LAB BLOOD ORDERABLES Final Resul t Performing Organization Address City/[facility]/ZIP Co de Phone Number [address] [address] * (ABNORMAL) Comprehensive metabolic panel (12/17/2023 8:56 AM EDT) SODIUM 142 133 - 146 mmol/L [facility] POTASSIUM 4.1 3.3 - 5.1 mmol/L [facility] CHLORIDE 107 96 - 108 mmol/L [facility] CO2 24 21 - 35 mmol/L [facility] BUN 39(H) 6 - 19 mg/dL [facility] CREATININE 1.30 0.5 - 1.5 mg/dL [facility] GLUCOSE 145(H) 70 - 99 mg/dL [facility] ALBUMIN 4.1 3.9 - 4.8 g/dL [facility] TOTAL PROTEIN 7.2 6.5 - 8.0 g/dL [facility] CALCIUM 9.2 8.4 - 10.3 mg/dL [facility] ALKALINE PHOSPHATASE 58 39 - 117 U/L [facility] TOTAL BILIRUBIN 0.4 0.0 - 1.2 mg/dL [facility] AST 25 0 - 37 U/L [facility] ALT 32 0 - 40 U/L [facility] GLOBULIN 3.1 1 - 4.8 g/dL [facility] EGFR 63 >59 mL/min/1.7 3m2 [facility] Comment:Estimated glomerular filtration rate calculated using the CKD-EPI refit equation. ANION GAP 15 10 - 20 mmol/L [facility] Blood 12/17/2023 8:56 AM EDT 12/17/2023 9:19 AM EDT Woo Merrill DO LAB BLOOD ORDERABLES Final Resul t [address] [id number] from Last 3 Months or Most Recently Relevant to Health Maintenance Insurance [facility] [place] [address] [place] [address] [place] [address] [place] [address] [employer] [facility] Care Teams Road Advisor Relationship Specialty Start Date End Date Sujata Diehl MD [address] [place] [id number] PCP - General Internal Medicine 10/04/18 Additional Source Comments The information contained in this document represents components of the legal health record. It is not the complete legal health record.[facility]
--- OUTSIDE RECORDS SUMMARY | 2024-09-24 16:28 | XMS_ITS | Clinical Summary ---
Author Organization [employer] Address [address] [place] [address] Care Team Providers Care Package Worker Name Role Phone Provider, Not In System [...] Description 07/01/2024 9:30 AM EDT Office Visit [place] [facility] OPTOMETRY [address] [place] [address] Maximus Ferrer, OD Retinitis pigmentosa (Primary Dx); Type 2 diabetes mellitus with stage 3a chronic kidney disease, without long-term current use of insulin ([facility]); Legal blindness, as defined in [place]; Allergic [...] AM EDT Pulse - - Temperature 36.2 C (97.1 F) 07/01/2024 9:27 AM EDT Respiratory Rate - - Oxygen Saturation - [...] 1-dose series) 2022 COVID-19 Vaccine (1 - season) 2023 Influenza Vaccine (#1) 2024 09/29/2015 Diabetes: Hemoglobin A1C 12/23/202406/23/ 025, 12/17/2023, 09/18/2023, Additional history exists Tobacco Screening 07/01/2025 07/01/2024 Eye Exam 07/01/2026 07/01/2024, 07/2024, 07/01/2024, Additional history exists HIB Vaccines Aged [...] age to complete this topic Insurance [address] [place] [address] [facility] Care Teams Package Worker Relationship Specialty Start Date End Date Provider, Not In System PCP - General Family Medicine 02/20/23 Elham Cerna OD [address] [place] [address] Optometry 02/20/23 Jacob Holm Community Health Worker 03/06/23
--- OUTSIDE RECORDS SUMMARY | 2024-09-24 16:28 | XMS_ITS | Clinical Summary ---
Author Organization [facility] Address [address] [place] [address] Phone Care Team Providers Care Manager R D Name Role Phone Sujata Diehl MD Primary Care Provider [phone] Allergies Active Allergy Reactions Criticality Noted Date [...] time each day 90 tablet 3 09/10/2023 Active Active Problems Problem Noted Date Diagnosed [...] day. I think he will benefit from [employer] G7 CGM. This he can use on Sunday through Sunday so of course all week but he is only getting monitored by the rn homecare during the weekdays and on weekends he only has 3 hours of monitoring so he uses his talking meter but at times he does not use it at all even though he has a talking meter. The CGM may not be so helpful for him during the weekend but he does have a home therapy teacher that can review this for him. I [...] Diabetes: Ophthalmology Exam 03/28/2024 03/28/2023 Influenza Vaccine (#1) 2024 09/29/2015 Hepatitis B Vaccine Aged Out No longe r eligible based on patient's age to complete this topic Insurance [facility] Medicaid [facility] Medicaid Care Teams Manager R D Relationship Specialty Start Date End Date Sujata Diehl MD [facility] [place] [address] [place] PCP - General 03/08/20
== END 2024-09-24 16:14 | disposition home or self-care (01) ==
LOC: HO.HKA 15:59
PROVIDERS: PCP Internal Medicine; Visit Provider Internal Medicine Nephrology
DX: N18.32 Chronic kidney disease, stage 3b (principal)
CPT/HCPCS: 99214

== ENCOUNTER → 2024-09-24 15:58 | Outpatient (BNVA) | payer OTHER, SELFPAY | PROVIDERS: PCP Internal Medicine; Visit Provider Internal Medicine Nephrology | DX: N18.32 Chronic kidney disease, stage 3b (principal); I10 Essential (primary) hypertension | CPT/HCPCS: 99212 ==

== ENCOUNTER 2024-10-15 15:08 | Emergency (ER) | payer OTHER, SELFPAY ==
--- NOTE | ~2024-10-15 | US_ITS ---
CLINICAL HISTORY: pain Left lower extremity venous duplex ultrasound Comparison: 04/16/23 Findings: The popliteal vein is incompletely compressible with abnormal flow, also present on the prior study. There is peripheral thrombus seen on this exam which is less than on the prior study. The peroneal veins were not visualized on this exam or on the prior study. The other visualized deep veins are fully compressible with normal flow. No popliteal cyst. Impression: Positive for deep vein thrombosis in the popliteal vein. The amount of thrombus is less than on the prior study. This document has been electronically signed by: Sona Aldana MD on 10/15/2024 18:37:15
--- NOTE | ~2024-10-15 | XR_ITS ---
EXAMINATION: XR KNEE, LEFT CLINICAL INFORMATION: pain COMPARISON: 04/24/2019. TECHNIQUE: Four views of the left knee. FINDINGS: No acute fracture, dislocation, or suspicious bone lesion. There is an old healed tibial metaphyseal and lateral plateau fracture, fixated with 2 transverse metaphyseal screws. The screws appear well seated. There is persistent mild depression of the lateral tibial plateau. Moderate tricompartmental osteoarthrosis is present, with marginal osteophytic spurring and subchondral sclerosis, most significant in the lateral compartment. There is normal alignment. There is no joint effusion. There are vascular calcifications in the soft tissues. XR/XR knee LT 4V IMPRESSION: No acute bony abnormalities in the left knee. Chronic findings related to old trauma as discussed. Electronically signed by: Tahir Aguirre MD 10/15/2024 04:37 PM EDT
[2024-10-15 15:30] VITALS: BP 163/79; PULSE 83; RESP 16; TEMP 36.7; O2SAT 98; BMI 35.1
--- NOTE | 2024-10-15 15:36 | ED_ITS ---
HPI - General Adult General Chief complaint: General Medical Stated complaint: bruised knee Time Seen by Provider: 10/15/24 21:00 Source: patient Limitations: language barrier History of Present Illness ED Provider: Mary Perez PA-C HPI narrative: 64-year-old male with a history of diabetes, chronic kidney disease, hypertension, hyperlipidemia, legal blindness, known DVT on Xarelto, peripheral vascular disease, hypothyroidism, anxiety who presents with bruising to left knee. Associated pain along lateral aspect of the knee. Denies trauma. Related Data Home Medications ?Medication ?Instructions ?Recorded ?Confirmed azelastine 0.05 % eye drops 1 drp ophthalmic (eye) BID 04/03/23 08/08/24 Previous Rx's ?Medication ?Instructions ?Recorded BP machine #1 ea 10/01/23 blood pressure monitor (Blood #1 ea 10/11/23 Pressure Kit) fenofibrate 160 mg tablet 160 mg PO DAILY #90 tabs 11/19 cholecalciferol (vitamin D3) 25 25 mcg PO DAILY #90 ca ps 01/11/24 mcg (1,000 unit) capsule (Vitamin D3) lisinopril 10 mg tablet 10 mg PO DAILY #90 tabs 01/27 blood-glucose meter (FreeStyle #1 ea 02/29/24 Lite Meter kit) sennosides 8.6 mg-docusate sodium 2 tab-cap (2 x 8.6-5 0 mg) PO 03/06/24 50 mg capsule (Senna Plus) BEDTIME #60 caps dulaglutide 3 mg/0.5 mL 3 mg (0.5 mL) subcut QWEEK # 2 mL 03/19/24 subcutaneous pen injector ([facility]) compress.stocking,knee,reg,lrg #12 ea 04/29/24 levothyroxine 50 mcg tablet 50 mcg PO QAM #90 tabs ascorbic acid (vitamin C) 500 mg 500 mg PO DAILY 90 da ys #90 tabs 06/17/24 tablet (Vitamin C) insulin glargine 100 unit/mL (3 42 unit (0.42 mL) subc ut BEDTIME 06/17/24 mL) subcutaneous pen (Lantus #15 mL Solostar U-100 Insulin) insulin lispro 100 unit/mL See Rx Instructions .Route 06/17/24 subcutaneous pen .COMPLEX #15 mL lancets 28 gauge (FreeStyle #3 ea 06/17/24 Lancets) pen needle, diabetic 31 gauge x 1 ea subcut .5x day ty pe 2 06/17/24 3/16 diabetes 90 days #450 ea rivaroxaban 20 mg tablet (Xarelto) 20 mg PO DAILY #90 tabs 06/19/24 empagliflozin 25 mg tablet 25 mg PO DAILY 30 days #30 tabs 06/20/24 Freestyle test strips #300 ea 07/17/24 risperidone 0.5 mg tablet 0.5 mg PO BID #60 tabs 08/04 (Risperdal) atorvastatin 20 mg tablet 20 mg PO BEDTIME 90 days #90 tabs 09/16/24 lorazepam 2 mg tablet 2 mg PO DAILY 30 days #30 ta bs 10/20/24 Allergies Allergy/AdvReac Type Severity Reaction Status Date / Time Penicillins (PENICILLINS) Allergy Intermediate RASH Verified 10/15/24 15:37 naproxen (From Naprosyn) AdvReac Unknown Unknown Verified 10/15/24 15:37 NSAIDS (Non-Steroidal AdvReac Unknown Unknown Verified 10/15/24 15:37 Anti-Inflamma lisinopril AdvReac Intermediate increasing Uncoded 08/08/24 09:25 creatinine Review of Systems Review of Systems: Yes all other systems are reviewed and are negative Constitutional: Constitutional: Denies fatigue and Denies fever(s) Cardiovascular: Cardiovascular: Denies chest pain, Reports leg edema and Denies dyspnea Respiratory: Respiratory: Denies dyspnea Musculoskeletal: Musculoskeletal: Reports arthralgias and Reports joint sw elling Endocrine: Endocrine: Denies fatigue [facility] Past Medical History Attestation statement: The following information was validated with the patient. Medical History Ear ache Wound cellulitis Obstructive sleep apnea Type 2 diabetes mellitus with hyperglycemia Phimosis Vitamin D deficiency Hypothyroidism Retinitis pigmentosa Long-term insulin use in type 2 diabetes Essential hypertension Nontoxic multinodular goiter Dyslipidemia, goal LDL below 100 Chronic kidney disease, stage 3 Diabetic polyneuropathy associated with type 2 diabetes mellitus Obesity (BMI 30-39.9) Hypoglycemia unawareness associated with type 2 diabetes mellitus Diverticulosis CKD (chronic kidney disease) Croatian speaking patient Bladder cancer Arthritis Thyroid disease Legally blind DVT (deep venous thrombosis) Sleep apnea HTN (hypertension) Surgical History Deficient knowledge of leg surgery History of prostatectomy Hx of eye surgery Hx of knee surgery H/O colonoscopy Hx of cystoscopy Hx of circumcision S/P insertion of IVC (inferior vena caval) filter History of biopsy of bladder Family History Family History Father Medical history unknown Mother Breast cancer Diabetes Hypertension CVD (cardiovascular disease) Brother CVD (cardiovascular disease) Social History Social History Household Members: None Housing: Apartment Are you a primary respiratory care specialist to a significant other at home: No Do you presently have visiting nurse or other home services: No Alcohol intake: never Patient Tobacco Use Status: Never used Tobacco Tobacco use type: Cigarette Years Smoked: 30 years old Smoked in Last 30 Days: No e-Cigarette/Vaping Use: Never Used Second Hand Smoke Exposure: No Use of substances other than those prescribed or required for medical reasons: No Advance Directives: No Advance Directives Information Provided: Yes service: No Current occupational status: disabled Cognitive needs: No Hearing needs: No Vision needs: Yes Physical Exam ED Vital Signs: Vital Signs - 24 hr 10/15/24 15:30 10/15/24 20:11 10/15/24 22:06 Temperature 98.1 F 98.7 F 98.4 F Pulse Rate 83 79 86 Respiratory Rate 16 16 18 Blood Pressure 163/79 H 166/92 H 129/89 Pulse Oximetry 98 99 95 Oxygen Delivery Method Room Air Room Air Room Air BMI result Body Mass Index 35.1 Const Other: Alert well-appearing Orientation/consciousness: patient oriented x3 Resp Effort & Inspection: normal respiratory effort Cardio Other: Normal peripheral perfusion Skin Other: Warm dry no rash Neuro General: patient oriented x3, gait normal, no focal motor deficits and CN's II- XI intact bilaterally Extrem Other: Able to flex and extend from the left knee, no deformity, no overlying warmth or erythema Psych Other: Cooperative Course Course Course Narrative: RME, this is a rapid medical exam performed by Doug Ruiz please refer to primary provider for complete H&P- 64-year-old male presents for evaluation of left knee pain. He does have a known DVT in that leg in his on Xarelto. Denies any falls or injury. He is also a diabetic. He is unsure if he has a history of neuropathy. Plan for x-ray of the left knee an ultrasound to evaluate for worsening clot burden Medical Decision Making Medical Decision Making [facility] Narrative: 64-year-old male with a history of diabetes, chronic kidney disease, hypertension, hyperlipidemia, legal blindness, known DVT on Xarelto, peripheral vascular disease, hypothyroidism, anxiety who presents with bruising to left knee. Associated pain along lateral aspect of the knee. Denies trauma. Problem: Known DVT , diabetes History: Per patient I have considered the following differential diagnoses: Fracture, dislocation, contusion, worsening clot burden, septic joint Plan: X-rays and ultrasound were ordered from triage, the clot itself is beginning to resolve, the x-ray reveals considerable arthritis. There was no evidence of septic joint on my exam. We will send with home care instructions. I have independently reviewed the following tests: Ultrasound left lower extremity: Findings: The popliteal vein is incompletely compressible with abnormal flow, also present on the prior study. There is peripheral thrombus seen on this exam which is less than on the prior study. The peroneal veins were not visualized on this exam or on the prior study. The other visualized deep veins are fully compressible with normal flow. No popliteal cyst. Impression: Positive for deep vein thrombosis in the popliteal vein. The amount of thrombus is less than on the prior study. X-ray left knee:NDINGS: No acute fracture, dislocation, or suspicious bone lesion. There is an old healed tibial metaphyseal and lateral plateau fracture, fixated with 2 transverse metaphyseal screws. The screws appear well seated. There is persistent mild depression of the lateral tibial plateau. Moderate tricompartmental osteoarthrosis is present, with marginal osteophytic spurring and subchondral sclerosis, most significant in the lateral compartment. There is normal alignment. There is no joint effusion. There are vascular calcifications in the soft tissues. XR/XR knee LT 4V IMPRESSION: No acute bony abnormalities in the left knee. Chronic findings related to old trauma as discussed. Differential Diagnosis Differential Diagnoses: The differential diagnosis associated with the presentation includes See [facility] Admission/Observation Consideration of admission/observation: Escalation of care including admission/observation considered Not applicable Lab Data MDM Lab Attestation statement: I reviewed the patient's lab results. Radiology Impression Discussion of test interpretation with radiology: I have reviewed the radiologist's reading. Chronic Conditions Patient?s care impacted by: Diabetes and Hypertension Discharge Plan Discharge Clinical Impression: Left leg pain Patient Disposition: Home, Self-Care Instructions: Leg Pain (ED) Additional Instructions: The ultrasound of your left leg showed improvement of the known DVT that you have. Continue to take your blood thinner. The x-ray revealed that you have considerable arthritis. I am providing you with a contact for our orthopedic service, you may benefit from a cortisone joint injection. In the meantime, you can use [id number] Tylenol 1000 mg taken every 8 hours, for your joint pain. Prescriptions: No Action (DME) BP machine See Rx Instructions .Route .MEDSUPPLY Qty: 1 0RF Rx Instructions: As directed (DME) blood pressure monitor [Blood Pressure Kit] Kit See Rx Instructions .Route Qty: 1 0RF Rx Instructions: As directed fenofibrate 160 mg tablet 160 mg PO DAILY Qty: 90 3RF cholecalciferol (vitamin D3) [Vitamin D3] 25 mcg (1,000 unit) capsule 25 mcg PO DAILY Qty: 90 3RF (DME) blood-glucose meter [FreeStyle Lite Meter] Kit See Rx Instructions .ROUTE .MEDSUPPLY Qty: 1 0RF Rx Instructions: As directed Senna Plus 8.6-50 mg capsule 2 tab-cap PO BEDTIME Qty: 60 12RF Trulicity 3 mg/0.5 mL pen injector 3 mg subcut QWEEK Qty: 2 5RF (DME) compress.stocking,knee,reg,lrg Misc See Rx Instructions .Route Qty: 12 0RF Rx Instructions: As directed 15-20 mm HG levothyroxine 50 mcg tablet 50 mcg PO QAM Qty: 90 2RF empagliflozin 25 mg tablet 25 mg PO DAILY 30 Days Qty: 30 7RF (DME) Freestyle test strips See Rx Instructions .Route .MEDSUPPLY Qty: 300 0RF Rx Instructions: Check blood sugar 3 times a day risperidone [Risperdal] 0.5 mg tablet 0.5 mg PO BID Qty: 60 5RF atorvastatin 20 mg tablet 20 mg PO BEDTIME 90 Days Qty: 90 2RF lorazepam 2 mg tablet 2 mg PO DAILY 30 Days Qty: 30 2RF azelastine 0.05 % drops 1 drp ophthalmic (eye) BID Rx Instructions: 1 drop into both eyes BID pen needle, diabetic 31 gauge x 3/16 needle 1 ea subcut .5x day 90 Days Qty: 450 3RF Rx Instructions: test 5 times daily insulin lispro 100 unit/mL insulin pen See Rx Instructions .ROUTE .COMPLEX Qty: 15 5RF Rx Instructions: Take as directed per sliding scale max of 66 units in 24 hours. insulin glargine [Lantus Solostar U-100 Insulin] 100 unit/mL (3 mL) insulin pen 42 unit subcut BEDTIME Qty: 15 2RF ascorbic acid (vitamin C) [Vitamin C] 500 mg tablet 500 mg PO DAILY 90 Days Qty: 90 3RF (DME) lancets [FreeStyle Lancets] 28 gauge misc See Rx Instructions .ROUTE .MEDSUPPLY Qty: 3 3RF Rx Instructions: As directed check BS 3 times a day Xarelto 20 mg tablet 20 mg PO DAILY Qty: 90 3RF lisinopril 10 mg tablet 10 mg PO DAILY Qty: 90 3RF Referrals: Jeevan Martinez MD [Physician, Orthopedics] Referral Note: left knee pain/arthritis: joint injection? Interventions: ED Discharge Assessment Last Done: 10/15/24 23:27 Discharge Date/Time: 10/16/24 00:10 Print Language: Croatian
--- OUTSIDE RECORDS SUMMARY | 2024-10-15 20:02 | XMS_ITS | Clinical Summary ---
Author Organization [employer] Address [address] [place] [address] Care Team Providers Care Tape Weaver Name Role Phone Provider, Not In System [...] Vaccine ( season) 2023 Influenza Vaccine (#1) 2024 09/29/2015 Diabetes: Hemoglobin A1C 12/23/202406/23/2 025, 12/17/2023, 09/18/2023, Additional history exists Tobacco Screening 07/01/2025 07/01/2024 Eye Exam 07/01/2026 07/01/2024, 05/0 07/2024, 07/01/2024, Additional history exists HIB Vaccines [...] patient's age to complete this topic Insurance [facility] STANDARD [address] [place] [id number] [place], [place] [id number] Care Teams Tape Weaver Relationship Specialty Start Date End Date Provider, Not In System PCP - General Family Medicine 02/20/23 Elham Cerna OD [address] [place] [id number] Optometry 02/20/23 Jacob Holm Community Health Worker 03/06/23
--- OUTSIDE RECORDS SUMMARY | 2024-10-15 20:02 | XMS_ITS | Encounter Summary ---
Author Organization [facility] Address [address] [place] [address] Phone Care Team Providers Care Tax Specialist Name Role Phone Sujata Diehl MD Primary Care Provider [phone] Reason for Visit * Reason Onset Date Comments Medication Problem 10/10/2024 Encounter Details Date Type Department Care Team (Late st Contact Info) Description 10/10/2024 Telephone [facility] [address] [place] [address] Woo Merrill, DO [address] [place] [address] [email or web address] Medication Problem Social History Tobacco Use Types Packs/Day Years [...] on file Sexual Orientation Not on file documented as of this encounter Progress Notes * Barbie Keene MA - 10/13/2024 12:37 PM EDT Called and spoke with Eriberto's home health aide, informed her he should have been taking Mounjaro 2.5mg weekly as Dr. Merrill sent in a prescription for this back in July and he shouldn't be taking Trulicity anymore. She didn't know that and doesn't believe he knew that as he was making a big seen of his insurance not covering Trulicity last week. She is going to inform him of this when she goes to see him this afternoon. * Woo Merrill DO - 10/13/2024 12:33 PM EDT Please inform her that he should be taking Mounjaro 2.5 mg weekly. That is what he should have beengetting. * Tiesha Bo - 10/10/2024 10:41 AM EDT Maude, patient's home health aide, calls regarding the patient's Trulicity, patient's Prescription Coverage has changed, will no longer cover Trulicity, please call [phone] documented in this encounter Plan of Treatment Upcoming Encounters Date Type Department Care Team (Late st Contact Info) Description 10/16/2024 10:30 AM EDT Office Visit [facility] [place] [address] [place] [address] documented as of this encounter Visit Diagnoses Not on filedocumented in this encounter Care Teams Tax Specialist Relationship Specialty Start Date End Date Sujata Diehl MD [address] [place] [address] PCP - General Internal Medicine 10/04/18 documented as of this encounter Additional Source Comments The information contained in this document represents components of the legal health record. It is not the complete legal health record.[facility]
--- OUTSIDE RECORDS SUMMARY | 2024-10-15 20:02 | XMS_ITS | Clinical Summary ---
Author Organization [facility] Address [address] [place] [address] Phone Care Team Providers Care Technical Services Representative Name Role Phone Sujata Diehl MD Primary Care Provider [phone] Allergies Active Allergy Reactions Criticality Noted Date [...] day. I think he will benefit from [employer] G7 CGM. This he can use on Sunday through Sunday so of course all week but he is only getting monitored by the manager home improvement during the weekdays and on weekends he only has 3 hours of monitoring so he uses his talking meter but at times he does not use it at all even though he has a talking meter. The CGM may not be so helpful for him during the weekend but he does have a test kitchen home economist that can review this for him. I [...] patient's age to complete this topic Insurance [facility] [place] [address] [facility] [place] [address] Care Teams Technical Services Representative Relationship Specialty Start Date End Date Sujata Diehl MD [facility] [place] [address] [place] PCP - General 03/08/20
[2024-10-15 20:11] VITALS: BP 166/92; PULSE 79; RESP 16; TEMP 37.1; O2SAT 99
--- NOTE | 2024-10-15 20:21 | PC.NURSE ---
this RN assumed care of thsi pt approximately @2000, pt resting in strecther, A+Ox3, upon assessment toes of left leg cool to touch, pedal pulse assessed w/ doppler and marked
[2024-10-15 22:06] VITALS: BP 129/89; PULSE 86; RESP 18; TEMP 36.9; O2SAT 95
[2024-10-15 23:27] VITALS: BP 129/89; PULSE 86; RESP 18; TEMP 36.9; O2SAT 95
== END 2024-10-16 00:10 | disposition home or self-care (01) ==
PROVIDERS: Emergency Provider Emergency Medicine; PCP Internal Medicine
DX: S80.02XA Contusion of left knee, initial encounter (principal); R60.0 Localized edema; M25.562 Pain in left knee; E11.9 Type 2 diabetes mellitus without complications; X58.XXXA Exposure to other specified factors, initial encounter; Y93.9 Activity, unspecified; Y92.9 Unspecified place or not applicable; Y99.8 Other external cause status; Z86.718 Personal history of other venous thrombosis and embolism; Z79.4 Long term (current) use of insulin; Z79.899 Other long term (current) drug therapy; Z79.01 Long term (current) use of anticoagulants
CPT/HCPCS: 73564; 93971; 99284

== ENCOUNTER → 2024-10-15 15:36 | Outpatient (BNV) | payer OTHER, SELFPAY | PROVIDERS: PCP Internal Medicine; Visit Provider Radiology Diagnostic Radiology | DX: I82.532 Chronic embolism and thrombosis of left popliteal vein (principal); M25.562 Pain in left knee | CPT/HCPCS: 73564; 93971 ==

== ENCOUNTER 2024-12-18 10:51 | Outpatient (AMB) | payer OTHER, SELFPAY ==
[2024-12-18 11:11] VITALS: BP 126/80; PULSE 83; O2SAT 97; BMI 34.3
--- NOTE | 2024-12-18 11:11 | A.OFFPC_ITS ---
Vital Signs 12/18/24 11:11 Height 5 ft 9 in Weight 232 lb 5.875 oz BMI 34.3 BP 126/80 Blood Pressure Location Lt brachial Position Sitting Pulse 83 Pulse Source Pulse Oximeter Pulse Oximetry (%) 97 Oxygen Delivery Method Room Air Intake Visit Reasons: DM RE Retouching Operator Required: Yes Accompanied by: Self / Same As Patient Allergies Penicillins (PENICILLINS) Allergy (Intermediate, Verified 12/18/24 11:12) RASH naproxen (From Naprosyn) Adverse Reaction (Unknown, Verified 12/18/24 11:12) Unknown NSAIDS (Non-Steroidal Anti-Inflamma Adverse Reaction (Unknown, Verified 12/18/24 11:12) Unknown lisinopril Adverse Reaction (Intermediate, Uncoded 12/18/24 11:12) increasing creatinine Tobacco use date assessed: 12/18/24 Dental Screening Dental Screen Date: 12/18/24 Did you have a dental visit in the last 12 months?: No Did you have a dental problem in the last 6 months where you did not have access to dental care?: No Was dental information given to patient?: Patient has dentist [facility] Medical History Ear ache Wound cellulitis Obstructive sleep apnea Type 2 diabetes mellitus with hyperglycemia Phimosis Vitamin D deficiency Hypothyroidism Retinitis pigmentosa Long-term insulin use in type 2 diabetes Essential hypertension Nontoxic multinodular goiter Dyslipidemia, goal LDL below 100 Chronic kidney disease, stage 3 Diabetic polyneuropathy associated with type 2 diabetes mellitus Obesity (BMI 30-39.9) Hypoglycemia unawareness associated with type 2 diabetes mellitus Diverticulosis CKD (chronic kidney disease) Bruneian speaking patient Bladder cancer Arthritis Thyroid disease Legally blind DVT (deep venous thrombosis) Sleep apnea HTN (hypertension) Surgical History Deficient knowledge of leg surgery History of prostatectomy Hx of eye surgery Hx of knee surgery H/O colonoscopy Hx of cystoscopy Hx of circumcision S/P insertion of IVC (inferior vena caval) filter History of biopsy of bladder Family History Father Medical history unknown Mother Breast cancer Diabetes Hypertension CVD (cardiovascular disease) Brother CVD (cardiovascular disease) Social History Household Members: None Housing: Apartment Are you a primary care professional to a significant other at home: No Do you presently have visiting nurse or other home services: No Alcohol intake: never Patient Tobacco Use Status: Never used Tobacco Tobacco use type: Cigarette Years Smoked: 30 years old e-Cigarette/Vaping Use: Never Used Second Hand Smoke Exposure: No service: No Current occupational status: disabled Cognitive needs: No Hearing needs: No Vision needs: Yes Questionnaire Thrive Questionnaire Date Thrive assessed: 08/08/24 I am a: Patient What is your living situation today?: I have a steady place to live Within the past 12 months, did the food you bought not last and you didn't have the money to get more?: Never true Within the past 12 months, did you worry whether your food would run out before you got money to buy more?: Never true Do you have trouble paying for medicines?: No Do you have trouble getting transportation to medical appointments?: No Do you have trouble paying your heating and electricity bill?: No Do you have trouble taking care of your child, family member or friend?: No Do you have trouble with day-to-day activities such as bathing, preparing meals, shopping, managing finances, etc.?: No Are you currently unemployed and looking for a job?: I choose not to answer this question Are you interested in more education?: No Please select the resources that you would like help with: None Currently or been in a relationship where the following occur: No concerns reported THRIVE Score: 0 AUDIT C Alcohol Use Questionnaire (AUDIT-C) 1. How often do you have a drink containing alcohol?: Never 3. How often do you have six or more drinks on one occasion?: Never Total Score: 0 MARNIE-7 AMB Questionnaire MARNIE-7 Date MARNIE - 7 assessed: 04/25/24 Source: Developed by Drs. Nathen Menchaca, Vida Nye, Pedrito Dao and colleagues, with an educational enzo from [employer]. Physical exam (Primary Care) Vital Signs: Last Vital Signs Pulse 83 12/18/24 11:11 BP 126/80 12/18/24 11:11 Pulse Ox 97 12/18/24 11:11 Oxygen Delivery Method Room Air 12/18/24 11:11 BMI result Body Mass Index 34.3 Tobacco/Smoking Status: Tobacco use Status Tobacco use date assessed 12/18/24 12/18/24 11:14 Patient Tobacco Use Status Never used Tobacco 12/18/24 11:14 Tobacco use type Cigarette 12/18/24 11:14 e-Cigarette/Vaping Use Never Used 12/18/24 11:14 Thrive Assessment: Date of Thrive Assessment Date Thrive assessed 08/08/24 12/18/24 11:14 Currently or been in a relationship where the following occur: No concerns reported Const General: alert; No acute distress Eyes Conjunctivae: conjunctivae normal Resp Auscultation: clear to auscultation bilaterally Cardio Rate: regular rate Rhythm: regular rhythm GI Inspection: Yes normal to inspection Extrem General: Yes normal to inspection and No edema Results AMB Hemoglobin A1c AMB Hemoglobin A1c 7.0 % Last Edit by JIM Tyler on 12/18/24 13 :20 Results Reviewed Results Reviewed: Laboratory Last Values Hgb A1c (Clinic) 7.0 % (4.0-6.0) H 12/18/24 11:11 Coding Level of Care Code Est Pt Level 4 (63537) Complex EM visit Add On G2211 Diagnoses Hypoglycemia unawareness associated with type 2 diabetes mellitus E11.649 DVT (deep venous thrombosis) I82.409 Essential hypertension I10 Dyslipidemia, goal LDL below 100 E78.5 Generalized anxiety disorder F41.1 Obesity (BMI 30-39.9) E66.9 Stage 3b chronic kidney disease N18.32 Chronic kidney disease stage 3 subtype: stage 3b (GFR 30-44) Osteoarthritis of left knee M17.12 Assessment & Plan Assessment & Plan (1) Hypoglycemia unawareness associated with type 2 diabetes mellitus: Code(s): E11.649 - Type 2 diabetes mellitus with hypoglycemia without coma Category: Medical Plan: Decrease the amount of carbohydrate intake, pasta, bread, rice and potatoes are all sugar and that is aside from all the sweet stuff, remember that fruits are good but they are Sweet also. Hemoglobin A1c goal of less than 7.0. Patient is at goal on Trulicity at 3 mg once a week Jardiance 25 mg once a day Lantus at 42 units at bedtime (2) DVT (deep venous thrombosis): Comment: h/o multiple, IVC filter and on xarelto-to stop 01/03/20 per pt per Code(s): I82.409 - Acute embolism and thrombosis of unspecified deep veins of unspecified lower extremity Category: Medical Plan: Continuing to be on anticoagulation with Xarelto (3) Essential hypertension: Code(s): I10 - Essential (primary) hypertension Category: Medical Plan: Continue with blood pressure medication. Decrease salt intake and exercise on lisinopril 10 mg once a day (4) Dyslipidemia, goal LDL below 100: Code(s): E78.5 - Hyperlipidemia, unspecified Category: Medical Plan: Avoid fried foods, chicken skin, eggs, butter margarine, pastries and meat. Be it pork or beef they have a lot of cholesterol atorvastatin 20 mg once a day will need blood work (5) Generalized anxiety disorder: Comment: Declined counseling July 2021 Code(s): F41.1 - Generalized anxiety disorder Category: Medical Plan: Continue with present therapy (6) Obesity (BMI 30-39.9): Code(s): E66.9 - Obesity, unspecified Category: Medical Plan: Diet and exercise (7) Chronic kidney disease, stage 3: Comment: Diabetic hypertensive disease Code(s): N18.30 - Chronic kidney disease, stage 3 unspecified Category: Medical Qualifiers: Chronic kidney disease stage 3 subtype: stage 3b (GFR 30-44) Qualified Code(s): N18.32 - Chronic kidney disease, stage 3b Plan: Continue with present medication being followed up by Nephrology (8) Osteoarthritis of left knee: Code(s): M17.12 - Unilateral primary osteoarthritis, left knee Category: Medical Plan History of Present Illness The patient is a 64-year-old male presenting with a follow-up for multiple chronic conditions. He has a history of diabetes mellitus, which is currently managed with Trulicity, Jardiance, and Lantus, maintaining a stable hemoglobin A1c of 6.5%. The patient also has chronic kidney disease with stable renal function, currently managed with an CECILE inhibitor, and regular monitoring is planned. The patient has a history of hypercholesterolemia, with the last LDL recorded at 68 mg/dL in January 2024, and is currently on atorvastatin therapy. Hypertension is managed with lisinopril, and blood pressure monitoring is ongoing. He is legally blind and has a history of deep vein thrombosis, currently on anticoagulation therapy with Xarelto. The patient also has peripheral vascular disease and hypothyroidism, with ongoing management for these conditions. The patient has a history of bladder cancer treated in 2017, benign prostatic hyperplasia, and generalized anxiety disorder. He also has fatty liver disease with mildly elevated liver function tests. Recently, the patient was in the emergency room for left leg pain, diagnosed with deep vein thrombosis in the popliteal vein, and x-rays showed no bony abnormalities. He has arthritis, for which he uses Tylenol and has been advised to try Voltaren gel for pain management. Health Maintenance - Flu vaccination received recently - Shingles vaccination completed - Regular blood work planned for February Social History - Exercise: Encouraged to engage in regular physical activity, such as bicycling, to improve circulation and manage weight. Review of Systems - Cardiovascular: Reports history of deep vein thrombosis. Denies chest pain. - Musculoskeletal: Reports arthritis. Denies recent trauma. Physical Exam Results - Labs: Hemoglobin A1c stable at 6.5% - Labs: Renal function stable with creatinine at 1.36 mg/dL - Labs: LDL cholesterol at 68 mg/dL as of January 2024 - Imaging: X-rays of left leg showed no bony abnormalities Plan Patient was informed and verbally consented to the use of an ambient scribe for clinic note documentation during this visit. 1. Diabetes Mellitus The patient's diabetes mellitus is managed with Trulicity, Jardiance, and Lantus, aiming for a hemoglobin A1c goal of less than 7.0%. Current A1c is stable at 6.5%, and no changes to the medication regimen are planned at this time. 2. Chronic Kidney Disease Chronic kidney disease is being managed with an CECILE inhibitor, and renal function remains stable with creatinine at 1.36 mg/dL. Regular monitoring of renal function is planned, with no current changes to the treatment regimen. 3. Hypercholesterolemia The patient is on atorvastatin 20 mg daily for hypercholesterolemia, with the last LDL recorded at 68 mg/dL in January 2024. Blood work is planned to monitor cholesterol levels, and current therapy will continue. 4. Hypertension Hypertension is managed with lisinopril 10 mg daily, and blood pressure monitoring is ongoing. 5. Deep Vein Thrombosis The patient is on anticoagulation therapy with Xarelto for deep vein thrombosis in the popliteal vein. The patient is advised to maintain mobility to aid circulation and prevent further clotting. 6. Arthritis The patient uses Tylenol for arthritis pain and has been advised to try Voltaren gel as an alternative. Discussion Notes During the visit, we discussed the management of the patient's diabetes, chronic kidney disease, hypercholesterolemia, hypertension, and deep vein thrombosis. The importance of maintaining mobility to prevent further clotting was emphas ized, and the patient was advised to continue current medications and lifestyle modifications. We also reviewed the need for regular blood work to monitor cholesterol and renal function, and the patient was informed about the use of Voltaren gel for arthritis pain. Patient Instructions - Continue taking all prescribed medications as directed. - Engage in regular physical activity to improve circulation and manage weight. - Schedule and complete blood work in February to monitor cholesterol and renal function. - Use Voltaren gel as needed for arthritis pain. - Maintain a healthy diet and stay hydrated. Orders: Orders Comprehensive Met. Panel 3 Months E11.65 - Type 2 diabetes mellitus with hyperglycemia, Z79.4 - nursing home (current) use of insulin Creatinine Urine 3 Months E11.65 - Type 2 diabetes mellitus with hyperglycemia, Z79.4 - nursing home (current) use of insulin Microalbumin, Random (w Creat) 3 Months E11.65 - Type 2 diabetes mellitus with hyperglycemia, Z79.4 - nursing home (current) use of insulin Lipid Panel 3 Months E11.65 - Type 2 diabetes mellitus with hyperglycemia, E78.00 - Pure hypercholesterolemia, unspecified, Z79.4 - nursing home (current) use of insulin Thyroid Stimulating Hormone 3 Months E11.65 - Type 2 diabetes mellitus with hyperglycemia, Z79.4 - termite treater helper (current) use of insulin Prostate Specific Antigen Scr 3 Months E11.65 - Type 2 diabetes mellitus with hyperglycemia, Z79.4 - nursing home (current) use of insulin Vitamin B12 and Folate 3 Months E11.65 - Type 2 diabetes mellitus with hyp erglycemia, Z79.4 - termite treater helper (current) use of insulin AMB Hemoglobin A1c Today Z13.9 - Encounter for screening, unspecified Complete Blood Count Auto Diff 3 Months E11.65 - Type 2 diabetes mellitus with hyperglycemia, Z79.4 - nursing home (current) use of insulin Free T4 (Free Thyroxine) 3 Months E11.65 - Type 2 diabetes mellitus with hyperglycemia, Z79.4 - nursing home (current) use of insulin UA w Microscopic 3 Months E11.65 - Type 2 diabetes mellitus with hyperglycemia, Z79.4 - nursing home (current) use of insulin Hemoglobin A1c 3 Months E11.65 - Type 2 diabetes mellitus with hyperglycemia, Z79.4 - termite treater helper (current) use of insulin Medications: New diclofenac sodium 1% (Arthritis Pain (diclofenac)) apply to single knee, ankle, foot; for foot includes sole/toes/top of foot 4 grams topical QID 100 grams 0RF M17.12 - Unilateral primary osteoarthritis, left knee
--- OUTSIDE RECORDS SUMMARY | 2024-12-18 13:21 | XMS_ITS | Encounter Summary ---
Author Organization [employer] Address [address] [place] [address] Care Team Providers Care Veterinary Laboratory Technician Name Role Phone Provider, Not In System Primary Care Provider Un available Elham Cerna OD Unavailable Jacob Holm Unavailable Unavail able Encounter Details Date Type Department Care Team (Late st Contact Info) Description 04/05/2023 Orders Only Laird [facility] OPTOMETRY [address] [place] [address] Alexandra Hamilton RMA Social History Tobacco Use [...] on filedocumented in this encounter Care Teams Veterinary Laboratory Technician Relationship Specialty Start Date End Date Provider, Not In System PCP - General Family Medicine 02/20/23 Elham Cerna OD [address] [place] [id number] Optometry 02/20/23 Jacob Holm Community Health Worker 03/06/23 documented as of this encounter
--- OUTSIDE RECORDS SUMMARY | 2024-12-18 13:21 | XMS_ITS | Encounter Summary ---
Author Organization [employer] Address [address] [place] [address] Care Team Providers Care Traffic Lieutenant Name Role Phone Provider, Not In System Primary Care Provider Un available Elham Cerna OD Unavailable Jacob Holm Unavailable Unavail able Reason for Visit * Reason Comments Med Change Request Encounter Details Date Type Department Care Team (Late st Contact Info) Description 11/04/2024 Chuy Luna [facility] OPTOMETRY [address] [place] [address] Maximus Ferrer, OD [address] [place] [address] Allergic conjunctivitis of both eyes Social History Tobacco Use Types Packs/Day Years [...] documented as of this encounter Visit Diagnoses Diagnosis Allergic conjunctivitis of both eyes Other chronic allergic conjunctivitis documented in this encounter Care Teams Traffic Lieutenant Relationship Specialty Start Date End Date Provider, Not In System PCP - General Family Medicine 02/20/23 Elham Cerna OD [address] [place] [id number] Optometry 02/20/23 Jacob Holm Community Health Worker 03/06/23 documented as of this encounter
--- OUTSIDE RECORDS SUMMARY | 2024-12-18 13:21 | XMS_ITS | Clinical Summary ---
Author Organization [facility] Address [address] [place] [address] Phone Care Team Providers Care Warehouse Puller Name Role Phone Sujata Diehl MD Primary Care Provider [phone] Allergies Active Allergy Reactions Criticality Noted Date [...] day. I think he will benefit from [employer] G7 CGM. This he can use on Sunday through Sunday so of course all week but he is only getting monitored by the nursing home director during the weekdays and on weekends he only has 3 hours of monitoring so he uses his talking meter but at times he does not use it at all even though he has a talking meter. The CGM may not be so helpful for him during the weekend but he does have a home worker that can review this for him. I [...] patient's age to complete this topic Insurance [facility] Medicaid [facility] Medicaid Care Teams Warehouse Puller Relationship Specialty Start Date End Date Sujata Diehl MD [facility] [place] [address] [place] PCP - General 03/08/20
--- OUTSIDE RECORDS SUMMARY | 2024-12-18 13:21 | XMS_ITS | Clinical Summary ---
Author Organization [facility] Address [address] [facility] [address] [place] [address] Phone Care Team Providers Care Chemical Production Machine Operator Name Role Phone Sujata Diehl MD Primary Care Provider [phone] Allergies Active Allergy Reactions Criticality Noted Date [...] mg by mouth as directed. Active vitamins A,C,U-vqbc-unqrh r (PRESERVISION AREDS) 14,320-226-200 sxrz-zr-eqgn Cap Take 1 capsule by mouth 2 (two) times a day with meals. Active FREESTYLE SHIRIN 2 SENSOR kitIndications:T ype 2 diabetes mellitus with stage 3a chronic kidney disease, without long-term current use of insulin 1 each by Miscellaneous route as needed for other (free text field). Use as instructed 2 kit 11 02/24/20 Active Additional Information Patient not taking.Reported on 10/16/2024 FREESTYLE SHIRIN 2 READERIndication s:Type 2 diabetes mellitus with stage 3a chronic kidney disease, without long-term current use of insulin 1 each by Miscellaneous route as needed for other (free text field). Use as instructed 1 each 02/24/20 Active Additional Information Patient not taking.Reported on 10/16/2024 FREESTYLE LITE Strp strips Inject 1 each under the skin 4 (four) times a day before meals and nightly. 400 strip 3 06/28/19 Active lancets 28 gauge Misc 1 each by Miscellaneous route 4 (four) times a day before meals and nightly. 400 each 3 06/28/19 25 Active pioglitazone (ACTOS) 15 MG tabletIndication s:Type 2 diabetes mellitus with stage 3a chronic kidney disease, without long-term current use of insulin Take 1 tablet (15 mg total) by mouth daily. 90 tablet 1 10/17/19 Active Additional Information Patient not taking.Reported on 10/31/2024 JARDIANCE 25 mg tabletIndication s:Type 2 diabetes mellitus with stage 3a chronic kidney disease, without long-term current use of insulin Take 1 tablet (25 mg total) by mouth daily. 90 tablet 1 10/17/19 25 Active dulaglutide (TRULICITY) 4.5 mg/0.5 mL subcutaneous injectionIndicat ions:Type 2 diabetes mellitus with stage 3a chronic kidney disease, without long-term current use of insulin Inject 0.5 mL (4.5 mg total) under the skin every 7 days. 6 mL 1 10/17/19 25 Active insulin lispro (ADMELOG, HUMALOG) 100 [...] greater than 400 =22 units 30 mL 12/02/19 25 Active insulin glargine (LANTUS SOLOSTAR U-100 INSULIN) 100 unit/mL (3 mL) InPn injection penIndications:T ype 2 diabetes mellitus with stage 3a chronic kidney disease, without long-term current use of insulin Inject 42 Units under the skin daily. 45 mL 12/02/19 25 Active ULTRA-FINE PEN NEEDLE 31 gauge x 16 Ndle USE SUBCUTANEOUSLY 5X DAY FOR TYPE 2 DIABETES 09/26/19 Active insulin lispro (ADMELOG, HUMALOG) 100 unit/mL [...] than 400 =22 units 30 mL 1 10/17/19 25 025 Discontin ued(Reord er) LANTUS SOLOSTAR U-100 INSULIN 100 unit/mL (3 mL) InPn injection penIndications:T ype 2 diabetes mellitus with stage 3a chronic kidney disease, without long-term current use of insulin INJECT 42 UNITS UNDER THE SKIN DAILY. 45 mL 1 11/11/19 25 025 Discontin ued(Reord er) Active Problems Problem Noted Date Diagnosed Date [...] read scale. He also does not read [place]. It would benefit him to have more support with staff during the weekend. He is not administering insulin during the weekend because he is alone. He also does not monitor glucose levels during the weekend. So the CGM will be helpful. Hyperlipidemia LDL goal <100 11/24/2022 Assessment & Plan (10/16/2024 10:51 AM EDT): Controlled. LDL 38 mg/dL he should continue atorvastatin no changes required. Assessment & Plan (06/27/2024 9:51 AM EDT): [...] use of insulin 08/11/2022 Assessment & Plan (10/16/2024 10:50 AM EDT): Fair control. Hemoglobin A1c 7.2% based on the meter his glucose are highly variable there is no pattern. This patient's diabetes is actually difficult to manage and considering he actually has good control. The reason is difficult to manage this because her insurance has not given him a continuous glucose monitor they refused to do so. They have been approved Mounjaro. But he informs me that starting November 03 he will have to switch from Trulicity to Mounjaro I do know if that is true. In any case he is on multiple daily insulin administration. This is actually difficult because he cannot see but he has INSTRUMENT MECHANICS SUPERVISOR that help him with insulin administration based on glucose levels. This gets complicated sometimes because sometimes he may have to eat before they give him the insulin administration and if cost is difficult to follow correction scale of the patient has already eaten. In any case that doing the best they can. He cannot administer insulin himself because he cannot see he cannot measured her insulin. At this point what I will attempt to do is give him pioglitazone. I have not wanted to give him pioglitazone in the past because he has swelling of the left leg due to vascular insufficiency. He does not have heart failure as far as I can tell. So he should be okay with pioglitazone. He will continue Jardiance. However I told him if his fasting glucose are dropping in the morning we may have to decrease the Lantus. We may also have to adjust his Humalog correction scale. I will give him a follow-up appointment in 3 months. Assessment & Plan (06/27/2024 9:50 AM EDT): [...] Today I sent a message to the diagnostic medical sonographer requesting cryopreservation for the Dexcom G7 which [...] is only getting monitored by the home stereo equipment installer during the weekdays and on weekends he only has 3 hours of monitoring so he uses his talking meter but at times he does not use it at all even though he has a talking meter. The CGM may not be so helpful for him during the weekend but he does have a housekeeper home that can review this for him. [...] Encounters Date Type Department Care Team Description 12/04/2024 Telephone [facility] [address] [place] [address] Woo Merrill, DO Medication Refill 12/01/2024 Telephone [facility] [address] [place] [address] Barbie Keene MA 11/10/2024 Refill [facility] [address] [place] [address] Woo Merrill, DO Medication Refill (MOUNJARO) 11/10/2024 Refill [facility] [address] [place] [address] Woo Merrill, DO Medication Refill 10/17/2024 Telephone [facility] [address] [place] [address] Woo Merrill DO Medication Question (Pioglitazone warning) 10/16/2024 10:30 AM EDT Office Visit [facility] [address] [place] [address] Woo Merrill DO Type 2 diabetes mellitus with stage 3a chronic kidney disease, without long-term current use of insulin (Primary Dx); Hyperlipidemia LDL goal <100 10/10/2024 Telephone [facility] [address] [place] [address] Woo Merrill DO Medication Problem 09/26/2024 8:13 AM EDT - 09/26/2024 11:59 PM EDT Hospital Encounter [facility] [address] [place] [address] Woo Merrill DO Discharge Disposition: Home or Self Care 09/26/2024 Telephone [facility] [address] [place] [address] Woo Merrill DO from Last 3 Months Family History Medical [...] Sign Reading Time Taken Comments Blood Pressure 122/78 10/16/2024 10:18 AM EDT Pulse 76 10/16/2024 10:18 AM EDT Temperature - - Respiratory Rate 16 08/11/2022 10:15 AM EDT Oxygen Saturation 98% 12/28/2023 9:38 AM EDT Inhaled Oxygen Concentration - - Weight 107.5 kg (237 lb) 10/16/2024 10:18 AM EDT Height 172.7 cm (5' 7.99 ) 10/16/2024 10:18 AM E DT Body Mass Index 36.05 10/16/2024 10:18 AM EDT Plan of Treatment Upcoming Encounters Date Type Department Care Team (Late st Contact Info) Description 02/11/2025 9:30 AM EST Office Visit [facility] [address] [place] [address] Woo Merrill DO [address] [place] [address] Health Maintenance Due Date Last Done Comments Adult Td,Tdap Booster 1962 TSH LEVEL 1962 DEPRESSION SCREENING 1974 HEPATITIS C SCREENING 1980 HIV ONE-TIME SCREENING (18-65 YEARS) 1980 COLOGUARD 07/15/2007 COLONOSCOPY 07/15/2007 COLORECTAL CANCER SCREENING 07/15/2007 FIT TEST 07/15/2007 FOBT 07/15/2007 SIGMOIDOSCOPY 07/15/2007 VIRTUAL COLONOSCOPY 07/15/2007 RSV VACCINE (1 - Risk 50-74 years 1-dose series) 2012 ZOSTER VACCINES (1 of 2) 2012 PNEUMOCOCCAL VACCINES (50+ years) (2 of 2 - PCV) 01/12/2018 01/12/2017, 04/12/2016 INFLUENZA VACCINE (#1) 2024 , 12/19/2019, 12/16/2018, Additional history exists COVID-19 VACCINE ( season) 2024 03/23/2021, 06/04/2020, 05/14/2020 CREATININE LEVEL 12/16/2024 12/17/2023, 11/21/2022 HEMOGLOBIN A1C 03/29/2025 09/26/2024, 04/2 09/2024, 12/17/2023, Additional history exists BLOOD PRESSURE 04/18/2025 10/16/2024 DIABETIC EYE EXAM 07/01/2025 07/01/2024, , 05/04/2020, Additional history exists SMOKING STATUS SCREENING (Once After 26 Yrs) [...] Date/Time Associated Diagnosis Comments HEMOGLOBIN A1C Routine 09/26/2024 8:21 AM EDT Type 2 diabetes mellitus with stage 3a chronic kidney disease, without long-term current use of insulin COMPREHENSIVE METABOLIC PANEL Routine 12/17/2023 8:56 AM EDT Type 2 diabetes mellitus with stage 3a chronic kidney disease, without long-term current use of insulin from Last 3 Months or Most Recently Relevant to Health Maintenance Results * (ABNORMAL) Hemoglobin A1c (09/26/2024 8:21 AM EDT) HEMOGLOBIN A1C 7.2(H) 4.3 - 5.8 % [facility] Blood 09/26/2024 8:21 AM EDT 09/26/2024 8:29 AM EDT Woo Merrill DO LAB BLOOD ORDERABLES Final Resul t [address] [address] * (ABNORMAL) Comprehensive metabolic panel (12/17/2023 8:56 AM EDT) SODIUM 142 133 - 146 mmol/L [facility] POTASSIUM 4.1 3.3 - 5.1 mmol/L [facility] CHLORIDE 107 96 - 108 mmol/L [facility] CO2 24 21 - 35 mmol/L [facility] BUN 39(H) 6 - 19 mg/dL [facility] CREATININE 1.30 0.5 - 1.5 mg/dL [facility] GLUCOSE 145(H) 70 - 99 mg/dL [facility] ALBUMIN 4.1 3.9 - 4.8 g/dL [facility] TOTAL PROTEIN 7.2 6.5 - 8.0 g/dL [facility] CALCIUM 9.2 8.4 - 10.3 mg/dL [facility] ALKALINE PHOSPHATASE 58 39 - 117 U/L [facility] TOTAL BILIRUBIN 0.4 0.0 - 1.2 mg/dL [facility] AST 25 0 - 37 U/L [facility] ALT 32 0 - 40 U/L [facility] GLOBULIN 3.1 1 - 4.8 g/dL [facility] EGFR 63 >59 mL/min/1.7 3m2 [facility] Comment:Estimated glomerular filtration rate calculated using the CKD-EPI refit equation. ANION GAP 15 10 - 20 mmol/L [facility] Blood 12/17/2023 8:56 AM EDT 12/17/2023 9:19 AM EDT us Woo Merrill DO LAB BLOOD ORDERABLES Final Resul t [facility] [address] [place], [place] [id number] from Last 3 Months or Most Recently Relevant to Health Maintenance Insurance ACO [facility] [place] [address] [place] [address] [place] [address] [place] [address] ACO [place] [id number] Care Teams Chemical Production Machine Operator Relationship Specialty Start Date End Date Sujata Diehl MD [address] [place] [address] [address] [place] [phone] PCP - General Internal Medicine 10/04/18 Additional Source Comments The information contained in this document represents components of the legal health record. It is not the complete legal health record.[facility]
--- OUTSIDE RECORDS SUMMARY | 2024-12-18 13:21 | XMS_ITS | Encounter Summary ---
Author Organization [facility] Address [address] [facility] [address] [place] [address] Phone Care Team Providers Care Alarm Operator Name Role Phone Sujata Diehl MD Primary Care Provider [phone] Encounter Details Date Type Department Care Team (Late st Contact Info) Description 05/04/2020 Documentation DISHA Genetic Counseling [facility] [address] [address] Soledad Yusuf, [place] 243 [place] [address] [email or web address] Social History Tobacco Use Types Packs/Day Years Used Date Smoking Tobacco: Never Smokeless Tobacco: Never Sex and Gender Information Value Date Recorded Sex Assigned at Not on file Legal Sex Male 11:52 AM EDT Gender Identity Not on file Sexual Orientation Not on file documented as of this encounter Plan of Treatment Upcoming Encounters Date Type Department Care Team (Late st Contact Info) Description 02/11/2025 9:30 AM EST Office Visit [facility] [address] [place] [address] Woo Merrill DO 22 [place] [address] documented as of this encounter Visit Diagnoses Not on filedocumented in this encounter Care Teams Alarm Operator Relationship Specialty Start Date End Date Sujata Diehl MD [address] [place] [address] PCP - General Internal Medicine 10/04/18 documented as of this encounter Additional Source Comments The information contained in this document represents components of the legal health record. It is not the complete legal health record.[facility]
--- OUTSIDE RECORDS SUMMARY | 2024-12-18 13:21 | XMS_ITS | Clinical Summary ---
Author Organization [employer] Address [address] [facility] [address] 7[address] [place] [address] Care Team Providers Care Urgent Care Physician Assistant Name Role Phone Provider, Not In [...] MG tablet Take by mouth. Activ e olopatadine (Pataday) 0.2 % ophthalmic solutionIndication s:Allergic conjunctivitis of both eyes Administer 1 drop into both eyes Once per day. 2.5 mL 5 11/06/19 25 Active Active Problems Problem Noted Date Diagnosed [...] 06/30/2020 03/28/2023 Stage 3 chronic kidney disease (CMS/HCC) 011 03/28/2023 Encounters Date Type Department Care Team Description 11/04/2024 Chuy Luna [facility] [address] [place] [address] Maximus Ferrer, OD Allergic conjunctivitis of both eyes from Last 3 Months [...] series) 2022 COVID-19 Vaccine ( - season) 2024 Influenza Vaccine (#1) 2024 09/29/2015 Diabetes: Hemoglobin A1C 12/27/2024 025, 06/23/2024, 12/17/2023, Additional history exists Tobacco Screening 07/01/2025 07/01/2024 [...] patient's age to complete this topic Insurance APt [address] [place] [id number] [place], [place] [address]O [facility] STANDARD O [facility] STANDARD Care Teams Urgent Care Physician Assistant Relationship Specialty Start Date End Date Provider, Not In System PCP - General Family Medicine 02/20/23 Elham Cerna OD [address] [place] [address] Optometry 02/20/23 Jacob Holm Community Health Worker 03/06/23
== END 2024-12-18 11:52 | disposition home or self-care (01) ==
LOC: HO.HMCH 10:51
PROVIDERS: PCP Internal Medicine; Visit Provider Internal Medicine
DX: I12.9 Hypertensive chronic kidney disease with stage 1 through stage 4 chronic kidney disease, or unspecified chronic kidney disease (principal); E11.649 Type 2 diabetes mellitus with hypoglycemia without coma; I82.409 Acute embolism and thrombosis of unspecified deep veins of unspecified lower extremity; N18.32 Chronic kidney disease, stage 3b; E66.9 Obesity, unspecified; Z68.34 Body mass index [BMI] 34.0-34.9, adult; E78.5 Hyperlipidemia, unspecified; F41.1 Generalized anxiety disorder; M17.12 Unilateral primary osteoarthritis, left knee

== ENCOUNTER → 2024-12-18 10:51 | Outpatient (BNVA) | payer OTHER, SELFPAY | PROVIDERS: PCP Internal Medicine; Visit Provider Internal Medicine | DX: E11.649 Type 2 diabetes mellitus with hypoglycemia without coma (principal); I82.409 Acute embolism and thrombosis of unspecified deep veins of unspecified lower extremity; E78.5 Hyperlipidemia, unspecified; F41.1 Generalized anxiety disorder; E66.9 Obesity, unspecified; E11.22 Type 2 diabetes mellitus with diabetic chronic kidney disease; I12.9 Hypertensive chronic kidney disease with stage 1 through stage 4 chronic kidney disease, or unspecified chronic kidney disease; N18.32 Chronic kidney disease, stage 3b; M17.12 Unilateral primary osteoarthritis, left knee; E78.00 Pure hypercholesterolemia, unspecified; Z79.01 Long term (current) use of anticoagulants; Z68.34 Body mass index [BMI] 34.0-34.9, adult | CPT/HCPCS: 83036; 99212 ==

== ENCOUNTER 2025-01-26 10:15 | Outpatient (REF) | payer OTHER, SELFPAY ==
[2025-01-26 12:15] LABS: Anion Gap 14 (12-20); Blood Urea Nitrogen 56 mg/dL (9-16); Carbon Dioxide 25 mmol/L (22-29); Chloride 108 mmol/L (96-108); Estimated Glomerular Filt Rate 31; Potassium 4.5 mmol/L (3.3-5.1); Sodium 142 mmol/L (135-145)
--- OUTSIDE RECORDS SUMMARY | 2025-01-26 12:43 | XMS_ITS | Clinical Summary ---
Author Organization [facility] Address [address] [facility] [address] [place] [address] Phone Care Team Providers Care Beating Machine Operator Name Role Phone Sujata Diehl MD Primary Care Provider [phone] Allergies Active Allergy Reactions Criticality Noted Date [...] mg by mouth as directed. Active vitamins A,C,N-cjbm-tbjgf r (PRESERVISION AREDS) 14,320-226-200 xdys-vh-yhwa Cap Take 1 capsule by mouth 2 [...] nightly. 400 strip 3 06/28/19 25 Active lancets 28 gauge Misc [...] days. 6 mL 1 10/17/19 25 Active ULTRA-FINE PEN NEEDLE 31 gauge x 3/16 Ndle USE SUBCUTANEOUSLY 5X DAY FOR TYPE 2 DIABETES 09/26/19 25 Active insulin glargine (LANTUS SOLOSTAR U-100 INSULIN) 100 unit/mL (3 mL) InPn injection penIndications:T ype 2 diabetes mellitus with stage 3a chronic kidney disease, without long-term current use of insulin Inject 42 Units under the skin daily. 45 mL 01/08/20 25 Active insulin lispro (ADMELOG, HUMALOG) 100 [...] greater than 400 =22 units 30 mL 01/08/20 25 Active insulin lispro (ADMELOG, HUMALOG) 100 [...] 400 =22 units 30 mL 12/02/19 25 025 Discontin ued(Reord er) insulin glargine (LANTUS SOLOSTAR U-100 INSULIN) 100 unit/mL (3 mL) InPn injection penIndications:T ype 2 diabetes mellitus with stage 3a chronic kidney disease, without long-term current use of insulin Inject 42 Units under the skin daily. 45 mL 12/02/19 025 Discontin ued(Reord er) Active Problems Problem [...] read scale. He also does not read [place]. It would benefit him to have more [...] because he cannot see but he has IMPORT/EXPORT ANALYST that help him with insulin administration based [...] Today I sent a message to the medical assistant dermatology requesting cryopreservation for the Dexcom G7 which [...] is only getting monitored by the home comfort advisor during the weekdays and on weekends he [...] Encounters Date Type Department Care Team Description 01/07/2025 Refill [facility] [address] [place] [address] Woo Merrill, DO Medication Refill 12/04/2024 Telephone [facility] [address] [place] [address] Woo Merrill, DO Medication Refill 12/01/2024 Telephone [facility] [address] [place] [address] Barbie Keene MA 11/10/2024 Refill [facility] [address] [place] [address] Woo Merrill, DO Medication Refill (MOUNJARO) 11/10/2024 Refill [facility] [address] [place] [address] Woo Merrill DO Medication Refill from Last 3 Months Family History Medical [...] 9:30 AM EST Office Visit [facility] [address] Woo Merrill DO 22 [place] [address] [email or web address] Health Maintenance Due Date Last Done Comments [...] 12/19/2019, 12/16/2018, Additional history exists COVID-19 VACCINE (2024- season) 2024 03/23/2021, 06/04/2020, 05/14/2020 CREATININE LEVEL [...] current use of insulin COMPREHENSIVE METABOLIC PANEL (CMP) Routine 12/17/2023 8:56 AM EDT Type 2 diabetes mellitus with stage 3a chronic kidney disease, without long-term current use of insulin from Last 3 Months or Most Recently Relevant to Health Maintenance Results * (ABNORMAL) Hemoglobin A1c (09/26/2024 8:21 AM EDT) HEMOGLOBIN A1C 7.2(H) 4.3 - 5.8 % [facility] Blood 09/26/2024 8:21 AM EDT 09/26/2024 8:29 AM EDT us Woo Merrill DO LAB BLOOD BKR ORDERABLES Final R esult [address] [address] * (ABNORMAL) Comprehensive metabolic panel (12/17/2023 8:56 AM EDT) SODIUM 142 133 - 146 mmol/L [facility] POTASSIUM 4.1 3.3 - 5.1 mmol/L [facility] CHLORIDE 107 96 - 108 mmol/L [facility] CO2 24 21 - 35 mmol/L [facility] BUN 39(H) 6 - 19 mg/dL [facility] CREATININE 1.30 0.5 - 1.5 mg/dL [facility] GLUCOSE 145(H) 70 - 99 mg/dL [facility] ALBUMIN 4.1 3.9 - 4.8 g/dL [facility] TOTAL PROTEIN 7.2 6.5 - 8.0 g/dL [facility] CALCIUM 9.2 8.4 - 10.3 mg/dL [facility] ALKALINE PHOSPHATASE 58 39 - 117 U/L [facility] TOTAL BILIRUBIN 0.4 0.0 - 1.2 mg/dL [facility] AST 25 0 - 37 U/L [facility] ALT 32 0 - 40 U/L [facility] GLOBULIN 3.1 1 - 4.8 g/dL [facility] EGFR 63 >59 mL/min/1.7 3m2 [facility] Comment:Estimated glomerular filtration rate calculated using the CKD-EPI refit equation. ANION GAP 15 10 - 20 mmol/L [facility] Blood 12/17/2023 8:56 AM EDT 12/17/2023 9:19 AM EDT Woo Merrill DO LAB BLOOD BKR ORDERABLES Final R esult [facility] [address] [place] [address] from Last 3 Months or Most Recently Relevant to Health Maintenance Insurance [place]CO [place] [address] [place] [address] [place] [address] [place] [address] [place] [address] [place] [address] [place] [address] [place] [address] ACO [facility] ACO Care Teams Beating Machine Operator Relationship Specialty Start Date End Date Sujata Diehl MD [address] [place] [phone] PCP - General Internal Medicine 10/04/18 Additional Source Comments The information contained in this document represents components of the legal health record. It is not the complete legal health record.[facility]
--- OUTSIDE RECORDS SUMMARY | 2025-01-26 12:44 | XMS_ITS | Encounter Summary ---
Author Organization [facility] Address [address] [facility] [address] [place] [address] Phone Care Team Providers Care Professor Of Education Name Role Phone Sujata Diehl MD Primary Care Provider [phone] Encounter Details Date Type Department Care Team (Late st Contact Info) Description 05/04/2020 Documentation DISHA Genetic Counseling [facility] [address] [address] Soledad Yusuf, [place] 243 [place] [address] [email or web address] Social History Tobacco Use Types Packs/Day Years [...] AM EST Office Visit [facility] [address] [place] [address] Woo Merrill DO 22 [place] [address] documented as of this encounter Visit Diagnoses Not on filedocumented in this encounter Care Teams Professor Of Education Relationship Specialty Start Date End Date Sujata Diehl MD [address] [place] [address] PCP - General Internal Medicine 10/04/18 documented as of this encounter Additional Source Comments The information contained in this document represents components of the legal health record. It is not the complete legal health record.[facility]
--- OUTSIDE RECORDS SUMMARY | 2025-01-26 12:44 | XMS_ITS | Clinical Summary ---
Author Organization [employer] Address [address] [facility] [address] 7[address] [place] [address] Care Team Providers Care Roll Machine Operator Name Role Phone Provider, Not In System [...] Department Care Team Description 11/04/2024 Chuy Luna [facility] [address] [place] [address] Maximus Ferrer, OD Allergic conjunctivitis of both [...] Years (1 of 2 - PCV) 1981 RSV Patients and Patients Aged 60 years or older (1 - Risk 50-74 years 1-dose series) 2012 Zoster Vaccines (1 of 2) 2012 COVID-19 Vaccine (1 - season) 2024 Influenza Vaccine (#1) 2024 [...] age to complete this topic Insurance O [facility] STANDARD [facility] STAND[facility] [address] [place], [place] [id number] [facility] STANDARD Care Teams Roll Machine Operator Relationship Specialty Start Date End Date Provider, Not In System PCP - General Family Medicine 02/20/23 Elham Cerna OD [address] [place] [phone] Optometry 02/20/23 Jacob Holm Community Health Worker 03/06/23
--- OUTSIDE RECORDS SUMMARY | 2025-01-26 12:44 | XMS_ITS | Encounter Summary ---
Author Organization [email or web address] Address [address] [facility] [address] 7[address] [place] [address] Care Team Providers Care Employee Relations Manager Name Role Phone Provider, Not In System Primary Care Provider Un available Elham Cerna OD Unavailable Jacob Holm Unavailable Unavail able Reason for Visit * Reason Comments Med Change Request Encounter Details Date Type Department Care Team (Late st Contact Info) Description 11/04/2024 Chuy Luna [facility] [address] [place] [address] Maximus Ferrer, OD [address] [place] [address] Allergic conjunctivitis of both eyes Social History [...] conjunctivitis documented in this encounter Care Teams Employee Relations Manager Relationship Specialty Start Date End Date Provider, Not In System PCP - General Family Medicine 02/20/23 Elham Cerna OD [address] [place] [address] Optometry 02/20/23 Jacob Holm Community Health Worker 03/06/23 documented as of this encounter
--- OUTSIDE RECORDS SUMMARY | 2025-01-26 12:44 | XMS_ITS | Encounter Summary ---
Author Organization [employer] Address [address] [facility] [address] [place] [address] Care Team Providers Care Machine Mover Name Role Phone Provider, Not In System Primary Care Provider Un available Elham Cerna OD Unavailable Jacob Holm Unavailable Unavail able Encounter Details Date Type Department Care Team (Late st Contact Info) Description 04/05/2023 Orders Only [place] [facility] OPTOMETRY [address] [place] [address] Alexandra Hamilton RMA Social History Tobacco Use [...] on filedocumented in this encounter Care Teams Machine Mover Relationship Specialty Start Date End Date Provider, Not In System PCP - General Family Medicine 02/20/23 Elham Cerna OD [address] [place] [address] Optometry 02/20/23 Jacob Holm Community Health Worker 03/06/23 documented as of this encounter
== END 2025-01-26 10:16 | disposition home or self-care (01) ==
LOC: HO.LAB 10:15
PROVIDERS: PCP Internal Medicine; Visit Provider Internal Medicine Nephrology
DX: N18.32 Chronic kidney disease, stage 3b (principal)
CPT/HCPCS: 36415; 80051; 82565; 84520

== ENCOUNTER 2025-01-28 09:07 | Outpatient (AMB) | payer OTHER, SELFPAY ==
--- NOTE | 2025-01-28 09:37 | HO.NEPHOV_ITS ---
Vital Signs 01/28/25 09:39 Height 5 ft 9 in Weight 231 lb 4 oz BMI 34.1 BP 122/72 Blood Pressure Location Rt brachial Position Sitting Pulse 80 Pulse Source Pulse Oximeter Pulse Oximetry (%) 98 Oxygen Delivery Method Room Air Intake Visit Reasons: FU-Conf Implementation Coordinator Required: Yes Implementation Coordinator Language: Drapery Examiner Services: Implementation Coordinator Offered & Declined ([facility] skein spooler services refused ) Accompanied by: Other Relationship Allergies Penicillins (PENICILLINS) Allergy (Intermediate, Verified 01/28/25 09:39) RASH naproxen (From Naprosyn) Adverse Reaction (Unknown, Verified 01/28/25 09:39) Unknown NSAIDS (Non-Steroidal Anti-Inflamma Adverse Reaction (Unknown, Verified 01/28/25 09:39) Unknown lisinopril Adverse Reaction (Intermediate, Uncoded 12/18/24 11:12) increasing creatinine HPI Comments Details: Eriberto was seen in follow up of his CKD and hypertension. He had been on lisinopril as well as Jardiance. His blood sugars are better controlled. He was tolerating ACEI but recently his creatinine has gone up & his lisinopril has been put on hold. He does not have any urinary symptoms, nausea, vomiting, diarrhea, edema, chest pain, SOB, PND, orthopnea or orthostatic symptoms. He maintains good hydration and avoids NSAID's. He feels well and did not have any specific complaints at the time of this office visit. [facility] Medical History Ear ache Wound cellulitis Obstructive sleep apnea Type 2 diabetes mellitus with hyperglycemia Phimosis Vitamin D deficiency Hypothyroidism Retinitis pigmentosa Long-term insulin use in type 2 diabetes Essential hypertension Nontoxic multinodular goiter Dyslipidemia, goal LDL below 100 Chronic kidney disease, stage 3 Diabetic polyneuropathy associated with type 2 diabetes mellitus Obesity (BMI 30-39.9) Hypoglycemia unawareness associated with type 2 diabetes mellitus Diverticulosis CKD (chronic kidney disease) Maldivian speaking patient Bladder cancer Arthritis Thyroid disease Legally blind DVT (deep venous thrombosis) Sleep apnea HTN (hypertension) Surgical History Deficient knowledge of leg surgery History of prostatectomy Hx of eye surgery Hx of knee surgery H/O colonoscopy Hx of cystoscopy Hx of circumcision S/P insertion of IVC (inferior vena caval) filter History of biopsy of bladder Family History Father Medical history unknown Mother Breast cancer Diabetes Hypertension CVD (cardiovascular disease) Brother CVD (cardiovascular disease) Social History Household Members: None Housing: Apartment Are you a primary resident care aide to a significant other at home: No Do you presently have visiting nurse or other home services: No Alcohol intake: never Patient Tobacco Use Status: Never used Tobacco Tobacco use type: Cigarette Years Smoked: 30 years old e-Cigarette/Vaping Use: Never Used Second Hand Smoke Exposure: No service: No Current occupational status: disabled Cognitive needs: No Hearing needs: No Vision needs: Yes Review of Systems Const All systems reviewed & are unremarkable except as noted in HPI and below Physical Exam Vital Signs: Last Vital Signs Pulse 80 01/28/25 09:39 BP 122/72 01/28/25 09:39 Pulse Ox 98 01/28/25 09:39 Oxygen Delivery Method Room Air 01/28/25 09:39 BMI result Body Mass Index 34.1 Const General: comfortable and no acute distress Orientation/consciousness: patient oriented x3 HEENT Head: Yes normocephalic Mouth: Normal oral and palatal mucosa present Eyes EOM: EOMs intact bilaterally Neck Neck: Yes supple Resp Auscultation: clear to auscultation bilaterally Cardio Jugular venous distension: no JVD Rate: regular rate GI Palpation (GI): Soft to palpation Auscultation: normal bowel sounds General: Yes no CVA tenderness Back/Spine/Pelvis Back: no CVA tenderness Skin General skin exam: no rashes or lesions noted Neuro General: patient oriented x3 and moves all extremities Extrem General: Yes no pedal edema Results Reviewed Nephrology Results: Hgb, (14.0-18.0) 14.6 g/dl 08/04/24 WBC, (4.8-10.8) 6.4 X10*3/uL 08/04/24 Plt Count, (160-400) 203 X10*3/uL 08/04/24 Sodium, (135-145) 142 mmol/L 01/26/25 Potassium, (3.3-5.1) 4.5 mmol/L 01/26/25 Chloride, (96-108) 108 mmol/L 01/26/25 Carbon Dioxide, (22-29) 25 mmol/L 01/26/25 BUN, (9-16) 56 mg/dL H 01/26/25 Creatinine, (0.5-1.4) 2.16 mg/dL H 01/26/25 Calcium, (8.4-10.2) 9.9 mg/dL 08/04/24 Urine Creatinine 59.88 mg/dL 08/04/24 Protein/Creatinin Ratio TNP 08/04/24 Assessment & Plan Assessment & Plan (1) Essential hypertension: Code(s): I10 - Essential (primary) hypertension Category: Medical (2) Chronic kidney disease, stage 3: Comment: Diabetic hypertensive disease Code(s): N18.30 - Chronic kidney disease, stage 3 unspecified Category: Medical Qualifiers: Chronic kidney disease stage 3 subtype: stage 3b (GFR 30-44) Qualified Code(s): N18.32 - Chronic kidney disease, stage 3b (3) RODRIGUEZ (acute kidney injury): Code(s): N17.9 - Acute kidney failure, unspecified Category: Medical Plan Eriberto has 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 He has no p roteinuria. He has RODRIGUEZ likely due to tubular injury. His ACEI has been put on hold. He may need a renal USS if his renal function does not improve. ( H/O bladder ca & prostate issues). His BP is at goal. He can continue current dose of Jardiance. He maintains good hydration and avoids NSAID's. His volume status is optimal. I did not make any medication changes today. Follow up blood work ordered.Answered all questions Orders: Orders Blood Urea Nitrogen 3 Weeks N17.9 - Acute kidney failure, unspecified Electrolytes 3 Weeks N17.9 - Acute kidney failure, unspecified Creatinine 3 Weeks N17.9 - Acute kidney failure, unspecified Coding Level of Care Code Est Pt Level 4 (43575) Diagnoses Essential hypertension I10 Stage 3b chronic kidney disease N18.32 Chronic kidney disease stage 3 subtype: stage 3b (GFR 30-44) RODRIGUEZ (acute kidney injury) N17.9
[2025-01-28 09:39] VITALS: BP 122/72; PULSE 80; O2SAT 98; BMI 34.1
--- OUTSIDE RECORDS SUMMARY | 2025-01-28 09:48 | XMS_ITS | Encounter Summary ---
Author Organization [facility] Address [address] [place] [address] Phone Care Team Providers Care Grey Tender Name Role Phone Sujata Diehl MD Primary Care Provider [phone] Encounter Details Date Type Department Care Team (Late st Contact Info) Description 05/04/2020 Documentation [facility] [address] [address] [place]edad Yusuf, [place] 243 [place] [address] [email or web address] Social History Tobacco Use Types Packs/Day Years [...] AM EST Office Visit [facility] [address] [place] [address] Woo Merrill DO [address] [place] [address] documented as of this encounter Visit Diagnoses Not on filedocumented in this encounter Care Teams Grey Tender Relationship Specialty Start Date End Date Sujata Diehl MD [address] [place] [address] PCP - General Internal Medicine 10/04/18 documented as of this encounter Additional Source Comments The information contained in this document represents components of the legal health record. It is not the complete legal health record.[facility]
--- OUTSIDE RECORDS SUMMARY | 2025-01-28 09:48 | XMS_ITS | Clinical Summary ---
Author Organization [employer] Address [address] [facility] [address] [place] [address] Care Team Providers Care Brick Molder Hand Name Role Phone Provider, Not In System [...] Department Care Team Description 11/04/2024 Chuy Luna [facility] OPTOMETRY [address] [place] [address] Maximus Ferrer, OD Allergic conjunctivitis of both [...] age to complete this topic Insurance [facility] [address] [place], [place] [id number] Care Teams Brick Molder Hand Relationship Specialty Start Date End Date Provider, Not In System PCP - General Family Medicine 02/20/23 Elham Cerna OD [address] [place] [address] Optometry 02/20/23 Jacob Holm Community Health Worker 03/06/23
--- OUTSIDE RECORDS SUMMARY | 2025-01-28 09:48 | XMS_ITS | Clinical Summary ---
Author Organization [facility] Address [address] [place] [address] Phone Care Team Providers Care Fire Control Technician Name Role Phone Sujata Diehl MD Primary Care Provider [phone] Allergies Active Allergy Reactions Criticality Noted Date [...] day. I think he will benefit from [employer] G7 CGM. This he can use on Sunday through Sunday so of course all week but he is only getting monitored by the home office claims examiner during the weekdays and on weekends he only has 3 hours of monitoring so he uses his talking meter but at times he does not use it at all even though he has a talking meter. The CGM may not be so helpful for him during the weekend but he does have a grades 1 thru 6 home teacher that can review this for him. [...] patient's age to complete this topic Insurance [facility] Medicaid [facility] Medicaid Care Teams Fire Control Technician Relationship Specialty Start Date End Date Sujata Diehl MD [facility] [place] [address] [place] PCP - General 03/08/20
--- OUTSIDE RECORDS SUMMARY | 2025-01-28 09:48 | XMS_ITS | Clinical Summary ---
Author Organization [facility] Address [address] [place] [phone] Phone Care Team Providers Care Assurance Manager Name Role Phone Sujata Diehl MD Primary Care Provider [phone] Allergies Active Allergy Reactions Criticality Noted Date [...] mg by mouth as directed. Active vitamins A,C,R-dtjg-ieaki r (PRESERVISION AREDS) 14,320-226-200 ehjg-un-yudi Cap Take 1 capsule by mouth 2 [...] because he cannot see but he has HELPDESK TECHNICIAN that help him with insulin administration based [...] I sent a message to the medical transcription supervisor requesting cryopreservation for the Dexcom G7 which [...] he is only getting monitored by the assisted living home director during the weekdays and on weekends he only has 3 hours of monitoring so he uses his talking meter but at times he does not use it at all even though he has a talking meter. The CGM may not be so helpful for him during the weekend but he does have a home service technician that can review this for him. I [...] Team Description 01/07/2025 Refill [facility] [address] [place] [address] Woo Merrill, DO Medication Refill 12/04/2024 Telephone [facility] [address] [place] [address] Woo Merrill, DO Medication Refill 12/01/2024 Telephone [facility] [address] [place] [address] Barbie Keene MA 11/10/2024 Refill [facility] [address] [place] [address] Woo Merrill, DO Medication Refill (MOUNJARO) 11/10/2024 Refill [facility] [address] [place] [address] Woo Merrill DO Medication Refill from Last [...] 9:30 AM EST Office Visit [facility] [place] [address] Woo Merrill DO [address] [place] [address] Health Maintenance Due Date Last Done Comments [...] HEMOGLOBIN A1C 7.2(H) 4.3 - 5.8 % [facility] Blood 09/26/2024 8:21 AM EDT 09/26/2024 8:29 AM EDT us Woo Merrill DO LAB BLOOD BKR ORDERABLES Final R esult [address] [address] * (ABNORMAL) Comprehensive metabolic panel (12/17/2023 8:56 AM EDT) SODIUM 142 133 - 146 mmol/L [facility] POTASSIUM 4.1 3.3 - 5.1 mmol/L [facility] CHLORIDE 107 96 - 108 mmol/L [facility] CO2 24 21 - 35 mmol/L [facility] BUN 39(H) 6 - 19 mg/dL [facility] CREATININE 1.30 0.5 - 1.5 mg/dL [facility] GLUCOSE 145(H) 70 - 99 mg/dL [facility] ALBUMIN 4.1 3.9 - 4.8 g/dL [facility] TOTAL PROTEIN 7.2 6.5 - 8.0 g/dL [facility] CALCIUM 9.2 8.4 - 10.3 mg/dL [facility] ALKALINE PHOSPHATASE 58 39 - 117 U/L [facility] TOTAL BILIRUBIN 0.4 0.0 - 1.2 mg/dL [facility] AST 25 0 - 37 U/L [facility] ALT 32 0 - 40 U/L [facility] GLOBULIN 3.1 1 - 4.8 g/dL [facility] EGFR 63 >59 mL/min/1.7 3m2 [facility] Comment:Estimated glomerular filtration rate calculated using the CKD-EPI refit equation. ANION GAP 15 10 - 20 mmol/L [facility] Blood 12/17/2023 8:56 AM EDT 12/17/2023 9:19 AM EDT Woo Merrill DO LAB BLOOD BKR ORDERABLES Final R esult [facility] [address] [place] [address] from Last 3 Months or Most Recently Relevant to Health Maintenance Insurance [place] [place] [address] [place] [address] [place] [address] [place] [address] [place] [address] [place] [address] [place] [address] [place] [address] ACO [facility]CO [facility] ACO Care Teams Assurance Manager Relationship Specialty Start Date End Date Sujata Diehl MD [address] [place] [phone] PCP - General Internal Medicine 10/04/18 Additional Source Comments The information contained in this document represents components of the legal health record. It is not the complete legal health record.[facility]
--- OUTSIDE RECORDS SUMMARY | 2025-01-28 09:48 | XMS_ITS | Encounter Summary ---
Author Organization [employer] Address [address] [facility] [address] [place] [address] Care Team Providers Care Project Executive Name Role Phone Provider, Not In System Primary Care Provider Un available Elham Cerna OD Unavailable Jacob Holm Unavailable Unavail able Encounter Details Date Type Department Care Team (Late st Contact Info) Description 04/05/2023 Orders Only [place] [facility] OPTOMETRY [address] [place] [address] Alexandra Hamilton RMA Social History Tobacco Use [...] on filedocumented in this encounter Care Teams Project Executive Relationship Specialty Start Date End Date Provider, Not In System PCP - General Family Medicine 02/20/23 Elham Cerna OD [address] [place] [address] Optometry 02/20/23 Jacob Holm Community Health Worker 03/06/23 documented as of this encounter
--- OUTSIDE RECORDS SUMMARY | 2025-01-28 09:49 | XMS_ITS | Encounter Summary ---
Author Organization [employer] Address [address] [place] [address] Care Team Providers Care Software Verification Engineer Name Role Phone Provider, Not In System Primary Care Provider Un available Elham Cerna OD Unavailable Jacob Holm Unavailable Unavail able Reason for Visit * Reason Comments Med Change Request Encounter Details Date Type Department Care Team (Late st Contact Info) Description 11/04/2024 Chuy Luna [facility] OPTOMETRY [address] [place] [address] Maximus Ferrer, OD [address] [place] [address] Allergic conjunctivitis of both eyes Social History [...] conjunctivitis documented in this encounter Care Teams Software Verification Engineer Relationship Specialty Start Date End Date Provider, Not In System PCP - General Family Medicine 02/20/23 Elham Cerna OD [address] [place] [phone] Optometry 02/20/23 Jacob Holm Community Health Worker 03/06/23 documented as of this encounter
== END 2025-01-28 09:54 | disposition home or self-care (01) ==
LOC: HO.HKA 09:08
PROVIDERS: PCP Internal Medicine; Visit Provider Internal Medicine Nephrology
DX: I10 Essential (primary) hypertension (principal); N18.32 Chronic kidney disease, stage 3b; N17.9 Acute kidney failure, unspecified
CPT/HCPCS: 99214

== ENCOUNTER → 2025-01-28 09:07 | Outpatient (BNVA) | payer OTHER, SELFPAY | PROVIDERS: PCP Internal Medicine; Visit Provider Internal Medicine Nephrology | DX: I12.9 Hypertensive chronic kidney disease with stage 1 through stage 4 chronic kidney disease, or unspecified chronic kidney disease (principal); N18.32 Chronic kidney disease, stage 3b; E11.22 Type 2 diabetes mellitus with diabetic chronic kidney disease; N17.9 Acute kidney failure, unspecified; Z79.84 Long term (current) use of oral hypoglycemic drugs; Z79.899 Other long term (current) drug therapy | CPT/HCPCS: 99212 ==

== ENCOUNTER 2025-02-18 08:26 | Outpatient (REF) | payer OTHER, SELFPAY ==
--- OUTSIDE RECORDS SUMMARY | 2025-02-18 08:29 | XMS_ITS | Clinical Summary ---
Author Organization [facility] Address [address] [place] [phone] Phone Care Team Providers Care Mobile Architect Name Role Phone Sujata Diehl MD Primary Care Provider [phone] Allergies Active Allergy Reactions Criticality Noted Date Comments Lisinopril High 08/08/2024 Other Reaction(s): increasing creatinine Nsaids (Non-Steroidal Anti-Inflammatory Drug) Unknown 10/15/2024 per pt supervisor payroll advised cannot take Penicillins 10/29/2018 Medications fenofibrate (LOFIBRA) 160 MG [...] mg by mouth as directed. Active vitamins A,C,K-udjb-mjcqs r (PRESERVISION AREDS) [id number] wmat-do-wblw Cap Take 1 capsule by mouth 2 (two) times a day with meals. Active FREESTYLE SHIRIN 2 SENSOR kitIndications:T ype 2 diabetes mellitus with stage 3a chronic kidney disease, without long-term current use of insulin 1 each by Miscellaneous route as needed for other (free text field). Use as instructed 2 kit 11 02/24/20 Active Additional Information Patient not taking.Reported on 02/11/2025 FREESTYLE SHIRIN 2 READERIndication s:Type 2 diabetes mellitus with stage 3a chronic kidney disease, without long-term current use of insulin 1 each by Miscellaneous route as needed for other (free text field). Use as instructed 1 each 02/24/20 Active Additional Information Patient not taking.Reported on 02/11/2025 pioglitazone (ACTOS) 15 MG tabletIndication s:Type 2 diabetes mellitus with stage 3a chronic kidney disease, without long-term current use of insulin Take 1 tablet (15 mg total) by mouth daily. 90 tablet 1 10/17/19 Active Additional Information Patient not taking.Reported on 02/11/2025 amLODIPine (NORVASC) 2.5 MG tablet Take 1 tablet by mouth every morning. 02/05/20 Active olopatadine (PATADAY) 0.2 % Drop Place 1 drop into each eye daily. Active sennosides-docus ate sodium 8.6-50 mg Cap Take by mouth. 03/06/19 25 Active LUTEIN, BULK, MISC 1 capsule by Miscellaneous route daily. Active insulin glargine (LANTUS SOLOSTAR U-100 INSULIN) 100 unit/mL (3 mL) InPn injection penIndications:T ype 2 diabetes mellitus with stage 3a chronic kidney disease, without long-term current use of insulin Inject 40 Units under the skin daily. 45 mL 1 02/12/20 Active insulin lispro (ADMELOG, HUMALOG) 100 unit/mL [...] than 400 =22 units 30 mL 1 02/12/20 25 Active JARDIANCE 25 mg tabletIndication s:Type 2 diabetes mellitus with stage 3a chronic kidney disease, without long-term current use of insulin Take 1 tablet (25 mg total) by mouth daily. 90 tablet 1 02/12/20 25 Active dulaglutide (TRULICITY) 4.5 mg/0.5 mL subcutaneous injectionIndicat ions:Type 2 diabetes mellitus with stage 3a chronic kidney disease, without long-term current use of insulin Inject 0.5 mL (4.5 mg total) under the skin every 7 days. 6 mL 1 02/12/20 25 Active lancets 28 gauge Misc 1 each by Miscellaneous route 4 (four) times a day before meals and nightly. 400 each 3 02/12/20 25 Active ULTRA-FINE PEN NEEDLE 31 gauge x 3/16 Ndle Inject 1 each under the skin 4 (four) times a day before meals and nightly. 400 each 3 02/12/20 25 Active FREESTYLE LITE Strp strips Inject 1 each under the skin 4 (four) times a day before meals and nightly. 400 strip 3 02/12/20 25 Active FREESTYLE LITE Strp strips Inject 1 each under the skin 4 (four) times a day before meals and nightly. 400 strip 3 06/28/19 25 025 Discontin ued(Reord er) lancets 28 gauge Misc 1 each by Miscellaneous route 4 (four) times a day before meals and nightly. 400 each 3 06/28/19 25 025 Discontin ued(Reord er) JARDIANCE 25 mg tabletIndication s:Type 2 diabetes mellitus with stage 3a chronic kidney disease, without long-term current use of insulin Take 1 tablet (25 mg total) by mouth daily. 90 tablet 1 10/17/19 25 025 Discontin ued(Reord er) dulaglutide (TRULICITY) 4.5 mg/0.5 mL subcutaneous injectionIndicat ions:Type 2 diabetes mellitus with stage 3a chronic kidney disease, without long-term current use of insulin Inject 0.5 mL (4.5 mg total) under the skin every 7 days. 6 mL 1 10/17/19 25 025 Discontin ued(Reord er) ULTRA-FINE PEN NEEDLE 31 gauge x 3/16 Ndle USE SUBCUTANEOUSLY 5X DAY FOR TYPE 2 DIABETES 09/26/19 25 025 Discontin ued(Reord er) insulin glargine (LANTUS SOLOSTAR U-100 INSULIN) 100 unit/mL (3 mL) InPn injection penIndications:T ype 2 diabetes mellitus with stage 3a chronic kidney disease, without long-term current use of insulin Inject 42 Units under the skin daily. 45 mL 01/08/20 25 025 Discontin ued(Reord er) insulin lispro (ADMELOG, HUMALOG) 100 unit/mL injection [...] than 400 =22 units 30 mL 01/08/20 025 Discontin ued(Reord er) Active Problems Problem [...] LDL goal <100 11/24/2022 Assessment & Plan (02/11/2025 9:58 AM EST): Controlled. LDL 70 mg/dL atorvastatin 20, fenofibrate. Assessment & Plan (10/16/2024 10:51 AM EDT): [...] use of insulin 08/11/2022 Assessment & Plan (02/11/2025 9:58 AM EST): Good control hemoglobin A1c 6.8% but he has had 4% hypoglycemia and we do not want this to be higher than 3%. So I am going to decrease the Lantus to 40 units because the hypoglycemia only happens in the morning. He should continue the current regimen other than the change in the Lantus. He should repeat hemoglobin A1c prior to the follow-up visit in 6 months. Assessment & Plan (10/16/2024 10:50 AM EDT): [...] because he cannot see but he has CAGE UNLOADER that help him with insulin administration based [...] Today I sent a message to the emergency medicine medical director requesting cryopreservation for the Dexcom [...] day. I think he will benefit from [employer] G7 CGM. This he can use on Sunday through Sunday so of course all week but he is only getting monitored by the director of operations home health during the weekdays and on weekends he only has 3 hours of monitoring so he uses his talking meter but at times he does not use it at all even though he has a talking meter. The CGM may not be so helpful for him during the weekend but he does have a trailers and motor homes salesperson that can review this for him. I [...] Encounters Date Type Department Care Team Description 02/11/2025 9:30 AM EST Office Visit [facility] [address] [place] [address] Woo Merrill DO Type 2 diabetes mellitus with stage 3a chronic kidney disease, without long-term current use of insulin (Primary Dx); Hyperlipidemia LDL goal <70 01/07/2025 Refill [facility] Endocrinology [facility] [address] [place] [address] Woo Merrill, DO Medication Refill 12/04/2024 Telephone [facility] [address] [place] [address] Woo Merrill, DO Medication Refill 12/01/2024 Telephone [facility] End[facility] [address] [place] [address] Barbie Keene MA from Last 3 Months Family History Medical [...] Pressure 122/78 10/16/2024 10:18 AM EDT Pulse 77 02/11/2025 9:27 AM EST Temperature - - Respiratory Rate 16 08/11/2022 10:1 5 AM EDT Oxygen Saturation 98% 02/11/2025 9:27 AM EST Inhaled Oxygen Concentration - - Weight 106.3 kg (234 lb 6.4 oz) 02/11/2025 9:27 AM EST Height 172.7 cm (5' 7.99 ) 02/11/2025 9:27 AM ES T Body Mass Index 35.65 02/11/2025 9:27 AM EST Plan of Treatment Upcoming Encounters Date Type Department Care Team (Late st Contact Info) Description 08/13/2025 9:30 AM EDT Office Visit [facility] [address] [place] [address] Woo Merrill DO [address] [place] [phone] [email or web address] Health Maintenance Due Date Last Done Comments [...] 01/12/2017, 04/12/2016 INFLUENZA VACCINE (#1) 2024 , 04/21/2021, 12/19/2019, Additional history exists COVID-19 VACCINE ( - 2024- season) 2024 03/23/2021, 06/04/2020, 05/14/2020 DIABETIC EYE EXAM 07/01/2025 07/01/2024, , 05/04/2020, Additional history exists HEMOGLOBIN A1C 08/05/2025 02/04/2025, 08/0 02/2024, 06/23/2024, Additional history exists BLOOD PRESSURE 08/12/2025 02/11/2025 CREATININE LEVEL 02/04/2026 02/04/2025, , 11/21/2022 SMOKING STATUS SCREENING (Once After 26 Yrs) [...] Procedure Name Priority Date/Time Associated Diagnosis Comments MICROALBUMIN/CREATIN INE RATIO, RANDOM URINE Routine 02/04/2025 8:44 AM EST Type 2 diabetes mellitus with stage 3a chronic kidney disease, without long-term current use of insulin LIPID PANEL Routine 02/04/2025 8:39 AM EST Type 2 diabetes mellitus with stage 3a chronic kidney disease, without long-term current use of insulin Hyperlipidemia LDL goal <100 RENAL PANEL Routine 02/04/2025 8:39 AM EST Type 2 diabetes mellitus with stage 3a chronic kidney disease, without long-term current use of insulin HEMOGLOBIN A1C Routine 02/04/2025 8:39 AM EST Type 2 diabetes mellitus with stage 3a chronic kidney disease, without long-term current use of insulin from Last 3 Months Results * (ABNORMAL) Microalbumin/Creatinine Ratio, Random Urine (02/04/2025 8:44 AM EST) Creatinine, Urine 101 mg/dL 02/04/2025 11:02 AM [facility] Microalbumin, Urine 28.7(H) <2.0 mg/dL 02/04/2025 11:02 AM [facility] MALB/CRE 284.2(H) <30.0 mg/g Cre 02/04/2025 11:02 AM [facility] Urine (Urine, Voided) Non-Blood Collection / Unknown 02/04/2025 8:44 AM EST 02/04/2025 8:44 AM EST [facility] - 02/04/2025 11:02 AM EST The reference interval(s) are unavailable for this specimen type. Comparison of this result with other laboratory results, such as the concentration in the blood, serum, or plasma, is recommended. The test result should be integrated into the clinical context for interpretation. us Woo [place] DO LAB URINE ORDERABLES Final Resul t [address] [address] * (ABNORMAL) Renal Panel (02/04/2025 8:39 AM EST) Sodium 143 136 - 145 mmol/L 02/04/2025 11:29 AM [facility] Potassium 4.2 3.4 - 5.1 mmol/L 02/04/2025 11:29 AM [facility] Chloride 104 98 - 107 mmol/L 02/04/2025 11:29 AM [facility] CO2 28 20 - 31 mmol/L 02/04/2025 11:29 AM [facility] Anion Gap 11 3 - 17 mmol/L 02/04/2025 11:29 AM [facility] BUN 29(H) 6 - 23 mg/dL 02/04/2025 11:29 AM [facility] Creatinine 1.40(H) 0.60 - 1.30 mg/dL 02/04/2025 11:29 AM [facility] eGFR 57(L) >59 mL/min/1.7 3m2 02/04/2025 11:29 AM [facility] Comment:Estimated glomerular filtration rate calculated using the CKD-EPI refit equation. Glucose 91 70 - 99 mg/dL 02/04/2025 11:29 AM [facility] Calcium 10.8(H) 8.5 - 10.5 mg/dL 02/04/2025 11:29 AM [facility] Phosphorus 3.2 2.5 - 4.5 mg/dL 02/04/2025 11:29 AM [facility] Albumin 4.2 3.5 - 5.2 g/dL 02/04/2025 11:29 AM [facility] Blood (Blood) Venipuncture / Unknown 02/04/2025 8:39 AM EST 02/04/2025 8:39 AM EST Woo Merrill DO LAB BLOOD BKR ORDERABLES Final R esult [address] [address] * (ABNORMAL) Hemoglobin A1c (02/04/2025 8:39 AM EST) Hemoglobin A1c 6.8(H) 4.3 - 5.6 % 02/04/2025 11:49 AM [facility] Calculated Mean Blood Glucose 148 mg/dL 02/04/2025 11:49 AM [facility] Comment:There is no [facility] normal range for the Estimated Average Glucose (EAG). However, a HbA1c of 5.6% (upper limit of normal) represents an EAG of 114 mg/dL. The diagnostic HbA1c level for diabetes is greater than or equal to 6.5%, which represents an EAG greater than or equal to 140 mg/dL. Blood (Blood) Venipuncture / Unknown 02/04/2025 8:39 AM EST 02/04/2025 8:39 AM EST Woo Merrill DO LAB BLOOD BKR ORDERABLES Final R esult [address] [address] * (ABNORMAL) Lipid Panel (02/04/2025 8:39 AM EST) Cholesterol 134 <200 mg/dL 02/04/2025 11:29 AM [facility] HDL 38(L) >=40 mg/dL 02/04/2025 11:29 AM [facility] Calculated LDL 70 <130 mg/dL 02/04/2025 11:29 AM [facility] Comment:LDL is calculated us ing the Curry-NIH equation (TAJ Cardiol. 2019June 26;5(5):540-548). Non-HDL Cholesterol 96 mg/dL 02/04/2025 11:29 AM [facility] Comment:Guidelines suggest a non-HDL cholesterol goal 30 mg/dL higher than the patient-specific LDL cholesterol goal. Cardiac Risk Ratio 3.5 0.0 - 5.0 2024 11:29 AM [facility] Triglycerides 147 <=150 mg/dL 02/04/2025 11:29 AM EST [facility] Blood (Blood) Venipuncture / Unknown 02/04/2025 8:39 AM EST 02/04/2025 8:39 AM EST Woo Merrill DO LAB BLOOD BKR ORDERABLES Final R esult [facility] [address] [place] [address] from Last 3 Months Insurance [place] [place] [address] [place] [address] [place] [address] [place] [address] [address] [place] [address] [employer] [facility] [place] [address] [place] [address] ACO Care Teams Mobile Architect Relationship Specialty Start Date End Date Sujata Diehl MD [address] [place] [phone] PCP - General Internal Medicine 10/04/18 Additional Source Comments The information contained in this document represents components of the legal health record. It is not the complete legal health record.[facility]
--- OUTSIDE RECORDS SUMMARY | 2025-02-18 08:29 | XMS_ITS | Encounter Summary ---
Author Organization [employer] [facility] Address [address] [place] [address] Care Team Providers Care [place] Manager Name Role Phone Provider, Not In System Primary Care Provider Un available Elham Cerna OD Unavailable Jacob Holm Unavailable Unavail able Reason for Visit * Reason Comments Med Change Request Encounter Details Date Type Department Care Team (Late st Contact Info) Description 11/04/2024 Chuy Luna [facility] OPTOMETRY [address] [place] [address] Maximus Ferrer, OD [address] [place] [address] Allergic conjunctivitis of both eyes Social History [...] conjunctivitis documented in this encounter Care Teams [place] Manager Relationship Specialty Start Date End Date Provider, Not In System PCP - General Family Medicine 02/20/23 Elham Cerna OD [address] [place] [phone] Optometry 02/20/23 Jacob Holm Community Health Worker 03/06/23 documented as of this encounter
--- OUTSIDE RECORDS SUMMARY | 2025-02-18 08:29 | XMS_ITS | Encounter Summary ---
Author Organization [employer] Address [address] [place] [address] Care Team Providers Care Power Lineman Name Role Phone Provider, Not In System Primary Care Provider Un available Elham Cerna OD Unavailable Jacob Holm Unavailable Unavail able Encounter Details Date Type Department Care Team (Late st Contact Info) Description 04/05/2023 Orders Only Tama [facility] OPTOMETRY [address] [place] [address] Alexandra Hamilton RMA Social History Tobacco Use [...] on filedocumented in this encounter Care Teams Power Lineman Relationship Specialty Start Date End Date Provider, Not In System PCP - General Family Medicine 02/20/23 Elham Cerna OD [address] [place] [phone] Optometry 02/20/23 Jacob Holm Community Health Worker 03/06/23 documented as of this encounter
--- OUTSIDE RECORDS SUMMARY | 2025-02-18 08:29 | XMS_ITS | Clinical Summary ---
Author Organization [employer] Address [address] [place] [address] Care Team Providers Care Senior Center Director Name Role Phone Provider, Not In System [...] 3 chronic kidney disease (CMS/HCC) 011 03/28/2023 Family History Medical History Relation Name [...] age to complete this topic Insurance O [facility] [address] [place] [id number] [place], [place] [address] [facility] [employer] Care Teams Senior Center Director Relationship Specialty Start Date End Date Provider, Not In System PCP - General Family Medicine 02/20/23 Elham Cerna OD [address] [place] [address] Optometry 02/20/23 Jacob Holm Community Health Worker 03/06/23
--- OUTSIDE RECORDS SUMMARY | 2025-02-18 08:29 | XMS_ITS | Encounter Summary ---
Author Organization [facility] Address [address] [place] [address] Phone Care Team Providers Care Wrapper Sorter Name Role Phone Sujata Diehl MD Primary Care Provider [phone] Encounter Details Date Type Department Care Team (Late st Contact Info) Description 05/04/2020 Documentation [facility] [address] [address] Soledad Yusuf MS [address] [place] [address] [email or web address] Social History Tobacco Use Types [...] Description 08/13/2025 9:30 AM EDT Office Visit [facility] Endocrinology Clinic [address] [place] [address] Woo Merrill DO [address] [place] [address] [email or web address] documented as of this encounter Visit Diagnoses Not on filedocumented in this encounter Care Teams Wrapper Sorter Relationship Specialty Start Date End Date Sujata Diehl MD [address] [place] [phone] PCP - General Internal Medicine 10/04/18 documented as of this encounter Additional Source Comments The information contained in this document represents components of the legal health record. It is not the complete legal health record.[facility]
[2025-02-18 09:29] LABS: Anion Gap 10 (12-20); Blood Urea Nitrogen 23 mg/dL (9-16); Carbon Dioxide 26 mmol/L (22-29); Chloride 111 mmol/L (96-108); Estimated Glomerular Filt Rate > 60; Potassium 3.8 mmol/L (3.3-5.1); Sodium 143 mmol/L (135-145)
== END 2025-02-18 08:27 | disposition home or self-care (01) ==
LOC: HO.LAB 08:26
PROVIDERS: PCP Internal Medicine; Visit Provider Internal Medicine Nephrology
DX: N18.32 Chronic kidney disease, stage 3b (principal); N17.9 Acute kidney failure, unspecified
CPT/HCPCS: 36415; 80051; 82565; 84520